=== PATIENT | female | born 1975 | race Caucasian/White ===

== ENCOUNTER 2023-11-26 07:49 | Outpatient (OUT) | payer OTHER, SELFPAY ==
[2023-11-26 08:15] LABS: Basophils Absolute Auto 0.1 10^3/uL (0.0-0.1); Basophils Percent Auto 0.7 % (0.2-2.0); Eosinophils Absolute Auto 0.3 10^3/uL (0.0-0.7); Eosinophils Percent Auto 4.9 % (0.9-7.0); Hemoglobin 13.2 g/dL (12.0-16.0); Immature Granulocytes Abs Auto 0.02 10^3/uL (0.00-0.03); Immature Granulocytes Pct Auto 0.3 % (0.0-0.5); Lymphocytes Absolute Auto 1.9 10^3/uL (1.2-3.8); Lymphocytes Percent Auto 28.1 % (20.5-60.0); Mean Corpuscular Hemoglobin 28.8 pg (26.7-34.0); Mean Corpuscular Volume 87.3 fL (81.0-99.0); Mean Platelet Volume 10.5 fL (9.5-13.5); Monocytes Absolute Auto 0.5 10^3/uL (0.3-0.8); Monocytes Percent Auto 6.6 % (1.7-12.0); Neutrophils Percent Auto 59.4 % (43.0-75.0); Platelet Count 248 10^3/uL (150-450); Red Blood Count 4.58 10^6/uL (4.20-5.40); Red Cell Distribution Width 13.3 % (11.0-15.0); White Blood Count 6.8 10^3/uL (4.0-11.0)
[2023-11-26 08:29] LABS: Erythrocyte Sedimentation Rate 28 mm/hr (<=20)
[2023-11-26 11:24] LABS: Alanine Aminotransferase 29 U/L (14-59); Albumin Globulin Ratio 1.1; Albumin Level 3.8 g/dL (3.4-5.0); Alkaline Phosphatase 76 U/L (46-116); Anion Gap 10.6; Aspartate Amino Transferase 19 U/L (15-37); BUN Creatinine Ratio 22.5; Bilirubin Total 0.5 mg/dL (0.2-1.0); C Reactive Protein 1.44 mg/dL (<=0.50); Calcium 9.2 mg/dL (8.5-10.1); Carbon Dioxide 31.5 mmol/L (21.0-32.0); Chloride 102 mmol/L (98-107); Estimated GFR (African America >60 (>=60); Estimated GFR (Non-African Ame >60 (>=60); Globulin 3.4 g/dL; Glucose 72 mg/dL (74-106); Potassium 4.1 mmol/L (3.5-5.1); Sodium 140 mmol/L (136-145); TSH W/ REFLEX FT4 2.785 uIU/mL (0.358-3.740); Total Protein 7.2 g/dL (6.4-8.2); Uric Acid 6.2 mg/dL (2.6-6.0)
[2023-11-27 06:09] LABS: Antistreptolysin O Ab 131.3 IU/mL (0.0-200.0); Rheumatoid Factor (RF) 10.4 IU/mL (<14.0)
[2023-11-27 13:11] LABS: Anti-CCP Ab, IgG/IgA 7 units (0-19)
[2023-11-29 15:09] LABS: Antinuclear Antibodies, IFA Negative (.)
== END 2023-11-26 07:50 | disposition home or self-care (01) ==
LOC: LAB 07:53
PROVIDERS: PCP Nurse Practitioner Family; Visit Provider Nurse Practitioner Family
DX: M25.50 Pain in unspecified joint (principal); R68.89 Other general symptoms and signs; I10 Essential (primary) hypertension; F41.9 Anxiety disorder, unspecified
CPT/HCPCS: 36415; 80053; 82306; 82607; 84443; 84550; 85025; 85652; 86038; 86060; 86140; 86200; 86431

== ENCOUNTER 2024-01-12 21:41 | Outpatient (REF) | payer OTHER, SELFPAY ==
--- OUTSIDE RECORDS SUMMARY | 2024-01-12 21:49 | XMS_ITS | CCD ---
Author Organization [facility] Care Team Providers Care Business Banking Manager Name Role Phone iDonisio Grimaldo Primary Care Physician BARBARA DANIELS Attending Unavailable BARBARA DANIELS Attending Unavailable DANIELLEMarisela Referring Unavailable DANIELLE ., DR ANTONIO Admitting Unavailable DANIELLE ., DR ANTONIO Attending Unavailable HOUSE, DR CHOPRA Primary Care Unavailable [place], DR KARLEE Neville Consulting Unavailable DANIELLE ., DR ANTONIO Consulting Unavailable YUKI, ANIYAH Admitting Unavailable YUKI, ANIYAH Attending Unavailable HOUSE, DR CHOPRA Primary Care Unavailable ZIEBER, DR CORNELIO Baez Consulting Unavailable YUKI, ANIYAH Consulting Unavailable HOUSE, DR CHOPRA Admitting Unavailable HOUSE, DR CHOPRA Attending Unavailable HOUSE, DR CHOPRA Primary Care Unavailable HOUSE, DR CHOPRA Consulting Unavailable ZIEBER, DR CORNELIO Baez Consulting Unavailable HOUSE, DR CHOPRA Admitting Unavailable HOUSE, DR CHOPRA Attending Unavailable HOUSE, DR CHOPRA Primary Care Unavailable HOUSE, DR CHOPRA Consulting Unavailable DANIELLE ., DR ANTONIO Admitting Unavailable DANIELLE ., DR ANTONIO Attending Unavailable HOUSE, DR CHOPRA Primary Care Unavailable DANIELLE ., DR ANTONIO Consulting Unavailable GLADIS, THOM Admitting Unavailable GLADIS, THOM Attending Unavailable HOUSE, DR CHOPRA Primary Care Unavailable MISC, DR MIGUEL Consulting Unavailable GLADIS, THOM Admitting Unavailable GLADIS, THOM Attending Unavailable HOUSE, DR CHOPRA Primary Care Unavailable MISC, DR MIGUEL Consulting Unavailable MISC, DR MIGUEL Admitting Unavailable MISC, DR MIGUEL Attending Unavailable HOUSE, DR CHOPRA Primary Care Unavailable SILVINO Bernal Primary Care Provider SILVINO Bernal Attending Provider MD Zeenat Graves Referring Provider [phone] YAHAIRA JONES Attending Unavailable HOUSE, DIONISIO P Referring Unavailable HOUSE, DIONISIO P Primary Care Unavailable HOUSE, DIONISIO P Primary Care Unavailable PHELPS, ZEENAT W Attending Unavailable PHELPS, ZEENAT W Attending Unavailable PHELPS, ZEENAT W Referring Unavailable HOUSE, DIONISIO P Primary Care Unavailable HOUSE, DIONISIO P Primary Care Unavailable PARK, JASON A Attending Unavailable PARK, JASON A Attending Unavailable PARK, JASON A Referring Unavailable HOUSE, DIONISIO P Primary Care Unavailable Ely, Zeenat Referring Unavailable MelviacherBarbara Admitting Unavailable Rohrbacher, Barbara Primary Care Unavailable Rohrbacher, Barbara Attending Unavailable BLACKSTONRENAN Attending Unavailable GUDZ, BRIE Referring Unavailable KELBLEY, BOUCHRA Attending Unavailable GUDZ, BRIE Referring Unavailable KELBLEY, BOUCHRA Attending Unavailable GUDZ, BRIE Referring Unavailable TATTERSBRITANY DEVI Attending Unavailable GUDZ, BRIE Referring Unavailable KELBLEY, BOUCHRA Attending Unavailable GUDZ, BRIE Referring Unavailable KELBLEY, BOUCHRA Attending Unavailable GUDZ, BRIE Referring Unavailable Allergies Allergy Classification Reported Allergen(s) Allergy Type Date of Onset Reaction(s) Facility (1 source) No Known Medication Allergies; Translations: [No Known Medication Allergies] Propensity to adverse reactions (disorder) [facility] Repository (1 source) amLODIPine; Translations: [AMLODIPINE] Drug Allergy 3 [facility] Repository (2 sources) Lisinopril; Translations: [LISINOPRIL] Drug Allergy 3 [facility] Medications Current Medications Medication Drug Class(es) Dates Sig (Normalized) Sig (Original) atorvastatin 20 mg oral tablet (2 sources) HMG-CoA Reductase Inhibitor Start: 11-24-2023 take 20 mg by mouth once daily Atorvastatin Active 20 MG PO Daily November 24, 2023 1:00am Start: 04-02-2022 take 1 mg by mouth once daily Lipitor 20 mg Tab mg tab(s), Oral, Daily, Refills(s) 0 Start Date: 04/02/22 Status: Ordered busPIRone hydrochloride 5 mg oral tablet (1 source) Start: 11-24-2023 take 5 mg by mouth twice daily Buspirone Active 5 MG PO Twice daily November 24, 2023 1:00am carvedilol 12.5 mg oral tablet (2 sources) alpha-Adrenergi c Kris, beta-Adrenergic Kris Start: 11-25-2023 take 12.5 mg by mouth twice daily at mealtime Carvedilol Active 12.5 MG PO Twice daily November 25, 2023 1:00am must administer with a meal/food Start: 04-02-2022 take 1 mg by mouth twice daily carvedilol 12.5 mg Tab mg tab(s), Oral, BID, Refills(s) 0 Start Date: 04/02/22 Status: Ordered clonazePAM 1 mg oral tablet (2 sources) Benzodiazepine Start: 11-24-2023 take 1 mg by mouth twice daily Clonazepam Active 1 MG PO Twice daily November 24, 2023 1:00am Start: 04-02-2022 take 1 tablet by timbo th three times daily Klonopin 1 mg Tab mg tab(s), Oral, TID, Refills(s) 0 Start Date: 04/02/22 Status: Ordered lisinopril 5 mg oral tablet (1 source) Angiotensin Converting Enzyme Inhibitor Start: 04-02-2022 take 1 mg by mouth once daily lisinopril 5 mg Tab mg tab(s), Oral, Daily, Refills(s) 0 Start Date: 04/02/22 Status: Ordered pregabalin 100 mg oral capsule (1 source) Start: 04-02-2022 take 1 mg by mouth twice daily Lyrica 100 mg Cap mg cap(s), Oral, BID, Refills(s) 0 Start Date: 04/02/22 Status: Ordered sertraline 50 mg oral tablet (3 sources) Serotonin Reuptake Inhibitor Start: 11-24-2023 take 100 mg by mouth once daily Sertraline Active 100 MG PO Daily November 24, 2023 1:00am Start: 11-24-2023 take 50 mg by mouth once daily Sertraline Active 50 MG PO Daily November 24, 2023 1:00am Start: 04-02-2022 take 1 mg by mouth once daily Zoloft 100 mg Tab mg tab(s), Oral, Daily, Refills(s) 0 Start Date: 04/02/22 Status: Ordered topiramate 50 mg oral tablet (1 source) Start: 04-02-2022 take 1 mg by mouth twice daily Topamax 50 mg Tab mg tab(s), Oral, BID, Refills(s) 0 Start Date: 04/02/22 Status: Ordered valsartan 80 mg oral tablet (1 source) Angiotensin 2 Receptor Kris Start: 11-24-2023 take 80 mg by mouth once daily Valsartan Active 80 MG PO Daily November 24, 2023 1:00am Problems Active Problems Problem Classification Problem Date Documented Date Episodic/Chronic Anxiety disorders (4 sources) Anxiety; Translations: [Anxiety disorder, unspecified] Onset: 7 04-02-2022 Chronic Coma; stupor; and brain damage (2 sources) Daytime somnolence; Translations: [Somnolence] 11-27-2023 Episodic Conditions associated with dizziness or vertigo (2 sources) Dizziness and giddiness; Translations: [Dizziness] Onset: 4 Episodic Disorders of lipid metabolism (1 source) Hypercholesterolemia 04-02-2022 Chronic Essential hypertension (4 sources) Hypertensive disorder; Translations: [Essential (primary) hypertension] Onset: 4 04-02-2022 Chronic Genitourinary symptoms and ill-defined conditions (4 sources) Urge incontinence; Translations: [Stress incontinence (female) (male)] Onset: 2 Chronic Genitourinary symptoms and ill-defined conditions (1 source) Increased frequency of urination 04-02-2022 Episodic Headache; including migraine (2 sources) Headache Onset: 4 04-02-2022 Episodic Mood disorders (4 sources) Depressive disorder; Translations: [Depression] Onset: 7 04-02-2022 Chronic Nonspecific chest pain (1 source) Chest pain, unspecified; Translations: [Chest pain, unspecified] Onset: 4 Episodic Osteoarthritis (2 sources) Arthritis; Translations: [Unspecified osteoarthritis, unspecified site] 11-25-2023 Chronic Other connective tissue disease (1 source) Other muscle spasm; Translations: [Other muscle spasm] Onset: 4 Episodic Other connective tissue disease (1 source) Pain in left foot; Translations: [Pain in left foot] Onset: 4 Episodic Other connective tissue disease (1 source) Pain in lower limb Onset: 4 Episodic Other ear and sense organ disorders (1 source) Hearing loss 04-02-2022 Chronic Other hematologic conditions (1 source) ESR raised; Translations: [Elevated erythrocyte sedimentation rate] 11-30-2023 Episodic Other hereditary and degenerative nervous system conditions (4 sources) Mild cognitive impairment, so stated; Translations: [MILD COGNTV IMPAIRMNT UNCRTN/UNKNWN] Onset: 3 Chronic Other lower respiratory disease (1 source) Shortness of breath; Translations: [SHORTNESS OF BREATH] Onset: 3 Episodic Other lower respiratory disease (1 source) Snoring; Translations: [Snoring] 11-27-2023 Episodic Other lower respiratory disease (1 source) Apnea; Translations: [Apnea, not elsewhere classified] 11-27-2023 Episodic Other lower respiratory disease (1 source) Apnea, not elsewhere classified; Translations: [Apnea] 11-25-2023 Episodic Other lower respiratory disease (1 source) Snoring; Translations: [Other respiratory abnormalities] 11-25-2023 Episodic Other non-traumatic joint disorders (1 source) Multiple joint pain; Translations: [Pain in unspecified joint] 11-25-2023 Episodic Other non-traumatic joint disorders (1 source) Pain in unspecified joint; Translations: [Pain in joint, multiple sites] 11-25-2023 Episodic Other screening for suspected conditions (not mental disorders or infectious disease) (11 sources) Encounter for screening mammogram for malignant neoplasm of breast; Translations: [Encounter for screening for malignant neoplasm of cervix] Onset: 2 Episodic Residual codes; unclassified (4 sources) Obstructive sleep apnea (adult) (pediatric); Translations: [OBSTRUCTIVE SLEEP APNEA] Onset: 2 Chronic Residual codes; unclassified (1 source) Sleep apnea; Translations: [Sleep apnea, unspecified] 11-27-2023 Chronic Residual codes; unclassified (1 source) Sleep apnea, unspecified; Translations: [Unspecified sleep apnea] 11-25-2023 Chronic Residual codes; unclassified (1 source) Forgetful; Translations: [Other general symptoms and signs] 11-25-2023 Episodic Residual codes; unclassified (2 sources) Other general symptoms and signs; Translations: [Other general symptoms] Onset: 4 11-25-2023 Episodic Spondylosis; intervertebral disc disorders; other back problems (1 source) Radiculopathy, lumbosacral region; Translations: [RADICULOPATHY LUMBOSACRAL REGION] Onset: 3 Episodic Unclassified (3 sources) COUGH, UNSPECIFIED; Translations: [COUGH, UNSPECIFIED] Onset: 3 Unclassified (3 sources) CONTACT W/AND (SUSP) EXPOS COVID-19; Translations: [CONTACT W/AND (SUSP) EXPOS COVID-19] Onset: 2 Unclassified (1 source) Leg Pain, Swelling, Redness Onset: 4 Past or Other Problems Problem Classification Problem Date Documented Date Episodic/Chronic Immunizations and screening for infectious disease (1 source) Encounter for screening for human papillomavirus (HPV); Translations: [ENC SCREENING HUMAN PAPILLOMAVIRUS] Onset: 05-22-2022 Episodic Unclassified (1 source) COUGH, UNSPECIFIED; Translations: [COUGH, UNSPECIFIED] Onset: 12-10-2022 Unclassified (1 source) CONTACT W/AND (SUSP) EXPOS COVID-19; Translations: [CONTACT W/AND (SUSP) EXPOS COVID-19] Onset: 02-20-2022 Results Test Name Value Interpretation Reference Range Facility Alanine aminotransferase [En zymatic activity/volume] in Serum or PlasmaOrdered By: Barbara Bernal on 12-23-2023 ALT [Catalytic activity/Vol] 15 U/L 7-[address] [facility] Albumin [Mass/volume] in Ser um or Plasma by Bromocresol green (BCG) dye binding methoOrdered By: Barbara Bernal on 12-23-2023 Albumin BCG dye [Mass/Vol] 4.3 g/dL 3.5-5.[address] [facility] Alkaline phosphatase [Enzyma tic activity/volume] in Serum or PlasmaOrdered By: Barbara Bernal on 12-23-2023 ALP [Catalytic activity/Vol] 66 U/L 34-[address] [facility] Anti-Streptolysin O Antibody on 12-23-2023 Anti-Streptolysin O Antibody 118.0 Normal 0.0-200.0 [facility] Comment on above: Result Comment: Perf ormed at: - [facility] [address] [id number] Business Analyst Manager: Winston Simon PhD, Phone: [phone] PERFORMED BY: [place] [address] PATHOLOGIST KEYPUNCH OPERATOR LAKHWINDER ALY M.D. Performed By: #### U LACHELLE, CRP, CMP, B12 #### [address] #### ASO #### [facility] , Aspartate aminotransferase [ Enzymatic activity/volume] in Serum or PlasmaOrdered By: Barbara Bernal on 12-23-2023 AST [Catalytic activity/Vol] 13 U/L 13-[address] [facility] Bilirubin.total [Mass/volume ] in Serum or PlasmaOrdered By: Barbara Bernal on 12-23-2023 Bilirubin [Mass/Vol] 0.5 mg/dL 0.3-1.0 [facility] C reactive protein [Mass/vol ume] in Serum or PlasmaOrdered By: Barbara Bernal on 12-23-2023 CRP [Mass/Vol] 1.1 mg/dL 0.0-0.[address] [facility] C-Reactive Proteinon 024 C-Reactive Protein 1.1 mg/dL High 0.0-0.5 [facility] Comment on above: Performed By: #### U LACHELLE, CRP, CMP, B12 #### [address] #### ASO #### [facility] , Calcium [Mass/volume] in Ser um or PlasmaOrdered By: Barbara Bernal on 12-23-2023 Calcium [Mass/Vol] 9.7 mg/dL 8.6-10.3 [facility] Carbon dioxide, total [Moles /volume] in Serum or PlasmaOrdered By: Barbara Bernal on 12-23-2023 CO2 [Moles/Vol] 29.9 mmol/L 21.0-31.0 [facility] Chloride [Moles/volume] in S lloyd or PlasmaOrdered By: Barbara Bernal on 12-23-2023 Chloride [Moles/Vol] 104 mmol/L 98-107 [facility] Comprehensive Metabolic Pane shiva 12-23-2023 Albumin [Mass/Vol] 4.3 g/dL Normal 3.5-5.7 [facility] Comment on above: Performed By: #### U LACHELLE, CRP, CMP, B12 #### [facility] [address] [place] [address] [place] #### ASO #### [facility] , Albumin/Globulin [Mass ratio] 2.0 {ratio} Normal [facility] Comment on above: Performed By: #### U LACHELLE, CRP, CMP, B12 #### [facility] [address] [place] [address] [place] #### ASO #### [facility] , ALP [Catalytic activity/Vol] 66 U/L Normal 34-104 [facility] Comment on above: Performed By: #### U LACHELLE, CRP, CMP, B12 #### [facility] [address] [place] [address] [place] #### ASO #### [facility] , ALT [Catalytic activity/Vol] 15 U/L Normal 7-52 [facility] Comment on above: Performed By: #### U LACHELLE, CRP, CMP, B12 #### [place] [address] [place] #### ASO #### [facility] , Anion gap [Moles/Vol] 8.4 mmol/L Normal 6.0-15.0 [facility] Comment on above: Performed By: #### U LACHELLE, CRP, CMP, B12 #### [facility] [address] [place] [address] [place] #### ASO #### [facility] , AST [Catalytic activity/Vol] 13 U/L Normal 13-39 [facility] Comment on above: Performed By: #### U LACHELLE, CRP, CMP, B12 #### [facility] [address] [place] [address] [place] #### ASO #### [facility] , Bilirubin [Mass/Vol] 0.5 mg/dL Normal 0.3-1.0 [facility] Comment on above: Performed By: #### U LACHELLE, CRP, CMP, B12 #### [place] [address] [place] #### ASO #### [facility] , Calcium [Mass/Vol] 9.7 mg/dL Normal 8.6-10.3 [facility] Comment on above: Performed By: #### U LACHELLE, CRP, CMP, B12 #### [facility] [address] [place] [address] #### ASO #### [facility] , Chloride [Moles/Vol] 104 mmol/L Normal 98-107 [facility] Comment on above: Performed By: #### U LACHELLE, CRP, CMP, B12 #### [address] #### ASO #### [facility] , CO2 [Moles/Vol] 29.9 mmol/L Normal 21.0-31.0 [facility] Comment on above: Performed By: #### U LACHELLE, CRP, CMP, B12 #### [address] #### ASO #### [facility] , Creatinine [Mass/Vol] 0.52 mg/dL Low 0.60-1.20 [facility] Comment on above: Performed By: #### U LACHELLE, CRP, CMP, B12 #### [facility] [address] [place] [address] [place] #### ASO #### [facility] , GFR/1.73 sq M.predicted MDRD (S/P/Bld) [Vol rate/Area] mL/min/{1.73_m2} Normal [facility] Comment on above: Performed By: #### U LACHELLE, CRP, CMP, B12 #### [place] [address] [place] #### ASO #### [facility] , Globulin (S) [Mass/Vol] 2.2 g/dL Normal [facility] Comment on above: Performed By: #### U LACHELLE, CRP, CMP, B12 #### [place] [address] [place] #### ASO #### [facility] , Glucose [Mass/Vol] 78 mg/dL Normal 70-100 [facility] Comment on above: Result Comment: [facility] Glucose Reference Range is dependent on time and content of last meal. Glucose of more than 200 mg/dL in a nonstressed, ambulatory subject supports the diagnosis of Diabetes Mellitus. ADA recommended reference range Performed By: #### U LACHELLE, CRP, CMP, B12 #### [place] [address] [place] #### ASO #### [facility] , Potassium [Moles/Vol] 4.3 mmol/L Normal 3.5-5.1 [facility] Comment on above: Performed By: #### U LACHELLE, CRP, CMP, B12 #### [place] [address] [place] #### ASO #### [facility] , Protein [Mass/Vol] 6.5 g/dL Normal 6.4-8.9 [facility] Comment on above: Performed By: #### U LACHELLE, CRP, CMP, B12 #### [place] [address] [place] #### ASO #### [facility] , Sodium [Moles/Vol] 138 mmol/L Normal 136-145 [facility] Comment on above: Performed By: #### U LACHELLE, CRP, CMP, B12 #### [place] [address] [place] #### ASO #### [facility] , Urea nitrogen [Mass/Vol] 19 mg/dL Normal 7-25 [facility] Comment on above: Performed By: #### U LACHELLE, CRP, CMP, B12 #### [facility] [address] [place] [address] #### ASO #### [facility] , Creatinine [Mass/volume] in Serum or PlasmaOrdered By: Barbara Bernal on 12-23-2023 Creatinine [Mass/Vol] 0.52 mg/dL 0.60-1.20 [facility] Globulin Calc (S) [Mass/Vol] Ordered By: Barbara Bernal on 12-23-2023 Globulin (S) [Mass/Vol] 2.2 g/dL [facility] Glucose [Mass/volume] in Ser um or PlasmaOrdered By: Barbara Bernal on 12-23-2023 Glucose [Mass/Vol] 78 mg/dL 70-100 [facility] Comment on above: ADA recommended refe rence rangeRandom Glucose Reference Range is dependent on time and content of last meal. Glucose of more than 200 mg/dL in a nonstressed, ambulatory subject supports the diagnosis of Diabetes Mellitus. No Panel InformationOrdered By: Barbara Bernal on 12-23-2023 Estimated GFR (CKD-EPI) > 60.0 mL/Min [facility] Creatinine Clearance (Chem N/A [facility] Potassium [Moles/volume] in Serum or PlasmaOrdered By: Barbara Bernal on 12-23-2023 Potassium [Moles/Vol] 4.3 mmol/L 3.5-5.1 [facility] Protein [Mass/volume] in Ser um or PlasmaOrdered By: Barbara Bernal on 12-23-2023 Protein [Mass/Vol] 6.5 g/dL 6.4-8.9 [facility] Serum or plasma albumin/glob ulin mass ratioOrdered By: Barbara Bernal on 12-23-2023 Albumin/Globulin [Mass ratio] 2.0 {ratio} [facility] Serum or plasma anion gap de terminationOrdered By: Barbara Bernal on 12-23-2023 Anion gap [Moles/Vol] 8.4 mmol/L 6.0-15.0 [facility] Sodium [Moles/volume] in Ser um or PlasmaOrdered By: Barbara Bernal on 12-23-2023 Sodium [Moles/Vol] 138 mmol/L 136-145 [facility] Urate [Mass/volume] in Serum or PlasmaOrdered By: Barbara Bernal on 12-23-2023 Urate [Mass/Vol] 5.6 mg/dL 2.3-6.6 [facility] Urea nitrogen [Mass/volume] in Serum or PlasmaOrdered By: Barbara Bernal on 12-23-2023 Urea nitrogen [Mass/Vol] 19 mg/dL 7-[address] [facility] Uric Acidon 12-23-2023 Urate [Mass/Vol] 5.6 mg/dL Normal 2.3-6.6 [facility] Comment on above: Performed By: #### U LACHELLE, CRP, CMP, B12 #### [address] #### ASO #### [facility] , Vitamin B12on 12-23-2023 Cobalamin (Vitamin B12) [Mass/Vol] 402 pg/mL Normal 180-914 [facility] Comment on above: Result Comment: PERF ORMED BY: [place] [address] PATHOLOGIST KEYPUNCH OPERATOR LAKHWINDER ALY M.D. Performed By: #### U LACHELLE, CRP, CMP, B12 #### [place] [address] [place] #### ASO #### [facility] , Vitamin B12 ser/plasOrdered By: Barbara Bernal on 12-23-2023 Cobalamin (Vitamin B12) [Mass/Vol] 402 pg/mL 180-[address] [facility] XR hand BI 2Von 12-23-2023 XR hand BI 2V [facility] [place] [address] [place] [address] XRay Report Signed Patient: Jeannine Feliciano MR#: [id number] : 1975 Acct:[id number] Age/Sex: 48 / F ADM Date: 12/23/23 Loc: [facility] Room: Type: [facility] Attending Dr: SANTOSH Haro APRN Copies to: Barbara Bernal APRN, CNP Ordering Provider: Barbara Bernal APRN, CNP Date of Service: 12/23/23 XR/XR hand BI 2V: HAND PAIN XR hand BI 2V 12/23/2023 3:05 PM SIGNS AND SYMPTOMS: Pain in bilateral hands PROTOCOL: Frontal and lateral radiographs of the bilateral hands COMPARISON: None FINDINGS: There are a few periarticular cystic changes or erosions in the interphalangeal joints, most notably in the fifth digit on the right. There is mild diffuse soft tissue swelling. There is no fracture or dislocation. There is mild narrowing of the distal interphalangeal joints. There is narrowing of the radiocarpal joint spaces. There is a steep radial inclination measuring 31 degrees on the right and 39 degrees on the left. There is accompanying positive ulnar variance, right greater than left. XR/XR hand BI 2V IMPRESSION: There is a steep radial inclination measuring 31 degrees on the right and 39 degrees on the left. There is accompanying positive ulnar variance, right greater than left. Mild degenerative changes in the radiocarpal joint spaces. Additional degenerative changes are noted as above. Impression dictated by: Eduardo Ponce M.D.12/23/2023 4:17 PM Dictation Location: [place] [address] Transcribed By: [facility] 12/23/23 161 Dictated By: Eduardo Ponce II, MD 12/23/23 1611 Signed By: 12/23/23 161 Normal [facility] Basophils Auto (Bld) [#/Vol] on 11-26-2023 Basophils (Bld) [#/Vol] 0.1 10 3/uL 0.0-0.[address] [facility] Basophils/100 WBC Auto (Bld) on 11-26-2023 Basophils/100 WBC (Bld) 0.7 % 0.2-2.0 F [facility] Eosinophils/100 WBC Auto (Bl d)on 11-26-2023 Eosinophils/100 WBC (Bld) 4.9 % 0.9-7.[address] [facility] Erythrocyte distribution wid th Auto (RBC) [Ratio]on 11-26-2023 Erythrocyte distribution width (RBC) [Ratio] 13.3 % 11.0-15.[address] [facility] Estimated glomerular filtrat ion rate (GFR) non- Americanon 11-26-2023 GFR/1.73 sq M.predicted among non-blacks MDRD (S/P/Bld) [Vol rate/Area] mL/min/{1.73_m2} >=[address] [facility] Globulin Calc (S) [Mass/Vol] on 11-26-2023 Globulin (S) [Mass/Vol] 3.4 g/dL F [facility] Hematocrit Auto (Bld) [Volum e fraction]on 11-26-2023 Hematocrit (Bld) [Volume fraction] 40.0 % 36.0-48.[address] [facility] Hemoglobin [Mass/volume] in Bloodon 11-26-2023 Hemoglobin (Bld) [Mass/Vol] 13.2 g/dL 12.0-16.[address] [facility] Laboratory - Chemistry and C hemistry - challengeon 11-26-2023 Albumin [Mass/Vol] 3.8 g/dL 3.4-5.0 [facility] ALP [Catalytic activity/Vol] 76 U/L 46-[address] [facility] ALT [Catalytic activity/Vol] 29 U/L 14-[address] [facility] AST [Catalytic activity/Vol] 19 U/L 15-[address] [facility] Bilirubin [Mass/Vol] 0.5 mg/dL 0.2-1.0 [facility] Calcium [Mass/Vol] 9.2 mg/dL 8.5-10.1 [facility] Chloride [Moles/Vol] 102 mmol/L 98-107 [facility] CO2 [Moles/Vol] 31.5 mmol/L 21.0-32.0 [facility] Cobalamin (Vitamin B12) [Mass/Vol] 706.0 pg/mL 193.0-986.[address] [facility] Creatinine [Mass/Vol] 0.71 mg/dL 0.55-1.02 [facility] GFR/1.73 sq M.predicted MDRD (S/P/Bld) [Vol rate/Area] mL/min/{1.73_m2} >=[address] [facility] Glucose [Mass/Vol] 72 mg/dL 74-106 [facility] System Potassium [Moles/Vol] 4.1 mmol/L 3.5-5.1 [facility] Protein [Mass/Vol] 7.2 g/dL 6.4-8.2 [facility] Sodium [Moles/Vol] 140 mmol/L 136-145 [facility] TSH Qn 2.785 m[IU]/L 0.358-3.[address] [facility] Urate [Mass/Vol] 6.2 mg/dL 2.6-6.0 [facility] Urea nitrogen [Mass/Vol] 16.0 mg/dL 7.0-18.[address] [facility] Urea nitrogen/Creatinine [Mass ratio] 22.5 mg/mg [facility] Laboratory - Hematology and Cell countson 11-26-2023 ESR (Bld) [Velocity] 28 mm/h <=20 [facility] Immature granulocytes/100 WBC (Bld) 0.3 % 0.0-0.[address] [facility] Leukocytes [#/volume] correc frances for nucleated erythrocytes in Blood by Automated counon 11-26-2023 WBC corrected for nucl RBC Auto (Bld) [#/Vol] 6.8 10 3/uL 4.0-11.[address] [facility] Lymphocytes Auto (Bld) [#/Vo l]on 11-26-2023 Lymphocytes (Bld) [#/Vol] 1.9 10 3/uL 1.2-3.[address] [facility] Lymphocytes/100 WBC Auto (Bl d)on 11-26-2023 Lymphocytes/100 WBC (Bld) 28.1 % 20.5-60.[address] [facility] MCH Auto (RBC) [Entitic mass ]on 11-26-2023 MCH (RBC) [Entitic mass] 28.8 pg 26.7-34.[address] [facility] MCHC Auto (RBC) [Mass/Vol]on 11-26-2023 MCHC (RBC) [Mass/Vol] 33.0 g/dL 29.9-35.2 [facility] MCV Auto (RBC) [Entitic vol] on 11-26-2023 MCV (RBC) [Entitic vol] 87.3 fL 81.0-99.0 F [facility] Monocytes Auto (Bld) [#/Vol] on 11-26-2023 Monocytes (Bld) [#/Vol] 0.5 10 3/uL 0.3-0.[address] [facility] Monocytes/100 WBC Auto (Bld) on 11-26-2023 Monocytes/100 WBC (Bld) 6.6 % 1.7-12.0 F [facility] Neutrophils Auto (Bld) [#/Vo l]on 11-26-2023 Neutrophils (Bld) [#/Vol] 4.0 10 3/uL 1.4-6.[address] [facility] Neutrophils/100 WBC Auto (Bl d)on 11-26-2023 Neutrophils/100 WBC (Bld) 59.4 % 43.0-75.[address] [facility] No Panel Informationon 11-25 25-Hydroxy Vitamin D Total 40.8 ng/mL [facility] Comment on above: <20 ng/mL Vit D defi cient20-<30 ng/mL Vit D dclqdhicvlzc42-340 ng/mL Vit D sufficient>100 ng/mL Potential Toxicity Anti-Streptolysin O Antibody 131.3 [IU]/mL 0.0-200.[address] [facility] Comment on above: Performed at: - [address] [id number] Director: Winston Simon PhD, Phone: [phone] C-Reactive Protein, Quantitative 1.44 mg/dL <=0.[address] [facility] Eosinophils # (Auto) 0.3 10 3/uL 0.0-0.7 [facility] Immature Granulocyte # (Auto) 0.02 10 3/uL 0.00-0.[address] [facility] Platelet mean volume Auto (B ld) [Entitic vol]on 11-26-2023 Platelet mean volume (Bld) [Entitic vol] 10.5 fL 9.5-13.[address] [facility] Platelets Auto (Bld) [#/Vol] on 11-26-2023 Platelets (Bld) [#/Vol] 248 10 3/uL 150-[address] [facility] RBC Auto (Bld) [#/Vol]on RBC (Bld) [#/Vol] 4.58 10 6/uL 4.20-5.40 [facility] Serum nuclear antibody titer on 11-26-2023 Nuclear Ab (S) [Titer] Negative . [facility] Comment on above: Negative <1:80 Borde rline 1:80 Positive >1:80ICAP nomenclature: AC-0For more information about Hep-2 cell patterns useANApatterns.org, the official website for theInternational Consensus on Antinuclear Antibody (RISA)Patterns (ICAP).Performed at: [facility] [employer] [place], [place] [id number] Director: Winston Simon PhD, Phone: [phone] Serum or plasma albumin/glob ulin mass ratioon 11-26-2023 Albumin/Globulin [Mass ratio] 1.1 {ratio} [facility] Serum or plasma anion gap de terminationon 11-26-2023 Anion gap [Moles/Vol] 10.6 mmol/L [facility] Serum or plasma cyclic adeno sine monophosphate measurement (moles/volume)on 11-26-2023 Adenosine monophosphate.cyclic [Moles/Vol] 7 units 0-[address] [facility] Comment on above: Negative <20 Weak po sitive 20 - 39 Moderate positive 40 - 59 Strong positive >59Performed at: [employer] [place], [place] [id number] Director: Winston Simon PhD, Phone: [phone] Serum or plasma rheumatoid f actor measurement (units/volume)on 11-26-2023 Rheumatoid factor Qn 10.4 [IU]/mL <14.0 [facility] CBC AND AUTO DIFFon 02-09-20 24 ABSOLUTE BASOPHIL 0.1 X10E9/L Normal 0.0-0.2 [facility] Comment on above: Performed By: #### 1 0839-9, 29604-4, CBCA, CMP, 91213-4 #### [facility] ([id number]) [address] [place] [address] 76524 ABSOLUTE NEUTROPHIL 5.5 X10E9/L Normal 1.5-6.6 [facility] Comment on above: Performed By: #### 1 0839-9, 17494-4, CBCA, CMP, 08540-8 #### [facility] ([id number]) [address] [place] [address] 09783 Basophils/100 WBC (Bld) 1.0 % Normal [facility] Comment on above: Performed By: #### 1 0839-9, 80158-9, CBCA, CMP, 97894-2 #### [facility] ([id number]) [address] [place] [address] 63686 Eosinophils (Bld) [#/Vol] 0.4 10*3/uL Normal 0.0-0.4 [facility] Comment on above: Performed By: #### 1 0839-9, 87189-0, CBCA, CMP, 53003-1 #### [facility] ([id number]) [address] [place] [address] 38152 Eosinophils/100 WBC (Bld) 4.9 % Normal [facility] Comment on above: Performed By: #### 1 0839-9, 00343-4, CBCA, CMP, 23363-9 #### [facility] ([id number]) [address] [place] [address] 38733 Erythrocyte distribution width (RBC) [Ratio] 13.8 % Normal 11.5-15.0 [facility] Comment on above: Performed By: #### 1 0839-9, 26511-4, CBCA, CMP, 71857-7 #### [facility] ([id number]) [address] [place] [address] 59714 Hematocrit (Bld) [Volume fraction] 40.2 % Normal 35-47 [facility] Comment on above: Performed By: #### 1 0839-9, 70966-5, CBCA, CMP, 37907-6 #### [facility] ([id number]) [address] [place] [address] 85998 Hemoglobin (Bld) [Mass/Vol] 13.6 g/dL Normal 11.7-15.5 [facility] Comment on above: Performed By: #### 1 0839-9, 33879-9, CBCA, CMP, 17710-9 #### [facility] ([id number]) [address] [place] [address] 78545 Lymphocytes (Bld) [#/Vol] 1.9 10*3/uL Normal 1.0-3.5 [facility] Comment on above: Performed By: #### 1 0839-9, 63061-9, CBCA, CMP, 40540-5 #### [facility] ([id number]) [address] [place] [address] 71511 Lymphocytes/100 WBC (Bld) 22.7 % Normal [facility] Comment on above: Performed By: #### 1 0839-9, 17935-5, CBCA, CMP, 17937-0 #### [facility] ([id number]) [address] [place] [address] 09655 MCH (RBC) [Entitic mass] 29.4 pg Normal 27-34 [facility] Comment on above: Performed By: #### 1 0839-9, 75706-5, CBCA, CMP, 63044-2 #### [facility] ([id number]) [address] [place] [address] 26325 MCHC (RBC) [Mass/Vol] 33.9 g/dL Normal 32-36 [facility] Comment on above: Performed By: #### 1 0839-9, 07807-5, CBCA, CMP, 78678-1 #### [facility] ([id number]) [address] [place] [address] 55446 MCV (RBC) [Entitic vol] 87 fL Normal 80-100 [facility] Comment on above: Performed By: #### 1 0839-9, 12115-1, CBCA, CMP, 31999-1 #### [facility] ([id number]) [address] [place] [address] 28591 Monocytes (Bld) [#/Vol] 0.6 10*3/uL Normal 0-0.9 [facility] Comment on above: Performed By: #### 1 0839-9, 84002-6, CBCA, CMP, 34540-3 #### [facility] ([id number]) [address] [place] [address] 91447 Monocytes/100 WBC (Bld) 6.9 % Normal [facility] Comment on above: Performed By: #### 1 0839-9, 44772-2, CBCA, CMP, 16512-4 #### [facility] ([id number]) [address] [place] [address] 13215 Neutrophils/100 WBC (Bld) 64.5 % Normal [facility] Comment on above: Performed By: #### 1 0839-9, 52864-4, CBCA, CMP, 59822-5 #### [facility] ([id number]) [address] [place] [address] 14356 Platelet mean volume (Bld) [Entitic vol] 9.1 fL Normal 7-12 [facility] Comment on above: Performed By: #### 1 0839-9, 18434-9, CBCA, CMP, 39785-5 #### [facility] ([id number]) [address] [place] [address] 56567 Platelets (Bld) [#/Vol] 278 10*3/uL Normal 150-450 [facility] Comment on above: Performed By: #### 1 0839-9, 83626-0, CBCA, CMP, 98115-8 #### [facility] ([id number]) [address] [place] [address] 82395 RBC COUNT 4.64 X10E12/L Normal 3.80-5.20 [facility] Comment on above: Performed By: #### 1 0839-9, 40655-5, CBCA, CMP, 73336-0 #### [facility] ([id number]) [address] [place] [address] 31321 WBC (Bld) [#/Vol] 8.5 10*3/uL Normal 4.0-11.0 [facility] Comment on above: Performed By: #### 1 0839-9, 02129-8, CBCA, CMP, 36660-8 #### [facility] ([id number]) [address] [place] [address] 96876 COMPREHENSIVE METABOLIC PANE Shiva 10-30-2023 Albumin [Mass/Vol] 4.1 g/dL Normal 3.2-5.3 [facility] Comment on above: Performed By: #### 1 0839-9, 87319-9, CBCA, CMP, 01087-2 #### [facility] ([id number]) [address] [place] [address] 87566 ALP [Catalytic activity/Vol] 77 U/L Normal 39-130 [facility] Comment on above: Performed By: #### 1 0839-9, 33936-7, CBCA, CMP, 67347-0 #### [facility] ([id number]) [address] [place] [address] 29614 ALT [Catalytic activity/Vol] 18 U/L Normal 0-31 [facility] Comment on above: Performed By: #### 1 0839-9, 05938-2, CBCA, CMP, 60019-5 #### [facility] ([id number]) [address] [place] [address] 42070 Anion gap [Moles/Vol] 12 mmol/L Normal 5-15 [facility] Comment on above: Performed By: #### 1 0839-9, 28937-5, CBCA, CMP, 09611-7 #### [facility] ([id number]) [address] [place] [address] 93308 AST [Catalytic activity/Vol] 19 U/L Normal 0-41 [facility] Comment on above: Performed By: #### 1 0839-9, 85372-9, CBCA, CMP, 40431-3 #### [facility] ([id number]) [address] [place] [address] 80875 Bilirubin [Mass/Vol] 0.5 mg/dL Normal 0.3-1.2 [facility] Comment on above: Performed By: #### 1 0839-9, 96153-5, CBCA, CMP, 40567-9 #### [facility] ([id number]) [address] [place] [address] 69528 Calcium [Mass/Vol] 9.1 mg/dL Normal 8.5-10.5 [facility] Comment on above: Performed By: #### 1 0839-9, 50593-4, CBCA, CMP, 70488-3 #### [facility] ([id number]) [address] [place] [address] 05992 Chloride [Moles/Vol] 101 mmol/L Normal 98-109 [facility] Comment on above: Performed By: #### 1 0839-9, 73314-1, CBCA, CMP, 32491-3 #### [facility] ([id number]) [address] [place] [address] 94442 CO2 [Moles/Vol] 25 mmol/L Normal 22-32 [facility] Comment on above: Performed By: #### 1 0839-9, 65237-1, CBCA, CMP, 87012-8 #### [facility] ([id number]) [address] [place] [address] 59985 Creatinine [Mass/Vol] 1.16 mg/dL High 0.40-1.00 [facility] Comment on above: Result Comment: METH OD TRACEABLE TO IDMS STANDARD Performed By: #### 1 0839-9, 97282-1, CBCA, CMP, 28808-2 #### [facility] ([id number]) [address] [place] [address] 25197 GFR/1.73 sq M.predicted among non-blacks MDRD (S/P/Bld) [Vol rate/Area] 58 mL/min/{1.73_m2} Low >59 [facility] Comment on above: Result Comment: Reported eGFR is based on the CKD-EPI 2020 equation that does not use a race coefficient. Performed By: #### 1 0839-9, 50030-7, CBCA, CMP, 91263-6 #### [facility] ([id number]) [address] [place] [address] 35435 Glucose [Mass/Vol] 109 mg/dL High 65-99 [facility] Comment on above: Performed By: #### 1 0839-9, 56420-6, CBCA, CMP, 75167-7 #### [facility] ([id number]) [address] [place] [address] 05774 Potassium [Moles/Vol] 4.3 mmol/L Normal 3.5-5.0 [facility] Comment on above: Performed By: #### 1 0839-9, 19102-5, CBCA, CMP, 58993-6 #### [facility] ([id number]) [address] [place] [address] 86016 Protein [Mass/Vol] 6.5 g/dL Normal 6.0-8.0 [facility] Comment on above: Performed By: #### 1 0839-9, 39558-3, CBCA, CMP, 51193-7 #### [facility] ([id number]) [address] [place] [address] 60730 Sodium [Moles/Vol] 138 mmol/L Normal 134-146 [facility] Comment on above: Performed By: #### 1 0839-9, 44161-1, CBCA, CMP, 61338-4 #### [facility] ([id number]) [address] [place] [address] 11228 Urea nitrogen [Mass/Vol] 44 mg/dL High 5-23 [facility] Comment on above: Performed By: #### 1 0839-9, 21465-8, CBCA, CMP, 10192-0 #### [facility] ([id number]) [address] [place] [address] 53305 Fibrin D-dimer DDU (PPP) [Ma ss/Vol]on 10-30-2023 D DIMER <150 Normal <255 [facility] Comment on above: Result Comment: Results <255 ng/mL DDU: The presence of a VTE can safely be excluded with a negative D-Dimer result and Wells score. A negative result doesn't exclude the possibility of DIC. The test be repeated along with other diagnostic tests if the patient's symptoms persist or worsen. [email or web address] Performed By: #### 1 0839-9, 64618-0, CBCA, CMP, 55251-2 #### [facility] ([id number]) [address] [place] [address] 32668 Natriuretic peptide B [Mass/ Vol]on 10-30-2023 BRN NATRIURETIC PEP <5 Normal <100.0 [facility] Comment on above: Performed By: #### C MP, CBCA, 96544-3 #### [facility] ([id number]) [address] [place] [address] 66507 TROPONIN Ion 10-30-2023 Troponin I.cardiac [Mass/Vol] 0.04 ng/mL Normal 0.00-0.04 [facility] Comment on above: Performed By: #### 1 0839-9, 51819-3, CBCA, CMP, 67602-4 #### [facility] ([id number]) [address] [place] [address] 90888 XR CHEST 1 VWon 10-30-2023 XR CHEST 1 VW XR CHEST 1 VW History: lightheadedness Exam/Technique: Single AP view of the chest was obtained Comparison: Chest x-ray 08/09/2021 Findings: Cardiomediastinal silhouette is within normal range. Lungs are clear. There is no focal areas of airspace disease, pleural effusion or pneumothorax. IMPRESSION: Unremarkable chest x-ray Finalized by Lacey Ruiz MD on 10/30/2023 1:[address] [facility] CBC AND AUTO DIFFon 10-15-19 24 ABSOLUTE BASOPHIL 0.1 X10E9/L Normal 0.0-0.2 [facility] Comment on above: Performed By: #### C MP, CBCA, 15995-3 #### [facility] ([id number]) [address] [place] [address] 09747 ABSOLUTE NEUTROPHIL 4.5 X10E9/L Normal 1.5-6.6 [facility] Comment on above: Performed By: #### C MP, CBCA, 98556-2 #### [facility] ([id number]) [address] [place] [address] 12202 Basophils/100 WBC (Bld) 0.9 % Normal [facility] Comment on above: Performed By: #### C MP, CBCA, 21940-8 #### [facility] ([id number]) [address] [place] [address] 93650 Eosinophils (Bld) [#/Vol] 0.3 10*3/uL Normal 0.0-0.4 [facility] Comment on above: Performed By: #### C JESSE, CBCA, 54390-7 #### [facility] ([id number]) [address] [place] [address] 81753 Eosinophils/100 WBC (Bld) 4.0 % Normal [facility] Comment on above: Performed By: #### C JESSE, CBCA, 57824-4 #### [facility] ([id number]) [address] [place] [address] 77722 Erythrocyte distribution width (RBC) [Ratio] 13.6 % Normal 11.5-15.0 [facility] Comment on above: Performed By: #### C JESSE, CBCA, 02007-7 #### [facility] ([id number]) [address] [place] [address] 75434 Hematocrit (Bld) [Volume fraction] 38.8 % Normal 35-47 [facility] Comment on above: Performed By: #### C JESSE, CBCA, 98295-2 #### [facility] ([id number]) [address] [place] [address] 63218 Hemoglobin (Bld) [Mass/Vol] 13.0 g/dL Normal 11.7-15.5 [facility] Comment on above: Performed By: #### C JESSE, CBCA, 95846-8 #### [facility] ([id number]) [address] [place] [address] 59410 Lymphocytes (Bld) [#/Vol] 3.0 10*3/uL Normal 1.0-3.5 [facility] Comment on above: Performed By: #### C MP, CBCA, 18904-3 #### [facility] ([id number]) [address] [place] [address] 72572 Lymphocytes/100 WBC (Bld) 34.8 % Normal [facility] Comment on above: Performed By: #### C JESSE, CBCA, 89126-5 #### [facility] ([id number]) [address] [place] [address] 39385 MCH (RBC) [Entitic mass] 28.8 pg Normal 27-34 [facility] Comment on above: Performed By: #### C JESSE, CBCA, 51439-5 #### [facility] ([id number]) [address] [place] [address] 46612 MCHC (RBC) [Mass/Vol] 33.4 g/dL Normal 32-36 [facility] Comment on above: Performed By: #### C JESSE, CBCA, 01650-8 #### [facility] ([id number]) [address] [place] [address] 07444 MCV (RBC) [Entitic vol] 86 fL Normal 80-100 [facility] Comment on above: Performed By: #### C JESSE, CBCA, 08502-6 #### [facility] ([id number]) [address] [place] [address] 16938 Monocytes (Bld) [#/Vol] 0.6 10*3/uL Normal 0-0.9 [facility] Comment on above: Performed By: #### C JESSE, CBCA, 86175-5 #### [facility] ([id number]) [address] [place] [address] 39157 Monocytes/100 WBC (Bld) 6.8 % Normal [facility] Comment on above: Performed By: #### C JESSE, CBCA, 70143-2 #### [facility] ([id number]) [address] [place] [address] 16974 Neutrophils/100 WBC (Bld) 53.5 % Normal [facility] Comment on above: Performed By: #### C JESSE, CBCA, 88450-5 #### [facility] ([id number]) [address] [place] [address] 63627 Platelet mean volume (Bld) [Entitic vol] 9.0 fL Normal 7-12 [facility] Comment on above: Performed By: #### C JESSE, CBCA, 02433-6 #### [facility] ([id number]) [address] [place] [address] 12770 Platelets (Bld) [#/Vol] 291 10*3/uL Normal 150-450 [facility] Comment on above: Performed By: #### C JESSE, CBCA, 31443-8 #### [facility] ([id number]) [address] [place] [address] 07919 RBC COUNT 4.49 X10E12/L Normal 3.80-5.20 [facility] Comment on above: Performed By: #### C JESSE, CBCA, 68915-6 #### [facility] ([id number]) [address] [place] [address] 59629 WBC (Bld) [#/Vol] 8.5 10*3/uL Normal 4.0-11.0 [facility] Comment on above: Performed By: #### C JESSE, CBCA, 82534-6 #### [facility] ([id number]) [address] [place] [address] 94286 COMPREHENSIVE METABOLIC PANE Shiva 10-15-2023 Albumin [Mass/Vol] 4.1 g/dL Normal 3.2-5.3 [facility] Comment on above: Performed By: #### C JESSE, CBCA, 45421-2 #### [facility] ([id number]) [address] [place] [address] 74145 ALP [Catalytic activity/Vol] 70 U/L Normal 39-130 [facility] Comment on above: Performed By: #### C NATHALIE MOLINA, 62979-6 #### [facility] ([id number]) [address] [place] [address] 89224 ALT [Catalytic activity/Vol] 19 U/L Normal 0-31 [facility] Comment on above: Performed By: #### C NATHALIE MOLINA, 22046-7 #### [facility] ([id number]) [address] [place] [address] 48286 Anion gap [Moles/Vol] 7 mmol/L Normal 5-15 [facility] Comment on above: Performed By: #### C NATHALIE MOLINA, 33453-8 #### [facility] ([id number]) [address] [place] [address] 77394 AST [Catalytic activity/Vol] 14 U/L Normal 0-41 [facility] Comment on above: Performed By: #### C NATHALIE MOLINA, 35706-5 #### [facility] ([id number]) [address] [place] [address] 57982 Bilirubin [Mass/Vol] 0.8 mg/dL Normal 0.3-1.2 [facility] Comment on above: Performed By: #### C NATHALIE MOLINA, 57642-7 #### [facility] ([id number]) [address] [place] [address] 16253 Calcium [Mass/Vol] 9.2 mg/dL Normal 8.5-10.5 [facility] Comment on above: Performed By: #### C NATHALIE MOLINA, 96480-0 #### [facility] ([id number]) [address] [place] [address] 25038 Chloride [Moles/Vol] 105 mmol/L Normal 98-109 [facility] Comment on above: Performed By: #### C NATHALIE MOLINA, 39628-9 #### [facility] ([id number]) [address] [place] [address] 12726 CO2 [Moles/Vol] 25 mmol/L Normal 22-32 [facility] Comment on above: Performed By: #### C NATHALIE MOLINA, 54421-8 #### [facility] ([id number]) [address] [place] [address] 66410 Creatinine [Mass/Vol] 0.67 mg/dL Normal 0.40-1.00 [facility] Comment on above: Result Comment: METH OD TRACEABLE TO IDMS STANDARD Performed By: #### C NATHALIE MOLINA, 75261-2 #### [facility] ([id number]) [address] [place] [address] 84615 eGFR (CKD-EPI) NON-RACE DEPENDENT >90 Normal >59 [facility] Comment on above: Result Comment: Reported eGFR is based on the CKD-EPI 2021 equation that does not use a race coefficient. Performed By: #### C NATHALIE MOLINA, 88220-7 #### [facility] ([id number]) [address] [place] [address] 42038 Glucose [Mass/Vol] 96 mg/dL Normal 65-99 [facility] Comment on above: Performed By: #### C NATHALIE MOLINA, 73276-4 #### [facility] ([id number]) [address] [place] [address] 21136 Potassium [Moles/Vol] 4.1 mmol/L Normal 3.5-5.0 [facility] Comment on above: Performed By: #### C NATHALIE MOLINA, 23575-3 #### [facility] ([id number]) [address] [place] [address] 26267 Protein [Mass/Vol] 6.8 g/dL Normal 6.0-8.0 [facility] Comment on above: Performed By: #### C JESSE CBCA, 14402-0 #### [facility] ([id number]) [address] [place] [address] 69140 Sodium [Moles/Vol] 137 mmol/L Normal 134-146 [facility] Comment on above: Performed By: #### C JESSE CBCA, 50920-8 #### [facility] ([id number]) [address] [place] [address] 80922 Urea nitrogen [Mass/Vol] 26 mg/dL High 5-23 [facility] Comment on above: Performed By: #### C JESSE CBCA, 15066-2 #### [facility] ([id number]) [address] [place] [address] 95405 Fibrin D-dimer DDU (PPP) [Ma ss/Vol]on 10-15-2023 D DIMER 179 ng/mL DDU Normal <255 [facility] Comment on above: Result Comment: Results <255 ng/mL DDU: The presence of a VTE can safely be excluded with a negative D-Dimer result and Wells score. A negative result doesn't exclude the possibility of DIC. The test be repeated along with other diagnostic tests if the patient's symptoms persist or worsen. [email or web address] Performed By: #### C JESSE CBCA, 63216-6 #### [facility] ([id number]) [address] [place] [address] 39476 SARS/FLU A+B/RSV by NAAT/Mol ecularon 10-15-2023 SARS/FLU A+B/RSV by NAAT/Molecular FLU A PCR Negative (qualifier value) FLU B PCR Negative (qualifier value) RSV by PCR Negative (qualifier value) SARS CoV 2 Not detected (qualifier value) NOTE The Xpert Xpress SARS-CoV-2/Flu/RSV Plus test is a rapid, multiplexed real-time RT-PCR test intended for the simultaneous qualitative detection and differentiation of SARS-CoV-2, influenza A, influenza B and respiratory syncytial virus (RSV) viral RNA from individuals suspected of respiratory viral infection consistent with COVID-19 by their healthcare provider. This test has not been validated in asymptomatic patients. The Xpert Xpress SARS-CoV-2 test is intended for use by qualified and trained operators who are performing tests using either [employer] or [facility] systems and is limited to laboratories that meet the CLIA requirements to perform high and moderate complexity tests. The Xpert Xpress SARS-CoV-2/Flu/RSV Plus is only for use under the Food and Drug Administration's Emergency Use Authorization. Results are for the simultaneous detection and differentiation of SARS-CoV-2, influenza A, influenza B and RSV nucleic acids in clinical specimens. SARS-CoV-2, influenza A, influenza B and RSV RNA identified by this test are generally detectable in upper respiratory samples during the acute phase of infection. Positive results are indicative of the presence of the identified virus, but do not rule out bacterial infection or co-infection with other pathogens not detected by this test. Clinical correlation with patient history and other diagnostic information is necessary to determine patient infection status. The agent detected may not be the definite cause of disease. Negative results do not preclude SARS-CoV-2, influenza A, influenza B and RSV infection and should not be used as the sole basis for treatment or other patient management decisions. Negative results must be combined with clinical observations, patient history and epidemiological information. An Invalid result may occur with specimen-associated inhibition unable to be resolved with specimen repeat. Fact Sheet for Healthcare Providers: https://www.fda.gov/m edia/184436/download Fact Sheet for Patients: https://www.fda.gov/m edia/152647/download Normal [facility] Comment on above: Performed By: #### C OVFLR #### [facility] ([id number]) [address] [place] [id number] XR FOOT LT MIN 3 VWSon 10-15 XR FOOT LT MIN 3 VWS XR FOOT LT MIN 3 VW S CLINICAL INFORMATION: Tenderness of the sole of the left foot, evaluate for bony pathology TECHNIQUE/PROCEDURE: 3 views of the left foot COMPARISON: No relevant prior studies available. FINDINGS: Normal alignment. No fracture or periosteal reaction. No osseous erosions. Degenerative changes including calcaneal spurring. IMPRESSION: No acute osseous abnormality. Calcaneal spurring. Finalized by Santino Godoy MD on 10/15/2023 1:[address] [facility] XR CHEST 2 Von 12-10-2022 XR CHEST 2 V EXAMINATION: XR CHES T 2 V HISTORY: Cough COMPARISON: XR chest 05/05/2021 FINDINGS: LUNGS: No significant pulmonary parenchymal abnormalities. VASCULATURE: No increased pulmonary vasculature. PLEURA: No pneumothorax, effusion, or pleural thickening. CARDIAC: No cardiomegaly or cardiac silhouette abnormality. MEDIASTINUM: No visible mass or adenopathy. BONES: No fracture or visible bone lesion. OTHER: Negative. IMPRESSION: 1. No acute cardiopulmonary process. Electronically authenticated by: CORNELIO MANCINI Date: 2022-12-10 08:09 Normal [facility] MRI [facility] WO CONon 11-05-19 23 MRI [facility] WO CON EXAMINATION: MRI LSPINE WO CON HISTORY: Lumbosacral radiculopathy ; chronic lumbar pain, chronic left leg pain and weakness COMPARISON: MRI L-spine 04/19/2020 TECHNIQUE: A variety of imaging planes and parameters were utilized for visualization of suspected pathology. FINDINGS: For the purposes of numbering, sagittal T2 image # 11 extends from the T11 vertebral body superiorly to the S4 level inferiorly. PARASPINAL AREA: Normal with no visible mass. BONES: CORD/CAUDA EQUINA: Normal caliber, contour, and signal intensity. DISC LEVELS: 12-L1: Moderate-marked central canal narrowing without significant foramen narrowing. Moderate diffuse disc bulging without disc height reduction. Mild degenerative facet arthropathy and ligamentum flavum thickening bilaterally. L1-L2: No significant disc/facet abnormality, spinal stenosis, or foraminal stenosis. L2-L3: Moderate central canal and bilateral foramen narrowing. Mild diffuse disc bulging without disc height reduction. Moderate degenerative facet hypertrophy and ligamentum flavum thickening. L3-L4: Moderate marked central canal and moderate bilateral foramen narrowing. Mild diffuse disc bulging without disc height reduction. Moderate degenerative facet arthropathy bilaterally. L4-L5: Mild-moderate central canal and moderate bilateral foramen narrowing. Mild diffuse disc bulging and mild degenerative facet arthropathy bilaterally. No significant disc height reduction. L5-S1: Mild central canal and moderate foramen narrowing bilaterally. Moderate diffuse disc bulging and mild disc height reduction. Mild degenerative facet arthropathy. IMPRESSION: 1. Multilevel central canal and foramen narrowing secondary to degenerative disc disease and degenerative facet arthropathy. Electronically authenticated by: CORNELIO MANCINI Date: 2022-11-05 10:21 Normal [facility] TSHon 11-05-2022 TSH 1.783 uIU/mL Normal 0.358-3.740 [facility] Comment on above: Performed By: #### T SH #### [facility] [address] [place] [address] Dr. Anuel Doran VIT B12 AND FOLATEon 023 Cobalamin (Vitamin B12) [Mass/Vol] 618.0 pg/mL Normal 193.0-986.0 [facility] Comment on above: Performed By: #### B 12FOL #### [facility] [address] [place] [address] Dr. Anuel Doran FOLATE 23.40 ng/mL Normal 8.60-58.90 [facility] Comment on above: Performed By: #### B 12FOL #### [facility] [address] [place] [address] Dr. Anuel Doran MG MAMM SCREEN 3D BIANCA CADon 06-06-2022 MG MAMM SCREEN 3D BIANCA CAD Patient: JEANNINE FELICIANO Exam Date: 06/06/2022 : 1975 Gender:F Ordering : DR MARISELA SANTOS . Admission #: [id number] Family : Order #: [id number] CLICK HERE TO VIEW EXAM RADIOLOGY REPORT PROCEDURE: MAMMOGRAM SCREENING 3D BILATERAL CAD COMPARISON: MG MAMM SCREEN BIANCA W CAD, 09/23/2019. INDICATIONS: Screening mammography Calculator Name NCI Breast Cancer Risk Assessment Tool 5 Year Breast Cancer Risk 0.90% Lifetime Breast Cancer Risk 9.20% Personal Breast Cancer No Personal Ovarian Cancer No Treatments None Family Cancers None LOCATION: [facility] BREAST COMPOSITION: Scattered areas fibroglandular density. FINDINGS: DIAGNOSTIC CATEGORY 1--NEGATIVE. NO CHANGE FROM COMPARISON ASSESSMENT. RIGHT BREAST: No significant suspicious finding. LEFT BREAST: No significant suspicious finding. RECOMMENDATIONS: ROUTINE MAMMOGRAM AND CLINICAL EVALUATION IN 12 MONTHS. PLEASE NOTE: A NORMAL MAMMOGRAM DOES NOT EXCLUDE THE POSSIBILITY OF BREAST CANCER. A CLINICALLY SUSPICIOUS PALPABLE LUMP SHOULD BE BIOPSIED. Dictated by: Karlee Soliz MD on 06/06/2022 at 13:37 Approved by: Karlee Soliz MD on 06/06/2022 at 13:45 Normal [facility] PAP ACOG PANEL 2: 30 to 65on 05-29-2022 . . Normal [facility] Comment on above: Result Comment: Perf ormed at: WB Performed By: #### [id number] #### [facility] [address] [place] [address] Dr. Anuel Doran Age Gdln ACOG Testing 30-65 Normal [facility] Comment on above: Performed By: #### [id number] #### [facility] [address] [place] [address] Dr. Anuel Doran DIAGNOSIS: Comment Normal [facility] Comment on above: Result Comment: NEGA TIVE FOR INTRAEPITHELIAL LESION OR MALIGNANCY. Performed at: WB Performed By: #### [id number] #### [facility] [address] [place] [address] Dr. Anuel Doran HPV Aptima Negative Normal Negative [facility] Comment on above: Result Comment: This nucleic acid amplification test detects fourteen high-risk HPV types (16,18,31,33,35,39,45,51,52,56,58,59,66,68) without differentiation. Performed at: =G Performed By: #### [id number] #### [facility] [address] [address] [address] Anuel Doran Methodology: Comment Normal [facility] Comment on above: Result Comment: This liquid based ThinPrep(R) pap test was screened with the use of an image guided system. Performed at: WB Performed By: #### 4 [id number] #### [facility] [address] [place] [address] Dr. Anuel Doran Note: Comment Normal [facility] Comment on above: Result Comment: The Pap smear is a screening test designed to aid in the detection of premalignant and malignant conditions of the uterine cervix. It is not a diagnostic procedure and should not be used as the sole means of detecting cervical cancer. Both false-positive and false-negative reports do occur. . Performed at: WB Performed By: #### [id number] #### [facility] [address] [place] [address] Dr. Anuel Doran Performed by: Comment Normal [facility] Comment on above: Result Comment: Jocelyne Baltazar, Firer Kiln (ASCP) Performed at: WB Performed By: #### [id number] #### [facility] [address] [address] [address] Anuel Doran Specimen adequacy: Comment Normal [facility] Comment on above: Result Comment: Sati sfactory for evaluation. Endocervical and/or squamous metaplastic cells (endocervical component) are present. Performed at: WB Performed By: #### [id number] #### [facility] [address] [place] [address] Dr. Anuel Doran Formson 04-04-2022 Forms [id number] .[id number]:127 Normal [facility] Physician Referralon 022 Physician Referral [id number] 1.00CD:127 Normal [facility] Ambulatory Visit Summaryon 0 04-02-2022 Ambulatory Visit Summary DEION FELICIANOJEFF Baez :1975 Visit Date:04/02/2022 Ambulatory Visit Instructions Your Diagnosis Stress incontinence Tests Performed Urnls Dip Stick Auto w/o Microscopy POC 88215 Your Care Team Attending Physician - BARBARA DANIELS PA-C Primary Care Physician - Dionisio Grimaldo DO Referring Physician - Marisela SANTOS DO This Is Your Medications List atorvastatin (Lipitor 20 mg Tab) carvedilol (carvedilol 12.5 mg Tab) clonazepam (Klonopin 1 mg Tab) lisinopril (lisinopril 5 mg Tab) pregabalin (Lyrica 100 mg Cap) sertraline (Zoloft 100 mg Tab) topiramate (Topamax 50 mg Tab) Procedures Performed Cholecystectomy. Discharge Vitals Heart Rate (Peripheral) 84 Respiratory Rate 16 Blood Pressure 139/70 Height 154 cm Height 154.0 cm Weight 113 kg Weight 113.0 kg BMI 47.65 What to do next Scheduled Follow-Up Appointments Thursday 9:00 AM EDT With: BARBARA DANIELS PA-C Where: [facility] Ambulatory Visit Summary JEANNINE FELICIANO :1975 Visit Date:04/02/2022 Ambulatory Visit Instructions Your Diagnosis Stress incontinence Tests Performed Urnls Dip Stick Auto w/o Microscopy POC 43747 Your Care Team Attending Physician - BARBARA DANIELS PA-C Primary Care Physician - Dionisio Grimaldo DO Referring Physician - Marisela SANTOS DO This Is Your Medications List atorvastatin (Lipitor 20 mg Tab) carvedilol (carvedilol 12.5 mg Tab) clonazepam (Klonopin 1 mg Tab) lisinopril (lisinopril 5 mg Tab) pregabalin (Lyrica 100 mg Cap) sertraline (Zoloft 100 mg Tab) topiramate (Topamax 50 mg Tab) Procedures Performed Cholecystectomy. Discharge Vitals Heart Rate (Peripheral) 84 Respiratory Rate 16 Blood Pressure 139/70 Height 154 cm Height 154.0 cm Weight 113 kg Weight 113.0 kg BMI 47.65 What to do next Scheduled Follow-Up Appointments Thursday 9:00 AM EDT With: BARBARA DANIELS PA-C Where: [facility] Patient Educationon 04-02-20 Patient Education Obstetrics and Gynecology Kegel Exercises Kegel exercises can help strengthen your pelvic floor muscles. The pelvic floor is a group of muscles that support your rectum, small intestine, and bladder. In females, pelvic floor muscles also help support the womb (uterus). These muscles help you control the flow of urine and stool. Kegel exercises are painless and simple, and they do not require any equipment. Your provider may suggest Kegel exercises to: ? Improve bladder and bowel control. ? Improve sexual response. ? Improve weak pelvic floor muscles after surgery to remove the uterus (hysterectomy) or (females). ? Improve weak pelvic floor muscles after prostate gland removal or surgery (males). Kegel exercises involve squeezing your pelvic floor muscles, which are the same muscles you squeeze when you try to stop the flow of urine or keep from passing gas. The exercises can be done while sitting, standing, or lying down, but it is best to vary your position. Exercises How to do Kegel exercises: 1. Squeeze your pelvic floor muscles tight. You should feel a tight lift in your rectal area. If you are a female, you should also feel a tightness in your vaginal area. Keep your stomach, buttocks, and legs relaxed. 2. Hold the muscles tight for up to 10 seconds. 3. Breathe normally. 4. Relax your muscles. 5. Repeat as told by your health care provider. Repeat this exercise daily as told by your health care provider. Continue to do this exercise for at least 4?6 weeks, or for as long as told by your health care provider. You may be referred to a physical therapist who can help you learn more about how to do Kegel exercises. Depending on your condition, your health care provider may recommend: ? Varying how long you squeeze your muscles. ? Doing several sets of exercises every day. ? Doing exercises for several weeks. ? Making Kegel exercises a part of your regular exercise routine. This information is not intended to replace advice given to you by your health care provider. Make sure you discuss any questions you have with your health care provider. Document Released: 08/24/2013 Document Revised: 04/27/2019 Document Reviewed: 04/27/2019 [employer] Patient Education ? 2019 [employer]. Normal [facility] Patient Letter FTon 2021 Patient Letter [facility] April 02, 2022 SERAFIN JEANNINE R was evaluated at [facility] 04/02/2022 10:17:37 It is my medical opinion that Ms Feliciano drink plenty of fluids to remain properly hydrated while at work. It is equally important that she be allowed and encouraged to utilize the bathroom frequently throughout her work shift, even as often as every 2 hours or more if needed. Ms Feliciano should be allowed and encouraged to follow my medical advice. If you have any questions or concerns please reach out. Provider Signature: Barbara Daniels PA-C Physician Roll Cutting Operator [facility] [address] [place] [address] Normal [facility] Office/Clinic Noteon 04-02-2022 Urology Office/Clinic Note Chief Complaint referred for stress incontinence HPI Staff Jeannine is here today as a new patient referred for stress incontinence. Pt states she has woken up unaware that she has urinated in her sleep. 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 once she's home she goes every 30-90 mins while awake and then while sleeping it varies anywhere from 1-5x Urgency: _varies - severe sometimes at work Nocturia: _varies - see above Stream: _steady, no hesitancy, no straining Leaking: _Denies Post void dripping: _occasional Wearing pads/ Depends: _Denies Urge incontinence: _yes, rare Stress incontinence: _Yes sneeze and coughing Incontinence without Sensory Awareness: _ most of the time is aware when pt leaks Abdominal pain: _Denies Flank pain: _Denies Sexual complaints: _ History of Present Illness staff HPI reviewed and agree. Review of Systems no fever, chills, malaise, myalgia. no rash/lesions. no chest pain, palpitations, or SOB. no abdominal pain, nausea, vomiting. no unilateral calf swelling, redness, pain Physical Exam Vitals & Measurements HR: 84(Peripheral) RR: 16 BP: 139/70 HT: 154 cm HT: 154.0 cm WT: 113 kg WT: 113.0 kg BMI: 47.65 General: nontoxic, NAD Mouth: moist mucosa Lungs: normal respiratory effort Cardio: regular rate, good distal perfusion Abdomen: nondistended, no suprapubic distention or tenderness, no CVA tenderness Neurologic: Grossly normal Skin: No rashes or suspicious lesions Assessment/Plan 1. Urge incontinence (N39.41: Urge incontinence) had long discussion regarding overall bladder health. 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 Recommended increased hydration and timed voiding for bladder retraining. She will void q2hrs while awake. 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 she understands it will take a while to retrain. if sx persist despite consistent timed voiding then we will consider treatment vs urodynamics eval. Ordered: E&M of New Patient Moderate 45-59 Min 63931 2. Stress incontinence (N39.3: Stress incontinence (female) (male)) had extensive discussion regarding pelvic floor muscle rehab. pt provided written information to review at home and prefers to attempt self-guided exercises. if JOSE R persists we will consider formal PFPT at [facility] or [facility] vs Bulkamid vs sling placement. Ordered: E&M of New Patient Moderate 45-59 Min 28264 Urnls Dip Stick Auto w/o Microscopy POC 99721 f/u 3 mos. pt ok to cancel appt and f/u PRN if the above measures improve her sx sufficiently Total time spent reviewing previous notes/results/externa l documents, preparing the chart, conducting the encounter with the patient and family, ordering tests/medications, and documenting the encounter was 50 minutes. Follow-up With When Contact Information JEREMIAH ORSARIO, MARELY VÁZQUEZ Within [address] [place] [address] Additional Instructions: Patient Education Kegel Exercises Problem List/Past Medical History Ongoing Anxiety Deafness Depression Headache Hypercholesteremia Hypertension Stress incontinence Urge incontinence Urine frequency Historical No qualifying data Procedure/Surgical History Cholecystectomy. Medications carvedilol 12.5 mg Tab, Oral, BID Klonopin 1 mg Tab, Oral, TID Lipitor 20 mg Tab, Oral, Daily lisinopril 5 mg Tab, Oral, Daily Lyrica 100 mg Cap, Oral, BID Topamax 50 mg Tab, Oral, BID Zoloft 100 mg Tab, Oral, Daily Allergies No Known Medication Allergies Social History Tobacco - Denies Tobacco Use, 04/02/2022 Family History Alcoholism: Father. Heart disease: Mother. High blood pressure: Mother. High cholesterol: Mother. Lab Results Ambulatory Point of Care Results Bilirubin Urine Dipstick: 1+ Small (04/02/22 09:31:00) Blood Urine Dipstick: Negative (04/02/22 09:31:00) Glucose Urine Dipstick: Negative (04/02/22 09:31:00) Ketones Urine Dipstick: 1+ 15 mg/dl (04/02/22 09:31:00) Leukocytes Urine Dipstick: Negative (04/02/22 09:31:00) Nitrite Urine Dipstick: Negative (04/02/22 09:31:00) Protein Urine Dipstick: Trace (04/02/22 09:31:00) Specific [place] Urine Dipstick: >=1.030 (04/02/22 09:31:00) Urine Appearance Urine Dipstick: Clear (04/02/22 09:31:00) Urine Color Urine Dipstick: Yellow (04/02/22 09:31:00) Urobilinogen Urine Dipstick: Normal 0.2-1 EU/dl (04/02/22 09:31:00) pH Urine Dipstick: 6 (04/02/22 09:31:00) Normal [facility] Comment on above: Result Comment: Elec tronically Signed By: BARBRAA DANIELS PA-C\.br\Date and Time Signed: 04/02/22 11:56 EDT Covid-19 PCR (CVDTB)on SARS-CoV-2 (COVID-19) RNA ILSA+probe Ql (Unsp spec) Not detected Normal NOT DETECTED [facility] Comment on above: Result Comment: This test is not yet approved or cleared by the [place] FDA. When there are no FDA-approved or cleared tests available, and other criteria are met, FDA can make tests available under an emergency access mechanism called an Emergency Use Authorization (EUA). The EUA for this test is supported by the Director Of Sleep of Health and Human Service's (HHS's) declaration that circumstances exist to justify the emergency use of in vitro diagnostics for the detection and/or diagnosis of the virus that causes COVID-19. This EUA will remain in effect (meaning this test can be used) for the duration of the COVID-19 declaration justifying emergency of IVDs, unless it is terminated or revoked by FDA (after which the test may no longer be used). When diagnostic testing is negative, the possibility of a false negative should be considered in the context of a patient's recent exposures and the presence of clinical signs and symptoms consistent with SARS-CoV-2. Performed By: #### [facility] #### [facility] [address] [place] [address] Dr. Anuel Doran Vital Signs Date Time Vital Sign Value Performing Clinician Charly brunner 11-25-2023 08:22-0500 Body height 154.94 cm SECURITY PROJECT MANAGERElena Bernal Work Phone: [facility] 11-25-2023 08:22-0500 Body mass index (BMI) [Ratio] 46.6 kg/m2 SECURITY PROJECT MANAGERElena Bernal Work Phone: [facility] 11-25-2023 08:22-0500 Body weight 112.03 kg SECURITY PROJECT MANAGERElena Bernal Work Phone: [facility] 11-25-2023 08:22-0500 Diastolic blood pressure 80 mm[Hg] SECURITY PROJECT MANAGERElena Bernal Work Phone: [facility] 11-25-2023 08:22-0500 Heart rate 75 /min SECURITY PROJECT MANAGERElena Bernal Work Phone: [facility] 11-25-2023 08:22-0500 SaO2% (BldA) [Mass fraction] 98 % SECURITY PROJECT MANAGERElena Bernal Work Phone: [facility] 11-25-2023 08:22-0500 Systolic blood pressure 132 mm[Hg] SECURITY PROJECT MANAGERElena Bernal Work Phone: [facility] 04-02-2022 09:39-0400 Blood Pressure Location BARBARA DANIELS [facility] 04-02-2022 09:39-0400 Diastolic blood pressure 70 mm[Hg] BARBARA DANIELS [facility] 04-02-2022 09:39-0400 Heart rate 84 /min BARBARA DANIELS [facility] 04-02-2022 09:39-0400 Respiratory rate 16 /min BARBARA DANIELS [facility] 04-02-2022 09:39-0400 Systolic blood pressure 139 mm[Hg] BARBARA DANIELS [facility] Encounters Encounter Date Encounter Type Care Provider Facility Start: 01-08-2024 End: 01-08-2024 ambulatory BOUCHRA KELBLEY Not Available Start: 12-30-2023 End: 12-30-2023 ambulatory [facility] Start: 12-24-2023 End: 12-25-2023 ambulatory BOUCHRA KELBLEY Not Available Start: 12-23-2023 End: 12-23-2023 ambulatory Zeenat Graves Facility:[facility] Start: 12-23-2023 End: 12-23-2023 ambulatory SILVINO Bernal Work Phone: [facility] Work Phone: Start: 12-23-2023 End: 12-23-2023 Patient encounter procedure SILVINO Bernal Work Phone: [facility] Start: 12-22-2023 End: 12-23-2023 ambulatory BRITANY HAWKINS Not Available Start: 12-10-2023 End: 12-11-2023 ambulatory BOUCHRA KELBLEY Not Available Start: 12-07-2023 End: 12-08-2023 ambulatory BOUCHRA KELBLEY Not Available Start: 12-01-2023 End: 12-01-2023 ambulatory RENAN T BLACKSTON Not Available Start: 11-26-2023 Non-patient / Non-visit SECURITY PROJECT MANAGERElena Jimenez Dolores Work Phone: [facility] Work Phone: Start: 11-25-2023 End: 11-25-2023 Patient encounter procedure SECURITY PROJECT MANAGER Barbara Dolores Work Phone: [facility] Work Phone: Start: 10-30-2023 End: 10-31-2023 Emergency department patient visit JASON SALAS [facility] Start: 10-15-2023 End: 10-16-2023 Emergency department patient visit ZEENAT PHELPS [facility] Start: 12-10-2022 End: 12-11-[address] DIONISIO GRIMALDO Facility:[facility] Start: 11-05-2022 End: 11-06-2022 ambulatory ANIYAH MIRZA Facility:[facility] Start: 09-15-[address] DOCTOR COY Facility :[facility] Start: 09-02-2022 End: 09-03-2022 ambulatory THOM GLADIS Facility:[facility] Start: 08-05-2022 End: 08-06-2022 ambulatory THOM GLADIS Facility:[facility] Start: 07-02-2022 ambulatory BARBARA DANIELS Facili ty:[facility] Start: 06-06-2022 End: 06-07-[address] MARISELA SANTOS . Facility:[facility] Start: 05-21-2022 End: 05-21-[address] MARISELA SANTOS . Facility:[facility] Start: 04-02-2022 End: 04-03-2022 ambulatory BARBARA DANIELS Facility:[facility] Start: 04-02-2022 End: 04-02-2022 Patient encounter procedure BARBAAR DANIELS [facility] Start: 03-13-2022 ambulatory BARBARA DANIELS Facility :[facility] Start: 02-28-2022 ambulatory BARBARA DANIELS Facility :[facility] Start: 02-20-2022 End: 02-20-[address] DIONISIO GRIMALDO Facility:[facility] Procedures Date Procedure Procedure Detail Performing Clinician Start: 12-23-2023 Plain X-ray of bilat eral hands [employer]ITY PROJECT MANAGER Barbara Dolores Work Phone: Cholecystectomy BARBARAVAUGHN GANNON MORIS Plan of Treatment Date Care Activity Detail Author Start: 12-23-[address] [facility] Payers Date Payer Category Payer Self-pay [id number] 2023 Private Health Insurance [id number] 1974 Unknown [id number] 2.16.8 40.1.289493.3.579.2.727 1974 Unknown [id number] 2.16.8 40.1.952562.3.579.2.727 1974 Unknown [id number] 2.16.8 40.1.891615.3.579.2.727 1974 Unknown [id number] 2.16.8 40.1.782317.3.579.2.727 1974 Unknown [id number] 2.16.84 0.1.744855.3.579.2.593 1974 Unknown [id number] 2.16.84 0.1.421233.3.579.2.593 1974 Unknown [id number] 2.16.84 0.1.136034.3.579.2.593 1974 Unknown [id number] 2.16.84 0.1.227188.3.579.2.593 1974 Unknown [id number] 2.16.84 0.1.162257.3.579.2.593 1974 Unknown [id number] 2.16.84 0.1.056277.3.579.2.593 1974 Unknown [id number] 2.16.84 0.1.777097.3.579.2.593 1974 Unknown [id number] 2.16.84 0.1.095702.3.579.2.593 1974 Unknown [id number] 2.16.8 40.1.079427.3.579.2.1286 1974 Unknown [id number] 2.16.8 40.1.954248.3.579.2.1286 1974 Unknown [id number] 2.16.8 40.1.913774.3.579.2.1286 1974 Unknown [id number] 2.16.8 40.1.956973.3.579.2.1286 1974 Unknown [id number] 2.16.8 40.1.652273.3.579.2.1286 1974 Unknown [id number] 2.16.84 0.1.720120.3.579.2.1259 1974 Unknown [id number] 2.16.84 0.1.800717.3.579.2.1259 1974 Unknown [id number] 2.16.84 0.1.254958.3.579.2.1259 1974 Unknown [id number] 2.16.84 0.1.913517.3.579.2.1259 1974 Unknown [id number] 2.16.84 0.1.054575.3.579.2.1259 1974 Unknown [id number] 2.16.84 0.1.275556.3.579.2.1259 1959 Private Health Insurance [id number] 1960 Self-pay [id number] Unknown [id number] 2.16.8 40.1.171077.3.579.2.531 Social History Date Type Detail Facility Tobacco smoking status No Smokin g Status Entered [facility] Sex Assigned At Female [facility] Start: 11-25-2023 Tobacco smoking stat us NHIS Never smoked tobacco (finding) [facility] Start: 1975 Sex Assigned At Female F [facility] Functional Status Date Assessment Result Facility 04-02-2022 Functional Status N/A [facility] Discharge instructions 04-02-2022 Note Date & Type Note Facility 04-02-2022 Hospital Discharg e instructions Patient Education 04/02/2022 11:55:43 Kegel Exercises Kegel Exercises Kegel exercises can help strengthen your pelvic floor muscles. The pelvic floor is a group of muscles that support your rectum, small intestine, and bladder. In females, pelvic floor muscles also help support the womb (uterus). These muscles help you control the flow of urine and stool. Kegel exercises are painless and simple, and they do not require any equipment. Your provider may suggest Kegel exercises to: Improve bladder and bowel control. Improve sexual response. Improve weak pelvic floor muscles after surgery to remove the uterus (hysterectomy) or (females). Improve weak pelvic floor muscles after prostate gland removal or surgery (males). Kegel exercises involve squeezing your pelvic floor muscles, which are the same muscles you squeeze when you try to stop the flow of urine or keep from passing gas. The exercises can be done while sitting, standing, or lying down, but it is best to vary your position. Exercises How to do Kegel exercises: 1.Squeeze your pelvic floor muscles tight. You should feel a tight lift in your rectal area. If you are a female, you should also feel a tightness in your vaginal area. Keep your stomach, buttocks, and legs relaxed. 2.Hold the muscles tight for up to 10 seconds. 3.Breathe normally. 4.Relax your muscles. 5.Repeat as told by your health care provider. Repeat this exercise daily as told by your health care provider. Continue to do this exercise for at least 4 6 weeks, or for as long as told by your health care provider. You may be referred to a physical therapist who can help you learn more about how to do Kegel exercises. Depending on your condition, your health care provider may recommend: Varying how long you squeeze your muscles. Doing several sets of exercises every day. Doing exercises for several weeks. Making Kegel exercises a part of your regular exercise routine. This information is not intended to replace advice given to you by your health care provider. Make sure you discuss any questions you have with your health care provider. Document Released: 08/24/2013 Document Revised: 04/27/2019 Document Reviewed: 04/27/2019 [employer] Patient Education 2020 [employer]. Follow Up Care 03/13/2022 16:11:08 With:BARBARA DANIELS PA-C, URL Address: [address] [place] [address] When:[address] [facility] Evaluation + Plan note Note Date & Type Note Facility Evaluation + Plan note Future Appointments Appointment Date:07/02/2022 09:00:00 AM Scheduled Provider:BARBARA DANIELS PA-C Location:[facility] Appointment Type:URO Office Visit [facility] Evaluation note Note Date & Type Note Facility Evaluation note Diagnosis Onset Date Anxiety acute Arthritis acute Daytime somnolence acute Depression acute Episode of apnea acute Forgetfulness acute Hypertension acute Loud snoring acute Multiple joint pain acute Screening for colon cancer a cute Sleep apnea in adult acute [facility] Work Phone: Hospital course Narrative Note Date & Type Note Facility Hospital course Narrative No data available for this section [facility] Progress note Note Date & Type Note Facility Progress note No data available for this section [facility] Summary Purpose Family History No Family History Records Found Relationship Condition Age at Onset Recorded Date/T audrey father Heart disease Unknown History of stroke Unknown Unknown Not Specified Heart disease Unknown Fibromyalgia Unknown Advance Directives No Advanced Directives Records Found Advance Directive Response Recorded Date/ Time Advance Directives No November 23 10:06am Chief Complaint and Reason for Visit Chief Complaint Establish M25.50 R68.89 I10 hand pain Reason for Visit Anxiety Arthritis Daytime somnolence Depression Episode of apnea Forgetfulness Hypertension Loud snoring Multiple joint pain Screening for colon cancer Sleep apnea in adult Additional Source Comments Care Team (unrecognized sect ion and content) Team Status: Active Member Role Status Dates Barbara Bernal APRN PACKAGING ASSOCIATE-C Primary Care Provider Active Team Status: Inactive Member Role Status Dates Barbara Bernal APRN PACKAGING ASSOCIATE-C Primary Care Provider, Attending Provider Active Start: November 25, 2023 End: November 25, 2023 Team Status: Active Member Role Status Dates Barbara Bernal APRN PACKAGING ASSOCIATE-C Primary Care Provider, Attending Provider Active Start: November 26, 2023 Team Status: Inactive Member Role Status Dates Barbara Bernal APRN PACKAGING ASSOCIATE-C Primary Care Provider, Attending Provider Active Start: December 23, 2023 End: December 23, 2023 Zeenat Graves MD Referring Provider Active St art: December 23, 2023 End: December 23, 2023 INFORMATION SOURCE (unrecogn ized section and content) DATE CREATED AUTHOR 06/30/2022 [facility] DATE CREATED AUTHOR AUTHOR'S ORGANIZ ATION 12/14/2022 [facility] DATE CREATED AUTHOR AUTHOR'S ORGANIZ ATION 12/31/2023 [facility] DATE CREATED AUTHOR AUTHOR'S ORGANIZ ATION 01/03/2024 [facility] DATE CREATED AUTHOR AUTHOR'S ORGANIZ ATION 01/10/2024 [facility] EPIC Goals (unrecognized section and content) Goals may be documented in a n alternate section FOR RECORDS PERTAINING TO PATIENTS WHO ARE OR HAVE BEEN ENROLLED IN A CHEMICAL DEPENDENCY/SUBSTANCEABUSE PROGRAM, SOME INFORMATION MAY BE OMITTED. This clinical summary was aggregated from multiple sources. Caution should be exercised in using it in the provision of clinical care. This summary normalizes information from multiple sources, and as a consequence, information in this document may materially change the coding, format and clinical context of patient data. In addition, data may be omitted in some cases. CLINICAL DECISIONS SHOULD BE BASED ON THE PRIMARY CLINICAL RECORDS. [facility]. provides no warranty or guarantee of the accuracy or completeness of information in this document.
== END 2024-01-12 21:42 | disposition home or self-care (01) ==
LOC: LAB 21:41
PROVIDERS: PCP Nurse Practitioner Family; Visit Provider Physician Assistant
DX: Z01.419 Encounter for gynecological examination (general) (routine) without abnormal findings (principal)
CPT/HCPCS: 87624; G0145

== ENCOUNTER 2024-02-09 08:02 | Outpatient (OUT) | payer OTHER, SELFPAY ==
--- NOTE | 2024-02-09 08:05 | US_ITS ---
[address] [address] Patient Name: BLOSSOM BETANCOURT MRN: [id number] date: 1975 Sex: F Assigned Patient Location: [facility] Current Patient Location: [facility] Accession/Order Number: [id number] Exam Date: 02/09/2024 08:06 Report Date: 02/09/2024 09:15 At the request of: MARISELA SANTOS Procedure: US pelvis transvaginal EXAMINATION: US pelvis transvaginal HISTORY: IUD PLACEMENT , bleeding COMPARISON: No relevant comparison available. TECHNIQUE: Transabdominal and/or transvaginal sonographic examination was performed as indicated by examination type. FINDINGS: UTERUS: Normal size and appearance. Uterus size: 7.2 x 3.4 x 5.2 cm ENDOMETRIUM: IUD within endometrial cavity. Normal appearance of endometrium. Endometrial thickness: 6 mm RIGHT OVARY: Normal size and appearance. Duplex Doppler demonstrates normal waveform and flow; resistive index 0.6. Ovary size: 2.3 x 1.0 x 2.2 cm LEFT OVARY: Contains a 2.6 cm benign-appearing cyst. Duplex Doppler demonstrates normal waveform and flow; resistive index 0.6. Ovary size: 3.5 x 1.9 x 2.9 cm CUL-DE-SAC: Unremarkable. No significant free fluid. BLADDER: Unremarkable. OTHER: None. US/US pelvis transvaginal IMPRESSION: 1. IUD within endometrial cavity. No suspicious findings. Electronically authenticated by: CORNELIO MANCINI Date: 02/09/2024 09:15
--- OUTSIDE RECORDS SUMMARY | 2024-02-09 08:24 | XMS_ITS | CCD ---
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 Role Phone Dionisio Grimaldo Primary Care Physician [phone] BARBARA DANIELS Attending Unavailable BARBARA DANIELS Attending Unavailable DANIELLEMarisela Referring Unavailable DANIELLE ., DR ANTONIO Admitting Unavailable DANIELLE ., DR ANTONIO Attending Unavailable STARTEX, DR CHOPRA Primary Care Unavailable ARIVACA, DR KARLEE Neville Consulting Unavailable DANIELLE ., DR ANTONIO Consulting Unavailable YUKI, ANIYAH Admitting Unavailable YUKI, ANIYAH Attending Unavailable STARTEX, DR CHOPRA Primary Care Unavailable ZIEBER, DR CORNELIO Baez Consulting Unavailable YUKI, ANIYAH Consulting Unavailable HOUSE, DR CHOPRA Admitting Unavailable HOUSE, DR CHOPRA Attending Unavailable HOUSE, DR CHOPRA Primary Care Unavailable HOUSE, DR CHOPRA Consulting Unavailable ZIEBER, DR CORNELIO Baez Consulting Unavailable HOUSE, DR HCOPRA Admitting Unavailable HOUSE, DR CHOPRA Attending Unavailable [...] Primary Care Provider SILVINO Bernal Attending Provider [phone] MD Zeenat Graves Referring Provider YAHAIRA JONES Attending Unavailable HOUSE, DIONISIO P [...] Unavailable HOUSE, DIONISIO P Primary Care Unavailable Zeenat Graves Referring Unavailable Rohrbacher, Barbara Admitting Unavailable Rohrbacher, Barbara Primary Care Unavailable Rohrbacher, Barbara Attending Unavailable BLACKSTAMIKO, RENAN Borjas Attending Unavailable GUDZ, BRIE Referring Unavailable KELBLEY, BOUCHRA Attending Unavailable GUDZ, BRIE Referring Unavailable KELBLEY, BOUCHRA Attending Unavailable GUDZ, BRIE Referring Unavailable BRITANY HAWKINS Attending Unavailable GUDZ, BRIE Referring Unavailable KELBLEY, BOUCHRA Attending Unavailable GUDZ, BRIE Referring Unavailable KELBLEY, BOUCHRA Attending Unavailable GUDZ, BRIE Referring Unavailable APOLINAR MUNOZ Attending Unavailable DEJA, LUNA Attending Unavailable GUDZ, BRIE Referring Unavailable Allergies Allergy Classification Reported Allergen(s) Allergy Type Date of Onset Reaction(s) Facility (1 source) No Known Medication Allergies; Translations: [No Known Medication Allergies] Propensity to adverse reactions (disorder) [facility] Repository (1 source) amLODIPine; Translations: [AMLODIPINE] [...] 12-23-2023 ALT [Catalytic activity/Vol] 15 U/L 7-52 [facility] Albumin [Mass/volume] in Ser um or Plasma by Bromocresol green (BCG) dye binding methoOrdered By: Barbara Bernal on 12-23-2023 Albumin BCG dye [Mass/Vol] 4.3 g/dL 3.5-5.7 [facility] Alkaline phosphatase [Enzyma tic activity/volume] in Serum or PlasmaOrdered By: Barbara Bernal on 12-23-2023 ALP [Catalytic activity/Vol] 66 U/L 34-104 [facility] Anti-Streptolysin O Antibody on 12-23-2023 Anti-Streptolysin O Antibody 118.0 Normal 0.0-200.0 [facility] Comment on above: Result Comment: Perf ormed at: - [facility] [address] [id number] Dark Room Attendant: Winston Simon PhD, Phone: [phone] PERFORMED BY: [place] [address] PATHOLOGIST STUD SHEEP FARMER LAKHWINDER ALY M.D. Performed By: #### U LACHELLE, CRP, CMP, B12 #### [address] #### ASO #### [facility] , Aspartate aminotransferase [ Enzymatic activity/volume] in Serum or PlasmaOrdered By: Barbara eBrnal on 12-23-2023 AST [Catalytic activity/Vol] 13 U/L 13-39 [facility] Bilirubin.total [Mass/volume ] in Serum or PlasmaOrdered By: Barbara Bernal on 12-23-2023 Bilirubin [Mass/Vol] 0.5 mg/dL 0.3-1.0 [place] C reactive protein [Mass/vol ume] in Serum or PlasmaOrdered By: Barbara Bernal on 12-23-2023 CRP [Mass/Vol] 1.1 mg/dL 0.0-0.5 [facility] C-Reactive Proteinon 024 C-Reactive Protein 1.1 mg/dL High 0.0-0.5 [facility] Comment on above: Performed By: #### U LACHELLE, CRP, CMP, B12 #### [place] [address] [place] #### ASO #### [facility] , Calcium [Mass/volume] in Ser um or PlasmaOrdered By: Barbara Bernal on 12-23-2023 Calcium [Mass/Vol] 9.7 mg/dL 8.6-10.3 [facility] Carbon dioxide, total [Moles /volume] in Serum or PlasmaOrdered By: Barbara Bernal on 12-23-2023 CO2 [Moles/Vol] 29.9 mmol/L 21.0-31.0 [facility] Chloride [Moles/volume] in S lloyd or PlasmaOrdered By: Barbara Bernal on 12-23-2023 Chloride [Moles/Vol] 104 mmol/L 98-107 [place] [facility] Metabolic Pane shiva 12-23-2023 Albumin [Mass/Vol] 4.3 g/dL Normal 3.5-5.7 [facility] Comment on above: Performed By: #### U LACHELLE, CRP, CMP, B12 #### [facility] [address] [place] [address] [place] #### ASO #### [facility] , Albumin/Globulin [Mass ratio] 2.0 {ratio} Normal [facility] Comment on above: Performed By: #### U LACHELLE, CRP, CMP, B12 #### [address] #### ASO #### [facility] , ALP [Catalytic activity/Vol] 66 U/L Normal 34-104 [facility] Comment on above: Performed By: #### U LACHELLE, CRP, CMP, B12 #### [facility] [address] [place] [address] [place] #### ASO #### [facility] , ALT [Catalytic activity/Vol] 15 U/L Normal 7-52 [facility] Comment on above: Performed By: #### U LACHELLE, CRP, CMP, B12 #### [facility] [address] [place] [address] [place] #### ASO #### [facility] , Anion gap [Moles/Vol] 8.4 mmol/L Normal 6.0-15.0 [facility] Comment on above: Performed By: #### U LACHELLE, CRP, CMP, B12 #### [facility] [address] [place] [address] [place] #### ASO #### [facility] , AST [Catalytic activity/Vol] 13 U/L Normal 13-39 [facility] Comment on above: Performed By: #### U LACHELLE, CRP, CMP, B12 #### [place] [address] [place] #### ASO #### [facility] , Bilirubin [Mass/Vol] 0.5 mg/dL Normal 0.3-1.0 [facility] Comment on above: Performed By: #### U LACHELLE, CRP, CMP, B12 #### [place] [address] [place] #### ASO #### [facility] , Calcium [Mass/Vol] 9.7 mg/dL Normal 8.6-10.3 [facility] Comment on above: Performed By: #### U LACHELLE, CRP, CMP, B12 #### [place] [address] [place] #### ASO #### [facility] , Chloride [Moles/Vol] 104 mmol/L Normal 98-107 [facility] Comment on above: Performed By: #### U LACHELLE, CRP, CMP, B12 #### [place] [address] [place] #### ASO #### [facility] , CO2 [Moles/Vol] 29.9 mmol/L Normal 21.0-31.0 [facility] Comment on above: Performed By: #### U LACHELLE, CRP, CMP, B12 #### [place] [address] [place] #### ASO #### [facility] , Creatinine [Mass/Vol] 0.52 mg/dL Low 0.60-1.20 [facility] Comment on above: Performed By: #### U LACHELLE, CRP, CMP, B12 #### [place] [address] [place] #### ASO #### [facility] , GFR/1.73 sq M.predicted MDRD (S/P/Bld) [Vol rate/Area] mL/min/{1.73_m2} Normal [facility] Comment on above: Performed By: #### U LACHELLE, CRP, CMP, B12 #### [place] [address] [place] #### ASO #### [facility] , Globulin (S) [Mass/Vol] 2.2 g/dL Normal T [facility] Comment on above: Performed By: #### U LACHELLE, CRP, CMP, B12 #### [place] [address] [place] #### ASO #### [facility] , Glucose [Mass/Vol] 78 mg/dL Normal 70-100 [facility] Comment on above: Result Comment: [facility] Glucose Reference Range is dependent on time and content of last meal. Glucose of more than 200 mg/dL in a nonstressed, ambulatory subject supports the diagnosis of Diabetes Mellitus. ADA recommended reference range Performed By: #### U LACHELLE, CRP, CMP, B12 #### [place] [address] [place] #### ASO #### [facility] , Potassium [Moles/Vol] 4.3 mmol/L Normal 3.5-5.1 [facility] Comment on above: Performed By: #### U LACHELLE, CRP, CMP, B12 #### [place] [address] [place] #### ASO #### [facility] , Protein [Mass/Vol] 6.5 g/dL Normal 6.4-8.9 [facility] Comment on above: Performed By: #### U LACHELLE, CRP, CMP, B12 #### [place] [address] [place] #### ASO #### [facility] , Sodium [Moles/Vol] 138 mmol/L Normal 136-145 [facility] Comment on above: Performed By: #### U LACHELLE, CRP, CMP, B12 #### [place] [address] [place] #### ASO #### [facility] , Urea nitrogen [Mass/Vol] 19 mg/dL Normal 7-25 [facility] Comment on above: Performed By: #### U LACHELLE, CRP, CMP, B12 #### [facility] [address] #### ASO #### [facility] , Creatinine [Mass/volume] in Serum or PlasmaOrdered By: Barbara Bernal on 12-23-2023 Creatinine [Mass/Vol] 0.52 mg/dL 0.60-1.20 [facility] Globulin Calc (S) [Mass/Vol] Ordered By: Barbara Bernal on 12-23-2023 Globulin (S) [Mass/Vol] 2.2 g/dL [facility] Glucose [Mass/volume] in Ser um or PlasmaOrdered By: Barbara Bernal on 12-23-2023 Glucose [Mass/Vol] 78 mg/dL 70-100 [facility] Comment on above: ADA recommended refe rence rangeRandom Glucose Reference Range is dependent on time and content of last meal. Glucose of more than 200 mg/dL in a nonstressed, ambulatory subject supports the diagnosis of Diabetes Mellitus. No Panel InformationOrdered By: Barbara Bernal on 12-23-2023 Estimated GFR (CKD-EPI) > 60.0 mL/Min [facility] Creatinine Clearance (Chem N/A [facility] Potassium [Moles/volume] in Serum or PlasmaOrdered By: Barbara Bernal on 12-23-2023 Potassium [Moles/Vol] 4.3 mmol/L 3.5-5.1 [facility] Protein [Mass/volume] in Ser um or PlasmaOrdered By: Barbara Bernal on 12-23-2023 Protein [Mass/Vol] 6.5 g/dL 6.4-8.9 [facility] Serum or plasma albumin/glob ulin mass ratioOrdered By: Barbara Bernal on 12-23-2023 Albumin/Globulin [Mass ratio] 2.0 {ratio} [facility] Serum or plasma anion gap de terminationOrdered By: Barbara Bernal on 12-23-2023 Anion gap [Moles/Vol] 8.4 mmol/L 6.0-15.0 [facility] Sodium [Moles/volume] in Ser um or PlasmaOrdered By: Barbara Bernal on 12-23-2023 Sodium [Moles/Vol] 138 mmol/L 136-145 [facility] Urate [Mass/volume] in Serum or PlasmaOrdered By: Barbara Bernal on 12-23-2023 Urate [Mass/Vol] 5.6 mg/dL 2.3-6.6 [facility] Urea nitrogen [Mass/volume] in Serum or PlasmaOrdered By: Barbara Bernal on 12-23-2023 Urea nitrogen [Mass/Vol] 19 mg/dL 7-25 [facility] Uric Acidon 12-23-2023 Urate [Mass/Vol] 5.6 mg/dL Normal 2.3-6.6 [facility] Comment on above: Performed By: #### U LACHELLE, CRP, CMP, B12 #### [facility] [address] [place] [address] #### ASO #### [facility] , Vitamin B12on 12-23-2023 Cobalamin (Vitamin B12) [Mass/Vol] 402 pg/mL Normal 180-914 [facility] Comment on above: Result Comment: PERF ORMED BY: [place] [address] PATHOLOGIST STUD SHEEP FARMER LAKHWINDER ALY M.D. Performed By: #### U LACHELLE, CRP, CMP, B12 #### [facility] [address] [place] [address] [place] #### ASO #### [facility] , Vitamin B12 ser/plasOrdered By: Barbara Bernal on 12-23-2023 Cobalamin (Vitamin B12) [Mass/Vol] 402 pg/mL 180-914 [facility] XR hand BI 2Von 12-23-2023 XR hand BI 2V [facility] [place] [address] [place] [address] XRay Report Signed Patient: Jeannine Feliciano MR#: [id number] : 1975 Acct:[id number] Age/Sex: 48 / F ADM Date: 12/23/23 [facility]: [facility] Room: Type: [facility] Attending Dr: BASIA Haro APRNC Copies to: Barbara Bernal APRN, CNP Ordering [...] Eduardo Ponce M.D.12/23/2023 4:17 PM Dictation Location: [place] [address] Transcribed By: RAQUEL 12/23/23 1617 Dictated By: Eduardo Ponce II, MD 12/23/23 161 Signed By: 12/23/23 161 Normal [facility] Basophils Auto (Bld) [#/Vol] on 11-26-2023 Basophils (Bld) [#/Vol] 0.1 10 3/uL 0.0-0.1 [facility] Basophils/100 WBC Auto (Bld) on 11-26-2023 Basophils/100 WBC (Bld) 0.7 % 0.2-2.0 [facility] Eosinophils/100 WBC Auto (Bl d)on 11-26-2023 Eosinophils/100 WBC (Bld) 4.9 % 0.9-7.0 [facility] Erythrocyte distribution wid th Auto (RBC) [Ratio]on 11-26-2023 Erythrocyte distribution width (RBC) [Ratio] 13.3 % 11.0-15.0 [facility] Estimated glomerular filtrat ion rate (GFR) non- Americanon 11-26-2023 GFR/1.73 sq M.predicted among non-blacks MDRD (S/P/Bld) [Vol rate/Area] mL/min/{1.73_m2} >=60 [facility] Globulin Calc (S) [Mass/Vol] on 11-26-2023 Globulin (S) [Mass/Vol] 3.4 g/dL [facility] Hematocrit Auto (Bld) [Volum e fraction]on 11-26-2023 Hematocrit (Bld) [Volume fraction] 40.0 % 36.0-48.0 [facility] Hemoglobin [Mass/volume] in Bloodon 11-26-2023 Hemoglobin (Bld) [Mass/Vol] 13.2 g/dL 12.0-16.0 [facility] - Chemistry and C hemistry - challengeon 11-26-2023 Albumin [Mass/Vol] 3.8 g/dL 3.4-5.0 [facility] ALP [Catalytic activity/Vol] 76 U/L 46-116 [facility] ALT [Catalytic activity/Vol] 29 U/L 14-59 [facility] AST [Catalytic activity/Vol] 19 U/L 15-37 [facility] Bilirubin [Mass/Vol] 0.5 mg/dL 0.2-1.0 [place] Calcium [Mass/Vol] 9.2 mg/dL 8.5-10.1 [facility] Chloride [Moles/Vol] 102 mmol/L 98-107 [place] CO2 [Moles/Vol] 31.5 mmol/L 21.0-32.0 [facility] Cobalamin (Vitamin B12) [Mass/Vol] 706.0 pg/mL 193.0-986.0 [facility] Creatinine [Mass/Vol] 0.71 mg/dL 0.55-1.02 [facility] GFR/1.73 sq M.predicted MDRD (S/P/Bld) [Vol rate/Area] mL/min/{1.73_m2} >=60 [facility] Glucose [Mass/Vol] 72 mg/dL 74-106 [facility] Potassium [Moles/Vol] 4.1 mmol/L 3.5-5.1 [facility] Protein [Mass/Vol] 7.2 g/dL 6.4-8.2 [facility] Sodium [Moles/Vol] 140 mmol/L 136-145 [facility] TSH Qn 2.785 m[IU]/L 0.358-3.740 [facility] Urate [Mass/Vol] 6.2 mg/dL 2.6-6.0 [facility] Urea nitrogen [Mass/Vol] 16.0 mg/dL 7.0-18.0 [facility] Urea nitrogen/Creatinine [Mass ratio] 22.5 mg/mg [facility] - Hematology and Cell countson 11-26-2023 ESR (Bld) [Velocity] 28 mm/h <=20 [place] Immature granulocytes/100 WBC (Bld) 0.3 % 0.0-0.5 [facility] Leukocytes [#/volume] correc frances for nucleated erythrocytes in Blood by Automated counon 11-26-2023 WBC corrected for nucl RBC Auto (Bld) [#/Vol] 6.8 10 3/uL 4.0-11.0 [facility] Lymphocytes Auto (Bld) [#/Vo l]on 11-26-2023 Lymphocytes (Bld) [#/Vol] 1.9 10 3/uL 1.2-3.8 [facility] Lymphocytes/100 WBC Auto (Bl d)on 11-26-2023 Lymphocytes/100 WBC (Bld) 28.1 % 20.5-60.0 [facility] MCH Auto (RBC) [Entitic mass ]on 11-26-2023 MCH (RBC) [Entitic mass] 28.8 pg 26.7-34.0 [facility] MCHC Auto (RBC) [Mass/Vol]on 11-26-2023 MCHC (RBC) [Mass/Vol] 33.0 g/dL 29.9-35.2 [facility] MCV Auto (RBC) [Entitic vol] on 11-26-2023 MCV (RBC) [Entitic vol] 87.3 fL 81.0-99.0 [facility] Monocytes Auto (Bld) [#/Vol] on 11-26-2023 Monocytes (Bld) [#/Vol] 0.5 10 3/uL 0.3-0.8 [facility] Monocytes/100 WBC Auto (Bld) on 11-26-2023 Monocytes/100 WBC (Bld) 6.6 % 1.7-12.0 [facility] Neutrophils Auto (Bld) [#/Vo l]on 11-26-2023 Neutrophils (Bld) [#/Vol] 4.0 10 3/uL 1.4-6.5 [facility] Neutrophils/100 WBC Auto (Bl d)on 11-26-2023 Neutrophils/100 WBC (Bld) 59.4 % 43.0-75.0 [facility] No Panel Informationon 11-25 25-Hydroxy Vitamin D Total 40.8 ng/mL [facility] Comment on above: <20 ng/mL Vit D defi cient20-<30 ng/mL Vit D [id number] ng/mL Vit D sufficient>100 ng/mL Potential Toxicity Anti-Streptolysin O Antibody 131.3 [IU]/mL 0.0-200.0 [facility] Comment on above: Performed at: [address] [id number] Director: Winston Simon PhD, Phone: [phone] C-Reactive Protein, Quantitative 1.44 mg/dL <=0.50 [facility] Eosinophils # (Auto) 0.3 10 3/uL 0.0-0.7 [facility] Immature Granulocyte # (Auto) 0.02 10 3/uL 0.00-0.03 [facility] Platelet mean volume Auto (B ld) [Entitic vol]on 11-26-2023 Platelet mean volume (Bld) [Entitic vol] 10.5 fL 9.5-13.5 [facility] Platelets Auto (Bld) [#/Vol] on 11-26-2023 Platelets (Bld) [#/Vol] 248 10 3/uL 150-450 [facility] RBC Auto (Bld) [#/Vol]on RBC (Bld) [#/Vol] 4.58 10 6/uL 4.20-5.40 [facility] Serum nuclear antibody titer on 11-26-2023 Nuclear Ab (S) [Titer] Negative . [facility] Comment on above: Negative <1:80 Borde rline 1:80 Positive >1:80ICAP nomenclature: AC-0For more information about Hep-2 cell patterns useANApatterns.org, the official website for theInternational Consensus on Antinuclear Antibody (RISA)Patterns (ICAP).Performed at: [employer] [place], [place] [id number] Director: Winston Simon PhD, Phone: [phone] Serum or plasma albumin/glob ulin mass ratioon 11-26-2023 Albumin/Globulin [Mass ratio] 1.1 {ratio} [facility] Serum or plasma anion gap de terminationon 11-26-2023 Anion gap [Moles/Vol] 10.6 mmol/L [facility] Serum or plasma cyclic adeno sine monophosphate measurement (moles/volume)on 11-26-2023 Adenosine monophosphate.cyclic [Moles/Vol] 7 units 0-19 [facility] Comment on above: Negative <20 Weak po sitive 20 - 39 Moderate positive 40 - 59 Strong positive >59Performed at: [employer] [place], [place] [id number] Director: Winston Simon PhD, Phone: [phone] Serum or plasma rheumatoid f actor measurement (units/volume)on 11-26-2023 Rheumatoid factor Qn 10.4 [IU]/mL <14.0 [facility] CBC AND AUTO DIFFon 10-30-19 24 ABSOLUTE BASOPHIL 0.1 X10E9/L Normal 0.0-0.2 [facility] Comment on above: Performed By: #### 1 0839-9, 58074-6, CBCA, CMP, 97060-2 #### [facility] ([id number]) [address] [place] [address] ABSOLUTE NEUTROPHIL 5.5 X10E9/L Normal 1.5-6.6 [facility] Comment on above: Performed By: #### 1 0839-9, 64048-5, CBCA, CMP, 20993-1 #### [facility] ([id number]) [address] [place] [address] Basophils/100 WBC (Bld) 1.0 % Normal [facility] Comment on above: Performed By: #### 1 0839-9, 11959-8, CBCA, CMP, 05194-2 #### [facility] ([id number]) [address] [place] [address]62 Eosinophils (Bld) [#/Vol] 0.4 10*3/uL Normal 0.0-0.4 [facility] Comment on above: Performed By: #### 1 0839-9, 45304-0, CBCA, CMP, 76480-6 #### [facility] ([id number]) [address] [place] [address]3798 Eosinophils/100 WBC (Bld) 4.9 % Normal [facility] Comment on above: Performed By: #### 1 0839-9, 18400-7, CBCA, CMP, 12471-1 #### [facility] ([id number]) [address] [place] [address]67 Erythrocyte distribution width (RBC) [Ratio] 13.8 % Normal 11.5-15.0 [facility] Comment on above: Performed By: #### 1 0839-9, 13917-1, CBCA, CMP, 35126-8 #### [facility] ([id number]) [address] [place] [address]44 Hematocrit (Bld) [Volume fraction] 40.2 % Normal 35-47 [facility] Comment on above: Performed By: #### 1 0839-9, 05082-8, CBCA, CMP, 35924-6 #### [facility] ([id number]) [address] [place] [address]43 Hemoglobin (Bld) [Mass/Vol] 13.6 g/dL Normal 11.7-15.5 [facility] Comment on above: Performed By: #### 1 0839-9, 24486-7, CBCA, CMP, 09914-8 #### [facility] ([id number]) [address] [place] [address]30 Lymphocytes (Bld) [#/Vol] 1.9 10*3/uL Normal 1.0-3.5 [facility] Comment on above: Performed By: #### 1 0839-9, 67213-3, CBCA, CMP, 31364-5 #### [facility] ([id number]) [address] [place] [address] 48910 Lymphocytes/100 WBC (Bld) 22.7 % Normal [facility] Comment on above: Performed By: #### 1 0839-9, 34551-8, CBCA, CMP, 36258-7 #### [facility] ([id number]) [address] [place] [address] 56234 MCH (RBC) [Entitic mass] 29.4 pg Normal 27-34 [facility] Comment on above: Performed By: #### 1 0839-9, 58227-1, CBCA, CMP, 94145-8 #### [facility] ([id number]) [address] [place] [address] 81093 MCHC (RBC) [Mass/Vol] 33.9 g/dL Normal 32-36 [facility] Comment on above: Performed By: #### 1 0839-9, 73258-7, CBCA, CMP, 20921-6 #### [facility] ([id number]) [address] [place] [address] 78568 MCV (RBC) [Entitic vol] 87 fL Normal 80-100 [facility] Comment on above: Performed By: #### 1 0839-9, 52930-6, CBCA, CMP, 27825-0 #### [facility] ([id number]) [address] [place] [address] 08870 Monocytes (Bld) [#/Vol] 0.6 10*3/uL Normal 0-0.9 [facility] Comment on above: Performed By: #### 1 0839-9, 02085-6, CBCA, CMP, 71706-6 #### [facility] ([id number]) [address] [place] [address] 98937 Monocytes/100 WBC (Bld) 6.9 % Normal [facility] Comment on above: Performed By: #### 1 0839-9, 34788-1, CBCA, CMP, 04715-2 #### [facility] ([id number]) [address] [place] [address] 37143 Neutrophils/100 WBC (Bld) 64.5 % Normal [facility] Comment on above: Performed By: #### 1 0839-9, 30735-8, CBCA, CMP, 07277-1 #### [facility] ([id number]) [address] [place] [address] 45233 Platelet mean volume (Bld) [Entitic vol] 9.1 fL Normal 7-12 [facility] Comment on above: Performed By: #### 1 0839-9, 66275-1, CBCA, CMP, 08745-9 #### [facility] ([id number]) [address] [place] [address] 77737 Platelets (Bld) [#/Vol] 278 10*3/uL Normal 150-450 [facility] Comment on above: Performed By: #### 1 0839-9, 84113-9, CBCA, CMP, 25492-0 #### [facility] ([id number]) [address] [place] [address] 32271 RBC COUNT 4.64 X10E12/L Normal 3.80-5.20 [facility] Comment on above: Performed By: #### 1 0839-9, 03457-0, CBCA, CMP, 72767-8 #### [facility] ([id number]) [address] [place] [address] 07840 WBC (Bld) [#/Vol] 8.5 10*3/uL Normal 4.0-11.0 [facility] Comment on above: Performed By: #### 1 0839-9, 44876-7, CBCA, CMP, 67126-5 #### [facility] ([id number]) [address] [place] [address] 12605 COMPREHENSIVE METABOLIC PANE Shiva 10-30-2023 Albumin [Mass/Vol] 4.1 g/dL Normal 3.2-5.3 [facility] Comment on above: Performed By: #### 1 0839-9, 77697-4, CBCA, CMP, 16055-1 #### [facility] ([id number]) [address] [place] [address] 54599 ALP [Catalytic activity/Vol] 77 U/L Normal 39-130 [facility] Comment on above: Performed By: #### 1 0839-9, 27806-1, CBCA, CMP, 50678-1 #### [facility] ([id number]) [address] [place] [address] 71386 ALT [Catalytic activity/Vol] 18 U/L Normal 0-31 [facility] Comment on above: Performed By: #### 1 0839-9, 89106-5, CBCA, CMP, 48230-4 #### [facility] ([id number]) [address] [place] [address] 73414 Anion gap [Moles/Vol] 12 mmol/L Normal 5-15 [facility] Comment on above: Performed By: #### 1 0839-9, 45195-9, CBCA, CMP, 77362-1 #### [facility] ([id number]) [address] [place] [address] 18108 AST [Catalytic activity/Vol] 19 U/L Normal 0-41 [facility] Comment on above: Performed By: #### 1 0839-9, 69634-2, CBCA, CMP, 80066-5 #### [facility] ([id number]) [address] [place] [address] 47278 Bilirubin [Mass/Vol] 0.5 mg/dL Normal 0.3-1.2 [facility] Comment on above: Performed By: #### 1 0839-9, 01754-8, CBCA, CMP, 93822-4 #### [facility] ([id number]) [address] [place] [address] 68643 Calcium [Mass/Vol] 9.1 mg/dL Normal 8.5-10.5 [facility] Comment on above: Performed By: #### 1 0839-9, 39830-1, CBCA, CMP, 68482-6 #### [facility] ([id number]) [address] [place] [address] 75946 Chloride [Moles/Vol] 101 mmol/L Normal 98-109 [facility] Comment on above: Performed By: #### 1 0839-9, 36867-5, CBCA, CMP, 99086-4 #### [facility] ([id number]) [address] [place] [address] 63067 CO2 [Moles/Vol] 25 mmol/L Normal 22-32 [facility] Comment on above: Performed By: #### 1 0839-9, 99477-9, CBCA, CMP, 47179-5 #### [facility] ([id number]) [address] [place] [address] 24970 Creatinine [Mass/Vol] 1.16 mg/dL High 0.40-1.00 [facility] Comment on above: Result Comment: METH OD TRACEABLE TO IDMS STANDARD Performed By: #### 1 0839-9, 32177-0, CBCA, CMP, 18487-6 #### [facility] ([id number]) [address] [place] [address] 37156 GFR/1.73 sq M.predicted among non-blacks MDRD (S/P/Bld) [Vol rate/Area] 58 mL/min/{1.73_m2} Low >59 [facility] Comment on above: Result Comment: Reported eGFR is based on the CKD-EPI 2020 equation that does not use a race coefficient. Performed By: #### 1 0839-9, 50510-2, CBCA, CMP, 64153-4 #### [facility] ([id number]) [address] [place] [address] 09144 Glucose [Mass/Vol] 109 mg/dL High 65-99 [facility] Comment on above: Performed By: #### 1 0839-9, 62049-6, CBCA, CMP, 97509-8 #### [facility] ([id number]) [address] [place] [address] 37425 Potassium [Moles/Vol] 4.3 mmol/L Normal 3.5-5.0 [facility] Comment on above: Performed By: #### 1 0839-9, 91603-8, CBCA, CMP, 68801-8 #### [facility] ([id number]) [address] [place] [address] 21655 Protein [Mass/Vol] 6.5 g/dL Normal 6.0-8.0 [facility] Comment on above: Performed By: #### 1 0839-9, 80412-0, CBCA, CMP, 39994-0 #### [facility] ([id number]) [address] [place] [address] 23145 Sodium [Moles/Vol] 138 mmol/L Normal 134-146 [facility] Comment on above: Performed By: #### 1 0839-9, 00480-6, CBCA, CMP, 70295-5 #### [facility] ([id number]) [address] [place] [address] 95797 Urea nitrogen [Mass/Vol] 44 mg/dL High 5-23 [facility] Comment on above: Performed By: #### 1 0839-9, 01273-1, CBCA, CMP, 00543-9 #### [facility] ([id number]) [address] [place] [address] 68986 Fibrin D-dimer DDU (PPP) [Ma ss/Vol]on 10-30-2023 D DIMER <150 Normal <255 [facility] Comment on above: Result Comment: Results <255 ng/mL DDU: The presence of a VTE can safely be excluded with a negative D-Dimer result and Wells score. A negative result doesn't exclude the possibility of DIC. The test be repeated along with other diagnostic tests if the patient's symptoms persist or worsen. [email or web address] Performed By: #### 1 0839-9, 52858-5, CBCA, CMP, 06875-3 #### [facility] ([id number]) [address] [place] [address] Natriuretic peptide B [Mass/ Vol]on 10-30-2023 BRN NATRIURETIC PEP <5 Normal <100.0 [facility] Comment on above: Performed By: #### C JESSE, CBCA, 80817-0 #### [facility] ([id number]) [address] [place] [address] 10251 TROPONIN Ion 10-30-2023 Troponin I.cardiac [Mass/Vol] 0.04 ng/mL Normal 0.00-0.04 [facility] Comment on above: Performed By: #### 1 0839-9, 63022-2, CBCA, [facility], 80334-0 #### [facility] ([id number]) [address] [place] [address] 73555 XR CHEST 1 VWon 10-30-2023 XR CHEST [...] Ruiz MD on 10/30/2023 1:01 AM Normal [facility] CBC AND AUTO DIFFon 10-15-19 24 ABSOLUTE BASOPHIL 0.1 X10E9/L Normal 0.0-0.2 [facility] Comment on above: Performed By: #### C MP, CBCA, 98708-2 #### [facility] ([id number]) [address] [place] [address] 99969 ABSOLUTE NEUTROPHIL 4.5 X10E9/L Normal 1.5-6.6 [facility] Comment on above: Performed By: #### C MP, CBCA, 37394-9 #### [facility] ([id number]) [address] [place] [address] 47367 Basophils/100 WBC (Bld) 0.9 % Normal [facility] Comment on above: Performed By: #### C JESSE, CBCA, 74358-2 #### [facility] ([id number]) [address] [place] [address] 52758 Eosinophils (Bld) [#/Vol] 0.3 10*3/uL Normal 0.0-0.4 [facility] Comment on above: Performed By: #### C JESSE, CBCA, 87711-3 #### [facility] ([id number]) [address] [place] [address] 11933 Eosinophils/100 WBC (Bld) 4.0 % Normal [facility] Comment on above: Performed By: #### C JESSE, CBCA, 77325-3 #### [facility] ([id number]) [address] [place] [address] 98695 Erythrocyte distribution width (RBC) [Ratio] 13.6 % Normal 11.5-15.0 [facility] Comment on above: Performed By: #### C JESSE, CBCA, 27890-5 #### [facility] ([id number]) [address] [place] [address] 87464 Hematocrit (Bld) [Volume fraction] 38.8 % Normal 35-47 [facility] Comment on above: Performed By: #### C JESSE, CBCA, 77544-1 #### [facility] ([id number]) [address] [place] [address] 13417 Hemoglobin (Bld) [Mass/Vol] 13.0 g/dL Normal 11.7-15.5 [facility] Comment on above: Performed By: #### C JESSE, CBCA, 98947-2 #### [facility] ([id number]) [address] [place] [address] 37445 Lymphocytes (Bld) [#/Vol] 3.0 10*3/uL Normal 1.0-3.5 [facility] Comment on above: Performed By: #### C JESSE, CBCA, 67751-1 #### [facility] ([id number]) [address] [place] [address] 37356 Lymphocytes/100 WBC (Bld) 34.8 % Normal [facility] Comment on above: Performed By: #### C JESSE, CBCA, 24597-2 #### [facility] ([id number]) [address] [place] [address] 17841 MCH (RBC) [Entitic mass] 28.8 pg Normal 27-34 [facility] Comment on above: Performed By: #### C JESSE, CBCA, 22197-3 #### [facility] ([id number]) [address] [place] [address] 57497 MCHC (RBC) [Mass/Vol] 33.4 g/dL Normal 32-36 [facility] Comment on above: Performed By: #### C JESSE, CBCA, 05700-4 #### [facility] ([id number]) [address] [place] [address] 83507 MCV (RBC) [Entitic vol] 86 fL Normal 80-100 [facility] Comment on above: Performed By: #### C JESSE, CBCA, 36588-0 #### [facility] ([id number]) [address] [place] [address] 80882 Monocytes (Bld) [#/Vol] 0.6 10*3/uL Normal 0-0.9 [facility] Comment on above: Performed By: #### C JESSE, CBCA, 34714-7 #### [facility] ([id number]) [address] [place] [address] 63194 Monocytes/100 WBC (Bld) 6.8 % Normal [facility] Comment on above: Performed By: #### C JESSE, CBCA, 98047-3 #### [facility] ([id number]) [address] [place] [address] 17519 Neutrophils/100 WBC (Bld) 53.5 % Normal [facility] Comment on above: Performed By: #### C JESSE, CBCA, 03946-1 #### [facility] ([id number]) [address] [place] [address] 28222 Platelet mean volume (Bld) [Entitic vol] 9.0 fL Normal 7-12 [facility] Comment on above: Performed By: #### C JESSE, CBCA, 44414-9 #### [facility] ([id number]) [address] [place] [address] 42484 Platelets (Bld) [#/Vol] 291 10*3/uL Normal 150-450 [facility] Comment on above: Performed By: #### C JESSE, CBCA, 75860-2 #### [facility] ([id number]) [address] [place] [address] 98305 RBC COUNT 4.49 X10E12/L Normal 3.80-5.20 [facility] Comment on above: Performed By: #### C JESSE, CBCA, 20257-6 #### [facility] ([id number]) [address] [place] [address] 18126 WBC (Bld) [#/Vol] 8.5 10*3/uL Normal 4.0-11.0 [facility] Comment on above: Performed By: #### C MP, CBCA, 44749-8 #### [facility] ([id number]) [address] [place] [address] 39373 COMPREHENSIVE METABOLIC PANE Shiva 10-15-2023 Albumin [Mass/Vol] 4.1 g/dL Normal 3.2-5.3 [facility] Comment on above: Performed By: #### C JESSE, CBCA, 29845-4 #### [facility] ([id number]) [address] [place] [address] 56158 ALP [Catalytic activity/Vol] 70 U/L Normal 39-130 [facility] Comment on above: Performed By: #### C JESSE CBCA, 46609-4 #### [facility] ([id number]) [address] [place] [address] 91941 ALT [Catalytic activity/Vol] 19 U/L Normal 0-31 [facility] Comment on above: Performed By: #### C JESSE CBCA, 01623-5 #### [facility] ([id number]) [address] [place] [address] 91336 Anion gap [Moles/Vol] 7 mmol/L Normal 5-15 [facility] Comment on above: Performed By: #### C JESSE CBCA, 17120-7 #### [facility] ([id number]) [address] [place] [address] 20339 AST [Catalytic activity/Vol] 14 U/L Normal 0-41 [facility] Comment on above: Performed By: #### C JESSE CBCA, 82344-1 #### [facility] ([id number]) [address] [place] [address] 89696 Bilirubin [Mass/Vol] 0.8 mg/dL Normal 0.3-1.2 [facility] Comment on above: Performed By: #### C JESSE CBCA, 85234-5 #### [facility] ([id number]) [address] [place] [address] 78193 Calcium [Mass/Vol] 9.2 mg/dL Normal 8.5-10.5 [facility] Comment on above: Performed By: #### C JESSE CBCA, 44894-5 #### [facility] ([id number]) [address] [place] [address] 63255 Chloride [Moles/Vol] 105 mmol/L Normal 98-109 [facility] Comment on above: Performed By: #### C NATHALIE MOLINA, 14835-4 #### [facility] ([id number]) [address] [place] [address] 34619 CO2 [Moles/Vol] 25 mmol/L Normal 22-32 [facility] Comment on above: Performed By: #### C NATHALIE MOLINA, 59467-8 #### [facility] ([id number]) [address] [place] [address] 89175 Creatinine [Mass/Vol] 0.67 mg/dL Normal 0.40-1.00 [facility] Comment on above: Result Comment: METH OD TRACEABLE TO IDMS STANDARD Performed By: #### C NATHALIE MOLINA, 75101-3 #### [facility] ([id number]) [address] [place] [address] 79810 eGFR (CKD-EPI) NON-RACE DEPENDENT >90 Normal >59 [facility] Comment on above: Result Comment: Reported eGFR is based on the CKD-EPI 2020 equation that does not use a race coefficient. Performed By: #### C NATHALIE MOLINA, 13735-3 #### [facility] ([id number]) [address] [place] [address] 13806 Glucose [Mass/Vol] 96 mg/dL Normal 65-99 [facility] Comment on above: Performed By: #### C NATHALIE MOLINA, 16229-4 #### [facility] ([id number]) [address] [place] [address] 89157 Potassium [Moles/Vol] 4.1 mmol/L Normal 3.5-5.0 [facility] Comment on above: Performed By: #### C NATHALIE MOLINA, 73194-0 #### [facility] ([id number]) [address] [place] [address] 06931 Protein [Mass/Vol] 6.8 g/dL Normal 6.0-8.0 [facility] Comment on above: Performed By: #### C JESSE CBCA, 79893-8 #### [facility] ([id number]) [address] [place] [address] 78726 Sodium [Moles/Vol] 137 mmol/L Normal 134-146 [facility] Comment on above: Performed By: #### C JESSE CBCA, 00729-2 #### [facility] ([id number]) [address] [place] [address] 67026 Urea nitrogen [Mass/Vol] 26 mg/dL High 5-23 [facility] Comment on above: Performed By: #### C JESSE CBCA, 83046-1 #### [facility] ([id number]) [address] [place] [address] 95450 Fibrin D-dimer DDU (PPP) [Ma ss/Vol]on 10-15-2023 D DIMER 179 ng/mL DDU Normal <255 [facility] Comment on above: Result Comment: Results <255 ng/mL DDU: The presence of a VTE can safely be excluded with a negative D-Dimer result and Wells score. A negative result doesn't exclude the possibility of DIC. The test be repeated along with other diagnostic tests if the patient's symptoms persist or worsen. [email or web address] Performed By: #### C JESSE, CBCA, 90086-3 #### [facility] ([id number]) [address] [place] [address] 41048 SARS/FLU A+B/RSV by NAAT/Mol ecularon 10-15-2023 SARS/FLU [...] operators who are performing tests using either Mirror[employer] or [employer]romed[employer] systems and is limited to laboratories that [...] repeat. Fact Sheet for Healthcare Providers: https://www.fda.gov/m edia/676421/download Fact Sheet for Patients: https://www.fda.gov/m edia/182045/download Normal [facility] Comment on above: Performed By: #### C OVFLR #### [facility] ([id number]) [address] [place] [address], [place] [address] XR FOOT LT MIN 3 VWSon 10-15 [...] Godoy MD on 10/15/2023 1:24 PM Normal [facility] XR CHEST 2 Von 12-10-2022 XR [...] by: CORNELIO MANCINI Date: 2022-12-10 08:09 Normal [facility] MRI [facility] WO CONon 11-05-19 23 MRI [facility] WO CON EXAMINATION: MRI LSSITKA WO CON HISTORY: Lumbosacral radiculopathy ; chronic [...] by: CORNELIO MANCINI Date: 2022-11-05 10:21 Normal [facility] TSHon 11-05-2022 TSH 1.783 uIU/mL Normal 0.358-3.740 [facility] Comment on above: Performed By: #### T SH #### [facility] [address] [address] [address] Anuel Doran VIT B12 AND FOLATEon 023 Cobalamin (Vitamin B12) [Mass/Vol] 618.0 pg/mL Normal 193.0-986.0 [facility] Comment on above: Performed By: #### B 12FOL #### [facility] [address] [address] [address] Anuel Doran FOLATE 23.40 ng/mL Normal 8.60-58.90 [facility] Comment on above: Performed By: #### B 12FOL #### [facility] [address] [place] [address] Dr. Anuel Doran MG MAMM SCREEN 3D BIANCA CADon 06-06-2022 MG MAMM SCREEN 3D BIANCA CAD Patient: JEANNINE FELICIANO Exam Date: 06/06/2022 : 1975 Gender:F Ordering : DR MARISELA SANTOS . Admission #: [id number] Family : Order #: [id number] CLICK HERE TO VIEW EXAM RADIOLOGY REPORT PROCEDURE: MAMMOGRAM SCREENING 3D BILATERAL CAD COMPARISON: MG MAMM SCREEN BIANCA W CAD, 09/23/2019. INDICATIONS: Screening mammography Calculator Name NCI Breast Cancer Risk Assessment Tool 5 Year Breast Cancer Risk 0.90% Lifetime Breast Cancer Risk 9.20% Personal Breast Cancer No Personal Ovarian Cancer No Treatments None Family Cancers None LOCATION: [facility] BREAST COMPOSITION: Scattered areas fibroglandular density. FINDINGS: [...] Soliz MD on 06/06/2022 at 13:45 Normal [facility] PAP ACOG PANEL 2: 30 to 65on 05-29-2022 . . Normal [facility] Comment on above: Result Comment: Perf ormed at: WB Performed By: #### 4 [id number] #### [facility] [address] [place] [address] Dr. Anuel Doran Age Gdln ACOG Testing 30-65 [facility] Comment on above: Performed By: #### 4 606190 #### [facility] [address] [place] [address] Dr. Anuel Doran DIAGNOSIS: Comment Normal [facility] Comment on above: Result Comment: NEGA TIVE FOR INTRAEPITHELIAL LESION OR MALIGNANCY. Performed at: WB Performed By: #### 4 836218 #### [facility] [address] [address] [address] Anuel Doran HPV Aptima Negative Normal [facility] Comment on above: Result Comment: This nucleic acid amplification test detects fourteen high-risk HPV types (16,18,31,33,35,39,45,51,52,56,58,59,66,68) without differentiation. Performed at: =G Performed By: #### 4 037847 #### [facility] [address] [place] [address] Dr. Anuel Doran Methodology: Comment Normal [facility] Comment on above: Result Comment: This liquid based ThinPrep(R) pap test was screened with the use of an image guided system. Performed at: WB Performed By: #### 4 857889 #### [facility] [address] [place] [address] Dr. Anuel Doran Note: Comment Normal [facility] Comment on above: Result Comment: The Pap smear is a screening test designed to aid in the detection of premalignant and malignant conditions of the uterine cervix. It is not a diagnostic procedure and should not be used as the sole means of detecting cervical cancer. Both false-positive and false-negative reports do occur. . Performed at: WB Performed By: #### 4 [id number] #### [facility] [address] [place] [address] Dr. Anuel Doran Performed by: Comment [facility] Comment on above: Result Comment: Jocelyne Baltazar, Personnel Technician (ASCP) Performed at: WB Performed By: #### 4 [id number] #### [facility] [address] [place] [address] Dr. Anuel Doran Specimen adequacy: Comment [facility] Comment on above: Result Comment: Sati sfactory for evaluation. Endocervical and/or squamous metaplastic cells (endocervical component) are present. Performed at: WB Performed By: #### 4 679859 #### [facility] [address] [place] [address] Dr. Anuel Doran Formson 04-04-2022 Forms [id number] .00CD:[address] [facility] Physician Referralon 022 Physician Referral [id number] 1.00CD:[address] [facility] Ambulatory Visit Summaryon 0 04-02-2022 Ambulatory Visit Summary JEANNINE FELICIANO :1975 Visit Date:04/02/2022 Ambulatory Visit Instructions Your Diagnosis Stress incontinence Tests Performed Urnls Dip Stick Auto w/o Microscopy POC 22479 Your Care Team Attending Physician - BARBARA [...] With: BARBARA DANIELS PA-C Where: [facility] Ambulatory Visit Summary JEANNINE FELICIANO :1975 Visit Date:04/02/2022 Ambulatory Visit Instructions Your Diagnosis Stress incontinence Tests Performed Urnls Dip Stick Auto w/o Microscopy POC 13434 Your Care Team Attending Physician - BARBARA [...] With: BARBARA DANIELS PA-C Where: [facility] Patient Educationon 04-02-20 Patient Education [...] 08/24/2013 Document Revised: 04/27/2019 Document Reviewed: 04/27/2019 [employer] Patient Education ? [address] [employer] [facility] Patient Letter FTon 2021 Patient Letter [facility] April 02, 2022 JEANNINE FELICIANO was evaluated at [facility] 04/02/2022 10:17:37 It is my [...] out. Provider Signature: Barbara Daniels PA-C Physician Steam Engineer [facility] [address] [place] [address] 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 she understands it will take a while to retrain. if sx persist despite consistent timed voiding then we will consider treatment vs urodynamics eval. Ordered: E&M of New Patient Moderate 45-59 Min 05294 2. Stress incontinence (N39.3: Stress incontinence (female) (male)) had extensive discussion regarding pelvic floor muscle rehab. pt provided written information to review at home and prefers to attempt self-guided exercises. if JOSE R persists we will consider formal PFPT at [facility] or [facility] vs [facility]kamid vs sling placement. Ordered: E&M of New Patient Moderate 45-59 Min 39607 Urnls Dip Stick Auto w/o Microscopy POC 65782 f/u 3 mos. pt ok to cancel appt and f/u PRN if the above measures improve her sx sufficiently Total time spent reviewing previous notes/results/externa l documents, preparing the chart, conducting the encounter with the patient and family, ordering tests/medications, and documenting the encounter was 50 minutes. Follow-up With When Contact Information JEREMIAH ROSARIO, MARELY VÁZQUEZ Within 3 months [address] [place] [address] Additional Instructions: Patient Education Kegel Exercises Problem [...] Protein Urine Dipstick: Trace (04/02/22 09:31:00) Specific [place] Urine Dipstick: >=1.030 (04/02/22 09:31:00) Urine Appearance Urine Dipstick: Clear (04/02/22 09:31:00) Urine Color Urine Dipstick: Yellow (04/02/22 09:31:00) Urobilinogen Urine Dipstick: Normal 0.2-1 EU/dl (04/02/22 09:31:00) pH Urine Dipstick: 6 (04/02/22 09:31:00) Normal [facility] Comment on above: Result Comment: Elec tronically Signed By: BARBARA DANIELS PA-C\.br\Date and Time Signed: 04/02/22 11:56 EDT Covid-19 PCR (CVDTB)on SARS-CoV-2 (COVID-19) RNA ILSA+probe Ql (Unsp spec) Not detected Normal NOT DETECTED [facility] Comment on above: Result Comment: This test is not yet approved or cleared by the [place] FDA. When there are no FDA-approved or cleared tests available, and other criteria are met, FDA can make tests available under an emergency access mechanism called an Emergency Use Authorization (EUA). The EUA for this test is supported by the [place] of Health and Human Service's (HHS's) declaration [...] consistent with SARS-CoV-2. Performed By: #### C VDTB #### [facility] [facility] [address] [address] [address] Anuel Doran Vital Signs Date Time Vital Sign Value Performing Clinician Charly litrashaun 11-25-2023 08:22-0500 Body height 154.94 cm ASSEMBLING FABRICATORElena Bernal Work Phone: [facility] 11-25-2023 08:22-0500 Body mass index (BMI) [Ratio] 46.6 kg/m2 ASSEMBLING FABRICATORElena Bernal Work Phone: [facility] 11-25-2023 08:22-0500 Body weight 112.03 kg ASSEMBLING FABRICATORElena Bernal Work Phone: [facility] 11-25-2023 08:22-0500 Diastolic blood pressure 80 mm[Hg] ASSEMBLING FABRICATORElena Bernal Work Phone: [facility] 11-25-2023 08:22-0500 Heart rate 75 /min ASSEMBLING FABRICATORElena Bernal Work Phone: [facility] 11-25-2023 08:22-0500 SaO2% (BldA) [Mass fraction] 98 % ASSEMBLING FABRICATORElena Bernal Work Phone: [facility] 11-25-2023 08:22-0500 Systolic blood pressure 132 mm[Hg] ASSEMBLING FABRICATORElena Bernal Work Phone: [facility] 04-02-2022 09:39-0400 Blood Pressure Location BARBARA DANIELS [facility] 04-02-2022 09:39-0400 Diastolic blood pressure 70 mm[Hg] BARBARA DANIELS [facility] 04-02-2022 09:39-0400 Heart rate 84 /min BARBARA DANIELS [facility] 04-02-2022 09:39-0400 Respiratory rate 16 /min BARBARA DANIELS [facility] 04-02-2022 09:39-0400 Systolic blood pressure 139 mm[Hg] BARBARA DANIELS [facility] Encounters Encounter Date Encounter Type Care Provider Facility Start: 01-12-2024 End: 01-12-2024 ambulatory LUNA DEJA Not Available Start: 01-08-2024 End: 01-08-2024 ambulatory BOUCHRA KELBLEY Not Available Start: 12-30-2023 End: 12-30-2023 ambulatory YAHAIRA Bueno [facility] Start: 12-24-2023 End: 12-25-2023 ambulatory BOUCHRA KELBLEY Not Available Start: 12-23-2023 End: 12-23-2023 ambulatory Zeenat Graves Facility:[facility] Start: 12-23-2023 End: 12-23-2023 ambulatory SILVINO Bernal Work Phone: [facility] Work Phone: Start: 12-23-2023 End: 12-23-2023 Patient encounter procedure SILVINO Bernal Work Phone: [facility] Start: 12-22-2023 End: 12-23-2023 ambulatory BRITANY HAWKINS Not Available Start: 12-10-2023 End: 12-11-2023 ambulatory BOUCHRA KELBLEY Not Available Start: 12-07-2023 End: 12-08-2023 ambulatory BOUCHRA VASQUEZ Not Available Start: 12-01-2023 End: 12-01-2023 ambulatory RENAN PALOMO Not Available Start: 11-26-2023 Non-patient / Non-visit ASSEMBLING FABRICATORElena Bernal Work Phone: [facility] Work Phone: Start: 11-25-2023 End: 11-25-2023 Patient encounter procedure ASSEMBLING FABRICATORElena Bernal Work Phone: [facility] Work Phone: Start: 10-30-2023 End: 10-31-2023 Emergency department patient visit JASONIndigo SALAS [facility] Start: 10-15-2023 End: 10-16-2023 Emergency department patient visit ZEENAT PHELPS [facility] Start: 12-10-2022 End: 12-11-[address] [...] Start: 04-02-2022 End: 04-02-2022 Patient encounter procedure BARBARA DANIELS [facility] Start: 03-13-2022 ambulatory BARBARA DANIELS Facility :[facility] Start: 02-28-2022 ambulatory BARBARA DANIELS Facility :[facility] Start: 02-20-2022 End: 02-20-[address] DIONISIO GRIMALDO Facility:[facility] Procedures Date Procedure Procedure Detail Performing Clinician Start: 12-23-2023 Plain X-ray of bilat eral hands ASSEMBLING FABRICATOR Barbara Dolores Work Phone: Cholecystectomy BARBARA SUBRAMANIAN Plan of Treatment Date Care Activity Detail Author Start: 12-23-2023 [facility] Payers Date Payer Category Payer Self-pay [id number] 2023 Private Health Insurance [id number] 1974 Unknown [id number] 2.16.8 40.1.416006.3.579.2.727 1974 Unknown [id number] 2.16.8 40.1.866019.3.579.2.727 1974 Unknown [id number] 2.16.8 40.1.757905.3.579.2.727 1974 Unknown [id number] 2.16.8 40.1.482466.3.579.2.727 1974 Unknown [id number] 2.16.84 0.1.024313.3.579.2.593 1974 Unknown [id number] 2.16.84 0.1.167394.3.579.2.593 1974 Unknown [id number] 2.16.84 0.1.412761.3.579.2.593 1974 Unknown [id number] 2.16.84 0.1.995960.3.579.2.593 1974 Unknown [id number] 2.16.84 0.1.576656.3.579.2.593 1974 Unknown [id number] 2.16.84 0.1.760658.3.579.2.593 1974 Unknown [id number] 2.16.84 0.1.742926.3.579.2.593 1974 Unknown [id number] 2.16.84 0.1.862270.3.579.2.593 1974 Unknown [id number] 2.16.8 40.1.618602.3.579.2.1286 1974 Unknown [id number] 2.16.8 40.1.635212.3.579.2.1286 1974 Unknown [id number] 2.16.8 40.1.443650.3.579.2.1286 1974 Unknown [id number] 2.16.8 40.1.416408.3.579.2.1286 1974 Unknown [id number] 2.16.8 40.1.504733.3.579.2.1286 1974 Unknown [id number] 2.16.84 0.1.255335.3.579.2.1259 1974 Unknown [id number] 2.16.84 0.1.967859.3.579.2.1259 1974 Unknown [id number] 2.16.84 0.1.623864.3.579.2.1259 1974 Unknown [id number] 2.16.84 0.1.763266.3.579.2.1259 1974 Unknown [id number] 2.16.84 0.1.350525.3.579.2.1259 1974 Unknown [id number] 2.16.84 0.1.611492.3.579.2.1259 1974 Unknown [id number] 2.16.84 0.1.981068.3.579.2.1259 1974 Unknown [id number] 2.16.84 0.1.839767.3.579.2.1259 1959 Private Health Insurance [id number] 1959 Self-pay [id number] Unknown [id number] 2.16.8 40.1.799896.3.579.2.531 Social History Date Type Detail Facility Tobacco smoking status No Smokin g Status Entered [facility] Sex Assigned At Female [facility] Start: 11-25-2023 Tobacco smoking stat [facility] Never smoked tobacco (finding) [facility] Start: 1975 Sex Assigned At Female F [facility] Functional Status Date Assessment Result Facility 04-02-2022 Functional Status N/A [facility] Discharge instructions 04-02-2022 Note Date & [...] 08/24/2013 Document Revised: 04/27/2019 Document Reviewed: 04/27/2019 [employer] Follow Up Care 03/13/2022 16:11:08 With:BARBARA DANIELS PA-C, URL Address: [address] [place] [address] When:3 months [facility] Evaluation + Plan note Note Date & Type Note Facility Evaluation + Plan note Future Appointments Appointment Date:07/02/2022 09:00:00 AM Scheduled Provider:BARBARA DANIELS PA-C Location:[facility] Appointment Type:URO Office Visit [facility] Evaluation note Note Date & Type Note Facility Evaluation note Diagnosis Onset Date Anxiety acute Arthritis acute Daytime somnolence acute Depression acute Episode of apnea acute Forgetfulness acute Hypertension acute Loud snoring acute Multiple joint pain acute Screening for colon cancer a cute Sleep apnea in adult acute [facility] Work Phone: Hospital course Narrative Note Date & Type Note Facility Hospital course Narrative No data available for this section [facility] Progress note Note Date & Type Note Facility Progress note No data available for this section [facility] Summary Purpose Family History No Family [...] Member Role Status Dates Barbara Bernal APRN TOOL PLANER SET UP OPERATOR-C Primary Care Provider Active Team Status: Inactive Member Role Status Dates Barbara Bernal APRN TOOL PLANER SET UP OPERATOR-C Primary Care Provider, Attending Provider Active Start: November 25, 2023 End: November 25, 2023 Team Status: Active Member Role Status Dates Barbara Bernal APRN TOOL PLANER SET UP OPERATOR-C Primary Care Provider, Attending Provider Active Start: November 26, 2023 Team Status: Inactive Member Role Status Dates Barbara Bernal APRN TOOL PLANER SET UP OPERATOR-C Primary Care Provider, Attending Provider Active Start: December 23, 2023 End: December 23, 2023 Zeenat Graves MD Referring Provider Active St art: December 23, 2023 End: December 23, 2023 INFORMATION SOURCE (unrecogn ized section and content) DATE CREATED AUTHOR 06/30/2022 [facility] DATE CREATED AUTHOR AUTHOR'S ORGANIZ ATION 12/14/2022 [facility] DATE CREATED AUTHOR AUTHOR'S ORGANIZ ATION 12/31/[address] [facility] DATE CREATED AUTHOR AUTHOR'S ORGANIZ ATION 01/03/2024 [facility] DATE CREATED AUTHOR AUTHOR'S ORGANIZ ATION 01/13/2024 [facility] EPIC Goals (unrecognized section [...] BE BASED ON THE PRIMARY CLINICAL RECORDS. [employer] [facility]. provides no warranty or guarantee of the accuracy or completeness of information in this document.
== END 2024-02-09 08:03 | disposition home or self-care (01) ==
LOC: NOMS 08:03
PROVIDERS: PCP Nurse Practitioner Family; Visit Provider Obstetrics & Gynecology
DX: Z30.431 Encounter for routine checking of intrauterine contraceptive device (principal)
CPT/HCPCS: 76830

== ENCOUNTER 2024-03-14 07:30 | Outpatient (OUT) | payer OTHER, SELFPAY ==
--- OUTSIDE RECORDS SUMMARY | 2024-03-15 15:21 | XMS_ITS ---
Patient Summarization (C-CDA 2.1 CCD) Created on: March 15, 2024 JEANNINE FELICIANO : 1975 Sex: Female Author Organization Sample organization Care Team Providers Care Camper Assembler Name Role Phone Dionisio Grimaldo Primary Care Physician [phone] BARBARA DANIELS Attending Unavailable BARBARA DANIELS Attending Unavailable DANIELLEMarisela HOLLIS Referring Unavailable DANIELLE ., DR ANTONIO Admitting Unavailable DANIELLE ., DR ANTONIO Attending Unavailable HOUSE, DR CHOPRA Primary Care Unavailable TIDEWATER, DR KARLEE Neville Consulting Unavailable DANIELLE ., [...] Care Provider SILVINO Bernal Attending Provider [phone] MD Zeenat Graves Referring Provider YAHAIRA JONES [...] Unavailable HOUSE, DIONISIO P Primary Care Unavailable Halsixto, Zeenat Referring Unavailable MelviacheBarbara baez Admitting Unavailable Rohrbacher, Barbara Primary Care Unavailable Rohrbacher, Barbara Attending Unavailable BLACKSTAMIKO, RENAN Borjas Attending Unavailable GUDZ, BRIE Referring Unavailable KELBLEY, BOUCHRA Attending Unavailable GUDZ, BRIE Referring Unavailable KELBLEY, BOUCHRA Attending Unavailable GUDZ, BRIE Referring Unavailable TATBRITANY SHIRLEY Attending Unavailable GUDZ, BRIE Referring Unavailable KELBLEY, BOUCHRA Attending Unavailable GUDZ, BRIE Referring Unavailable KELBLEY, BOUCHRA Attending Unavailable GUDZ, BRIE Referring Unavailable APOLINAR MUNOZ Attending Unavailable DEJA, LUNA Attending Unavailable GUDZ, BRIE Referring Unavailable Allergies Allergy Classification Reported Allergen(s) Allergy Type Date of Onset Reaction(s) Facility (1 source) No Known Medication Allergies; Translations: [No Known Medication Allergies] Propensity to adverse reactions (disorder) [facility] Repository (1 source) amLODIPine; Translations: [AMLODIPINE] Drug Allergy 3 [facility] Repository (2 sources) Lisinopril; Translations: [LISINOPRIL] Drug Allergy 3 [facility] Repository Encounters Encounter Date Encounter Type Care Provider Facility Start: 01-12-2024 End: 01-12-2024 ambulatory LUNA DEJA Not Available Start: 01-08-2024 End: 01-08-2024 ambulatory BOUCHRA XIEBLEY Not Available Start: 12-30-2023 End: 12-30-2023 ambulatory YAHAIRA JONES [facility] Start: 12-24-2023 End: 12-25-2023 ambulatory BOUCHRA XIEBLEY Not Available Start: 12-23-2023 End: 12-23-2023 ambulatory Zeenat Graves Facility:[facility] Start: 12-23-2023 End: 12-23-2023 ambulatory LINER WORKERElena Bernal Work Phone: [facility] Work Phone: Start: 12-23-2023 End: 12-23-2023 Patient encounter procedure LINER WORKER Barbara Dolores Work Phone: [facility] Start: 12-22-2023 End: 12-23-2023 ambulatory BRITANY HAWKINS Not Available Start: 12-10-2023 End: 12-11-2023 ambulatory BOUCHRA VASQUEZ Not Available Start: 12-07-2023 End: 12-08-2023 ambulatory BOUCHRA VASQUEZ Not Available Start: 12-01-2023 End: 12-01-2023 ambulatory RENAN PALOMO Not Available Start: 11-26-2023 Non-patient / Non-visit LINER WORKERElena Bernal Work Phone: [facility] Physician [facility] Work Phone: Start: 11-25-2023 End: 11-25-2023 Patient encounter procedure LINER WORKER Barbaracinthya Bernal Work Phone: [facility] Physician [facility] Work Phone: Start: 10-30-2023 End: 10-31-2023 Emergency department patient visit JASON Dick JOSUE [facility] Start: 10-15-2023 End: 10-16-2023 Emergency department patient visit ZEENAT PHELPS [facility] Start: 12-10-2022 End: 12-11-[address] DIONISIO GRIMALDO Facility:[facility] Start: 11-05-2022 End: 11-06-2022 ambulatory ANIYAH MIRZA Facility:[facility] Start: 09-15-[address] DOCTOR COY Facility :[facility] Start: 09-02-2022 End: 09-03-2022 ambulatory THOM GLADIS Facility:[facility] Start: 08-05-2022 End: 08-06-2022 ambulatory THOM GLADIS Facility:[facility] Start: 07-02-2022 ambulatory BARBARA Dueñas ty:OBINNA Fleming Start: 06-06-2022 End: 06-07-[address] MARISELA SANTOS . Facility:[facility] Start: 05-21-2022 End: 05-21-[address] MARISELA SANTOS . Facility: Start: 04-02-2022 End: 04-03-2022 ambulatory BARBARA DANIELS Facility:[facility] Start: 04-02-2022 End: 04-02-2022 Patient encounter procedure BARBARA DANIELS [facility] Start: 03-13-2022 ambulatory BARBARA DANIELS Facility [facility] Start: 02-28-2022 ambulatory BARBARA DANIELS Facility :[facility] Start: 02-20-2022 End: 02-20-[address] DIONISIO GRIMALDO Facility: Medications Current Medications Medication Drug Class(es) Dates [...] Start: 04-02-2022 take 1 tablet by timbo three times daily Klonopin 1 mg Tab [...] MG PO Daily November 24, 2023 1:00am Payers Date Payer Category Payer Self-pay [id number] 2023 Private Health Insurance [id number] 1975 Unknown [id number] 2.16.8 40.1.338341.3.579.2.727 1975 Unknown [id number] 2.16.8 40.1.254171.3.579.2.727 1975 Unknown [id number] 2.16.8 40.1.889436.3.579.2.727 1975 Unknown [id number] 2.16.8 40.1.275183.3.579.2.727 1975 Unknown [id number] 2.16.84 0.1.334013.3.579.2.593 1975 Unknown [id number] 2.16.84 0.1.421512.3.579.2.593 1975 Unknown [id number] 2.16.84 0.1.914589.3.579.2.593 1975 Unknown [id number] 2.16.84 0.1.785694.3.579.2.593 1974 Unknown [id number] 2.16.84 0.1.423348.3.579.2.593 1975 Unknown [id number] 2.16.84 0.1.311991.3.579.2.593 1974 Unknown [id number] 2.16.84 0.1.546621.3.579.2.593 1974 Unknown [id number] 2.16.84 0.1.177280.3.579.2.593 1975 Unknown [id number] 2.16.8 40.1.212174.3.579.2.1286 1974 Unknown [id number] 2.16.8 40.1.434630.3.579.2.1286 1974 Unknown [id number] 2.16.8 40.1.508465.3.579.2.1286 1974 Unknown [id number] 2.16.8 40.1.998576.3.579.2.1286 1974 Unknown [id number] 2.16.8 40.1.351876.3.579.2.1286 1974 Unknown [id number] 2.16.84 0.1.313963.3.579.2.1259 1974 Unknown [id number] 2.16.84 0.1.149397.3.579.2.1259 1974 Unknown [id number] 2.16.84 0.1.692057.3.579.2.1259 1974 Unknown [id number] 2.16.84 0.1.916649.3.579.2.1259 1974 Unknown [id number] 2.16.84 0.1.083623.3.579.2.1259 1974 Unknown [id number] 2.16.84 0.1.341465.3.579.2.9 1974 Unknown [id number] 2.16.84 0.1.730957.3.579.2.1259 1974 Unknown [id number] 2.16.84 0.1.979581.3.579.2.1259 1960 Private Health Insurance [id number] Self-pay [id number] Unknown [id number] 2.16.8 40.1.778661.3.579.2.531 Plan of Treatment Date Care Activity Detail Author Start: 12-23-2023 [facility] Problems Active Problems Problem Classification Problem Date Documented Date Episodic/Chronic Anxiety disorders (4 sources) Anxiety; Translations: [Anxiety disorder, unspecified] Onset: 7 04-02-2022 Chronic Coma; stupor; and brain damage (2 sources) Daytime somnolence; Translations: [Somnolence] 11-27-2023 Episodic Conditions associated with dizziness or vertigo (2 sources) Dizziness and giddiness; Translations: [Dizziness] Onset: Episodic Disorders of lipid metabolism (1 source) [...] [CONTACT W/AND (SUSP) EXPOS COVID-19] Onset: 02-20-2022 Procedures Date Procedure Procedure Detail Performing Clinician Start: 12-23-2023 Plain X-ray of bilat eral hands LINER WORKER Barbara Bernal Work Phone: Cholecystectomy BARBARA SUBRAMANIAN Results Test Name Value Interpretation Reference Range Facility Alanine aminotransferase [En zymatic activity/volume] in Serum or PlasmaOrdered By: Barbara Bernal on 12-23-2023 ALT [Catalytic activity/Vol] 15 U/L 7-52 [facility] Albumin [Mass/volume] in Ser um or Plasma by Bromocresol green (BCG) dye binding methoOrdered By: Barbara Bernal on 12-23-2023 Albumin BCG dye [Mass/Vol] 4.3 g/dL 3.5-5.7 [facility] Alkaline phosphatase [Enzyma tic activity/volume] in Serum or PlasmaOrdered By: Barbara Bernal on 12-23-2023 ALP [Catalytic activity/Vol] 66 U/L 34-104 [facility] Anti-Streptolysin O Antibody on 12-23-2023 Anti-Streptolysin O Antibody 118.0 Normal 0.0-200.0 [facility] Comment on above: Result Comment: Perf ormed at: - [facility] [place] [id number] Reporter: Winston Simon PhD, Phone: [phone] PERFORMED BY: [place] [address] PATHOLOGIST [employer] SALES MANAGER LAKHWINDER ALY M.D. Performed By: #### U LACHELLE, CRP, CMP, B12 #### [address] #### ASO #### [facility] , Aspartate aminotransferase [ Enzymatic activity/volume] in Serum or PlasmaOrdered By: Barbara Bernal on 12-23-2023 AST [Catalytic activity/Vol] 13 U/L 13-39 [facility] Bilirubin.total [Mass/volume ] in Serum or PlasmaOrdered By: Barbara Bernal on 12-23-2023 Bilirubin [Mass/Vol] 0.5 mg/dL 0.3-1.[address] [facility] C reactive protein [Mass/vol ume] in Serum or PlasmaOrdered By: Barbara Bernal on 12-23-2023 CRP [Mass/Vol] 1.1 mg/dL 0.0-0.5 [facility] C-Reactive Proteinon 024 C-Reactive Protein 1.1 mg/dL High 0.0-0.5 [facility] Comment on above: Performed By: #### U LACHELLE, CRP, CMP, B12 #### [facility] [address] [place] [address] [place] #### ASO #### [facility] , Calcium [Mass/volume] in Ser um or PlasmaOrdered By: Barbara Bernal on 12-23-2023 Calcium [Mass/Vol] 9.7 mg/dL 8.6-10.3 [facility] Carbon dioxide, total [Moles /volume] in Serum or PlasmaOrdered By: Barbara Bernal on 12-23-2023 CO2 [Moles/Vol] 29.9 mmol/L 21.0-31.0 [facility] Chloride [Moles/volume] in S lloyd or PlasmaOrdered By: Barbara Bernal on 12-23-2023 Chloride [Moles/Vol] 104 mmol/L 98-[address] [facility] Comprehensive Metabolic Pane shiva 12-23-2023 Albumin [Mass/Vol] 4.3 g/dL Normal 3.5-5.7 [facility] Comment on above: Performed By: #### U LACHELLE, CRP, CMP, B12 #### [facility] [address] [place] [address] [place] #### ASO #### [facility] , Albumin/Globulin [Mass ratio] 2.0 {ratio} Normal [facility] Comment on above: Performed By: #### U LACHELLE, CRP, CMP, B12 #### [facility] [address] [place] [address] [place] #### ASO #### [facility] , ALP [Catalytic activity/Vol] 66 U/L Normal 34-104 [facility] Comment on above: Performed By: #### U LACHELLE, CRP, CMP, B12 #### [place] [address] [place] #### ASO #### [facility] , ALT [Catalytic activity/Vol] 15 U/L Normal 7-52 [facility] Comment on above: Performed By: #### U LACHELLE, CRP, CMP, B12 #### [address] #### ASO #### [facility] , Anion gap [Moles/Vol] 8.4 mmol/L Normal 6.0-15.0 The [facility] Comment on above: Performed By: #### U LACHELLE, CRP, CMP, B12 #### [place] [address] [place] #### ASO #### [facility] , AST [Catalytic activity/Vol] 13 U/L Normal 13-39 The [facility] Comment on above: Performed By: #### U LACHELLE, CRP, CMP, B12 #### [facility] [address] [place] [address] [place] #### ASO #### [facility] , Bilirubin [Mass/Vol] 0.5 mg/dL Normal 0.3-1.0 The [facility] Comment on above: Performed By: #### U LACHELLE, CRP, CMP, B12 #### [facility] [address] [place] [address] #### ASO #### [facility] , Calcium [Mass/Vol] 9.7 mg/dL Normal 8.6-10.3 The [facility] Comment on above: Performed By: #### U LACHELLE, CRP, CMP, B12 #### [facility] [address] [place] [address] [place] #### ASO #### [facility] , Chloride [Moles/Vol] 104 mmol/L Normal 98-107 The [facility] Comment on above: Performed By: #### U LACHELLE, CRP, CMP, B12 #### [facility] [address] [place] [address] [place] #### ASO #### [facility] , CO2 [Moles/Vol] 29.9 mmol/L Normal 21.0-31.0 The [facility] Comment on above: Performed By: #### U LACHELLE, CRP, CMP, B12 #### [place] [address] [place] #### ASO #### [facility] , Creatinine [Mass/Vol] 0.52 mg/dL Low 0.60-1.20 The [facility] Comment on above: Performed By: #### U LACHELLE, CRP, CMP, B12 #### [place] [address] [place] #### ASO #### [facility] , GFR/1.73 sq M.predicted MDRD (S/P/Bld) [Vol rate/Area] mL/min/{1.73_m2} Normal The [facility] Comment on above: Performed By: #### U LACHELLE, CRP, CMP, B12 #### [facility] [address] [place] [address] [place] #### ASO #### [facility] , Globulin (S) [Mass/Vol] 2.2 g/dL Normal T [facility] Comment on above: Performed By: #### U LACHELLE, CRP, CMP, B12 #### [facility] [address] [place] [address] [place] #### ASO #### [facility] , Glucose [Mass/Vol] 78 mg/dL Normal 70-100 The [facility] Comment on above: Result Comment: [place] Glucose Reference Range is dependent on time and content of last meal. Glucose of more than 200 mg/dL in a nonstressed, ambulatory subject supports the diagnosis of Diabetes Mellitus. ADA recommended reference range Performed By: #### U LACHELLE, CRP, CMP, B12 #### [place] [address] [place] #### ASO #### [facility] , Potassium [Moles/Vol] 4.3 mmol/L Normal 3.5-5.1 The [facility] Comment on above: Performed By: #### U LACHELLE, CRP, CMP, B12 #### [place] [address] [place] #### ASO #### [facility] , Protein [Mass/Vol] 6.5 g/dL Normal 6.4-8.9 The [facility] Comment on above: Performed By: #### U LACHELLE, CRP, CMP, B12 #### [place] [address] [place] #### ASO #### [facility] , Sodium [Moles/Vol] 138 mmol/L Normal 136-145 The [facility] Comment on above: Performed By: #### U LACHELLE, CRP, CMP, B12 #### [place] [address] [place] #### ASO #### [facility] , Urea nitrogen [Mass/Vol] 19 mg/dL Normal 7-25 The [facility] Comment on above: Performed By: #### U LACHELLE, CRP, CMP, B12 #### [place] [address] [place] #### ASO #### [facility] , Creatinine [Mass/volume] in Serum or PlasmaOrdered By: Barbara Bernal on 12-23-2023 Creatinine [Mass/Vol] 0.52 mg/dL 0.60-1.20 [facility] Globulin Calc (S) [Mass/Vol] Ordered By: Barbara Bernal on 12-23-2023 Globulin (S) [Mass/Vol] 2.2 g/dL [facility] Glucose [Mass/volume] in Ser um or PlasmaOrdered By: Barbara Bernal on 12-23-2023 Glucose [Mass/Vol] 78 mg/dL 70-100 [facility] Comment on above: ADA recommended refe rence rangeRandom Glucose Reference Range is dependent on time and content of last meal. Glucose of more than 200 mg/dL in a nonstressed, ambulatory subject supports the diagnosis of Diabetes Mellitus. No Panel InformationOrdered By: Barbara Bernal on 12-23-2023 Estimated GFR (CKD-EPI) > 60.0 mL/Min [facility] Creatinine Clearance (Chem N/A [facility] Potassium [Moles/volume] in Serum or PlasmaOrdered By: Barbara Bernal on 12-23-2023 Potassium [Moles/Vol] 4.3 mmol/L 3.5-5.1 [facility] Protein [Mass/volume] in Ser um or PlasmaOrdered By: Barbara Bernal on 12-23-2023 Protein [Mass/Vol] 6.5 g/dL 6.4-8.9 [facility] Serum or plasma albumin/glob ulin mass ratioOrdered By: Barbara Bernal on 12-23-2023 Albumin/Globulin [Mass ratio] 2.0 {ratio} [facility] Serum or plasma anion gap de terminationOrdered By: Barbara Bernal on 12-23-2023 Anion gap [Moles/Vol] 8.4 mmol/L 6.0-15.0 [facility] Sodium [Moles/volume] in Ser um or PlasmaOrdered By: Barbara Bernal on 12-23-2023 Sodium [Moles/Vol] 138 mmol/L 136-145 [facility] Urate [Mass/volume] in Serum or PlasmaOrdered By: Barbara Bernal on 12-23-2023 Urate [Mass/Vol] 5.6 mg/dL 2.3-6.6 [facility] Urea nitrogen [Mass/volume] in Serum or PlasmaOrdered By: Barbara Bernal on 12-23-2023 Urea nitrogen [Mass/Vol] 19 mg/dL 7-25 [facility] Uric Acidon 12-23-2023 Urate [Mass/Vol] 5.6 mg/dL Normal 2.3-6.6 [facility] Comment on above: Performed By: #### U LACHELLE, CRP, CMP, B12 #### [facility] [address] [place] [address] #### ASO #### [facility] , Vitamin B12on 12-23-2023 Cobalamin (Vitamin B12) [Mass/Vol] 402 pg/mL Normal 180-914 [facility] Comment on above: Result Comment: PERF ORMED BY: [place] [address] PATHOLOGIST [employer] SALES MANAGER LAKHWINDER ALY M.D. Performed By: #### U LACHELLE, CRP, CMP, B12 #### [address] #### ASO #### [facility] , Vitamin B12 ser/plasOrdered By: Barbara Bernal on 12-23-2023 Cobalamin (Vitamin B12) [Mass/Vol] 402 pg/mL 180-914 [facility] XR hand BI 2Von 12-23-2023 XR hand BI 2V [facility] [place] [address] XRay Report Signed Patient: Jeannine Feliciano MR#: [id number] 559 : 1975 Acct:[id number] Age/Sex: 48 / F ADM Date: 12/23/23 [facility]: Type: [facility] Attending Dr: Barbara Bernal APRN, LEADERSHIP DEVELOPMENT MANAGER-C Copies to: Barbara Bernal APRN, CNP Ordering [...] Eduardo Ponce M.D.12/23/2023 4:17 PM Dictation Location: [place] [address] Transcribed By: [facility] 12/23/23 1617 Dictated By: Eduardo Ponce II, MD 12/23/23 1611 Signed By: 12/23/23 1617 Normal [facility] Basophils Auto (Bld) [#/Vol] on 11-26-2023 Basophils (Bld) [#/Vol] 0.1 10 3/uL 0.0-0.1 [facility] Basophils/100 WBC Auto (Bld) on 11-26-2023 Basophils/100 WBC (Bld) 0.7 % 0.2-2.[address] [facility] Eosinophils/100 WBC Auto (Bl d)on 11-26-2023 Eosinophils/100 WBC (Bld) 4.9 % 0.9-7.0 [facility] Erythrocyte distribution wid th Auto (RBC) [Ratio]on 11-26-2023 Erythrocyte distribution width (RBC) [Ratio] 13.3 % 11.0-15.0 [facility] Estimated glomerular filtrat ion rate (GFR) non- Americanon 11-26-2023 GFR/1.73 sq M.predicted among non-blacks MDRD (S/P/Bld) [Vol rate/Area] mL/min/{1.73_m2} >=60 [facility] Globulin Calc (S) [Mass/Vol] on 11-26-2023 Globulin (S) [Mass/Vol] 3.4 g/dL [facility] Hematocrit Auto (Bld) [Volum e fraction]on 11-26-2023 Hematocrit (Bld) [Volume fraction] 40.0 % 36.0-48.0 [facility] Hemoglobin [Mass/volume] in Bloodon 11-26-2023 Hemoglobin (Bld) [Mass/Vol] 13.2 g/dL 12.0-16.0 [facility] Laboratory - Chemistry and C hemistry - challengeon 11-26-2023 Albumin [Mass/Vol] 3.8 g/dL 3.4-5.0 [facility] ALP [Catalytic activity/Vol] 76 U/L 46-116 [facility] ALT [Catalytic activity/Vol] 29 U/L 14-59 [facility] AST [Catalytic activity/Vol] 19 U/L 15-37 [facility] Bilirubin [Mass/Vol] 0.5 mg/dL 0.2-1.[address] [facility] Calcium [Mass/Vol] 9.2 mg/dL 8.5-10.1 [facility] Chloride [Moles/Vol] 102 mmol/L 98-[address] [facility] CO2 [Moles/Vol] 31.5 mmol/L 21.0-32.0 [facility] Cobalamin (Vitamin B12) [Mass/Vol] 706.0 pg/mL 193.0-986.0 [facility] Creatinine [Mass/Vol] 0.71 mg/dL 0.55-1.02 [facility] GFR/1.73 sq M.predicted MDRD (S/P/Bld) [Vol rate/Area] mL/min/{1.73_m2} >=60 [facility] Glucose [Mass/Vol] 72 mg/dL 74-106 [facility] Potassium [Moles/Vol] 4.1 mmol/L 3.5-5.1 [facility] Protein [Mass/Vol] 7.2 g/dL 6.4-8.2 [facility] Sodium [Moles/Vol] 140 mmol/L 136-145 [facility] TSH Qn 2.785 m[IU]/L 0.358-3.740 [facility] Urate [Mass/Vol] 6.2 mg/dL 2.6-6.0 [facility] Urea nitrogen [Mass/Vol] 16.0 mg/dL 7.0-18.0 [facility] Urea nitrogen/Creatinine [Mass ratio] 22.5 mg/mg [facility] Laboratory - Hematology and Cell countson 11-26-2023 ESR (Bld) [Velocity] 28 mm/h <=[address] [facility] Immature granulocytes/100 WBC (Bld) 0.3 % 0.0-0.5 [facility] Leukocytes [#/volume] correc frances for nucleated erythrocytes in Blood by Automated counon 11-26-2023 WBC corrected for nucl RBC Auto (Bld) [#/Vol] 6.8 10 3/uL 4.0-11.0 [facility] Lymphocytes Auto (Bld) [#/Vo l]on 11-26-2023 Lymphocytes (Bld) [#/Vol] 1.9 10 3/uL 1.2-3.8 [facility] Lymphocytes/100 WBC Auto (Bl d)on 11-26-2023 Lymphocytes/100 WBC (Bld) 28.1 % 20.5-60.0 [facility] MCH Auto (RBC) [Entitic mass ]on 11-26-2023 MCH (RBC) [Entitic mass] 28.8 pg 26.7-34.0 [facility] MCHC Auto (RBC) [Mass/Vol]on 11-26-2023 MCHC (RBC) [Mass/Vol] 33.0 g/dL 29.9-35.2 [facility] MCV Auto (RBC) [Entitic vol] on 11-26-2023 MCV (RBC) [Entitic vol] 87.3 fL 81.0-99.0 [facility] Monocytes Auto (Bld) [#/Vol] on 11-26-2023 Monocytes (Bld) [#/Vol] 0.5 10 3/uL 0.3-0.8 [facility] Monocytes/100 WBC Auto (Bld) on 11-26-2023 Monocytes/100 WBC (Bld) 6.6 % 1.7-12.0 [facility] Neutrophils Auto (Bld) [#/Vo l]on 11-26-2023 Neutrophils (Bld) [#/Vol] 4.0 10 3/uL 1.4-6.5 [facility] Neutrophils/100 WBC Auto (Bl d)on 11-26-2023 Neutrophils/100 WBC (Bld) 59.4 % 43.0-75.0 [facility] No Panel Informationon 11-25 25-Hydroxy Vitamin D Total 40.8 ng/mL [facility] Comment on above: <20 ng/mL Vit D defi cient20-<30 ng/mL Vit D [id number] ng/mL Vit D sufficient>100 ng/mL Potential Toxicity Anti-Streptolysin O Antibody 131.3 [IU]/mL 0.0-200.0 [facility] Comment on above: Performed at: - [employer] [place] [id number] Director: Winston Simon PhD, Phone: [phone] C-Reactive Protein, Quantitative 1.44 mg/dL <=0.50 [facility] Eosinophils # (Auto) 0.3 10 3/uL 0.0-0.7 [facility] Immature Granulocyte # (Auto) 0.02 10 3/uL 0.00-0.03 [facility] Platelet mean volume Auto (B ld) [Entitic vol]on 11-26-2023 Platelet mean volume (Bld) [Entitic vol] 10.5 fL 9.5-13.5 [facility] Platelets Auto (Bld) [#/Vol] on 11-26-2023 Platelets (Bld) [#/Vol] 248 10 3/uL 150-450 [facility] RBC Auto (Bld) [#/Vol]on RBC (Bld) [#/Vol] 4.58 10 6/uL 4.20-5.40 [facility] Serum nuclear antibody titer on 11-26-2023 Nuclear Ab (S) [Titer] Negative . [facility] Comment on above: Negative <1:80 Borde rline 1:80 Positive >1:80ICAP nomenclature: AC-0For more information about Hep-2 cell patterns useBAN[facility] RE[facility] [email or web address].org, the official website for theInternational Consensus on Antinuclear Antibody (RISA)Patterns (ICAP).Performed at: [employer] [id number] [place], [place] [id number] Director: Winston Simon PhD, Phone: [phone] Serum or plasma albumin/glob ulin mass ratioon 11-26-2023 Albumin/Globulin [Mass ratio] 1.1 {ratio} [facility] Serum or plasma anion gap de terminationon 11-26-2023 Anion gap [Moles/Vol] 10.6 mmol/L [facility] Serum or plasma cyclic adeno sine monophosphate measurement (moles/volume)on 11-26-2023 Adenosine monophosphate.cyclic [Moles/Vol] 7 units 0-19 [facility] Comment on above: Negative <20 Weak po sitive 20 - 39 Moderate positive 40 - 59 Strong positive >59Performed at: [employer] [id number] [place], [place] [id number] Director: Winston Simon PhD, Phone: [phone] Serum or plasma rheumatoid f actor measurement (units/volume)on 11-26-2023 Rheumatoid factor Qn 10.4 [IU]/mL <14.0 [facility] CBC AND AUTO DIFFon 10-30-19 24 ABSOLUTE BASOPHIL 0.1 X10E9/L Normal 0.0-0.2 [facility] Comment on above: Performed By: #### 1 0839-9, 60879-2, CBCA, CMP, 39567-7 #### [facility] ([id number]) [address] [place] [address], [place] [address] ABSOLUTE NEUTROPHIL 5.5 X10E9/L Normal 1.5-6.6 [facility] Comment on above: Performed By: #### 1 0839-9, 64157-6, CBCA, CMP, 85247-2 #### [facility] ([id number]) [address] [place] [address] 35551 Basophils/100 WBC (Bld) 1.0 % Normal [facility] Comment on above: Performed By: #### 1 0839-9, 44037-4, CBCA, CMP, 74303-6 #### [facility] ([id number]) [address] [place] [address] 12730 Eosinophils (Bld) [#/Vol] 0.4 10*3/uL Normal 0.0-0.4 [facility] Comment on above: Performed By: #### 1 0839-9, 16503-6, CBCA, CMP, 82765-8 #### [facility] ([id number]) [address] [place] [address] 61402 Eosinophils/100 WBC (Bld) 4.9 % Normal [facility] Comment on above: Performed By: #### 1 0839-9, 16951-8, CBCA, CMP, 03540-3 #### [facility] ([id number]) [address] [place] [address] 87206 Erythrocyte distribution width (RBC) [Ratio] 13.8 % Normal 11.5-15.0 [facility] Comment on above: Performed By: #### 1 0839-9, 14706-2, CBCA, CMP, 19161-9 #### [facility] ([id number]) [address] [place] [address] 48556 Hematocrit (Bld) [Volume fraction] 40.2 % Normal 35-47 [facility] Comment on above: Performed By: #### 1 0839-9, 99728-0, CBCA, CMP, 97790-2 #### [facility] ([id number]) [address] [place] [address] 22203 Hemoglobin (Bld) [Mass/Vol] 13.6 g/dL Normal 11.7-15.5 [facility] Comment on above: Performed By: #### 1 0839-9, 95373-8, CBCA, CMP, 92097-3 #### [facility] ([id number]) [address] [place] [address] 26892 Lymphocytes (Bld) [#/Vol] 1.9 10*3/uL Normal 1.0-3.5 [facility] Comment on above: Performed By: #### 1 0839-9, 96344-2, CBCA, CMP, 04970-9 #### [facility] ([id number]) [address] [place] [address] 94120 Lymphocytes/100 WBC (Bld) 22.7 % Normal [facility] Comment on above: Performed By: #### 1 0839-9, 12108-7, CBCA, CMP, 20476-8 #### [facility] ([id number]) [address] [place] [address] 84272 MCH (RBC) [Entitic mass] 29.4 pg Normal 27-34 [facility] Comment on above: Performed By: #### 1 0839-9, 48965-9, CBCA, CMP, 08586-5 #### [facility] ([id number]) [address] [place] [address] 60581 MCHC (RBC) [Mass/Vol] 33.9 g/dL Normal 32-36 [facility] Comment on above: Performed By: #### 1 0839-9, 19799-5, CBCA, CMP, 97455-5 #### [facility] ([id number]) [address] [place] [address] 58924 MCV (RBC) [Entitic vol] 87 fL Normal 80-100 [facility] Comment on above: Performed By: #### 1 0839-9, 55444-2, CBCA, CMP, 25359-7 #### [facility] ([id number]) [address] [place] [address] 12108 Monocytes (Bld) [#/Vol] 0.6 10*3/uL Normal 0-0.9 [facility] Comment on above: Performed By: #### 1 0839-9, 64317-7, CBCA, CMP, 70287-8 #### [facility] ([id number]) [address] [place] [address] 60956 Monocytes/100 WBC (Bld) 6.9 % Normal [facility] Comment on above: Performed By: #### 1 0839-9, 32130-7, CBCA, CMP, 97647-8 #### [facility] ([id number]) [address] [place] [address] 37988 Neutrophils/100 WBC (Bld) 64.5 % Normal [facility] Comment on above: Performed By: #### 1 0839-9, 90603-4, CBCA, CMP, 49057-4 #### [facility] ([id number]) [address] [place] [address] 72812 Platelet mean volume (Bld) [Entitic vol] 9.1 fL Normal 7-12 [facility] Comment on above: Performed By: #### 1 0839-9, 72322-7, CBCA, CMP, 75027-8 #### [facility] ([id number]) [address] [place] [address] 59508 Platelets (Bld) [#/Vol] 278 10*3/uL Normal 150-450 [facility] Comment on above: Performed By: #### 1 0839-9, 06496-0, CBCA, CMP, 57766-0 #### [facility] ([id number]) [address] [place] [address] 14789 RBC COUNT 4.64 X10E12/L Normal 3.80-5.20 [facility] Comment on above: Performed By: #### 1 0839-9, 92134-7, CBCA, CMP, 28989-3 #### [facility] ([id number]) [address] [place] [address] 17208 WBC (Bld) [#/Vol] 8.5 10*3/uL Normal 4.0-11.0 [facility] Comment on above: Performed By: #### 1 0839-9, 13073-7, CBCA, CMP, 64619-8 #### [facility] ([id number]) [address] [place] [address] 64773 COMPREHENSIVE METABOLIC PANE Shiva 10-30-2023 Albumin [Mass/Vol] 4.1 g/dL Normal 3.2-5.3 [facility] Comment on above: Performed By: #### 1 0839-9, 31768-1, CBCA, CMP, 79240-0 #### [facility] ([id number]) [address] [place] [address] 79680 ALP [Catalytic activity/Vol] 77 U/L Normal 39-130 [facility] Comment on above: Performed By: #### 1 0839-9, 86832-3, CBCA, CMP, 41423-2 #### [facility] ([id number]) [address] [place] [address] 79359 ALT [Catalytic activity/Vol] 18 U/L Normal 0-31 [facility] Comment on above: Performed By: #### 1 0839-9, 20160-0, CBCA, CMP, 59304-0 #### [facility] ([id number]) [address] [place] [address] 66830 Anion gap [Moles/Vol] 12 mmol/L Normal 5-15 [facility] Comment on above: Performed By: #### 1 0839-9, 45224-9, CBCA, CMP, 63541-8 #### [facility] ([id number]) [address] [place] [address] 88848 AST [Catalytic activity/Vol] 19 U/L Normal 0-41 [facility] Comment on above: Performed By: #### 1 0839-9, 63836-2, CBCA, CMP, 54908-4 #### [facility] ([id number]) [address] [place] [address] 78538 Bilirubin [Mass/Vol] 0.5 mg/dL Normal 0.3-1.2 [facility] Comment on above: Performed By: #### 1 0839-9, 50753-6, CBCA, CMP, 28589-7 #### [facility] ([id number]) [address] [place] [address] 29048 Calcium [Mass/Vol] 9.1 mg/dL Normal 8.5-10.5 [facility] Comment on above: Performed By: #### 1 0839-9, 12298-3, CBCA, CMP, 15494-5 #### [facility] ([id number]) [address] [place] [address] 19413 Chloride [Moles/Vol] 101 mmol/L Normal 98-109 [facility] Comment on above: Performed By: #### 1 0839-9, 65060-1, CBCA, CMP, 77757-8 #### [facility] ([id number]) [address] [place] [address] 40507 CO2 [Moles/Vol] 25 mmol/L Normal 22-32 [facility] Comment on above: Performed By: #### 1 0839-9, 44611-8, CBCA, CMP, 06268-7 #### [facility] ([id number]) [address] [place] [address] 65117 Creatinine [Mass/Vol] 1.16 mg/dL High 0.40-1.00 [facility] Comment on above: Result Comment: METH OD TRACEABLE TO IDMS STANDARD Performed By: #### 1 0839-9, 63197-9, CBCA, CMP, 88546-6 #### [facility] ([id number]) [address] [place] [address] 69798 GFR/1.73 sq M.predicted among non-blacks MDRD (S/P/Bld) [Vol rate/Area] 58 mL/min/{1.73_m2} Low >59 [facility] Comment on above: Result Comment: Reported eGFR is based on the CKD-EPI 2020 equation that does not use a race coefficient. Performed By: #### 1 0839-9, 96374-7, CBCA, CMP, 72124-1 #### [facility] ([id number]) [address] [place] [address] 79931 Glucose [Mass/Vol] 109 mg/dL High 65-99 [facility] Comment on above: Performed By: #### 1 0839-9, 13712-3, CBCA, CMP, 77385-7 #### [facility] ([id number]) [address] [place] [address] 77540 Potassium [Moles/Vol] 4.3 mmol/L Normal 3.5-5.0 [facility] Comment on above: Performed By: #### 1 0839-9, 53752-0, CBCA, CMP, 51856-1 #### [facility] ([id number]) [address] [place] [address] 55683 Protein [Mass/Vol] 6.5 g/dL Normal 6.0-8.0 [facility] Comment on above: Performed By: #### 1 0839-9, 07938-1, CBCA, CMP, 43248-6 #### [facility] ([id number]) [address] [place] [address] 31281 Sodium [Moles/Vol] 138 mmol/L Normal 134-146 [facility] Comment on above: Performed By: #### 1 0839-9, 87398-3, CBCA, CMP, 65960-7 #### [facility] ([id number]) [address] [place] [address] 39047 Urea nitrogen [Mass/Vol] 44 mg/dL High 5-23 [facility] Comment on above: Performed By: #### 1 0839-9, 31322-2, CBCA, CMP, 11789-2 #### [facility] ([id number]) [address] [place] [address] 96545 Fibrin D-dimer DDU (PPP) [Ma ss/Vol]on 10-30-2023 D DIMER <150 Normal <255 [facility] Comment on above: Result Comment: Results <255 ng/mL DDU: The presence of a VTE can safely be excluded with a negative D-Dimer result and Wells score. A negative result doesn't exclude the possibility of DIC. The test be repeated along with other diagnostic tests if the patient's symptoms persist or worsen. [email or web address] Performed By: #### 1 0839-9, 93953-9, CBCA, CMP, 33408-0 #### [facility] ([id number]) [address] [place] [address] 67459 Natriuretic peptide B [Mass/ Vol]on 10-30-2023 BRN NATRIURETIC PEP <5 Normal <100.0 [facility] Comment on above: Performed By: #### C MP, CBCA, 03674-8 #### [facility] ([id number]) [address] [place] [address] 52272 TROPONIN Ion 10-30-2023 Troponin I.cardiac [Mass/Vol] 0.04 ng/mL Normal 0.00-0.04 [facility] Comment on above: Performed By: #### 1 0839-9, 83372-1, CBCA, CMP, 09520-1 #### [facility] ([id number]) [address] [place] [address] 84071 XR CHEST 1 VWon 10-30-2023 XR CHEST [...] Ruiz MD on 10/30/2023 1:01 AM Normal [facility] CBC AND AUTO DIFFon 10-15-19 ABSOLUTE BASOPHIL 0.1 X10E9/L Normal 0.0-0.2 [facility] Comment on above: Performed By: #### C MP, CBCA, 28727-9 #### [facility] ([id number]) [address] [place] [address] 80008 ABSOLUTE NEUTROPHIL 4.5 X10E9/L Normal 1.5-6.6 [facility] Comment on above: Performed By: #### C MP, CBCA, 33075-1 #### [facility] ([id number]) [address] [place] [address] 30834 Basophils/100 WBC (Bld) 0.9 % Normal [facility] Comment on above: Performed By: #### C MP, CBCA, 08639-2 #### [facility] ([id number]) [address] [place] [address] 85713 Eosinophils (Bld) [#/Vol] 0.3 10*3/uL Normal 0.0-0.4 [facility] Comment on above: Performed By: #### C MP, CBCA, 50193-4 #### [facility] ([id number]) [address] [place] [address] 35936 Eosinophils/100 WBC (Bld) 4.0 % Normal [facility] Comment on above: Performed By: #### C JESSE, CBCA, 85970-3 #### [facility] ([id number]) [address] [place] [address] 50334 Erythrocyte distribution width (RBC) [Ratio] 13.6 % Normal 11.5-15.0 [facility] Comment on above: Performed By: #### C JESSE, CBCA, 64820-8 #### [facility] ([id number]) [address] [place] [address] 08980 Hematocrit (Bld) [Volume fraction] 38.8 % Normal 35-47 [facility] Comment on above: Performed By: #### C JESSE, CBCA, 57794-0 #### [facility] ([id number]) [address] [place] [address] 88316 Hemoglobin (Bld) [Mass/Vol] 13.0 g/dL Normal 11.7-15.5 [facility] Comment on above: Performed By: #### C JESSE, CBCA, 15884-1 #### [facility] ([id number]) [address] [place] [address] 73950 Lymphocytes (Bld) [#/Vol] 3.0 10*3/uL Normal 1.0-3.5 [facility] Comment on above: Performed By: #### C JESSE, CBCA, 44145-6 #### [facility] ([id number]) [address] [place] [address] 40328 Lymphocytes/100 WBC (Bld) 34.8 % Normal [facility] Comment on above: Performed By: #### C JESSE, CBCA, 63679-9 #### [facility] ([id number]) [address] [place] [address] 52245 MCH (RBC) [Entitic mass] 28.8 pg Normal 27-34 [facility] Comment on above: Performed By: #### C JESSE, CBCA, 45199-5 #### [facility] ([id number]) [address] [place] [address] 02828 MCHC (RBC) [Mass/Vol] 33.4 g/dL Normal 32-36 [facility] Comment on above: Performed By: #### C JESSE, CBCA, 94378-8 #### [facility] ([id number]) [address] [place] [address] 10673 MCV (RBC) [Entitic vol] 86 fL Normal 80-100 [facility] Comment on above: Performed By: #### C JESSE, CBCA, 66090-7 #### [facility] ([id number]) [address] [place] [address] 08422 Monocytes (Bld) [#/Vol] 0.6 10*3/uL Normal 0-0.9 [facility] Comment on above: Performed By: #### C JESSE, CBCA, 74874-6 #### [facility] ([id number]) [address] [place] [address] 27640 Monocytes/100 WBC (Bld) 6.8 % Normal [facility] Comment on above: Performed By: #### C JESSE, CBCA, 08364-4 #### [facility] ([id number]) [address] [place] [address] 05254 Neutrophils/100 WBC (Bld) 53.5 % Normal [facility] Comment on above: Performed By: #### C JESSE, CBCA, 83606-3 #### [facility] ([id number]) [address] [place] [address] 20875 Platelet mean volume (Bld) [Entitic vol] 9.0 fL Normal 7-12 [facility] Comment on above: Performed By: #### C JESSE, CBCA, 27687-2 #### [facility] ([id number]) [address] [place] [address] 92575 Platelets (Bld) [#/Vol] 291 10*3/uL Normal 150-450 [facility] Comment on above: Performed By: #### C JESSE, CBCA, 74249-0 #### [facility] ([id number]) [address] [place] [address] 10564 RBC COUNT 4.49 X10E12/L Normal 3.80-5.20 [facility] Comment on above: Performed By: #### C JESSE, CBCA, 92267-4 #### [facility] ([id number]) [address] [place] [address] 57897 WBC (Bld) [#/Vol] 8.5 10*3/uL Normal 4.0-11.0 [facility] Comment on above: Performed By: #### C JESSE, CBCA, 68230-3 #### [facility] ([id number]) [address] [place] [address] 78846 COMPREHENSIVE METABOLIC PANE Shiva 10-15-2023 Albumin [Mass/Vol] 4.1 g/dL Normal 3.2-5.3 [facility] Comment on above: Performed By: #### C JESSE, CBCA, 68895-9 #### [facility] ([id number]) [address] [place] [address] 63656 ALP [Catalytic activity/Vol] 70 U/L Normal 39-130 [facility] Comment on above: Performed By: #### C JESSE, CBCA, 08655-3 #### [facility] ([id number]) [address] [place] [address] 57657 ALT [Catalytic activity/Vol] 19 U/L Normal 0-31 [facility] Comment on above: Performed By: #### C JESSE, CBCA, 50548-0 #### [facility] ([id number]) [address] [place] [address] 20646 Anion gap [Moles/Vol] 7 mmol/L Normal 5-15 [facility] Comment on above: Performed By: #### C JESSE, CBCA, 04538-0 #### [facility] ([id number]) [address] [place] [address] 54848 AST [Catalytic activity/Vol] 14 U/L Normal 0-41 [facility] Comment on above: Performed By: #### C JESSE, CBCA, 11888-2 #### [facility] ([id number]) [address] [place] [address] 43152 Bilirubin [Mass/Vol] 0.8 mg/dL Normal 0.3-1.2 [facility] Comment on above: Performed By: #### C JESSE, CBCA, 66937-1 #### [facility] ([id number]) [address] [place] [address] 56212 Calcium [Mass/Vol] 9.2 mg/dL Normal 8.5-10.5 [facility] Comment on above: Performed By: #### C JESSE, CBCA, 53414-6 #### [facility] ([id number]) [address] [place] [address] 91148 Chloride [Moles/Vol] 105 mmol/L Normal 98-109 [facility] Comment on above: Performed By: #### C JESSE, CBCA, 73896-3 #### [facility] ([id number]) [address] [place] [address] 18510 CO2 [Moles/Vol] 25 mmol/L Normal 22-32 [facility] Comment on above: Performed By: #### C JESSE, CBCA, 89083-1 #### [facility] ([id number]) [address] [place] [address] 15965 Creatinine [Mass/Vol] 0.67 mg/dL Normal 0.40-1.00 [facility] Comment on above: Result Comment: METH OD TRACEABLE TO IDMS STANDARD Performed By: #### C NATHALIE MOLINA, 94692-4 #### [facility] ([id number]) [address] [place] [address] 25229 eGFR (CKD-EPI) NON-RACE DEPENDENT >90 Normal >59 [facility] Comment on above: Result Comment: Reported eGFR is based on the CKD-EPI 2020 equation that does not use a race coefficient. Performed By: #### C NATHALIE MOLINA, 93636-9 #### [facility] ([id number]) [address] [place] [address] 04541 Glucose [Mass/Vol] 96 mg/dL Normal 65-99 [facility] Comment on above: Performed By: #### C NATHALIE MOLINA, 32852-0 #### [facility] ([id number]) [address] [place] [address] 48006 Potassium [Moles/Vol] 4.1 mmol/L Normal 3.5-5.0 [facility] Comment on above: Performed By: #### C NATHALIE MOLINA, 87978-8 #### [facility] ([id number]) [address] [place] [address] 98814 Protein [Mass/Vol] 6.8 g/dL Normal 6.0-8.0 [facility] Comment on above: Performed By: #### C NATHALIE MOLINA, 22295-2 #### [facility] ([id number]) [address] [place] [address] 84607 Sodium [Moles/Vol] 137 mmol/L Normal 134-146 [facility] Comment on above: Performed By: #### C NATHALIE MOLINA, 82677-3 #### [facility] ([id number]) [address] [place] [address] 97587 Urea nitrogen [Mass/Vol] 26 mg/dL High 5-23 [facility] Comment on above: Performed By: #### C JESSE CBCA, 42914-9 #### [facility] ([id number]) [address] [place] [address] 34858 Fibrin D-dimer DDU (PPP) [Ma ss/Vol]on 10-15-2023 D DIMER 179 ng/mL DDU Normal <255 [facility] Comment on above: Result Comment: Results <255 ng/mL DDU: The presence of a VTE can safely be excluded with a negative D-Dimer result and Wells score. A negative result doesn't exclude the possibility of DIC. The test be repeated along with other diagnostic tests if the patient's symptoms persist or worsen. [email or web address] Performed By: #### C JESSE CBCA, 33161-5 #### [facility] ([id number]) [address] [place] [address] 81749 SARS/FLU A+B/RSV by NAAT/Mol ecularon 10-15-2023 SARS/FLU [...] operators who are performing tests using either [employer] or [employer] systems and is limited to laboratories that [...] repeat. Fact Sheet for Healthcare Providers: https://www.fda.gov/m edia/571225/download Fact Sheet for Patients: https://www.fda.gov/m edia/755447/download Normal [facility] Comment on above: Performed By: #### C OVFLR #### [facility] ([id number]) [address] [place] [address] 62344 XR FOOT LT MIN 3 VWSon 10-15 [...] Godoy MD on 10/15/2023 1:24 PM Normal [facility] XR CHEST 2 Von 12-10-2022 XR [...] by: CORNELIO MANCINI Date: 2022-12-10 08:09 Normal [facility] MRI [place] WO CONon 11-05-19 23 MRI [facility] CON EXAMINATION: MRI [facility] CON HISTORY: Lumbosacral radiculopathy ; chronic lumbar [...] by: CORNELIO MANCINI Date: 2022-11-05 10:21 Normal [facility] TSHon 11-05-2022 TSH 1.783 uIU/mL Normal 0.358-3.740 [facility] Comment on above: Performed By: #### T #### [facility] [address] [place], [place] [address] Dr. Anuel Doran VIT B12 AND FOLATEon 023 Cobalamin (Vitamin B12) [Mass/Vol] 618.0 pg/mL Normal 193.0-986.0 [facility] Comment on above: Performed By: #### B 12FOL #### [facility] [address] [place] [address] [address] Anuel Doran FOLATE 23.40 ng/mL Normal 8.60-58.90 [facility] Comment on above: Performed By: #### B [id number] #### [facility] [address] [address] [address] Anuel Doran MG MAMM SCREEN 3D BIANCA CADon 06-06-2022 MG MAMM SCREEN 3D BIANCA CAD Patient: JEANNINE FELICIANO Exam Date: 06/06/2022 : 1975 Gender:F Ordering : DR MARISELA SANTOS . Admission #: [id number] Family : Order #: [id number] CLICK HERE TO VIEW EXAM RADIOLOGY REPORT PROCEDURE: MAMMOGRAM SCREENING 3D BILATERAL CAD COMPARISON: MG MAMM SCREEN BIANCA W CAD, 09/23/2019. INDICATIONS: Screening mammography Calculator Name NCI Breast Cancer Risk Assessment Tool 5 Year Breast Cancer Risk 0.90% Lifetime Breast Cancer Risk 9.20% Personal Breast Cancer No Personal Ovarian Cancer No Treatments None Family Cancers None LOCATION: [facility] BREAST COMPOSITION: Scattered areas fibroglandular [...] Soliz MD on 06/06/2022 at 13:45 Normal [facility] PAP ACOG PANEL 2: 30 to 65on 05-29-2022 . . Normal [facility] Comment on above: Result Comment: Perf ormed at: WB Performed By: #### [id number] #### [facility] [address] [address] [address] Anuel Doran Age Gdln ACOG Testing 30-65 [facility] Comment on above: Performed By: #### [id number] #### [facility] [address] [place] [address] Dr. Anuel Doran DIAGNOSIS: Comment [facility] Comment on above: Result Comment: NEGA TIVE FOR INTRAEPITHELIAL LESION OR MALIGNANCY. Performed at: WB Performed By: #### [id number] #### [facility] [address] [place] [address] Dr. Anuel Doran HPV Aptima Negative Normal Negative [facility] Comment on above: Result Comment: This nucleic acid amplification test detects fourteen high-risk HPV types (16,18,31,33,35,39,45,51,52,56,58,59,66,68) without differentiation. Performed at: =G Performed By: #### [id number] #### [facility] [address] [place] [address] Dr. Anuel Doran Methodology: Comment [facility] Comment on above: Result Comment: This liquid based ThinPrep(R) pap test was screened with the use of an image guided system. Performed at: WB Performed By: #### [id number] #### [facility] [address] [place] [address] Dr. Anuel Doran Note: Comment [facility] Comment on above: Result Comment: The Pap smear is a screening test designed to aid in the detection of premalignant and malignant conditions of the uterine cervix. It is not a diagnostic procedure and should not be used as the sole means of detecting cervical cancer. Both false-positive and false-negative reports do occur. . Performed at: WB Performed By: #### [id number] #### [facility] [address] [place] [address] Dr. Anuel Doran Performed by: Comment Normal [facility] Comment on above: Result Comment: Jocelyne Baltazar, Communications Specialist (ASCP) Performed at: [facility] Performed By: #### [id number] #### [facility] [address] [address] [address] Anuel Doran Specimen adequacy: Comment Normal [facility] Comment on above: Result Comment: Sati sfactory for evaluation. Endocervical and/or squamous metaplastic cells (endocervical component) are present. Performed at: [facility] Performed By: #### [id number] #### [facility] [address] [address] [address] Anuel Doran Formson 04-04-2022 Forms [id number] .[id number]:127 Normal [facility] Physician Referralon 022 Physician Referral [id number] 1.00CD:127 Normal [facility] Ambulatory Visit Summaryon 0 04-02-2022 Ambulatory Visit Summary JEANNINE FELICIANO :1975 Visit Date:04/02/2022 Ambulatory Visit Instructions Your Diagnosis Stress incontinence Tests Performed Urnls Dip Stick Auto w/o Microscopy POC 90401 Your Care Team Attending Physician - ABRBARA DANIELS PA-C Primary Care Physician - Dionisio [...] BARBARA DANIELS PA-C Where: [facility] Normal [facility] Patient Educationon 04-02-20 22 Patient Education Obstetrics and Gynecology Kegel Exercises [...] 08/24/2013 Document Revised: 04/27/2019 Document Reviewed: 04/27/2019 [employer] Patient Education ? 2019 [employer] Patient Letter FTon 2021 Patient Letter [facility] April 02, 2022 JEANNINE FELICIANO was evaluated at [facility] 04/02/2022 10:17:37 It is my [...] out. 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 she understands it will take a while to retrain. if sx persist despite consistent timed voiding then we will consider treatment vs urodynamics eval. Ordered: E&M of New Patient Moderate 45-59 Min 29101 2. Stress incontinence (N39.3: Stress incontinence (female) (male)) had extensive discussion regarding pelvic floor muscle rehab. pt provided written information to review at home and prefers to attempt self-guided exercises. if JOSE R persists we will consider formal PFPT at [facility] or [facility] vs Bulkamid vs sling placement. Ordered: E&M of New Patient Moderate 45-59 Min 16022 Urnls Dip Stick Auto w/o Microscopy POC 28546 f/u 3 mos. pt ok to cancel appt and f/u PRN if the above measures improve her sx sufficiently Total time spent reviewing previous notes/results/externa l documents, preparing the chart, conducting the encounter with the patient and family, ordering tests/medications, and documenting the encounter was 50 minutes. Follow-up With When Contact Information BARBARA DANIELS PA-C, URL Within 3 months [address] [place] [address] Additional Instructions: Patient Education Kegel Exercises Problem [...] Protein Urine Dipstick: Trace (04/02/22 09:31:00) Specific [place] Urine Dipstick: >=1.030 (04/02/22 09:31:00) Urine Appearance Urine Dipstick: Clear (04/02/22 09:31:00) Urine Color Urine Dipstick: Yellow (04/02/22 09:31:00) Urobilinogen Urine Dipstick: Normal 0.2-1 EU/dl (04/02/22 09:31:00) pH Urine Dipstick: 6 (04/02/22 09:31:00) Normal [facility] Comment on above: Result Comment: Elec tronically Signed By: BARBARA DANIELS PA-C\.harrison\Date and Time Signed: 04/02/22 11:56 EDT Covid-19 PCR (CVDTBH)on SARS-CoV-2 (COVID-19) RNA ILSA+probe Ql (Unsp spec) Not detected Normal NOT DETECTED [facility] Comment on above: Result Comment: This test is not yet approved or cleared by the [place] FDA. When there are no FDA-approved or cleared tests available, and other criteria are met, FDA can make tests available under an emergency access mechanism called an Emergency Use Authorization (EUA). The EUA for this test is supported by the [employer] of Health and Human Service's (HHS's) declaration [...] consistent with SARS-CoV-2. Performed By: #### [facility] #### [facility] [address] [place] [address] Dr. Anuel Doran Social History Date Type Detail Facility Start: 11-25-2023 Tobacco smoking stat us NYIS Never smoked tobacco (finding) [facility] Start: 1975 Sex Assigned At Female [facility] Tobacco smoking status No Smokin g Status Entered [facility] Sex Assigned At Female [facility] Vital Signs Date Time Vital Sign Value Performing Clinician Charly brunner 11-25-2023 08:22-0500 Body height 154.94 cm SILVINO Bernal Work Phone: [facility] 11-25-2023 08:22-0500 Body mass index (BMI) [Ratio] 46.6 kg/m2 LINER WORKERElena Bernal Work Phone: [facility] 11-25-2023 08:22-0500 Body weight 112.03 kg SILVINO Beranl Work Phone: [facility] 11-25-2023 08:22-0500 Diastolic blood pressure 80 mm[Hg] SILVINO Bernal Work Phone: [facility] 11-25-2023 08:22-0500 Heart rate 75 /min SILVINO Bernal Work Phone: [facility] 11-25-2023 08:22-0500 SaO2% (BldA) [Mass fraction] 98 % [employer] WORK[employer]lena Bernal Work Phone: [facility] 11-25-2023 08:22-0500 Systolic blood pressure 132 mm[Hg] SILVINO Bernal Work Phone: [facility] 04-02-2022 09:39-0400 Blood Pressure Location BARBARA DANIELS [facility] [place] 04-02-2022 09:39-0400 Diastolic blood pressure 70 mm[Hg] BARBARA DANIELS [facility] [place] 04-02-2022 09:39-0400 Heart rate 84 /min BARBARA DANIELS [facility] My 1% 04-02-2022 09:39-0400 Respiratory rate 16 /min BARBARA DANIELS [facility] My 1% 04-02-2022 09:39-0400 Systolic blood pressure 139 mm[Hg] BARBARA DANIELS [facility] [place] Functional Status Date Assessment Result Facility 04-02-2022 Functional Status N/A [facility] Discharge instructions 04-02-2022 Note Date & [...] 08/24/2013 Document Revised: 04/27/2019 Document Reviewed: 04/27/2019 [employer] Patient Education 2020 [employer] Follow Up Care 03/13/2022 16:11:08 With:BARBARA DANIELS PA-C, URL Address: [address] [place] [address] When:3 months [facility] Evaluation + Plan note Note Date & Type Note Facility Evaluation + Plan note Future Appointments Appointment Date:07/02/2022 09:00:00 AM Scheduled Provider:BARBARA DANIELS PA-C Location:[facility] Appointment Type:URO Office Visit [facility] Evaluation note Note Date & Type Note Facility Evaluation note Diagnosis Onset Date Anxiety acute Arthritis acute Daytime somnolence acute Depression acute Episode of apnea acute Forgetfulness acute Hypertension acute Loud snoring acute Multiple joint pain acute Screening for colon cancer a cute Sleep apnea in adult acute [facility] Work Phone: Hospital course Narrative Note Date & Type Note Facility Hospital course Narrative No data available for this section [facility] Progress note Note Date & Type Note Facility Progress note No data available for this section [facility] Summary Purpose Family History No Family [...] Member Role Status Dates Barbara Bernal 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 Primary Care Provider Active Team Status: Inactive Member Role Status Dates SILVINO Haro Primary Care Provider, Attending Provider Active Start: November 25, 2023 End: November 25, 2023 Team Status: Active Member Role Status Dates SILVINO Haro Primary Care Provider, Attending Provider Active Start: November 26, 2023 Team Status: Inactive Member Role Status Dates SILVINO Haro Primary Care Provider, Attending Provider Active Start: December 23, 2023 End: December 23, 2023 Zeenat Graves MD Referring Provider Active St art: December 23, 2023 End: December 23, 2023 INFORMATION SOURCE (unrecogn ized section and content) DATE CREATED AUTHOR 06/30/2022 Hernan Garsia [facility] DATE CREATED AUTHOR AUTHOR'S ORGANIZ ATION 12/14/2022 [facility] DATE CREATED AUTHOR AUTHOR'S ORGANIZ ATION 12/31/2023 [facility] DATE CREATED AUTHOR AUTHOR'S ORGANIZ ATION 01/03/2024 [facility] DATE CREATED AUTHOR AUTHOR'S ORGANIZ ATION 01/13/2024 [facility] EPIC Goals (unrecognized section [...] BE BASED ON THE PRIMARY CLINICAL RECORDS. [employer] provides no warranty or guarantee of the accuracy or completeness of information in this document.
== END 2024-03-14 07:31 | disposition home or self-care (01) ==
LOC: SLEEP 03-15 14:59
PROVIDERS: PCP Nurse Practitioner Family; Visit Provider Nurse Practitioner Family
DX: G47.33 Obstructive sleep apnea (adult) (pediatric) (principal)
CPT/HCPCS: 95806

== ENCOUNTER 2024-04-12 08:29 | Outpatient (OUT) | payer OTHER, SELFPAY ==
--- OUTSIDE RECORDS SUMMARY | 2024-04-12 08:36 | XMS_ITS | CCD ---
Author Organization [facility] Care Team Providers Care Furnace Brazer Name Role Phone Dionisio Grimaldo Primary Care Physician BARBARA DANIELS Attending Unavailable BARBARA DANIELS Attending Unavailable DANIELLEMarisela Referring Unavailable DANIELLE ., DR ANTONIO Admitting Unavailable DANIELLE ., DR ANTONIO Attending Unavailable WAINWRIGHT, DR CHOPRA Primary Care Unavailable ESTANCIA, DR KARLEE Neville Consulting Unavailable DANIELLE ., DR ANTONIO Consulting Unavailable YUKI, ANIYAH Admitting Unavailable YUKI, ANIYAH Attending Unavailable WAINWRIGHT, DR CHOPRA Primary Care Unavailable ZIEBER, DR [...] Attending Provider MD Zeenat Graves Referring Provider YAHAIRA JONES Attending Unavailable HOUSE, DIONISIO P Referring Unavailable HOUSE, DIONISIO P Primary Care Unavailable HOUSE, DIONISIO P Primary Care Unavailable PHELPS, ZEENAT Todd Attending Unavailable PHELPS, ZEENAT W Attending Unavailable PHELPS, EZENAT W Referring Unavailable HOUSE, DIONISIO P Primary Care Unavailable HOUSE, DIONISIO P Primary Care Unavailable PARK, JASON A Attending Unavailable PARK, JASON A Attending Unavailable PARK, JASON A Referring Unavailable HOUSE, DIONISIO P Primary Care Unavailable Zeenat Graves Referring Unavailable JimrbacherBarbara Admitting Unavailable Rohrbacher, Barbara Primary Care Unavailable Rohrbacher, Barabra Attending Unavailable BLACKSTON, RENAN Borjas Attending Unavailable GUDZ, BRIE Referring Unavailable KELBLERain, BOUCHRA Attending Unavailable GUDZ, BRIE Referring Unavailable KELBLEY, BOUCHRA Attending Unavailable GUDZ, BRIE Referring Unavailable TATBRITANY SHIRLEY Attending Unavailable GUDZ, BRIE Referring Unavailable KELBLEY, BOUCHRA Attending Unavailable GUDZ, BRIE Referring Unavailable KELBLERain, OBUCHRA Attending Unavailable GUDZ, BRIE Referring Unavailable APOLINAR MUNOZ Attending Unavailable LUNA SHORT Attending Unavailable GUDZ, BRIE Referring Unavailable STACIA, RENAN Borjas Attending Unavailable LAEZEKIEL OLMEDO Referring Unavailable STACIA, RENAN Borjas Attending Unavailable LAEZEKIEL OLMEDO W Referring Unavailable JOHN ORDOÑEZ Attending Unavailable EZEKIEL ZULUAGA W Referring Unavailable Allergies Allergy Classification Reported Allergen(s) Allergy Type Date of Onset Reaction(s) Facility (1 source) No Known Medication Allergies; Translations: [No Known Medication Allergies] Propensity to adverse reactions (disorder) [facility] Repository (1 source) amLODIPine; Translations: [AMLODIPINE] [...] 12-23-2023 ALT [Catalytic activity/Vol] 15 U/L 7-52 [facility] Albumin [Mass/volume] in Ser um or Plasma by Bromocresol green (BCG) dye binding methoOrdered By: Barbara Bernal on 12-23-2023 Albumin BCG dye [Mass/Vol] 4.3 g/dL 3.5-5.7 [facility] Alkaline phosphatase [Enzyma tic activity/volume] in Serum or PlasmaOrdered By: Barbara Bernal on 12-23-2023 ALP [Catalytic activity/Vol] 66 U/L 34-104 [facility] Anti-Streptolysin O Antibody on 12-23-2023 Anti-Streptolysin O Antibody 118.0 Normal 0.0-200.0 [facility] Comment on above: Result Comment: Perf ormed at: CB - [facility] [id number] [place], [place] [id number] Coal Pulverizing Operator: Winston Simon PhD, Phone: [phone] PERFORMED BY: [place] [address] PATHOLOGIST PHYSICIAN UNDERWRITER LAKHWINDER ALY M.D. Performed By: #### U LACHELLE, CRP, CMP, B12 #### [facility] [address] [place] [address] #### ASO #### [facility] , Aspartate aminotransferase [ Enzymatic activity/volume] in Serum or PlasmaOrdered By: Barbara Bernal on 12-23-2023 AST [Catalytic activity/Vol] 13 U/L 13-39 [facility] Bilirubin.total [Mass/volume ] in Serum or PlasmaOrdered By: Barbara Bernal on 12-23-2023 Bilirubin [Mass/Vol] 0.5 mg/dL 0.3-1.0 [facility] C reactive protein [Mass/vol ume] in Serum or PlasmaOrdered By: Barbara Bernal on 12-23-2023 CRP [Mass/Vol] 1.1 mg/dL 0.0-0.5 [facility] C-Reactive Proteinon 024 C-Reactive Protein 1.1 mg/dL High 0.0-0.5 [facility] Comment on above: Performed By: #### U LACHELLE, CRP, CMP, B12 #### [facility] [address] [place] [address] [place] #### ASO #### [facility] , Calcium [Mass/volume] in Ser um or PlasmaOrdered By: Barbara Bernal on 12-23-2023 Calcium [Mass/Vol] 9.7 mg/dL 8.6-10.3 [facility] Carbon dioxide, total [Moles /volume] in Serum or PlasmaOrdered By: Barbara Bernal on 12-23-2023 CO2 [Moles/Vol] 29.9 mmol/L 21.0-31.0 [facility] Chloride [Moles/volume] in S lloyd or PlasmaOrdered By: Barbara Bernal on 12-23-2023 Chloride [Moles/Vol] 104 mmol/L 98-107 [facility] Comprehensive Metabolic Pane shiva 12-23-2023 Albumin [Mass/Vol] 4.3 g/dL Normal 3.5-5.7 [facility] Comment on above: Performed By: #### U LACHELLE, CRP, CMP, B12 #### [place] [address] [place] #### ASO #### [facility] , Albumin/Globulin [Mass ratio] 2.0 {ratio} Normal [facility] Comment on above: Performed By: #### U LACHELLE, CRP, CMP, B12 #### [place] [address] [place] #### ASO #### [facility] , ALP [Catalytic activity/Vol] 66 U/L Normal 34-104 [facility] Comment on above: Performed By: #### U LACHELLE, CRP, CMP, B12 #### [place] [address] [place] #### ASO #### [facility] , ALT [Catalytic activity/Vol] 15 U/L Normal 7-52 [facility] Comment on above: Performed By: #### U LACHELLE, CRP, CMP, B12 #### [facility] [address] [place] [address] [place] #### ASO #### [facility] , Anion gap [Moles/Vol] 8.4 mmol/L Normal 6.0-15.0 [facility] Comment on above: Performed By: #### U LACHELLE, CRP, CMP, B12 #### [place] [address] [place] #### ASO #### [facility] , AST [Catalytic activity/Vol] 13 U/L Normal 13-39 [facility] Comment on above: Performed By: #### U LACHELLE, CRP, CMP, B12 #### [address] #### ASO #### [facility] , Bilirubin [Mass/Vol] 0.5 mg/dL Normal 0.3-1.0 [facility] Comment on above: Performed By: #### U LACHELLE, CRP, CMP, B12 #### [facility] [address] [place] [address] #### ASO #### [facility] , Calcium [Mass/Vol] 9.7 mg/dL Normal 8.6-10.3 [facility] Comment on above: Performed By: #### U LACHELLE, CRP, CMP, B12 #### [address] #### ASO #### [facility] , Chloride [Moles/Vol] 104 mmol/L Normal 98-107 [facility] Comment on above: Performed By: #### U LACHELLE, CRP, CMP, B12 #### [address] #### ASO #### [facility] , CO2 [Moles/Vol] 29.9 mmol/L Normal 21.0-31.0 [facility] Comment on above: Performed By: #### U LACHELLE, CRP, CMP, B12 #### [facility] [address] [place] [address] [place] #### ASO #### [facility] , Creatinine [Mass/Vol] 0.52 mg/dL Low 0.60-1.20 [facility] Comment on above: Performed By: #### U LACHELLE, CRP, CMP, B12 #### [facility] [address] [place] [address] [place] #### ASO #### [facility] , GFR/1.73 sq M.predicted MDRD (S/P/Bld) [Vol rate/Area] mL/min/{1.73_m2} Normal [facility] Comment on above: Performed By: #### U LACHELLE, CRP, CMP, B12 #### [place] [address] [place] #### ASO #### [facility] , Globulin (S) [Mass/Vol] 2.2 g/dL Normal [facility] Comment on above: Performed By: #### U LACHELLE, CRP, CMP, B12 #### [place] [address] [place] #### ASO #### [facility] , Glucose [Mass/Vol] 78 mg/dL Normal 70-100 [facility] Comment on above: Result Comment: Blanch Glucose Reference Range is dependent on time and content of last meal. Glucose of more than 200 mg/dL in a nonstressed, ambulatory subject supports the diagnosis of Diabetes Mellitus. ADA recommended reference range Performed By: #### U LACHELLE, CRP, CMP, B12 #### [place] [address] [place] #### ASO #### [facility] , Potassium [Moles/Vol] 4.3 mmol/L Normal 3.5-5.1 [facility] Comment on above: Performed By: #### U LACHELLE, CRP, CMP, B12 #### [place] [address] [place] #### ASO #### [facility] , Protein [Mass/Vol] 6.5 g/dL Normal 6.4-8.9 [facility] Comment on above: Performed By: #### U LACHELLE, CRP, CMP, B12 #### [place] [address] [place] #### ASO #### [facility] , Sodium [Moles/Vol] 138 mmol/L Normal 136-145 [facility] Comment on above: Performed By: #### U LACHELLE, CRP, CMP, B12 #### [facility] [address] [place] [address] [place] #### ASO #### [facility] , Urea nitrogen [Mass/Vol] 19 mg/dL Normal 7-25 [facility] Comment on above: Performed By: #### U LACHELLE, CRP, CMP, B12 #### [facility] [address] [place] [address] [place] #### ASO #### [facility] , Creatinine [Mass/volume] in Serum or PlasmaOrdered By: Barbara Bernal on 12-23-2023 Creatinine [Mass/Vol] 0.52 mg/dL 0.60-1.20 [facility] Globulin Calc (S) [Mass/Vol] Ordered By: Barbara Bernal on 12-23-2023 Globulin (S) [Mass/Vol] 2.2 g/dL [facility] Glucose [Mass/volume] in Ser um or PlasmaOrdered By: Barbara Bernal on 12-23-2023 Glucose [Mass/Vol] 78 mg/dL 70-100 [facility] Comment on above: ADA recommended refe rence rangeRandom Glucose Reference Range is dependent on time and content of last meal. Glucose of more than 200 mg/dL in a nonstressed, ambulatory subject supports the diagnosis of Diabetes Mellitus. No Panel InformationOrdered By: Barbara Bernal on 12-23-2023 Estimated GFR (CKD-EPI) > 60.0 mL/Min [facility] Creatinine Clearance (Chem N/A [facility] Potassium [Moles/volume] in Serum or PlasmaOrdered By: Barbara Bernal on 12-23-2023 Potassium [Moles/Vol] 4.3 mmol/L 3.5-5.1 [facility] Protein [Mass/volume] in Ser um or PlasmaOrdered By: Barbara Bernal on 12-23-2023 Protein [Mass/Vol] 6.5 g/dL 6.4-8.9 [facility] Serum or plasma albumin/glob ulin mass ratioOrdered By: Barbara Bernal on 12-23-2023 Albumin/Globulin [Mass ratio] 2.0 {ratio} [facility] Serum or plasma anion gap de terminationOrdered By: Barbara Bernal on 12-23-2023 Anion gap [Moles/Vol] 8.4 mmol/L 6.0-15.0 [facility] Sodium [Moles/volume] in Ser um or PlasmaOrdered By: Barbara Bernal on 12-23-2023 Sodium [Moles/Vol] 138 mmol/L 136-145 [facility] Urate [Mass/volume] in Serum or PlasmaOrdered By: Barbara Bernal on 12-23-2023 Urate [Mass/Vol] 5.6 mg/dL 2.3-6.6 [facility] Urea nitrogen [Mass/volume] in Serum or PlasmaOrdered By: Barbara Bernal on 12-23-2023 Urea nitrogen [Mass/Vol] 19 mg/dL 7-25 [facility] Uric Acidon 12-23-2023 Urate [Mass/Vol] 5.6 mg/dL Normal 2.3-6.6 [facility] Comment on above: Performed By: #### U LACHELLE, CRP, CMP, B12 #### [facility] [address] [place] [address] #### ASO #### [facility] , Vitamin B12on 12-23-2023 Cobalamin (Vitamin B12) [Mass/Vol] 402 pg/mL Normal 180-914 [facility] Comment on above: Result Comment: PERF ORMED BY: [place] [address] PATHOLOGIST PHYSICIAN UNDERWRITER LAKHWINDER ALY M.D. Performed By: #### U LACHELLE, CRP, CMP, B12 #### [facility] [address] [place] [address] #### ASO #### [facility] , Vitamin B12 ser/plasOrdered By: Barbara Bernal on 12-23-2023 Cobalamin (Vitamin B12) [Mass/Vol] 402 pg/mL 180-914 [facility] XR hand BI 2Von 12-23-2023 XR hand BI 2V [facility] [place] [address] [place] [id number] XRay Report Signed Patient: Jeannine Feliciano MR#: [id number] : 1975 Acct:[id number] Age/Sex: 48 / F ADM Date: 12/23/23 Loc: XDS Room: Type: [facility] Attending Dr: Barbara Bernal APRN DRAWING BOX TENDER-C Copies to: Barbara Bernal APRN, CNP Ordering [...] Eduardo Ponce M.D.12/23/2023 4:17 PM Dictation Location: [place] [address] Transcribed By: [facility] 12/23/23 1617 Dictated By: Eduardo Ponce II, MD 12/23/23 161 Signed By: 12/23/23 161 Normal [facility] Basophils Auto (Bld) [#/Vol] on 11-26-2023 Basophils (Bld) [#/Vol] 0.1 10 3/uL 0.0-0.1 [facility] Basophils/100 WBC Auto (Bld) on 11-26-2023 Basophils/100 WBC (Bld) 0.7 % 0.2-2.0 F [facility] Eosinophils/100 WBC Auto (Bl d)on 11-26-2023 Eosinophils/100 WBC (Bld) 4.9 % 0.9-7.0 [facility] Erythrocyte distribution wid th Auto (RBC) [Ratio]on 11-26-2023 Erythrocyte distribution width (RBC) [Ratio] 13.3 % 11.0-15.0 [facility] Estimated glomerular filtrat ion rate (GFR) non- Americanon 11-26-2023 GFR/1.73 sq M.predicted among non-blacks MDRD (S/P/Bld) [Vol rate/Area] mL/min/{1.73_m2} >=60 [facility] Globulin Calc (S) [Mass/Vol] on 11-26-2023 Globulin (S) [Mass/Vol] 3.4 g/dL F [facility] Hematocrit Auto (Bld) [Volum e fraction]on 11-26-2023 Hematocrit (Bld) [Volume fraction] 40.0 % 36.0-48.0 [facility] Hemoglobin [Mass/volume] in Bloodon 11-26-2023 Hemoglobin (Bld) [Mass/Vol] 13.2 g/dL 12.0-16.0 [facility] Laboratory - Chemistry and C hemistry - challengeon 11-26-2023 Albumin [Mass/Vol] 3.8 g/dL 3.4-5.0 [facility] ALP [Catalytic activity/Vol] 76 U/L 46-116 [facility] ALT [Catalytic activity/Vol] 29 U/L 14-59 [facility] AST [Catalytic activity/Vol] 19 U/L 15-37 [facility] Bilirubin [Mass/Vol] 0.5 mg/dL 0.2-1.0 [facility] Calcium [Mass/Vol] 9.2 mg/dL 8.5-10.1 [facility] Chloride [Moles/Vol] 102 mmol/L 98-107 [facility] CO2 [Moles/Vol] 31.5 mmol/L 21.0-32.0 [facility] Cobalamin (Vitamin B12) [Mass/Vol] 706.0 pg/mL 193.0-986.0 [facility] Creatinine [Mass/Vol] 0.71 mg/dL 0.55-1.02 [facility] GFR/1.73 sq M.predicted MDRD (S/P/Bld) [Vol rate/Area] mL/min/{1.73_m2} >=60 [facility] Glucose [Mass/Vol] 72 mg/dL 74-106 [facility] Potassium [Moles/Vol] 4.1 mmol/L 3.5-5.1 [facility] Protein [Mass/Vol] 7.2 g/dL 6.4-8.2 [facility] Sodium [Moles/Vol] 140 mmol/L 136-145 [facility] TSH Qn 2.785 m[IU]/L 0.358-3.740 [facility] Urate [Mass/Vol] 6.2 mg/dL 2.6-6.0 [facility] Urea nitrogen [Mass/Vol] 16.0 mg/dL 7.0-18.0 [facility] Urea nitrogen/Creatinine [Mass ratio] 22.5 mg/mg [facility] - Hematology and Cell countson 11-26-2023 ESR (Bld) [Velocity] 28 mm/h <=20 [facility] Immature granulocytes/100 WBC (Bld) 0.3 % 0.0-0.5 [facility] Leukocytes [#/volume] correc frances for nucleated erythrocytes in Blood by Automated counon 11-26-2023 WBC corrected for nucl RBC Auto (Bld) [#/Vol] 6.8 10 3/uL 4.0-11.0 [facility] Lymphocytes Auto (Bld) [#/Vo l]on 11-26-2023 Lymphocytes (Bld) [#/Vol] 1.9 10 3/uL 1.2-3.8 [facility] Lymphocytes/100 WBC Auto (Bl d)on 11-26-2023 Lymphocytes/100 WBC (Bld) 28.1 % 20.5-60.0 [facility] MCH Auto (RBC) [Entitic mass ]on 11-26-2023 MCH (RBC) [Entitic mass] 28.8 pg 26.7-34.0 [facility] MCHC Auto (RBC) [Mass/Vol]on 11-26-2023 MCHC (RBC) [Mass/Vol] 33.0 g/dL 29.9-35.2 [facility] MCV Auto (RBC) [Entitic vol] on 11-26-2023 MCV (RBC) [Entitic vol] 87.3 fL 81.0-99.0 [facility] Monocytes Auto (Bld) [#/Vol] on 11-26-2023 Monocytes (Bld) [#/Vol] 0.5 10 3/uL 0.3-0.8 [facility] Monocytes/100 WBC Auto (Bld) on 11-26-2023 Monocytes/100 WBC (Bld) 6.6 % 1.7-12.0 [facility] Neutrophils Auto (Bld) [#/Vo l]on 11-26-2023 Neutrophils (Bld) [#/Vol] 4.0 10 3/uL 1.4-6.5 [facility] Neutrophils/100 WBC Auto (Bl d)on 11-26-2023 Neutrophils/100 WBC (Bld) 59.4 % 43.0-75.0 [facility] No Panel Informationon 11-25 25-Hydroxy Vitamin D Total 40.8 ng/mL [facility] Comment on above: <20 ng/mL Vit D defi cient20-<30 ng/mL Vit D [id number] ng/mL Vit D sufficient>100 ng/mL Potential Toxicity Anti-Streptolysin O Antibody 131.3 [IU]/mL 0.0-200.0 [facility] Comment on above: Performed at: [address] [id number] Director: Winston Simon PhD, Phone: [phone] C-Reactive Protein, Quantitative 1.44 mg/dL <=0.50 [facility] Eosinophils # (Auto) 0.3 10 3/uL 0.0-0.7 [facility] Immature Granulocyte # (Auto) 0.02 10 3/uL 0.00-0.03 [facility] Platelet mean volume Auto (B ld) [Entitic vol]on 11-26-2023 Platelet mean volume (Bld) [Entitic vol] 10.5 fL 9.5-13.5 [facility] Platelets Auto (Bld) [#/Vol] on 11-26-2023 Platelets (Bld) [#/Vol] 248 10 3/uL 150-450 [facility] RBC Auto (Bld) [#/Vol]on RBC (Bld) [#/Vol] 4.58 10 6/uL 4.20-5.40 [facility] Serum nuclear antibody titer on 11-26-2023 Nuclear Ab (S) [Titer] Negative . [facility] Comment on above: Negative <1:80 Borde rline 1:80 Positive >1:80ICAP nomenclature: AC-0For more information about Hep-2 cell patterns useANApatterns.org, the official website for theInternational Consensus on Antinuclear Antibody (RISA)Patterns (ICAP).Performed at: [facility] [place] [id number] Director: Winston Simon PhD, Phone: [phone] Serum or plasma albumin/glob ulin mass ratioon 11-26-2023 Albumin/Globulin [Mass ratio] 1.1 {ratio} [facility] Serum or plasma anion gap de terminationon 11-26-2023 Anion gap [Moles/Vol] 10.6 mmol/L [facility] Serum or plasma cyclic adeno sine monophosphate measurement (moles/volume)on 11-26-2023 Adenosine monophosphate.cyclic [Moles/Vol] 7 units 0-19 [facility] Comment on above: Negative <20 Weak po sitive 20 - 39 Moderate positive 40 - 59 Strong positive >59Performed at: [facility] [place] [id number] Director: Winston Simon PhD, Phone: [phone] Serum or plasma rheumatoid f actor measurement (units/volume)on 11-26-2023 Rheumatoid factor Qn 10.4 [IU]/mL <14.0 [facility] CBC AND AUTO DIFFon 10-30-19 24 ABSOLUTE BASOPHIL 0.1 X10E9/L Normal 0.0-0.2 [facility] Comment on above: Performed By: #### 1 0839-9, 59579-0, CBCA, CMP, 61274-7 #### [facility] ([id number]) [address] [place] [address] ABSOLUTE NEUTROPHIL 5.5 X10E9/L Normal 1.5-6.6 [facility] Comment on above: Performed By: #### 1 0839-9, 15314-5, CBCA, CMP, 30824-3 #### [facility] ([id number]) [address] [place] [address] Basophils/100 WBC (Bld) 1.0 % Normal [facility] Comment on above: Performed By: #### 1 0839-9, 78603-4, CBCA, CMP, 53648-8 #### [facility] ([id number]) [address] [place] [address]58 Eosinophils (Bld) [#/Vol] 0.4 10*3/uL Normal 0.0-0.4 [facility] Comment on above: Performed By: #### 1 0839-9, 92184-4, CBCA, CMP, 80589-6 #### [facility] ([id number]) [address] [place] [address] 12895 Eosinophils/100 WBC (Bld) 4.9 % Normal [facility] Comment on above: Performed By: #### 1 0839-9, 45585-0, CBCA, CMP, 69773-6 #### [facility] ([id number]) [address] [place] [address] Erythrocyte distribution width (RBC) [Ratio] 13.8 % Normal 11.5-15.0 [facility] Comment on above: Performed By: #### 1 0839-9, 53722-1, CBCA, CMP, 97897-2 #### [facility] ([id number]) [address] [place] [address]99 Hematocrit (Bld) [Volume fraction] 40.2 % Normal 35-47 [facility] Comment on above: Performed By: #### 1 0839-9, 63985-5, CBCA, CMP, 22357-4 #### [facility] ([id number]) [address] [place] [address]9699 Hemoglobin (Bld) [Mass/Vol] 13.6 g/dL Normal 11.7-15.5 [facility] Comment on above: Performed By: #### 1 0839-9, 72520-5, CBCA, CMP, 24269-3 #### [facility] ([id number]) [address] [place] [address]89 Lymphocytes (Bld) [#/Vol] 1.9 10*3/uL Normal 1.0-3.5 [facility] Comment on above: Performed By: #### 1 0839-9, 61714-3, CBCA, CMP, 67055-5 #### [facility] ([id number]) [address] [place] [address] 74139 Lymphocytes/100 WBC (Bld) 22.7 % Normal [facility] Comment on above: Performed By: #### 1 0839-9, 69808-7, CBCA, CMP, 23287-8 #### [facility] ([id number]) [address] [place] [address]306 MCH (RBC) [Entitic mass] 29.4 pg Normal 27-34 [facility] Comment on above: Performed By: #### 1 0839-9, 23102-0, CBCA, CMP, 27271-3 #### [facility] ([id number]) [address] [place] [address] 45687 MCHC (RBC) [Mass/Vol] 33.9 g/dL Normal 32-36 [facility] Comment on above: Performed By: #### 1 0839-9, 40937-8, CBCA, CMP, 17831-2 #### [facility] ([id number]) [address] [place] [address]3216 MCV (RBC) [Entitic vol] 87 fL Normal 80-100 [facility] Comment on above: Performed By: #### 1 0839-9, 87913-8, CBCA, CMP, 26514-1 #### [facility] ([id number]) [address] [place] [address]909 Monocytes (Bld) [#/Vol] 0.6 10*3/uL Normal 0-0.9 [facility] Comment on above: Performed By: #### 1 0839-9, 72706-9, CBCA, CMP, 09625-9 #### [facility] ([id number]) [address] [place] [address] 22509 Monocytes/100 WBC (Bld) 6.9 % Normal [facility] Comment on above: Performed By: #### 1 0839-9, 54734-0, CBCA, CMP, 51116-7 #### [facility] ([id number]) [address] [place] [address] 11882 Neutrophils/100 WBC (Bld) 64.5 % Normal [facility] Comment on above: Performed By: #### 1 0839-9, 19179-9, CBCA, CMP, 14620-2 #### [facility] ([id number]) [address] [place] [address], [place] [address] Platelet mean volume (Bld) [Entitic vol] 9.1 fL Normal 7-12 [facility] Comment on above: Performed By: #### 1 0839-9, 34242-7, CBCA, CMP, 54042-9 #### [facility] ([id number]) [address] [place] [address] 55860 Platelets (Bld) [#/Vol] 278 10*3/uL Normal 150-450 [facility] Comment on above: Performed By: #### 1 0839-9, 79405-7, CBCA, CMP, 88487-9 #### [facility] ([id number]) [address] [place] [address] 56555 RBC COUNT 4.64 X10E12/L Normal 3.80-5.20 [facility] Comment on above: Performed By: #### 1 0839-9, 99115-1, CBCA, CMP, 56660-8 #### [facility] ([id number]) [address] [place] [address] 36769 WBC (Bld) [#/Vol] 8.5 10*3/uL Normal 4.0-11.0 [facility] Comment on above: Performed By: #### 1 0839-9, 81138-4, CBCA, CMP, 92313-8 #### [facility] ([id number]) [address] [place] [address] 37540 COMPREHENSIVE METABOLIC PANE Shiva 10-30-2023 Albumin [Mass/Vol] 4.1 g/dL Normal 3.2-5.3 [facility] Comment on above: Performed By: #### 1 0839-9, 22635-7, CBCA, CMP, 00780-0 #### [facility] ([id number]) [address] [place] [address] 68425 ALP [Catalytic activity/Vol] 77 U/L Normal 39-130 [facility] Comment on above: Performed By: #### 1 0839-9, 02539-9, CBCA, CMP, 13391-5 #### [facility] ([id number]) [address] [place] [address] 19880 ALT [Catalytic activity/Vol] 18 U/L Normal 0-31 [facility] Comment on above: Performed By: #### 1 0839-9, 54499-3, CBCA, CMP, 10038-2 #### [facility] ([id number]) [address] [place] [address] 67795 Anion gap [Moles/Vol] 12 mmol/L Normal 5-15 [facility] Comment on above: Performed By: #### 1 0839-9, 57678-6, CBCA, CMP, 47067-4 #### [facility] ([id number]) [address] [place] [address] 01828 AST [Catalytic activity/Vol] 19 U/L Normal 0-41 [facility] Comment on above: Performed By: #### 1 0839-9, 46623-8, CBCA, CMP, 58774-1 #### [facility] ([id number]) [address] [place] [address] 51657 Bilirubin [Mass/Vol] 0.5 mg/dL Normal 0.3-1.2 [facility] Comment on above: Performed By: #### 1 0839-9, 07251-5, CBCA, CMP, 18174-7 #### [facility] ([id number]) [address] [place] [address] 57505 Calcium [Mass/Vol] 9.1 mg/dL Normal 8.5-10.5 [facility] Comment on above: Performed By: #### 1 0839-9, 33959-4, CBCA, CMP, 44346-1 #### [facility] ([id number]) [address] [place] [address] 95132 Chloride [Moles/Vol] 101 mmol/L Normal 98-109 [facility] Comment on above: Performed By: #### 1 0839-9, 73686-9, CBCA, CMP, 88251-4 #### [facility] ([id number]) [address] [place] [address] 00375 CO2 [Moles/Vol] 25 mmol/L Normal 22-32 [facility] Comment on above: Performed By: #### 1 0839-9, 88544-7, CBCA, CMP, 29503-1 #### [facility] ([id number]) [address] [place] [address] 40826 Creatinine [Mass/Vol] 1.16 mg/dL High 0.40-1.00 [facility] Comment on above: Result Comment: METH OD TRACEABLE TO IDMS STANDARD Performed By: #### 1 0839-9, 11489-9, CBCA, CMP, 62721-5 #### [facility] ([id number]) [address] [place] [address] 84449 GFR/1.73 sq M.predicted among non-blacks MDRD (S/P/Bld) [Vol rate/Area] 58 mL/min/{1.73_m2} Low >59 [facility] Comment on above: Result Comment: Reported eGFR is based on the CKD-EPI 2020 equation that does not use a race coefficient. Performed By: #### 1 0839-9, 73081-7, CBCA, CMP, 43162-6 #### [facility] ([id number]) [address] [place] [address] 97485 Glucose [Mass/Vol] 109 mg/dL High 65-99 [facility] Comment on above: Performed By: #### 1 0839-9, 79750-1, CBCA, CMP, 84108-3 #### [facility] ([id number]) [address] [place] [address] 68771 Potassium [Moles/Vol] 4.3 mmol/L Normal 3.5-5.0 [facility] Comment on above: Performed By: #### 1 0839-9, 91014-6, CBCA, CMP, 24894-5 #### [facility] ([id number]) [address] [place] [address] 19243 Protein [Mass/Vol] 6.5 g/dL Normal 6.0-8.0 [facility] Comment on above: Performed By: #### 1 0839-9, 59472-9, CBCA, CMP, 71691-2 #### [facility] ([id number]) [address] [place] [address] 48705 Sodium [Moles/Vol] 138 mmol/L Normal 134-146 [facility] Comment on above: Performed By: #### 1 0839-9, 95478-2, CBCA, CMP, 59099-8 #### [facility] ([id number]) [address] [place] [address] 71357 Urea nitrogen [Mass/Vol] 44 mg/dL High 5-23 [facility] Comment on above: Performed By: #### 1 0839-9, 67573-4, CBCA, CMP, 10439-8 #### [facility] ([id number]) [address] [place] [address] 96976 Fibrin D-dimer DDU (PPP) [Ma ss/Vol]on 10-30-2023 D DIMER <150 Normal <255 [facility] Comment on above: Result Comment: Results <255 ng/mL DDU: The presence of a VTE can safely be excluded with a negative D-Dimer result and Wells score. A negative result doesn't exclude the possibility of DIC. The test be repeated along with other diagnostic tests if the patient's symptoms persist or worsen. [email or web address] Performed By: #### 1 0839-9, 67651-2, CBCA, CMP, 56945-3 #### [facility] ([id number]) [address] [place] [address] 96919 Natriuretic peptide B [Mass/ Vol]on 10-30-2023 BRN NATRIURETIC PEP <5 Normal <100.0 [facility] Comment on above: Performed By: #### C JESSE, CBCA, 06551-5 #### [facility] ([id number]) [address] [place] [address] 92573 TROPONIN Ion 10-30-2023 Troponin I.cardiac [Mass/Vol] 0.04 ng/mL Normal 0.00-0.04 [facility] Comment on above: Performed By: #### 1 0839-9, 76333-6, CBCA, CMP, 54741-4 #### [facility] ([id number]) [address] [place] [address] 44559 XR CHEST 1 VWon 10-30-2023 XR CHEST [...] Ruiz MD on 10/30/2023 1:01 AM Normal [facility] CBC AND AUTO DIFFon 10-15-19 ABSOLUTE BASOPHIL 0.1 X10E9/L Normal 0.0-0.2 [facility] Comment on above: Performed By: #### C JESSE, CBCA, 63067-6 #### [facility] ([id number]) [address] [place] [address] 61673 ABSOLUTE NEUTROPHIL 4.5 X10E9/L Normal 1.5-6.6 [facility] Comment on above: Performed By: #### C MP, CBCA, 80112-1 #### [facility] ([id number]) [address] [place] [address] 20037 Basophils/100 WBC (Bld) 0.9 % Normal [facility] Comment on above: Performed By: #### C MP, CBCA, 33511-6 #### [facility] ([id number]) [address] [place] [address] 69988 Eosinophils (Bld) [#/Vol] 0.3 10*3/uL Normal 0.0-0.4 [facility] Comment on above: Performed By: #### C MP, CBCA, 53926-8 #### [facility] ([id number]) [address] [place] [address] 80096 Eosinophils/100 WBC (Bld) 4.0 % Normal [facility] Comment on above: Performed By: #### C MP, CBCA, 12391-2 #### [facility] ([id number]) [address] [place] [address] 43226 Erythrocyte distribution width (RBC) [Ratio] 13.6 % Normal 11.5-15.0 [facility] Comment on above: Performed By: #### C JESSE, CBCA, 31813-3 #### [facility] ([id number]) [address] [place] [address] 64220 Hematocrit (Bld) [Volume fraction] 38.8 % Normal 35-47 [facility] Comment on above: Performed By: #### C MP, CBCA, 40779-4 #### [facility] ([id number]) [address] [place] [address] 38892 Hemoglobin (Bld) [Mass/Vol] 13.0 g/dL Normal 11.7-15.5 [facility] Comment on above: Performed By: #### C MP, CBCA, 85313-0 #### [facility] ([id number]) [address] [place] [address] 23390 Lymphocytes (Bld) [#/Vol] 3.0 10*3/uL Normal 1.0-3.5 [facility] Comment on above: Performed By: #### C JESSE, CBCA, 06312-6 #### [facility] ([id number]) [address] [place] [address] 03950 Lymphocytes/100 WBC (Bld) 34.8 % Normal [facility] Comment on above: Performed By: #### C JESSE, CBCA, 96841-0 #### [facility] ([id number]) [address] [place] [address] 95250 MCH (RBC) [Entitic mass] 28.8 pg Normal 27-34 [facility] Comment on above: Performed By: #### C JESSE, CBCA, 52060-1 #### [facility] ([id number]) [address] [place] [address] 73015 MCHC (RBC) [Mass/Vol] 33.4 g/dL Normal 32-36 [facility] Comment on above: Performed By: #### C JESSE, CBCA, 97415-9 #### [facility] ([id number]) [address] [place] [address] 13082 MCV (RBC) [Entitic vol] 86 fL Normal 80-100 [facility] Comment on above: Performed By: #### C JESSE, CBCA, 70068-4 #### [facility] ([id number]) [address] [place] [address] 03734 Monocytes (Bld) [#/Vol] 0.6 10*3/uL Normal 0-0.9 [facility] Comment on above: Performed By: #### C JESSE, CBCA, 57269-7 #### [facility] ([id number]) [address] [place] [address] 83120 Monocytes/100 WBC (Bld) 6.8 % Normal [facility] Comment on above: Performed By: #### C JESSE, CBCA, 72873-2 #### [facility] ([id number]) [address] [place] [address] 62966 Neutrophils/100 WBC (Bld) 53.5 % Normal [facility] Comment on above: Performed By: #### C MP, CBCA, 11666-3 #### [facility] ([id number]) [address] [place] [address] 61595 Platelet mean volume (Bld) [Entitic vol] 9.0 fL Normal 7-12 [facility] Comment on above: Performed By: #### C JESSE, CBCA, 62378-9 #### [facility] ([id number]) [address] [place] [address] 38351 Platelets (Bld) [#/Vol] 291 10*3/uL Normal 150-450 [facility] Comment on above: Performed By: #### C JESSE, CBCA, 53841-1 #### [facility] ([id number]) [address] [place] [address] 96612 RBC COUNT 4.49 X10E12/L Normal 3.80-5.20 [facility] Comment on above: Performed By: #### C JESSE, CBCA, 85476-8 #### [facility] ([id number]) [address] [place] [address] 98866 WBC (Bld) [#/Vol] 8.5 10*3/uL Normal 4.0-11.0 [facility] Comment on above: Performed By: #### C JESSE, CBCA, 71487-9 #### [facility] ([id number]) [address] [place] [address] 10470 COMPREHENSIVE METABOLIC PANE Shiva 10-15-2023 Albumin [Mass/Vol] 4.1 g/dL Normal 3.2-5.3 [facility] Comment on above: Performed By: #### C NATHALIE MOLINA, 50204-2 #### [facility] ([id number]) [address] [place] [address] 60142 ALP [Catalytic activity/Vol] 70 U/L Normal 39-130 [facility] Comment on above: Performed By: #### C NATHALIE MOLINA, 55252-1 #### [facility] ([id number]) [address] [place] [address] 29133 ALT [Catalytic activity/Vol] 19 U/L Normal 0-31 [facility] Comment on above: Performed By: #### C NATHALIE MOLINA, 05479-2 #### [facility] ([id number]) [address] [place] [address] 33710 Anion gap [Moles/Vol] 7 mmol/L Normal 5-15 [facility] Comment on above: Performed By: #### C NATHALIE MOLINA, 63973-1 #### [facility] ([id number]) [address] [place] [address] 51745 AST [Catalytic activity/Vol] 14 U/L Normal 0-41 [facility] Comment on above: Performed By: #### C NATHALIE MOLINA, 95983-7 #### [facility] ([id number]) [address] [place] [address] 78835 Bilirubin [Mass/Vol] 0.8 mg/dL Normal 0.3-1.2 [facility] Comment on above: Performed By: #### C NATHALIE MOLINA, 22304-4 #### [facility] ([id number]) [address] [place] [address] 73246 Calcium [Mass/Vol] 9.2 mg/dL Normal 8.5-10.5 [facility] Comment on above: Performed By: #### C NATHALIE MOLINA, 08931-9 #### [facility] ([id number]) [address] [place] [address] 64028 Chloride [Moles/Vol] 105 mmol/L Normal 98-109 [facility] Comment on above: Performed By: #### C NATHALIE MOLINA, 11938-4 #### [facility] ([id number]) [address] [place] [address] 17908 CO2 [Moles/Vol] 25 mmol/L Normal 22-32 [facility] Comment on above: Performed By: #### C NATHALIE MOLINA, 66502-8 #### [facility] ([id number]) [address] [place] [address] 80738 Creatinine [Mass/Vol] 0.67 mg/dL Normal 0.40-1.00 [facility] Comment on above: Result Comment: METH OD TRACEABLE TO IDMS STANDARD Performed By: #### C NATHALIE MOLINA, 14292-0 #### [facility] ([id number]) [address] [place] [address] 55507 eGFR (CKD-EPI) NON-RACE DEPENDENT >90 Normal >59 [facility] Comment on above: Result Comment: Reported eGFR is based on the CKD-EPI 2020 equation that does not use a race coefficient. Performed By: #### C NATHALIE MOLINA, 04633-7 #### [facility] ([id number]) [address] [place] [address] 25234 Glucose [Mass/Vol] 96 mg/dL Normal 65-99 [facility] Comment on above: Performed By: #### C NATHALIE MOLINA, 04210-9 #### [facility] ([id number]) [address] [place] [address] 74761 Potassium [Moles/Vol] 4.1 mmol/L Normal 3.5-5.0 [facility] Comment on above: Performed By: #### C JESSE, CBCA, 65300-1 #### [facility] ([id number]) [address] [place] [address] 19535 Protein [Mass/Vol] 6.8 g/dL Normal 6.0-8.0 [facility] Comment on above: Performed By: #### C JESSE, CBCA, 61268-0 #### [facility] ([id number]) [address] [place] [address] 79470 Sodium [Moles/Vol] 137 mmol/L Normal 134-146 [facility] Comment on above: Performed By: #### C JESSE, CBCA, 49289-1 #### [facility] ([id number]) [address] [place] [address] 61731 Urea nitrogen [Mass/Vol] 26 mg/dL High 5-23 [facility] Comment on above: Performed By: #### C JESSE, CBCA, 50462-7 #### [facility] ([id number]) [address] [place] [address] 51826 Fibrin D-dimer DDU (PPP) [Ma ss/Vol]on 10-15-2023 D DIMER 179 ng/mL DDU Normal <255 [facility] Comment on above: Result Comment: Results <255 ng/mL DDU: The presence of a VTE can safely be excluded with a negative D-Dimer result and Wells score. A negative result doesn't exclude the possibility of DIC. The test be repeated along with other diagnostic tests if the patient's symptoms persist or worsen. [email or web address] Performed By: #### C JESSE, CBCA, 59864-7 #### [facility] ([id number]) [address] [place] [address] 07179 SARS/FLU A+B/RSV by NAAT/Mol ecularon 10-15-2023 SARS/FLU [...] operators who are performing tests using either [employer] or [employer] systems and is limited to laboratories that [...] repeat. Fact Sheet for Healthcare Providers: https://www.fda.gov/m edia/660091/download Fact Sheet for Patients: https://www.fda.gov/m edia/129579/download Normal [facility] Comment on above: Performed By: #### C OVFLR #### [facility] ([id number]) [address] [facility] [place] [address] XR FOOT LT MIN 3 VWSon 10-15 [...] Godoy MD on 10/15/2023 1:24 PM Normal [facility] XR CHEST 2 Von 12-10-2022 XR CHEST [...] by: CORNELIO MANCINI Date: 2022-12-10 08:09 Normal [place] [facility] WO CONon 11-05-[address] [facility] CON EXAMINATION: MRI [facility] WO CON HISTORY: Lumbosacral radiculopathy ; chronic [...] by: CORNELIO MANCINI Date: 2022-11-05 10:21 Normal [place] TSHon 11-05-2022 TSH 1.783 uIU/mL Normal 0.358-3.740 [facility] Comment on above: Performed By: #### T SH #### [facility] [address] [address] [address] Anuel Doran VIT B12 AND FOLATEon 023 Cobalamin (Vitamin B12) [Mass/Vol] 618.0 pg/mL Normal 193.0-986.0 [place] Comment on above: Performed By: #### B 12FOL #### [facility] [address] [address] [address] Anuel Doran FOLATE 23.40 ng/mL Normal 8.60-58.90 [place] Comment on above: Performed By: #### B 12FOL #### [facility] [address] [address] [address] Anuel Doran MG MAMM SCREEN 3D BIANCA CADon 06-06-2022 MG MAMM SCREEN 3D BIANCA CAD Patient: JEANNINE FELICIANO Exam Date: 06/06/2022 : 1975 Gender:F Ordering : DR MARISELA SANTOS . Admission #: [id number] Family : Order #: [id number] CLICK HERE TO VIEW EXAM RADIOLOGY REPORT PROCEDURE: MAMMOGRAM SCREENING 3D BILATERAL CAD COMPARISON: MG MAMM SCREEN BIANCA W CAD, 09/23/2019. INDICATIONS: Screening mammography Calculator Name NCI Breast Cancer Risk Assessment Tool 5 Year Breast Cancer Risk 0.90% Lifetime Breast Cancer Risk 9.20% Personal Breast Cancer No Personal Ovarian Cancer No Treatments None Family Cancers None LOCATION: [facility] BREAST COMPOSITION: Scattered areas fibroglandular [...] Soliz MD on 06/06/2022 at 13:45 Normal [place] PAP ACOG PANEL 2: 30 to 65on 05-29-2022 . . Normal [place] Comment on above: Result Comment: Perf ormed at: WB Performed By: #### 4 654642 #### [facility] [address] [place] [address] Dr. Anuel Doran Age Gdln ACOG Testing 30-65 Normal [place] Comment on above: Performed By: #### 4 055011 #### [facility] [address] [place] [address] Dr. Anuel Doran DIAGNOSIS: Comment Normal [place] Comment on above: Result Comment: NEGA TIVE FOR INTRAEPITHELIAL LESION OR MALIGNANCY. Performed at: [facility] Performed By: #### 4 640225 #### [facility] [address] [place] [address] Dr. Anuel Doran HPV Aptima Negative Normal Negative [place] Comment on above: Result Comment: This nucleic acid amplification test detects fourteen high-risk HPV types (16,18,31,33,35,39,45,51,52,56,58,59,66,68) without differentiation. Performed at: =G Performed By: #### 4 [id number] #### [facility] [address] [place] [address] Dr. Anuel Doran Methodology: Comment Normal [place] Comment on above: Result Comment: This liquid based ThinPrep(R) pap test was screened with the use of an image guided system. Performed at: WB Performed By: #### 4 [id number] #### [facility] [address] [place] [address] Dr. Anuel Doran Note: Comment [facility] Comment on above: Result Comment: The Pap smear is a screening test designed to aid in the detection of premalignant and malignant conditions of the uterine cervix. It is not a diagnostic procedure and should not be used as the sole means of detecting cervical cancer. Both false-positive and false-negative reports do occur. . Performed at: WB Performed By: #### 4 013084 #### [facility] [address] [place] [address] Dr. Anuel Doran Performed by: Comment Normal [facility] Comment on above: Result Comment: Jocelyne Baltazar, Sales Development Manager (ASCP) Performed at: WB Performed By: #### 4 259349 #### [facility] [address] [place] [address] Dr. Anuel Doran Specimen adequacy: Comment Normal [facility] Comment on above: Result Comment: Sati sfactory for evaluation. Endocervical and/or squamous metaplastic cells (endocervical component) are present. Performed at: WB Performed By: #### 4 957684 #### [facility] [address] [place] [address] Dr. Anuel Doran Formson 04-04-2022 Forms [id number] .[id number]:127 Normal [facility] Physician Referralon 022 Physician Referral [id number] 1.00CD:127 Normal [facility] Ambulatory Visit Summaryon 0 04-02-2022 Ambulatory Visit Summary JEANNINE FELICIANO :1975 Visit Date:04/02/2022 Ambulatory Visit Instructions Your Diagnosis Stress incontinence Tests Performed Urnls Dip Stick Auto w/o Microscopy POC 48953 Your Care Team Attending Physician - BARBARA [...] With: BARBARA DANIELS PA-C Where: [facility] Ambulatory Visit Summary JEANNINE FELICIANO Nestor :1975 Visit Date:04/02/2022 Ambulatory Visit Instructions Your Diagnosis Stress incontinence Tests Performed Urnls Dip Stick Auto w/o Microscopy POC 99465 Your Care Team Attending Physician - BARBARA [...] With: BARBARA DANIELS PA-C Where: [facility] Patient Educationon 04-02-20 22 Patient Education [...] 08/24/2013 Document Revised: 04/27/2019 Document Reviewed: 04/27/2019 Elsevier Patient Education ? 2019 [employer]. Normal [facility] Patient Letter FTon 2021 Patient Letter [facility] April 02, 2022 JEANNINE FELICIANO was evaluated at [facility] 04/02/2022 10:17:37 It is my medical opinion [...] out. 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 she understands it will take a while to retrain. if sx persist despite consistent timed voiding then we will consider treatment vs urodynamics eval. Ordered: E&M of New Patient Moderate 45-59 Min 31077 2. Stress incontinence (N39.3: Stress incontinence (female) (male)) had extensive discussion regarding pelvic floor muscle rehab. pt provided written information to review at home and prefers to attempt self-guided exercises. if JOSE R persists we will consider formal PFPT at [facility] or [facility] vs Bulkamid vs sling placement. Ordered: E&M of New Patient Moderate 45-59 Min 26055 Urnls Dip Stick Auto w/o Microscopy POC 77599 f/u 3 mos. pt ok to cancel appt and f/u PRN if the above measures improve her sx sufficiently Total time spent reviewing previous notes/results/externa l documents, preparing the chart, conducting the encounter with the patient and family, ordering tests/medications, and documenting the encounter was 50 minutes. Follow-up With When Contact Information BARBARA DANIELS PA-C, URL Within 3 months [address] [place] [address] Additional Instructions: Patient Education Kegel Exercises Problem [...] Protein Urine Dipstick: Trace (04/02/22 09:31:00) Specific [place] Urine Dipstick: >=1.030 (04/02/22 09:31:00) Urine Appearance Urine Dipstick: Clear (04/02/22 09:31:00) Urine Color Urine Dipstick: Yellow (04/02/22 09:31:00) Urobilinogen Urine Dipstick: Normal 0.2-1 EU/dl (04/02/22 09:31:00) pH Urine Dipstick: 6 (04/02/22 09:31:00) Normal [facility] Comment on above: Result Comment: Elec tronically Signed By: BARBARA DANIELS PA-C\.br\Date and Time Signed: 04/02/22 11:56 EDT Covid-19 PCR (CVDTBH)on SARS-CoV-2 (COVID-19) RNA ILSA+probe Ql (Unsp spec) Not detected Normal NOT DETECTED [facility] Comment on above: Result Comment: This test is not yet approved or cleared by the [place] FDA. When there are no FDA-approved or cleared tests available, and other criteria are met, FDA can make tests available under an emergency access mechanism called an Emergency Use Authorization (EUA). The EUA for this test is supported by the [place] of Health and Human Service's (HHS's) declaration [...] consistent with SARS-CoV-2. Performed By: #### C [facility] #### [facility] [address] [place] [address] Dr. Anuel Doran Vital Signs Date Time Vital Sign Value Performing Clinician Charly brunner 11-25-2023 08:22-0500 Body height 154.94 cm SITE TECHNICIANElena Bernal Work Phone: [facility] 11-25-2023 08:22-0500 Body mass index (BMI) [Ratio] 46.6 kg/m2 SITE TECHNICIANElena Bernal Work Phone: [facility] 11-25-2023 08:22-0500 Body weight 112.03 kg SITE TECHNICIANElena Bernal Work Phone: [facility] 11-25-2023 08:22-0500 Diastolic blood pressure 80 mm[Hg] SILVINO Bernal Work Phone: [facility] 11-25-2023 08:22-0500 Heart rate 75 /min SILVINO Bernal Work Phone: [facility] 11-25-2023 08:22-0500 SaO2% (BldA) [Mass fraction] 98 % SITE TECHNICIANElena Bernal Work Phone: [facility] 11-25-2023 08:22-0500 Systolic blood pressure 132 mm[Hg] SILVINO Bernal Work Phone: [facility] 04-02-2022 09:39-0400 Blood Pressure Flaco DANIELS [facility] 04-02-2022 09:39-0400 Diastolic blood pressure 70 mm[Hg] BAR[facility]A DANIELS [facility] 04-02-2022 09:39-0400 Heart rate 84 /min BARBARA DANIELS [facility] 04-02-2022 09:39-0400 Respiratory rate 16 /min BARBARA DANIELS [facility] 04-02-2022 09:39-0400 Systolic blood pressure 139 mm[Hg] BARBARA DANIELS [facility] Encounters Encounter Date Encounter Type Care Provider Facility Start: 03-28-2024 End: 03-29-2024 ambulatory JOHN ORDOÑEZ Not Available Start: 03-23-2024 End: 03-23-2024 ambulatory RENAN PALOMO Not Available Start: 03-22-2024 End: 03-23-2024 ambulatory RENAN PALOMO Not Available Start: 01-12-2024 End: 01-12-2024 ambulatory LUNA SHORT Not Available Start: 01-08-2024 End: 01-08-2024 ambulatory BOUCHRA WILSONY Not Available Start: 12-30-2023 End: 12-30-2023 ambulatory YAHAIRA Bueno [facility] Start: 12-24-2023 End: 12-24-2023 ambulatory BOUCHRA WILSONY Not Available Start: 12-23-2023 End: 12-23-2023 ambulatory Zeenat Graves Facility:[facility] Start: 12-23-2023 End: 12-23-2023 ambulatory SILVINO Bernal Work Phone: [facility] Work Phone: Start: 12-23-2023 End: 12-23-2023 Patient encounter procedure SITE TECHNICIANElena Bernal Work Phone: [facility] Start: 12-22-2023 End: 12-22-2023 ambulatory BRITANY HAWKINS Not Available Start: 12-10-2023 End: 12-10-2023 ambulatory BOUCHRA VASQUEZ Not Available Start: 12-07-2023 End: 12-08-2023 ambulatory BOUCHRA VASQUEZ Not Available Start: 12-01-2023 End: 12-01-2023 ambulatory RENAN PALOMO Not Available Start: 11-26-2023 Non-patient / Non-visit SITE TECHNICIANElena Bernal Work Phone: [facility] Work Phone: Start: 11-25-2023 End: 11-25-2023 Patient encounter procedure SILVINO Bernal Work Phone: [facility] Physician [facility] Work Phone: Start: 10-30-2023 End: 10-31-2023 Emergency department patient visit JASON Dick JOSUE [facility] Start: 10-15-2023 End: 10-16-2023 Emergency department patient visit ZEENAT PHELPS [facility] Start: 12-10-2022 End: 12-11-[address] DIONISIO [...] Start: 04-02-2022 End: 04-03-2022 ambulatory BARBARA DANIELS Facility: [facility] Start: 04-02-2022 End: 04-02-2022 Patient encounter procedure BARBARA DANIELS [facility] Start: 03-13-2022 ambulatory BARBARA DANIELS Facility :[facility] Start: 02-28-2022 ambulatory BARBARA DANIELS Facility :[facility] Start: 02-20-2022 End: 02-20-[address] DIONISIO GRIMALDO Facility: Procedures Date Procedure Procedure Detail Performing Clinician Start: 12-23-2023 Plain X-ray of bilat eral hands SITE TECHNICIAN Barbara Bernal Work Phone: Cholecystectomy BARBARA SUBRAMANIAN Plan of Treatment Date Care Activity Detail Author Start: 12-23-2023 [facility] Payers Date Payer Category Payer Self-pay [id number] 2023 Private Health Insurance [id number] 1974 Unknown [id number] 2.16.8 40.1.069185.3.579.2.727 1974 Unknown [id number] 2.16.8 40.1.423020.3.579.2.727 1974 Unknown [id number] 2.16.8 40.1.270108.3.579.2.727 1974 Unknown [id number] 2.16.8 40.1.865088.3.579.2.727 1974 Unknown [id number] 2.16.84 0.1.246158.3.579.2.593 1974 Unknown [id number] 2.16.84 0.1.424143.3.579.2.593 1974 Unknown [id number] 2.16.84 0.1.012523.3.579.2.593 1974 Unknown [id number] 2.16.84 0.1.174952.3.579.2.593 1974 Unknown [id number] 2.16.84 0.1.227215.3.579.2.593 1974 Unknown [id number] 2.16.84 0.1.094885.3.579.2.593 1974 Unknown [id number] 2.16.84 0.1.052569.3.579.2.593 1974 Unknown [id number] 2.16.84 0.1.364230.3.579.2.593 1974 Unknown [id number] 2.16.8 40.1.284608.3.579.2.1286 1974 Unknown [id number] 2.16.8 40.1.370976.3.579.2.1286 1974 Unknown [id number] 2.16.8 40.1.112121.3.579.2.1286 1974 Unknown [id number] 2.16.8 40.1.788683.3.579.2.1286 1974 Unknown [id number] 2.16.8 40.1.429191.3.579.2.1286 1974 Unknown [id number] 2.16.84 0.1.840834.3.579.2.1259 1974 Unknown [id number] 2.16.84 0.1.934543.3.579.2.1259 1974 Unknown [id number] 2.16.84 0.1.006317.3.579.2.1259 1974 Unknown [id number] 2.16.84 0.1.935049.3.579.2.1259 1974 Unknown [id number] 2.16.84 0.1.846830.3.579.2.9 1974 Unknown [id number] 2.16.84 0.1.987758.3.579.2.9 1974 Unknown [id number] 2.16.84 0.1.297676.3.579.2.9 1974 Unknown [id number] 2.16.84 0.1.604371.3.579.2.9 1974 Unknown [id number] 2.16.84 0.1.287672.3.579.2.9 1974 Unknown [id number] 2.16.84 0.1.444180.3.579.2.9 1974 Unknown [id number] 2.16.84 0.1.797355.3.579.2.1259 1959 Private Health Insurance [id number] 1959 Self-pay [id number] Unknown [id number] 2.16.8 40.1.478457.3.579.2.531 Social History Date Type Detail Facility Tobacco smoking status No Smokin g Status Entered [facility] Sex Assigned At Female [facility] Start: 11-25-2023 Tobacco smoking stat [facility] Never smoked tobacco (finding) [facility] Start: 1975 Sex Assigned At Female F [facility] Functional Status Date Assessment Result Facility 04-02-2022 Functional Status N/A [facility] Hospital Discharge instructions 04-02-2022 Note Date & [...] 08/24/2013 Document Revised: 04/27/2019 Document Reviewed: 04/27/2019 [employer] Patient Education 2020 [employer] Follow Up Care 03/13/2022 16:11:08 With:BARBARA DANIELS PA-C, URL Address: [address] [place] [address] When:3 months [facility] Evaluation + Plan note Note Date & Type Note Facility Evaluation + Plan note Future Appointments Appointment Date:07/02/2022 09:00:00 AM Scheduled Provider:BARBARA DANIELS PA-C Location:[facility] Appointment Type:URO Office Visit [facility] Evaluation note Note Date & Type Note Facility Evaluation note Diagnosis Onset Date Anxiety acute Arthritis acute Daytime somnolence acute Depression acute Episode of apnea acute Forgetfulness acute Hypertension acute Loud snoring acute Multiple joint pain acute Screening for colon cancer a cute Sleep apnea in adult acute [facility] Work Phone: Hospital course Narrative Note Date & Type Note Facility Hospital course Narrative No data available for this section [facility] Progress note Note Date & Type Note Facility Progress note No data available for this section [facility] Summary Purpose Family History No Family History Records Found Relationship Condition Age at Onset Recorded Date/T audrey father Heart disease Unknown History of stroke Unknown Unknown Not Specified Heart disease Unknown Fibromyalgia Unknown Advance Directives No Advanced Directives Records Found Advance Directive Response Recorded Date/ Time Advance Directives No November 23 24 10:06am Chief Complaint and Reason for Visit Chief Complaint Establish M25.50 R68.89 I10 hand pain Reason for Visit Anxiety Arthritis Daytime somnolence Depression Episode of apnea Forgetfulness Hypertension Loud snoring Multiple joint pain Screening for colon cancer Sleep apnea in adult Additional Source Comments Care Team (unrecognized sect ion and content) Team Status: Active Member Role Status Dates Barbara Bernal APRN DRAWING BOX TENDER-C Primary Care Provider Active Team Status: Inactive Member Role Status Dates Barbara Bernal APRN NP-Jerome Primary Care Provider, Attending Provider Active Start: November 25, 2023 End: November 25, 2023 Team Status: Active Member Role Status Dates Barbara Bernal APRN NP-Jerome Primary Care Provider, Attending Provider Active Start: November 26, 2023 Team Status: Inactive Member Role Status Dates Barbara Rohrbacher , SITE TECHNICIAN DRAWING BOX TENDER-C Primary Care Provider, Attending Provider Active Start: December 23, 2023 End: December 23, 2023 Zeenat Graves MD Referring Provider Active St art: December 23, 2023 End: December 23, 2023 INFORMATION SOURCE (unrecogn ized section and content) DATE CREATED AUTHOR 06/30/2022 Hernan Garsia [facility] DATE CREATED AUTHOR AUTHOR'S ORGANIZ ATION 12/14/2022 [facility] DATE CREATED AUTHOR AUTHOR'S ORGANIZ ATION 12/31/2023 [facility] DATE CREATED AUTHOR AUTHOR'S ORGANIZ ATION 01/03/2024 [facility] DATE CREATED AUTHOR AUTHOR'S ORGANIZ ATION 04/05/2024 [facility] EPIC Goals (unrecognized section and [...] BE BASED ON THE PRIMARY CLINICAL RECORDS. [email or web address] provides no warranty or guarantee of the accuracy or completeness of information in this document.
[2024-04-12 09:13] LABS: Chol HDL Ratio 4.2; Cholesterol 181 mg/dL (<=200); HDL Cholesterol 43 mg/dL (40-60); LDL Cholesterol Calculated 112.4 mg/dL; Triglycerides 128 mg/dL (<=150); VLDL CHOLESTEROL 25.6 mg/dL
== END 2024-04-12 08:30 | disposition home or self-care (01) ==
LOC: LAB 08:30
PROVIDERS: PCP Nurse Practitioner Family; Visit Provider Nurse Practitioner Family
DX: E78.5 Hyperlipidemia, unspecified (principal); I10 Essential (primary) hypertension
CPT/HCPCS: 36415; 80061

== ENCOUNTER 2024-04-25 10:38 | Outpatient (OUT) | payer OTHER, SELFPAY ==
[2024-04-25 11:03] LABS: Basophils Absolute Auto 0.1 10^3/uL (0.0-0.1); Basophils Percent Auto 0.7 % (0.2-2.0); Eosinophils Absolute Auto 0.3 10^3/uL (0.0-0.7); Eosinophils Percent Auto 4.5 % (0.9-7.0); Hematocrit 37.9 % (36.0-48.0); Hemoglobin 12.7 g/dL (12.0-16.0); Immature Granulocytes Abs Auto 0.02 10^3/uL (0.00-0.03); Immature Granulocytes Pct Auto 0.3 % (0.0-0.5); Lymphocytes Absolute Auto 2.3 10^3/uL (1.2-3.8); Lymphocytes Percent Auto 30.5 % (20.5-60.0); Mean Corpuscular HGB Conc 33.5 g/dL (29.9-35.2); Mean Corpuscular Hemoglobin 29.3 pg (26.7-34.0); Mean Corpuscular Volume 87.3 fL (81.0-99.0); Mean Platelet Volume 10.7 fL (9.5-13.5); Monocytes Absolute Auto 0.4 10^3/uL (0.3-0.8); Monocytes Percent Auto 5.7 % (1.7-12.0); Neutrophils Absolute Auto 4.4 10^3/uL (1.4-6.5); Neutrophils Percent Auto 58.3 % (43.0-75.0); Platelet Count 247 10^3/uL (150-450); Red Blood Count 4.34 10^6/uL (4.20-5.40); Red Cell Distribution Width 12.8 % (11.0-15.0); White Blood Count 7.5 10^3/uL (4.0-11.0)
[2024-04-25 11:27] LABS: Estimated Average Glucose 94 mg/dL; Glycohemoglobin A1C 4.9 % (4.5-6.2)
[2024-04-25 11:55] LABS: Free T4 0.75 ng/dL (0.76-1.46)
[2024-04-25 12:04] LABS: Thyroid Stimulating Hormone 2.607 uIU/mL (0.358-3.740)
[2024-04-25 12:15] LABS: HCG Quantitative <1 mIU/mL
[2024-04-26 04:10] LABS: DHEA-Sulfate 37.4 ug/dL (41.2-243.7); FSH 7.7 mIU/mL (.); Luteinizing Hormone(LH) 4.3 mIU/mL (.)
[2024-04-27 16:10] LABS: DHEA, Serum 36 ng/dL (31-701)
== END 2024-04-25 10:39 | disposition home or self-care (01) ==
LOC: LAB 10:39
PROVIDERS: PCP Nurse Practitioner Family; Visit Provider Obstetrics & Gynecology
DX: E34.9 Endocrine disorder, unspecified (principal); E28.2 Polycystic ovarian syndrome
CPT/HCPCS: 36415; 82626; 82627; 83001; 83002; 83036; 84439; 84443; 84702; 85025

== ENCOUNTER 2025-04-03 10:29 | Outpatient (OUT) | payer OTHER, SELFPAY | END 2025-04-03 10:30 | disposition home or self-care (01) | LOC: RAD 10:31 | PROVIDERS: PCP Nurse Practitioner Family | DX: R22.41 Localized swelling, mass and lump, right lower limb (principal) | CPT/HCPCS: 93971 ==

== ENCOUNTER 2025-04-10 12:13 | Emergency (ER) | payer OTHER, SELFPAY ==
[2025-04-10] VITALS (20 sets, daily range): BP systolic 121–155; BP diastolic 76–88; PULSE 81–86; TEMP 36.8; O2SAT 91–99; BMI 46.9
--- NOTE | 2025-04-10 12:39 | XR_ITS ---
The [address] [address] Patient Name: BLOSSOM BETANCOURT MRN: [id number] date: 1975 Sex: F Assigned Patient Location: ER Current Patient Location: ER Accession/Order Number: [id number] Exam Date: 04/10/2025 13:51 Report Date: 04/10/2025 13:51 At the request of: OTILIO ADAMS MD Procedure: XR chest 1V Single view chest: CLINICAL HISTORY: chest pain COMPARISON: Chest 12/10/2022 FINDINGS: The heart is normal in size. The lungs are clear. The pulmonary vasculature is normal. Mediastinum and hilar regions are unremarkable. No pleural effusions are seen. Visualized bones are intact. XR/XR chest 1V IMPRESSION: NEGATIVE CHEST. Impression dictated by: Gil Moreno Jr., D.O. 04/10/2025 1:51 PM Dictation Location: [place] [address] Electronically authenticated by: [id number] Y Date: 04/10/2025 13:51
--- NOTE | 2025-04-10 12:39 | ECG_ITS ---
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 Measurements Intervals [place] Rate: 80 P: 43 MS: 152 QRS: 49 QRSD: 82 T: 12 QT: 370 QTc: 406 Interpretive Statements 1100 Sinus rhythm 4068 Nonspecific Twave abnormality 9130 borderline ECG Compared to ECG 05/06/2021 00:08:11 No significant changes Electronically Signed On 04-10-2025 18:31:54 EDT by CHRISTIE ROCHA M.D.
[2025-04-10 12:49] LABS: Hematocrit 46.2 % (36.0-48.0); Hemoglobin 15.7 g/dL (12.0-16.0); Mean Corpuscular HGB Conc 34.0 g/dL (29.9-35.2); Mean Corpuscular Hemoglobin 30.1 pg (26.7-34.0); Mean Corpuscular Volume 88.5 fL (81.0-99.0); Platelet Count 248 10^3/uL (150-450); Red Blood Count 5.22 10^6/uL (4.20-5.40); White Blood Count 9.4 10^3/uL (4.0-11.0)
[2025-04-10 13:05] LABS: Anion Gap 13.0
[2025-04-10 13:07] LABS: Alanine Aminotransferase 22 U/L (14-59); Albumin Globulin Ratio 1.0; Albumin Level 3.4 g/dL (3.4-5.0); Alkaline Phosphatase 94 U/L (46-116); Aspartate Amino Transferase 20 U/L (15-37); Blood Urea Nitrogen 23.0 mg/dL (7.0-18.0); Calcium 8.8 mg/dL (8.5-10.1); Carbon Dioxide 27.9 mmol/L (21.0-32.0); Chloride 104 mmol/L (98-107); Estimated GFR (African America >60 (>=60 mL/min/1.73m^2); Estimated GFR (Non-African Ame >60 (>=60 mL/min/1.73m^2); Globulin 3.3 g/dL; Glucose 105 mg/dL (74-106); Lipase 16.0 U/L (16.0-77.0); Potassium 3.9 mmol/L (3.5-5.1); Sodium 141 mmol/L (136-145); Total Protein 6.7 g/dL (6.4-8.2)
[2025-04-10 13:08] LABS: Basophils Abs Manual 0.09 10^3/uL (0.00-0.10); Basophils Percent Manual 1.0 % (0.2-2.0); Eosinophils Absolute Manual 0.00 10^3/uL (0.00-0.70); Eosinophils Percent Manual 0.0 % (0.9-7.0); Lymphocytes Absolute Manual 0.56 10^3/uL (1.20-3.80); Lymphocytes Percent Manual 6.0 % (20.5-60.0); Monocytes Absolute Manual 0.94 10^3/uL (0.30-0.80); Monocytes Percent Manual 10.0 % (1.7-12.0); Segmented Neut Absolute Manual 7.80 10^3/uL (1.4-6.5); Segmented Neutrophils % Manual 83.0 (43.0-75.0)
--- NOTE | 2025-04-10 14:30 | ED.CHESTPAI1 ---
HPI - Chest Pain General Chief Complaint: Chest Pain Stated Complaint: CHEST PAIN Time Seen by Provider: 04/10/25 12:38 Source: patient Mode of arrival: ambulance Limitations: no limitations History of Present Illness HPI narrative: 49-year-old female to the emergency department with chief complaint of chest pain. Patient reports she has been sick with nausea and vomiting for the last 2 to 3 days. She had some diarrhea as well. She went to urgent care to be seen for the nausea and vomiting developed some mild chest discomfort. It was similar to past episodes she has had with reflux. She is not currently on any medications for reflux. She was given Zofran and the symptoms resolved spontaneously. She presents for evaluation for chest pain. She reports the nausea vomiting is improved as well. Related Data Home Medications �Medication �Instructions �Recorded �Confirmed atorvastatin 20 mg tablet 20 mg PO DAILY 04/10/25 04/10/25 buspirone 10 mg tablet 10 mg PO BID 04/10/25 04/10/25 carvedilol 12.5 mg tablet 12.5 mg PO Q12H 04/10/25 04/10/25 citalopram 20 mg tablet 20 mg PO DAILY 04/10/25 04/10/25 clonazepam 1 mg tablet 1 mg PO Q12H 04/10/25 04/10/25 oxcarbazepine 300 mg tablet 300 mg PO BID 04/10/25 04/10/25 valsartan 80 mg tablet 80 mg PO DAILY 04/10/25 04/10/25 Previous Rx's �Medication �Instructions �Recorded famotidine 20 mg tablet (Pepcid) 20 mg PO BID 2 weeks #28 tabs 04/10/25 ondansetron 4 mg disintegrating 4 mg PO Q8H PRN nausea and 04/10/25 tablet vomiting 4 days #16 tabs Allergies Allergy/AdvReac Type Severity Reaction Status Date / Time lisinopril Allergy Mild Cough Verified 04/10/25 12:22 Review of Systems ROS Status of ROS 10 or more systems reviewed and unremarkable except as noted in history and below PFSH PFSH Social History Little interest or pleasure in doing things: not at all Feeling down, depressed, or hopeless: not at all Exam Narrative Exam Narrative: VITALS: I have reviewed the triage vital signs. GENERAL: Obese adult female in no distress NEURO: Alert and oriented. Moves all extremities. Face is symmetric and expressive. EYES: PERRL. No scleral icterus or conjunctival injection. No discharge. HENT: Normocephalic, atraumatic. Hearing is grossly intact. Nares grossly patent and without discharge. Mucous membranes moist. NECK: No JVD. Patient moves neck without restriction. CARDIO: Rhythm regular. Normal rate. No murmur, rub, or gallop. Pulses equal bilaterally in the upper and lower extremity. No lower extremity edema. PULM: Lungs clear to auscultation in all silva. No wheezes, rales, or rhonchi. No conversational dyspnea. No splinting, stridor, or accessory muscle use. GI/: Abdomen is soft and non-tender. Normoactive bowel sounds. EXTREMITIES: Symmetric muscle bulk. No joint swelling. No clubbing, cyanosis, or deformity. SKIN: Warm and dry. Normal turgor. No rash or lesions appreciated. PSYCH: Mood, affect, and interaction is appropriate to the setting. Constitutional Vital Signs, click to edit/add: Last Vital Signs Temp 98.2 F 04/10/25 12:24 Pulse 82 04/10/25 14:01 Resp 18 04/10/25 14:01 BP 155/79 H 04/10/25 14:01 Pulse Ox 93 L 04/10/25 14:01 O2 Del Method Room Air 04/10/25 12:31 Course Vital Signs Vital signs: Vital Signs Pulse Rate 85 04/10/25 12:15 Respiratory Rate 15 04/10/25 12:15 Pulse Oximetry 93 L 04/10/25 12:15 Temperature 98.2 F 04/10/25 12:24 Pulse Rate 82 04/10/25 14:01 Respiratory Rate 18 04/10/25 14:01 Blood Pressure 155/79 H 04/10/25 14:01 Pulse Oximetry 93 L 04/10/25 14:01 Oxygen Delivery Method Room Air 04/10/25 12:31 MDM - Chest Pain MDM Narrative Medical decision making narrative: 49-year-old female to the emergency department with a chief complaint of chest discomfort. Recent illness with nausea vomiting diarrhea. Vital stable, the patient is afebrile. Patient describes similar to past episodes of reflux. It does not sound cardiac in nature. Lab work viewed and noted. Troponin is low x 2. EKG without evidence of ischemia. Chest x-ray without acute findings. Patient had no recurrence of symptoms during her ED visit. She is low risk by heart score. I discussed with the patient. She feels comfortable the plan for discharge home. She is given cardiology with whom to follow-up for a baseline stress test given her presentation of chest pain. Will start her on Pepcid and Zofran for symptoms is likely GI etiology. Return precautions were discussed. All questions were answered. The patient was discharged home. Medical Records Data Attestation: I reviewed the patient's medical records. Lab Data Attestation: I reviewed the patient's lab results. Labs: Lab Results 04/10/25 04/10/25 Range/Units 12:29 14:02 WBC 9.4 (4.0-11.0) 10^3/uL RBC 5.22 (4.20-5.40) 10^6/uL Hgb 15.7 (12.0-16.0) g/dL Hct 46.2 (36.0-48.0) % MCV 88.5 (81.0-99.0) fL MCH 30.1 (26.7-34.0) pg MCHC 34.0 (29.9-35.2) g/dL RDW 13.1 (11.0-15.0) % Plt Count 248 (150-450) 10^3/uL MPV 10.3 (9.5-13.5) fL Seg Neuts % (Manual) 83.0 H (43.0-75.0) Lymphocytes % (Manual) 6.0 L (20.5-60.0) % Monocytes % (Manual) 10.0 (1.7-12.0) % Eosinophils % (Manual) 0.0 L (0.9-7.0) % Basophils % (Manual) 1.0 (0.2-2.0) % Neutrophils # (Manual) 7.80 H (1.4-6.5) 10^3/uL Lymphocytes # (Manual) 0.56 L (1.20-3.80) 10^3/uL Monocytes # (Manual) 0.94 H (0.30-0.80) 10^3/uL Eosinophils # (Manual) 0.00 (0.00-0.70) 10^3/uL Basophils # (Manual) 0.09 (0.00-0.10) 10^3/uL Sodium 141 (136-145) mmol/L Potassium 3.9 (3.5-5.1) mmol/L Chloride 104 (98-107) mmol/L Carbon Dioxide 27.9 (21.0-32.0) mmol/L Anion Gap 13.0 BUN 23.0 H (7.0-18.0) mg/dL Creatinine 0.52 L (0.55-1.02) mg/dL Est GFR ( Amer) >60 (>=60 mL/min/1.73m^2) Est GFR (Non-Af Amer) >60 (>=60 mL/min/1.73m^2) BUN/Creatinine Ratio 44.2 Glucose 105 (74-106) mg/dL Calcium 8.8 (8.5-10.1) mg/dL Total Bilirubin 0.8 (0.2-1.0) mg/dL AST 20 (15-37) U/L ALT 22 (14-59) U/L Alkaline Phosphatase 94 (46-116) U/L Troponin I High Sens <4.0 L <4.0 L (4.0-51.3) pg/mL Total Protein 6.7 (6.4-8.2) g/dL Albumin 3.4 (3.4-5.0) g/dL Globulin 3.3 g/dL Albumin/Globulin Ratio 1.0 Lipase 16.0 (16.0-77.0) U/L Serum HCG, Qual Negative (NEGATIVE) Imaging Data Chest x-ray: Attestation: I have reviewed the pertinent imaging results. Radiologist's impression: ITS Impressions Chest X-Ray 04/10/25 12:39 IMPRESSION: NEGATIVE CHEST. Impression dictated by: Gil Moreno Jr., D.O. 04/10/2025 1:51 PM Dictation Location: [place] [address] Electronically authenticated by: [id number] Y Date: 04/10/2025 13:51 ECG Data Attestation: I personally reviewed and interpreted this ECG as follows: (Normal sinus rhythm at a rate of 50. Normal QTc of 406. No STEMI.) Heart Score History: Slightly/Non-Suspicious ECG: Normal Age: >45-<65 years Risk Factors: >3 Risk Factors/ HX of CAD:2 Troponin: <Normal Limit Total Heart Score Recommendations & Risks:: 3 Discharge Plan Discharge Chief Complaint: Chest Pain Clinical Impression: Atypical chest pain Patient Disposition: Home, Self-Care Time of Disposition Decision: 14:33 Condition: Good Mode of Transportation: Private Vehicle Prescriptions / Home Meds: New famotidine [Pepcid] 20 mg tablet 20 mg PO BID 14 Days Qty: 28 0RF ondansetron 4 mg tablet,disintegrating 4 mg PO Q8H PRN (Reason: nausea and vomiting) 4 Days Qty: 16 0RF No Action atorvastatin 20 mg tablet 20 mg PO DAILY buspirone 10 mg tablet 10 mg PO BID carvedilol 12.5 mg tablet 12.5 mg PO Q12H citalopram 20 mg tablet 20 mg PO DAILY clonazepam 1 mg tablet 1 mg PO Q12H oxcarbazepine 300 mg tablet 300 mg PO BID valsartan 80 mg tablet 80 mg PO DAILY Print Language: Albanian Instructions: Chest Pain (ED) Additional Instructions: Call the office of your primary care doctor to arrange for follow-up within the above-stated timeframe. Your ED visit was focused on your acute issue and does not replace primary care. You should review your labs, imaging, and diagnoses from this ED visit with your primary care physician. There may be non-emergent/ incidental findings that need further evaluation. You should review your vital signs including blood pressure with your PCP. If you were prescribed medications you should discuss possible side-effects and drug interactions with your pharmacist. Call 911 or go to the nearest Emergency Department if you develop any new or worsening symptoms. Seek immediate medical attention if you develop: worsening chest pain, new chest pain, nausea, vomiting, weakness, numbness, tingling, excessive sweating, shortness of breath, difficulty breathing, loss of motion in your arms or legs, or any new or worsening symptoms. Referrals: NAZARIO CARLSON [Primary Care Provider, Unknown] - 1 week Nilson Humphrey MD [Physician, Cardiology] - 1 week
== END 2025-04-10 14:43 | disposition home or self-care (01) ==
PROVIDERS: Emergency Provider Student in an Organized Health Care Education/Training Program; PCP Nurse Practitioner Family
DX: R07.89 Other chest pain (principal)
CPT/HCPCS: 36415; 71045; 80053; 83690; 84484; 84703; 85007; 85027; 93005; 99285

== ENCOUNTER 2025-07-18 14:54 | Outpatient (REF) | payer OTHER, SELFPAY ==
--- OUTSIDE RECORDS SUMMARY | 2025-07-18 10:00 | XMS_ITS | Encounter Summary ---
Author Organization [facility] Address [address] [facility] [place] [address] Care Team Providers Care Abalone Fisherman Name Role Phone DoloresKorinBarbara Kapil HAND TRIMMER Primary Care Provider Reason for Visit * ReasonCommentsWell Women Visit Encounter Details DateTypeDepartmentCare Team (Latest Contact Info)Jebrgggyxzd76/28/2025 10:00 AM EDTProcedure Visit [facility]nie S[facility] [address] [place] [address] Melva Bright PA [address] [place], [facility]11 Well woman exam with routine gynecological exam; Breast cancer screening by mammogram; Postmenopausal state; Hormone disorder; PCOS (polycystic ovarian syndrome) Social History Tobacco UseTypesPacks/DayYears UsedDateSmoking Tobacco: NeverSmokeless Tobacco: NeverCommentsNoSex and Gender InformationValueDate RecordedSex Assigned at BirthNot on fileLegal GseUwplfp76/15/2023 7:20 PM EDTGender IdentityNot on fileSexual OrientationNot on filedocumented as of this encounter Last Filed Vital Signs Vital SignReadingTime TakenCommentsBlood Adwcokhg129/801 9:55 AM EDT Pulse--Temperature--Respiratory Rate--Oxygen Saturation--Inhaled Oxygen Concentration--Ypdhpf631 kg (261 lb 12.8 oz)07/18/2025 9:55 AM EDTHeight--Body Mass Index49.4704 11:27 AM EDTdocumented in this encounter Progress Notes * NEERU Del Angel - 07/18/2025 10:00 AM EDT Reason for Appointment: Patient ID: Jeannine Feliciano is a 49 y.o. female who presents for Well Women Visit Patient presents today for Annual Exam. MEDICATIONS Current Outpatient Medications Medication Instructions acetaminophen (TYLENOL 8 HOUR) 650 mg, Every 8 hours PRN atorvastatin (Lipitor) 20 MG tablet Daily busPIRone (BUSPAR) 10 mg, 2 times daily carvedilol (COREG) 12.5 mg, 2 times daily with meals citalopram (CELEXA) 20 mg, Oral, Daily clonazePAM (KLONOPIN) 1 mg, 2 times daily PRN fluocinonide (Lidex) 0.05 % ointment Apply to affected areas, up to twice a day when flared, do notuse one the face, groin, or underarms, 30 day supply Multiple Vitamin (multivitamin) tablet 1 tablet, Daily nystatin (Nyamyc) 665804 UNIT/GM powder APPLY TO THE AFFECTED AREA(S) TWICE DAILY OXcarbazepine (Trileptal) 150 MG tablet 2 times daily OXcarbazepine (TRILEPTAL) 150 mg, 2 times daily valsartan (DIOVAN) 80 mg, Daily ALLERGIES Allergies Allergen Reactions Amlodipine Swelling Lisinopril Other Reaction(s): Unknown Reaction cough PROBLEMS Active Ambulatory Problems Diagnosis Date Noted Other cervical disc degeneration, unspecified cervical region 07/17/2025 Impingement syndrome of right shoulder 07/17/2025 Other specified disorders of tendon, right elbow 07/17/2025 Primary osteoarthritis of right elbow 07/17/2025 Pain in right elbow 07/17/2025 Pain in right shoulder 07/17/2025 Resolved Ambulatory Problems Diagnosis Date Noted No Resolved Ambulatory Problems Past Medical History: Diagnosis Date Arthritis Fibromyalgia High blood pressure High cholesterol PCOS (polycystic ovarian syndrome) HISTORY PAST MEDICAL HISTORY SOCIAL HISTORY Past Medical History: Diagnosis Date Arthritis Fibromyalgia High blood pressure High cholesterol PCOS (polycystic ovarian syndrome) Social History Tobacco Use Smoking status: Never Smokeless tobacco: Never Substance Use Topics Alcohol use: Not on file Drug use: Not on file FAMILY HISTORY Family History Problem Relation Name Age of Onset Heart attack Mother Stroke Father Heart attack Father Depression Other Anxiety disorder Other SURGICAL HISTORY Past Surgical History: Procedure Laterality Date CARPAL TUNNEL RELEASE Right SECTION, LOW TRANSVERSE 1997 GALLBLADDER KNEE ARTHROPLASTY Right 2022 REVIEW OF SYSTEMS Review of Systems: Review of Systems All other systems reviewed and are negative. OBJECTIVE Objective: Physical Exam Constitutional: Appearance: Normal appearance. She is well-developed. Genitourinary: Vulva normal. Cardiovascular: Rate and Rhythm: Normal rate and regular rhythm. Pulmonary: Effort: Pulmonary effort is normal. Breath sounds: Normal breath sounds. Abdominal: General: Bowel sounds are normal. There is no distension. Palpations: Abdomen is soft. Tenderness: There is no abdominal tenderness. There is no guarding or rebound. Musculoskeletal: General: No swelling. Normal range of motion. Right lower leg: No edema. Left lower leg: No edema. Neurological: Mental Status: She is alert and oriented to person, place, and time. Skin: General: Skin is warm and dry. Psychiatric: Mood and Affect: Mood normal. Behavior: Behavior normal. Vitals and nursing note reviewed. Exam conducted with a it program auditor present. Vitals: Estimated body mass index is 49.47 kg/m?? as calculated from the following: Height as of 01/12/24: 5' 1 . Weight as of this encounter: 261 lb 12.8 oz. BP: 120/80 No LMP recorded. (Menstrual status: IUD). Assessment/Plan ICD-10-CM 1. Well woman exam with routine gynecological exam Z01.419 THIN PREP TIS PAP AND HR HPV DNA 2. Breast cancer screening by mammogram Z12.31 Bilateral screening mammogram Bilateral screening mammogram 3. Postmenopausal state Z78.0 DEXA bone density 4. Hormone disorder E34.9 Estradiol Estrone Cortisol, free DHEA-sulfate Sex hormone binding globulin Insulin, total Serotonin serum TSH T4, free T3, reverse Progesterone Vitamin D 1,25 dihydroxy Ferritin T3, free Thyroglobulin Thyroglobulin Antibody Thyroid peroxidase antibody T4 TESTOSTERONE, FREE Testosterone, free, total Hemoglobin A1c Glucose, random C-peptide Cortisol, free Insulin, total Serotonin serum Thyroglobulin Thyroglobulin Antibody T4 Glucose, random C-peptide Annual: Patient presents today for an annual exam. Patient states she is doing well Pap was obtained without difficulty and patient given mammogram order to have scheduled/obtained. Pt complains of hot flashes and very hormonal. Would like to have labs drawn and go through [facility] medication. [facility] pamphlet was given to patient to fill out and bring back along with gettinglabs drawn. PVU. Orders Placed This Encounter Procedures Bilateral screening mammogram DEXA bone density Estradiol Estrone Cortisol, free DHEA-sulfate Sex hormone binding globulin Insulin, total Serotonin serum TSH T4, free T3, reverse Progesterone Vitamin D 1,25 dihydroxy Ferritin T3, free Thyroglobulin Thyroglobulin Antibody Thyroid peroxidase antibody T4 TESTOSTERONE, FREE Testosterone, free, total Hemoglobin A1c Glucose, random C-peptide Follow Up: Patient is to return in one year for annual unless needed otherwise. Pt is to bring back the [facility] packet w/answered questions to our office and labs as soon as she can to begin the process for Hormonal therapy treatment. Documented by Lilli Blanco MA on behalf of: NEERU Del Angel documented in this encounter Plan of Treatment DateTypeDepartmentCare Team (Latest Contact Info)Ezbgmxxsjie22/05/2025 9:30 AM ESTOffice Visit [facility] [address] [place] [address] Elizabeth Franco, PUJA [address] [place] [phone] NameTypePriorityAssociated DiagnosesOrder ScheduleBilateral screening mammogram ImagingRoutine Breast cancer screening by mammogram Expected: 07/18/2025, Expires: 09/17/2026DEXA bone densityImagingRoutine Postmenopausal state Expected: 07/18/2025 (Approximate), Expires: 07/18/2026THIN PREP TIS PAP AND HR HPV DNAPathology and CytologyRoutine Well woman exam with routine gynecological exam Ordered: 07/18/2025EstradiolLabRoutine Hormone disorder Ordered: 07/18/2025EstroneLabRoutine Hormone disorder Ordered: 07/18/2025ortisol, freeLabRoutine Hormone disorder Expected: 07/18/2025 (Approximate), Expires: 07/18/2026DHEA-sulfateLabRoutine Hormone disorder Ordered: 07/18/2025Sex hormone binding globulinLabRoutine Hormone disorder Ordered: 07/18/2025Insulin, totalLabRoutine Hormone disorder Expected: 07/18/2025 (Approximate), Expires: 07/18/2026Serotonin serumLabRoutine Hormone disorder Expected: 07/18/2025 (Approximate), Expires: 07/18/2026TSHLabRoutine Hormone disorder Ordered: 07/18/2025T4, freeLabRoutine Hormone disorder Ordered: 07/18/2025T3, reverseLabRoutine Hormone disorder Ordered: 07/18/2025ProgesteroneLabRoutine Hormone disorder Ordered: 07/18/2025Vitamin D 1,25 dihydroxyLabRoutine Hormone disorder Ordered: 07/18/2025FerritinLabRoutine Hormone disorder Ordered: 07/18/2025T3, freeLabRoutine Hormone disorder Ordered: 07/18/2025ThyroglobulinLabRoutine Hormone disorder Expected: 07/18/2025 (Approximate), Expires: 07/18/2026Thyroglobulin AntibodyLab Routine Hormone disorder Expected: 07/18/2025 (Approximate), Expires: 07/18/2026Thyroid peroxidase antibodyLabRoutine Hormone disorder Ordered: 07/18/20251169Y3WxaRslzmxf Hormone disorder Expected: 07/18/2025 (Approximate), Expires: 07/18/2026TESTOSTERONE, FREELab Routine Hormone disorder Ordered: 07/18/2025Testosterone, free, totalLabRoutine Hormone disorder Ordered: 07/18/2025Hemoglobin Q5tSuyGcfzglc Hormone disorder Ordered: 07/18/2025Glucose, randomLabRoutine Hormone disorder Expected: 07/18/2025 (Approximate), Expires: 07/18/2026-peptideLabRoutine Hormone disorder Expected: 07/18/2025 (Approximate), Expires: 07/18/2026documented as of this encounter Visit Diagnoses Diagnosis Well woman exam with routine gynecological exam Routine gynecological examination Breast cancer screening by mammogram Postmenopausal state Asymptomatic postmenopausal status (age-related) (natural) Hormone disorder Unspecified endocrine disorder PCOS (polycystic ovarian syndrome) Polycystic ovaries documented in this encounter Care Teams Team MemberRelationshipSpecialtyStart DateEnd Date Barbara Bernal NP [address] [place] [id number] PCP - GeneralFamily Medicine01/12/24documented as of this encounter
--- OUTSIDE RECORDS SUMMARY | 2025-07-18 14:57 | XMS_ITS | Clinical Summary ---
Author Organization [facility] Address [address] [place] [address] Phone Care Team Providers Care Sea Shell Gatherer Name Role Phone Dionisio Morales DO Primary Care Provider [phone] Social History Tobacco UseTypesPacks/DayYears UsedDateSmoking Tobacco: Never Assessed CommentsUnknownSex and Gender InformationValueDate RecordedSex Assigned at Not on fileLegal DwzHujjcl45/27/2023 11:41 AM EDTGender IdentityNot on file Sexual OrientationNot on file Plan of Treatment Health MaintenanceDue DateLast DoneCommentsCT Jlxefdetblvp1974Colonoscopy 1974Colorectal Cancer Zxwvicwya1974FIT-DNA (Cologuard)1974FIT 1974HIV Xfkftnbvr1974Lipid Panel08/28/19745346Hekohajbpkgfs1974 Yearly Adult Ozlrhukf1974MMR Vaccines (1 of 1 - Standard series)1975 Hepatitis C Lrzjdoqiu52/08/1992Hepatitis B Vaccines (1 of 3 - 19+ 3-dose series) 1993Cervical Cancer Menaxwtdz74/08/1995HPV/Fjrhdc6608/28/1995Pap Smear 1995DTaP/Tdap/Td Vaccines (1 - Tdap)08/28/19967280Qvoakpkrm13/08/2014 Pneumococcal Vaccine (1 of 1 - PCV)2024Zoster Vaccines (1 of 2)2024 Influenza Vaccine (#1)5COVID-19 Vaccine (1 - season)2025 HIB VaccinesAged OutNo longer eligible based on patient's age to complete this topicHPV VaccinesAged OutNo longer eligible based on patient's age to complete this topicHepatitis A VaccinesAged OutNo longer eligible based on patient's age to complete this topicIPV VaccinesAged OutNo longer eligible based on patient's age to complete this topicMeningococcal VaccineAged OutNo longer eligible based on patient's age to complete this topicRotavirus VaccinesAged OutNo longer eligible based on patient's age to complete this topic Care Teams Team MemberRelationshipSpecialtyStart DateEnd Date Dionisio Morales DO [facility] - [facility]01/15/23
--- OUTSIDE RECORDS SUMMARY | 2025-07-18 14:57 | XMS_ITS | Clinical Summary ---
Author Organization [facility] Address [id number] [place] [address] Care Team Providers Care Pay Agent Name Role Phone Dionisio Morales DO Primary Care Provider [phone] Allergies Active AllergyReactionsCriticalityNoted ApqcRwfnhkehXjialqviofTukzxbtv69/11/2023 Xgrwlfzeml14/08/2023 cough Medications * This document contains information received from the source organization and may not represent a complete record from that organization. MedicationSigDispense QuantityRefillsLast FilledStart DateEnd DateStatus lansoprazole (PREVACID) 30 mg capsule Take 1 capsule (30 mg total) by mouth in the morning.Active carvediloL (COREG) 12.5 mg tablet Indications:Essential hypertensionTake 1 tablet (12.5 mg total) by mouth in the morning and 1 tablet (12.5 mg total) before bedtime. 180 tablet ctive atorvastatin (LIPITOR) 20 mg tablet Take 1 tablet (20 mg total) by mouth in the morning. 90 tablet 03/16/2023ctive cholecalciferol, vitamin D3, 5,000 units tablet Take 1 tablet (5,000 Units total) by mouth in the morning.Active valsartan (DIOVAN) 80 mg tablet Take 1 tablet (80 mg total) by mouth respiratory nightly.Active meloxicam (MOBIC) 7.5 mg tablet Daily04/12/2024ctive OXcarbazepine (TRILEPTAL) 300 mg tablet Take 1 tablet (300 mg total) by mouth in the morning and 1 tablet (300 mg total) before bedtime. 180 tablet 4Active clonazePAM (KlonoPIN) 1 mg tablet Indications:Generalized anxiety disorderTAKE 1 TABLET BY MOUTH TWICE DAILY NEEDED FOR ANXIETY 180 tablet 5Active busPIRone (BUSPAR) 10 mg tablet Indications:Generalized anxiety disorderTAKE 1 TABLET BY MOUTH IN THE MORNING AND AT BEDTIME 180 tablet 5Active citalopram (CeleXA) 20 mg tablet TAKE 1 TABLET BY MOUTH ONCE DAILY 90 tablet 5Active Active Problems ProblemNoted DateDiagnosed DateOSA (obstructive sleep apnea)12/05/2022 Fbeskmwkdwdu63/17/2023Essential dstkmfpyrngu15/04/2020Class 3 severe obesity due to excess calories without serious comorbidity in adult02/23/2020Excessive daytime jrfeszmpqn92/28/2018Bipolar II gjivbvbm51/18/2017Generalized anxiety xctlpeqe51/18/2017 Resolved Problems ProblemNoted DateDiagnosed DateResolved DateNSTEMI (non-ST elevated myocardial infarction) Immunizations No known immunizations Family History Medical HistoryRelationNameCommentsHeart diseaseFatherStrokeFatherHeart disease MotherRelationNameStatusCommentsFatherDeceasedMotherAlive Social History Tobacco UseTypesPacks/DayYears UsedDateSmoking Tobacco: NeverSmokeless Tobacco: Never Tobacco Cessation:Counseling Given: Not Answered Alcohol UseStandard Drinks/WeekCommentsYes0 (1 standard drink = 0.6 oz pure alcohol)social- very rareChildcareAnswerDate DatppurlOxqqokoayCyqnurp27/12/2019 EmploymentAnswerDate CoaadxwoFsabcxbgnrEwndhmn26/12/2019Hunger ScreeningAnswer Date RecordedWithin the past 12 months we worried whether our food would run out before we got money to buy more.Never True03/14/2025Within the past 12 months the food we bought just didn't last and we didn't have money to get more.Never True03/14/2025Purpose - LifeAnswerDate RecordedPurpose and direction in life Gzcwgez63/14/2021CommentsNoSex and Gender InformationValueDate Recorded Sex Assigned at BirthNot on fileLegal VnyDvoxub04/06/2015 11:24 AM EDTGender IdentityNot on fileSexual OrientationNot on file Last Filed Vital Signs Vital SignReadingTime TakenCommentsBlood Tzjklycm227/69003/14/2025 4:00 AM EDT Subbt498303/14/2025 4:00 AM AVUTchmnlvqukb04.4 ??C (97.5 ??F)03/14/2025 2:34 AM EDTRespiratory Zxoy324303/14/2025 4:00 AM EDTOxygen Xqairzfyjn29%03/14/2025 4:00 AM EDTInhaled Oxygen Concentration--Oiogfg940.4 kg (250 lb)03/14/2025 2:34 AM APUVgrgzt724.9 cm (5' 1 )03/14/2025 2:34 AM EDTBody Mass Index47.24003/14/2025 2:34 AM EDT Plan of Treatment Health MaintenanceDue DateLast DoneCommentsDepression Dblelmvdg25/08/1986Adult BMI Follow Up Plan1992DTaP,Tdap and Td Vaccines (1 - Tdap)1993Pap Smear1995Zoster (Shingles) Vaccine (1 of 2)2024Influenza Vaccine 05/22/2025dult BMI Tekigkqhn96/24/38150303/14/2025Tobacco Mxeassklv57/24/2026 03/14/2025 Medical Devices Not on file Insurance Care Teams Team MemberRelationshipSpecialtyStart DateEnd Dionisio Bhandari DO [facility] - [facility]10/15/23
--- OUTSIDE RECORDS SUMMARY | 2025-07-18 14:57 | XMS_ITS | Encounter Summary ---
Author Organization [facility] Address [address] [facility] [place] [address] Care Team Providers Care Handbag Framer Name Role Phone Barbara Bernal NP Primary Care Provider Encounter Details DateTypeDepartmentCare Team (Latest Contact Info)Yylbirrhjzn45/28/2025Bamboo flowsheet NOMIvana SIBLEY [address] [place] [address] [place] [address] Melva Bright PA [address] [place], [facility] Social History Tobacco UseTypesPacks/DayYears UsedDateSmoking Tobacco: NeverSmokeless Tobacco: NeverCommentsNoSex and Gender InformationValueDate RecordedSex Assigned at BirthNot on fileLegal KpoArriky27/15/2023 7:20 PM EDTGender IdentityNot on fileSexual OrientationNot on filedocumented as of this encounter Plan of Treatment DateTypeDepartmentCare Team (Latest Contact Info)Gypfrleemvc96/05/2025 9:30 AM ESTOffice Visit NOMIvana SIBLEY [address] [place] [address] Elizabeth Franco NP [address] [place] [address] documented as of this encounter Visit Diagnoses Not on filedocumented in this encounter Care Teams Team MemberRelationshipSpecialtyStart [place] [address] [place] [address] [place] [id number] PCP - GeneralFamily Medicine01/12/24documented as of this encounter
--- OUTSIDE RECORDS SUMMARY | 2025-07-18 14:58 | XMS_ITS | Encounter Summary ---
Author Organization [facility] Address [address] [facility] [place] [address] Care Team Providers Care Senior Embedded Software Engineer Name Role Phone JimBarbara gomez LATHER APPRENTICE Primary Care Provider Reason for Visit * ReasonOnset DateCommentsNCNS PT Eval1 Encounter Details DateTypeDepartmentCare Team (Latest Contact Info)Mclrbmkpjqq76/27/2025Telephone [facility] [address] [place] [address] Magda Chavarria, PT [address] [place] [address] [facility] PT Eval Social History Tobacco UseTypesPacks/DayYears UsedDateSmoking Tobacco: NeverSmokeless Tobacco: NeverCommentsNoSex and Gender InformationValueDate RecordedSex Assigned at BirthNot on fileLegal VlmGxsikk01/15/2023 7:20 PM EDTGender IdentityNot on fileSexual OrientationNot on filedocumented as of this encounter Miscellaneous Notes * Telephone Encounter - Karon Mcelroy - 07/17/2025 8:20 AM EDT Tried to contact due to NCNS for PT Eval; had to lm requesting call back zbigniew. documented in this encounter Plan of Treatment DateTypeDepartmentCare Team (Latest Contact Info)Dvhomckmcfv35/05/2025 9:30 AM ESTOffice Visit [facility] Yenifer SIBLEY [address] [place] [address] [place] [address] Elizabeth Franco, PUJA [address] [place] [address] [address] [place] [address] documented as of this encounter Visit Diagnoses Not on filedocumented in this encounter Care Teams Team MemberRelationshipSpecialtyStart DateEnd Date Barbara Bernal NP [address] [facility] [place] [address] PCP - GeneralFamily Medicine01/12/24documented as of this encounter
--- OUTSIDE RECORDS SUMMARY | 2025-07-18 14:58 | XMS_ITS | Continuity of Care Document ---
Author Name 2ND.[facility] Address [address] [facility] [facility] [place] [address] Organization Unknown Address [address] [facility] [place] [address] Medications No known medications Problems No known problems
--- OUTSIDE RECORDS SUMMARY | 2025-07-18 14:58 | XMS_ITS | Clinical Summary ---
Author Organization [facility] Healthcare Address [address] [facility] [place] [address] Care Team Providers Care Acquisition Specialist Name Role Phone Barbara Bernal NP Primary Care Provider Allergies Active AllergyReactionsCriticalityNoted DnmiRdogsmvyDgtbtgnllrAgibaaik07/11/2023 Kuridwsbfo16/08/2023 Other Reaction(s): Unknown Reaction cough Medications MedicationSigDispense QuantityRefillsLast FilledStart DateEnd DateStatus atorvastatin (Lipitor) 20 MG tablet Take by mouth Daily11/24/2023ctive busPIRone (Buspar) 10 MG tablet Take 10 mg by mouth in the morning and 10 mg in the evening.12/30/2023ctive carvedilol (Coreg) 12.5 MG tablet Take 12.5 mg by mouth in the morning and 12.5 mg in the evening. Take with meals.11/25/2023ctive clonazePAM (KlonoPIN) 1 MG tablet Take 1 mg by mouth 2 (two) times a day as needed for bdzeole4112/30/2023ctive valsartan (Diovan) 80 MG tablet Take 80 mg by mouth Daily11/24/2023ctive acetaminophen (Tylenol 8 Hour) 650 MG ER tablet Take 650 mg by mouth every 8 (eight) hours if needed for mild pain Do not crush, chew, or split.Active nystatin (Nyamyc) 957540 UNIT/GM powder Indications:Skin irritationAPPLY TO THE AFFECTED AREA(S) TWICE DAILY 45 g 04/04/2024ctive Additional Information Patient not taking.Reported on 07/18/2025 OXcarbazepine (Trileptal) 150 MG tablet Take 150 mg by mouth in the morning and 150 mg in the evening.04/19/2024ctive OXcarbazepine (Trileptal) 150 MG tablet Take by mouth 2 (two) times a dayActive Multiple Vitamin (multivitamin) tablet Take 1 tablet by mouth DailyActive fluocinonide (Lidex) 0.05 % ointment Indications:Rash and other nonspecific skin eruptionApply to affected areas, up to twice a day when flared, do not use one the face, groin, or underarms, 30 day supply 60 g ctive citalopram (CeleXA) 10 MG tablet Indications:IrritabilityTAKE 2 TABLETS BY MOUTH DAILY 60 tablet ctive metFORMIN XR (Glucophage-XR) 500 MG 24 hr tablet Indications:PCOS (polycystic ovarian syndrome)Take 1 tablet (500 mg) by mouth in the evening. Take with meals Do not crush, chew, or split. 180 tablet ctive Active Problems ProblemNoted DateDiagnosed DateOther cervical disc degeneration, unspecified cervical bvohpm3807/17/2025Impingement syndrome of right ltllwueg11/27/2025Other specified disorders of tendon, right elbow07/17/2025Primary osteoarthritis of right elbow07/17/2025Pain in right elbow07/17/2025Pain in right shoulder 07/17/2025 Encounters DateTypeDepartmentCare IrzkAunxavhpeun44/28/2025 10:00 AM EDTProcedure Visit [facility] [address] [place] [address] Melva Bright PA Well woman exam with routine gynecological exam; Breast cancer screening by mammogram; Postmenopausal state; Hormone disorder; PCOS (polycystic ovarian syndrome)07/18/2025amboo flowsheet [facility] [address] [place] [address] Melva Bright PA 07/17/2025Telephone [facility] [address] [facility] [address] [place] [phone] Magda Chavarria, PT NCNS PT Eval1Telephone [facility] [address] [facility] [address] [place] [phone] Nori Michael, PT Cx / RS PT Eval neededfrom Last 3 Months Family History Medical HistoryRelationNameCommentsHeart attackFatherStrokeFatherHeart attack MotherAnxiety disorderOtherDepressionOtherRelationNameStatusCommentsFatherMother Other Social History Tobacco UseTypesPacks/DayYears UsedDateSmoking Tobacco: NeverSmokeless Tobacco: Never Tobacco Cessation:Counseling Given: Not Answered CommentsNoSex and Gender InformationValueDate RecordedSex Assigned at BirthNot on fileLegal DkkJydjoc23/15/2023 7:20 PM EDTGender IdentityNot on file Sexual OrientationNot on file Last Filed Vital Signs Vital SignReadingTime TakenCommentsBlood Ysfvdfxc035/801 9:55 AM EDT Pulse--Temperature--Respiratory Rate--Oxygen Saturation--Inhaled Oxygen Concentration--Jwmthw544 kg (261 lb 12.8 oz)07/18/2025 9:55 AM ALNCuudbu772.9 cm (5' 1 )01/12/2024 11:27 AM EDTBody Mass Index49.47001/12/2024 11:27 AM EDT Plan of Treatment DateTypeDepartmentCare Team (Latest Contact Info)Dklbrslpzyv30/05/2025 9:30 AM ESTOffice Visit [facility] [address] [place] [address] Elizabeth Franco, PUJA [address] [place] [address] Insurance , [facility] [place] [address] Care Teams Team MemberRelationshipSpecialtyStart DateEnd Date Barbara Bernal NP [facility] [place] [address] PCP - GeneralFamily Medicine01/12/24
--- OUTSIDE RECORDS SUMMARY | 2025-07-18 14:58 | XMS_ITS | Encounter Summary ---
Author Organization [facility] Address [address] [facility] [place] [address] Care Team Providers Care Jogger Operator Name Role Phone MelviBarbara santamaria Kapil SLOTTER OPERATOR Primary Care Provider Reason for Visit * ReasonOnset DateCommentsCx / RS PT Eval xfwufi5407/03/2025 Encounter Details DateTypeDepartmentCare Team (Latest Contact Info)Emqpmjjixgv81/13/2025Telephone [facility] [address] [place] [address] Nori Michael, PT Cx / RS PT Eval needed Social History Tobacco UseTypesPacks/DayYears UsedDateSmoking Tobacco: NeverSmokeless Tobacco: NeverCommentsNoSex and Gender InformationValueDate RecordedSex Assigned at BirthNot on fileLegal SseVwiaii52/15/2023 7:20 PM EDTGender IdentityNot on fileSexual OrientationNot on filedocumented as of this encounter Miscellaneous Notes * Telephone Encounter - Karon Mcelroy - 07/03/2025 11:25 AM EDT She called noting she awoke this morning to a severe migraine and tried to see if it would get better; still severe. She requested to rs; got her in for PT Eval 07/11/25. documented in this encounter Plan of Treatment DateTypeDepartmentCare Team (Latest Contact Info)Sjnwfbjsoda41/05/2025 9:30 AM ESTOffice Visit [facility] [address] [place] [address] [place] [address] Elizabeth Franco, PUJA [address] [place] [address] [place] [address] documented as of this encounter Visit Diagnoses Not on filedocumented in this encounter Care Teams Team MemberRelationshipSpecialtyStart DateEnd Date Barbara Bernal NP [address] [facility] [place] [address] PCP - GeneralFamily Medicine01/12/24documented as of this encounter
--- OUTSIDE RECORDS SUMMARY | 2025-07-18 15:16 | XMS_ITS | CCD ---
Author Organization [facility] Care Team Providers Care Public Health Technician Name Role Phone Dionisio Morales Primary Care Physician BARBARA DANIELS Attending Unavailable BARBARA DANIELS Attending Unavailable Alan SANTOS Referring Unavailable DANIELLE ., DR ANTONIO Admitting Unavailable DANIELLE ., DR ANTONIO Attending Unavailable HOUSE, DR CHOPRA Primary Care Unavailable SULLIVAN, DR KARLEE Neville Consulting Unavailable DANIELLE ., DR ANTONIO Consulting Unavailable YUKI, ANIYAH Admitting Unavailable YUKI, ANIYAH Attending Unavailable HOUSE, DR CHOPRA Primary Care Unavailable ZIEBER, DR CORNELIO Baez Consulting Unavailable YUKI, ANIYAH Consulting Unavailable MUSCADINE, DR CHOPRA Admitting Unavailable HOUSE, DR CHOPRA [...] Care Provider SILVINO Bernal Attending Provider MD Curtis Graves Referring Provider [phone] Curtis Graves Referring Unavailable Barbara Bernal Admitting Unavailable RohrbacherBarbara Primary Care Unavailable Rohrbacher, Barbara Attending Unavailable Rohrbacher BRISKET PULLER, Barbara Dick Primary Care Provider RENAN PALOMO Attending Unavailable GUDZ, BRIE Referring Unavailable KELBLEY, KARI Attending Unavailable GUDZ, BRIE Referring Unavailable KELBLEY, KARI Attending Unavailable GUDZ, BRIE Referring Unavailable BRITANY HAWKINS Attending Unavailable GUDZ, BRIE Referring Unavailable KELBLEY, KARI Attending Unavailable GUDZ, BRIE Referring Unavailable KELBLEY, KARI Attending Unavailable GUDZ, BRIE Referring Unavailable MELVA MUNOZ Attending Unavailable LUNA SHORT Attending Unavailable GUDZ, BRIE Referring Unavailable BLACKSTON, RENAN Borjas Attending Unavailable LALONE, SCOUT W Referring Unavailable BLACKSTON, RENAN Borjas Attending Unavailable LALONE, SCOUT W Referring Unavailable BRJOHN QUIÑONES Attending Unavailable LALONE, SCOUT W Referring Unavailable ALAN SANTOS Attending Unavailable MICHAELNORI Attending Unavailable LALONE, SCOUT W Referring Unavailable MICHAEL, NORI Attending Unavailable LALONE, SCOUT W Referring Unavailable MICHAELNORI Attending Unavailable LALONE, SCOUT W Referring Unavailable BRJOHN QUIÑONES Attending Unavailable LALONE, SCOUT W Referring Unavailable GILMA FOFANA Attending Unavailable ROHRBACHER, BARBARA Dick Referring Unavailab YAHAIRA Soriano Attending Unavailable HOUSE, DIONISIO P Referring Unavailable HOUSE, DIONISIO P Primary Care Unavailable KARENYAHAIRA ZALDIVAR Attending Unavailable HOUSE, DIONISIO P Referring Unavailable HOUSE, DIONISIO P Primary Care Unavailable KARENYAHAIRA ZALDIVAR Attending Unavailable HOUSE, DIONISIO P Referring Unavailable HOUSE, DIONISIO P Primary Care Unavailable KARENYAHAIRA ZALDIVAR Attending Unavailable HOUSE, DIONISIO P Referring Unavailable HOUSE, DIONISIO P Primary Care Unavailable HOUSE, DIONISIO P Primary Care Unavailable DUKE GALLEGOS Attending Unavailable Barbara Bernal APRN Primary Care Provider Kat Cisneros APRN Attending Provider [phone] Shreie Snowden CMA Attending Provider Unavaila Barbara Umaña APRN Attending Provider Allergies Allergy ClassificationReported Allergen(s)Allergy TypeDate of OnsetReaction(s) Facility (1 source)No Known Medication Allergies; Translations: [No Known Medication Allergies]Propensity to adverse reactions (disorder)[facility] Repository (2 sources)Lisinopril; Translations: [LISINOPRIL]Drug Gyumzpf04-91-2531OxazokbsmMetrohealth [facility] Repository (15 sources)amLODIPine; Translations: [AMLODIPINE]Drug Vlqabvl82-84-2273Sihwuyxa [facility] Work Phone: (14 sources)LisinoprilAllergy to fgoyfonds21-82-0143[facility] Medications Current Medications MedicationDrug Class(es)DatesSig (Normalized)Sig (Original)8 hr acetaminophen 650 mg extended release oral tablet (14 sources)take 1 tablet by mouth every eight hours as needed for pain acetaminophen (Tylenol 8 Hour) 650 MG ER tablet Take 650 mg by mouth every 8 (eight) hours if needed for mild pain Do not crush, chew, or split. Active atorvastatin 20 mg oral tablet (20 sources)HMG-CoA Reductase InhibitorStart: 11-24-2023 End: 60-34-5218dxgmqeubhbfi (Lipitor) 20 MG tablet Take by mouth Daily 11/24/2023 ActiveStart: 25-40-0807flel 1 mg by mouth once dailyLipitor 20 mg Tab mg tab(s), Oral, Daily, Refills(s) 0 Start Date: 04/02/22 Status: Ordered busPIRone hydrochloride 5 mg oral tablet (19 sources)Start: 74-80-1256tcjo 2 tablets by mouth twice dailyBuspirone 5 mg tablet Active 10 MG PO Twice daily February 16, 2024 11:36am Complies with drug therapyStart: 53-59-9219pdkx 1 tablet by mouth in the morningbusPIRone (Buspar) 10 MG tablet Take 10 mg by mouth in the morning and 10 mg in the evening. 12/30/2023 ActiveStart: 11-24-2023 End: 88-27-6597vtgc 1 tablet by mouth twice dailyBuspirone 5 mg tablet Discontinued 5 MG PO Twice daily November 24, 2023 1:00am February 16, 2024 11:36am carvedilol 12.5 mg oral tablet (20 sources)alpha-Adrenergic Kris, beta-Adrenergic BlockerStart: 07-25-2024 take 1 tablet by mouth twice daily at mealtimeCarvedilol 12.5 mg tablet Active 0 .ROUTE .COMPLEX 180 July 25, 2024 9:04am TAKE 1 TABLET BY MOUTH TWICE DAILY MUST ADMINISTER WITH A MEAL/FOOD Complies with drug therapyStart: 11-25-2023 End: 99-33-1524eapz 1 tablet by mouth in the morningcarvedilol (Coreg) 12.5 MG tablet Take 12.5 mg by mouth in the morning and 12.5 mg in the evening. Take with meals. 11/25/2023 ActiveStart: 59-24-7212gqnh 1 mg by mouth twice daily carvedilol 12.5 mg Tab mg tab(s), Oral, BID, Refills(s) 0 Start Date: 04/02/22 Status: Orderedcelecoxib 200 mg oral capsule (1 source)Nonsteroidal Anti-inflammatory DrugStart: 29-72-6988jpsj 1 capsule by mouth once dailyCelecoxib (Celebrex) 200 mg capsule Active 200 MG PO Daily 90 90 April 18, 2025 12:00am Complies with drug therapyciprofloxacin 500 mg oral tablet (2 sources)Quinolone AntimicrobialStart: 07-14-2024 End: 83-14-6583pkrf 1 tablet by mouth in the morningciprofloxacin (Cipro) 500 MG tablet Indications: Urinary Tract Infection Take 1 tablet (500 mg) by mouth in the morning and 1 tablet (500 mg) before bedtime. Do all this for 7 days. 14 tablet 07/14/2024 07/21/2024 Activecitalopram 10 mg oral tablet (16 sources)Serotonin Reuptake InhibitorStart: 87-14-4287hbem 2 tablets by mouth once dailycitalopram (CeleXA) 10 MG tablet Indications: Irritability TAKE 2 TABLETS BY MOUTH DAILY 60 tablet 3 09/05/2024 ActiveclonazePAM 1 mg oral tablet (18 sources)BenzodiazepineStart: 63-63-1850qmvz 1 tablet by mouth twice daily as needed for anxietyclonazePAM (KlonoPIN) 1 MG tablet Take 1 mg by mouth 2 (two) times a day as needed for anxiety 12/30/2023 ActiveStart: 57-93-2783zgcn 1 tablet by mouth three times dailyKlonopin 1 mg Tab mg tab(s), Oral, TID, Refills(s) 0 Start Date: 04/02/22 Status: Orderedfamotidine 20 mg oral tablet (2 sources)Histamine-2 Receptor AntagonistStart: 04-18-2025 End: 24-14-8662bwcc 1 tablet by mouth twice dailyFamotidine 20 mg tablet Active 20 MG PO Twice daily 180 90 April 18, 2025 9:32am Complies with drug therapy fluocinonide 0.0005 mg/mg topical ointment (5 sources)CorticosteroidStart: 94-35-3677dnbvrzqmeuhf (Lidex) 0.05 % ointment Indications: Rash and other nonspecific skin eruption Apply toaffected areas, up to twice a day when flared, do not use one the face, groin, or underarms, 30 daysupply 60 g 3 09/01/2024 Activefluticasone propionate 0.05 mg/actuat metered dose nasal spray (2 sources)CorticosteroidStart: 22-12-3547cnua 1 spray(s) nasal route twice dailyFluticasone Propionate (Flonase Allergy Relief) 50 mcg/actuation spray,suspension Active 1 SPRAY INTRANASAL Twice daily September 26, 2024 1:00am administer into each nostril Complies with drug therapylisinopril 5 mg oral tablet (1 source)Angiotensin Converting Enzyme InhibitorStart: 66-39-2219viez 1 mg by mouth once dailylisinopril 5 mg Tab mg tab(s), Oral, Daily, Refills(s) 0 Start Date: 04/02/22 Status: Vvrvqhd38 hr metFORMIN hydrochloride 500 mg extended release oral tablet (1 source)BiguanideStart: 07-18-2025 End: 46-01-7072yjwo 1 tablet by mouth every twenty-four hours at mealtime metFORMIN XR (Glucophage-XR) 500 MG 24 hr tablet Indications: PCOS (polycystic ovarian syndrome) Take 1 tablet (500 mg) by mouth in the evening. Take with meals Do not crush, chew, or split. 180 tablet 07/18/2025 01/14/2026 Active Multiple Vitamin (multivitamin) tablet (14 sources)take 1 tablet by mouth once dailyMultiple Vitamin (multivitamin) tablet Take 1 tablet by mouth Daily Activenystatin 100 unt/mg topical powder (14 sources)Polyene AntifungalStart: 64-16-0327vloyyrkt (Nyamyc) 554091 UNIT/GM powder Indications: Skin irritation APPLY TO THE AFFECTED AREA(S) TWICE DAILY 45 g 04/04/2024 Activeondansetron 4 mg disintegrating oral tablet (2 sources)Serotonin-3 Receptor AntagonistStart: 77-10-5619robl 1 tablet by mouth every eight hours as needed for nausea and vomitingOndansetron 4 mg tablet,disintegrating Active 4 MG PO Every 8 hours as needed for nausea and vomiting 12 April 10, 2025 12:00am Complies with drug therapyOXcarbazepine 300 mg oral tablet (20 sources)Anti-epileptic AgentStart: 89-65-5272kwmi 1 tablet by mouth twice dailyOxcarbazepine (Trileptal) 300 mg tablet Active 300 MG PO Twice daily June 20, 2024 12:00am Complies with drug therapyStart: 36-44-5596csmr 1 tablet by mouth in the morningOXcarbazepine (Trileptal) 150 MG tablet Take 150 mg by mouth in the morning and 150 mg in the evening. 04/19/2024 Active pregabalin 100 mg oral capsule (1 source)Start: 85-33-7227gltr 1 mg by mouth twice dailyLyrica 100 mg Cap mg cap(s), Oral, BID, Refills(s) 0 Start Date: 04/02/22 Status: Orderedtopiramate 50 mg oral tablet (1 source)Start: 50-50-3356xntg 1 mg by mouth twice dailyTopamax 50 mg Tab mg tab(s), Oral, BID, Refills(s) 0 Start Date: 04/02/22 Status: Orderedtriamcinolone acetonide 1 mg/ml topical cream (4 sources)CorticosteroidStart: 06-20-2024 End: 32-04-7310Tiqckcwzimzhc Acetonide 0.1 % cream Active 1 APPLIC TOPICAL Twice daily 20 07July 25, 2024 9:02am Complies with drug therapyvalsartan 80 mg oral tablet (20 sources)Angiotensin 2 Receptor BlockerStart: 11-24-2023 End: 21-47-3481kirz 1 tablet by mouth once dailyvalsartan (Diovan) 80 MG tablet Take 80 mg by mouth Daily 11/24/2023 Active Completed/Discontinued Medications MedicationDrug Class(es)DatesSig (Normalized)Sig (Original)amoxicillin 875 mg / clavulanate 125 mg oral tablet (2 sources)Penicillin-class AntibacterialStart: 09-26-2024 End: 29-25-9329ctby 1 tablet by mouth twice dailyAmoxicillin-Pot Clavulanate 875-125 mg tablet Discontinued 1 TAB PO Twice daily 20 September 26, 2024 1:00am April 10, 2025 10:46amazithromycin 250 mg oral tablet (2 sources)Macrolide AntimicrobialStart: 02-16-2024 End: 53-06-7494Lpmwzmmqsbog 250 mg tablet Discontinued 250 MG PO daily 02 23February 16, 2024 12:00am February 25, 2024 8:04am Take 2 today and then 1 for the next 4 days.benzonatate 200 mg oral capsule (2 sources)Non-narcotic AntitussiveStart: 02-16-2024 End: 21-65-8460legp 1 capsule by mouth three times daily as needed for cough Benzonatate 200 mg capsule Discontinued 200 MG PO Three times daily as needed for cough 20 07February 16, 2024 12:00am September 26, 2024 9:36ammeloxicam 7.5 mg oral tablet (6 sources)Nonsteroidal Anti-inflammatory DrugStart: 04-12-2024 End: 88-22-0778zkge 1 tablet by mouth once daily as needed for arthritis Meloxicam 7.5 mg tablet Discontinued 7.5 MG PO Daily as needed for arthritis 90 September 12, 2024 9:11am April 10, 2025 10:51ammethylPREDNISolone 4 mg oral tablet (2 sources)CorticosteroidStart: 02-16-2024 End: 26-54-8267uhqy 1 tablet by mouth onceMethylprednisolone (Medrol (Yaron)) 4 mg tablets,dose pack Discontinued 0 PO per package directions 11 03February 16, 2024 12:00am February 25, 2024 8:03am PO PER PKG DIRsertraline 50 mg oral tablet (7 sources)Serotonin Reuptake InhibitorStart: 11-24-2023 End: 23-64-3513ldaq 1 tablet by mouth once dailySertraline 100 mg tablet Discontinued 100 MG PO Daily November 24, 2023 1:00am June 20, 2024 10:09am Start: 11-24-2023 End: 21-02-5286zdkg 1 tablet by mouth once dailySertraline 50 mg tablet Discontinued 50 MG PO Daily November 24, 2023 1:00am June 20, 2024 10:10am Start: 46-73-2989zlvb 1 mg by mouth once dailyZoloft 100 mg Tab mg tab(s), Oral, Daily, Refills(s) 0 Start Date: 04/02/22 Status: Ordered Problems Active Problems Problem ClassificationProblemDateDocumented DateEpisodic/ChronicAcute myocardial infarction (2 sources)Myocardial infarction; Translations: [Non-ST elevation (NSTEMI) myocardial infarction]07-35-9494StvnjcjDrvgpkoq reactions (2 sources)Inflammatory dermatosis; Translations: [Dermatitis, unspecified] 46-10-0333KrghxsclXzufmgp disorders (6 sources)Anxiety; Translations: [Anxiety disorder, unspecified]Onset: 214721-50-2671CkdlsliVomyzzv obstructive pulmonary disease and bronchiectasis (2 sources)Bronchitis; Translations: [Bronchitis, not specified as acute or chronic]65-52-9386HnpwcutbHjgq; stupor; and brain damage (4 sources)Daytime somnolence; Translations: [Somnolence]82-98-6320Igwdonpw Conditions associated with dizziness or vertigo (1 source)Dizziness and giddiness; Translations: [Dizziness and giddiness]Onset: 80-33-4849NmktmxeaGewedozvu of lipid metabolism (3 sources)Hypercholesterolemia; Translations: [Hyperlipidemia]71-09-3367Cgphyui Esophageal disorders (2 sources)Gastroesophageal reflux disease; Translations: [Gastro-esophageal reflux disease without esophagitis]47-61-6629ZgnqmdgWxgdeljgf hypertension (6 sources)Hypertensive disorder; Translations: [Essential (primary) hypertension]Onset: 674084-19-8229BaahlwwQvplgnxenvpkx symptoms and ill- defined conditions (4 sources)Urge incontinence; Translations: [Stress incontinence (female) (male)]Onset: 02-86-8083GuksyfmFkflnziunrebe symptoms and ill-defined conditions (1 source)Increased frequency of koursehtl77-57-7627AmgkrsiqNslroqsq; including migraine (1 source)Dwortxnz13-75-2732YozyowfwHxex disorders (6 sources)Depressive disorder; Translations: [Depression]Onset: 05-08-2017 48-55-6200HvfiswcZwgagc and vomiting (5 sources)Nausea; Translations: [Vomiting]Onset: 366541-26-1958Ritdztzp Noninfectious gastroenteritis (5 sources)Gastroenteritis; Translations: [Noninfective gastroenteritis and colitis, unspecified]80-13-6764YpxcxoyrCmnddlcncprdan (12 sources)Arthritis; Translations: [Unspecified osteoarthritis, unspecified site]Onset: 740364-67-5132IlwhtvvPkqni connective tissue disease (4 sources)Other symptoms and signs involving the musculoskeletal system; Translations: [Other musculoskeletalsymptoms referable to limbs]07-06-2024 EpisodicOther connective tissue disease (2 sources)Fibromyalgia; Translations: [Fibromyalgia]28-63-4610PuorhqdvGmthy connective tissue disease (2 sources)Pain in right foot; Translations: [Pain in right foot]02-25-2024 EpisodicOther connective tissue disease (2 sources)Impingement syndrome of right shoulder region; Translations: [Impingement syndrome of right shoulder]Onset: 456177-59-6935NxjkwvmaJavpx connective tissue disease (2 sources)Disorder of tendon; Translations: [Other specified disorders of tendon, right elbow]Onset: 038985-95-0517ScbnvvgaRrpyc ear and sense organ disorders (1 source)Hearing dgwa80-28-0406GmubkmiFtscm endocrine disorders (1 source)Polycystic ovary syndrome; Translations: [Polycystic ovarian syndrome] 27-61-0237MxhaxbkHovzc endocrine disorders (1 source)Disorder of endocrine system; Translations: [Endocrine disorder, unspecified]85-78-2304EpcynwxnZdqro hematologic conditions (3 sources)ESR raised; Translations: [Elevated erythrocyte sedimentation rate] 75-50-7497RsdnywanBewno hereditary and degenerative nervous system conditions (4 sources)Mild cognitive impairment, so stated; Translations: [MILD COGNTV IMPAIRMNT UNCRTN/UNKNWN]Onset: 10-46-1544RjqkhmzHqwkp lower respiratory disease (1 source)Shortness of breath; Translations: [SHORTNESS OF BREATH]Onset: 92-54-7500DpmlosbjUepmp lower respiratory disease (3 sources)Snoring; Translations: [Snoring]04-17-0179BbvluslyWwdsg lower respiratory disease (3 sources)Apnea; Translations: [Apnea, not elsewhere classified]11-27-2023 EpisodicOther lower respiratory disease (1 source)Apnea, not elsewhere classified; Translations: [Apnea]11-25-2023 EpisodicOther lower respiratory disease (1 source)Snoring; Translations: [Other respiratory abnormalities]11-25-2023 EpisodicOther lower respiratory disease (2 sources)Cough; Translations: [Cough]13-57-6122WlhrmxqyNiill non-traumatic joint disorders (3 sources)Multiple joint pain; Translations: [Pain in unspecified joint] 10-65-1707GnhryhjtTgxop non-traumatic joint disorders (1 source)Pain in unspecified joint; Translations: [Pain in joint, multiple sites]89-15-8626JtcqlddhDhqnr non-traumatic joint disorders (4 sources)Pain in right knee; Translations: [Pain in joint, lower leg] 78-63-3710SwfyprqiDfwjk non-traumatic joint disorders (2 sources)Pain in elbow; Translations: [Pain in right elbow]Onset: 07-17-2025 81-53-2989MwybxhppUxncj non-traumatic joint disorders (2 sources)Pain in right shoulder; Translations: [Pain in joint, shoulder region]Onset: 930531-28-0500UvwnfhugDznvt screening for suspected conditions (not mental disorders or infectious disease) (16 sources)Encounter for screening mammogram for malignant neoplasm of breast; Translations: [Encounter for screening for malignant neoplasm of cervix]Onset: 26-37-6534BrwoqocnUcbeo skin disorders (2 sources)Eruption; Translations: [Rash and other nonspecific skin eruption] 12-67-5188QldtnmdiHvtfv upper respiratory infections (2 sources)Maxillary sinusitis; Translations: [Chronic maxillary sinusitis] 51-40-3201DudfckgMmudqudb codes; unclassified (4 sources)Obstructive sleep apnea (adult) (pediatric); Translations: [OBSTRUCTIVE SLEEP APNEA]Onset: 95-58-2669XckcdahKildhvxd codes; unclassified (3 sources)Sleep apnea; Translations: [Sleep apnea, unspecified]11-27-2023 ChronicResidual codes; unclassified (1 source)Sleep apnea, unspecified; Translations: [Unspecified sleep apnea] 03-61-8089EeoesbvMogkshwd codes; unclassified (1 source)Other hypersomnia; Translations: [Other hypersomnia]Onset: 03-18-2018 ChronicResidual codes; unclassified (3 sources)Forgetful; Translations: [Other general symptoms and signs]11-25-2023 EpisodicResidual codes; unclassified (2 sources)Other general symptoms and signs; Translations: [Other general symptoms]Onset: 276538-62-4523CfwduzgyIehauepz codes; unclassified (1 source)Postmenopausal state; Translations: [Asymptomatic menopausal state] 95-69-0342QchqnniaDavluznhoqk; intervertebral disc disorders; other back problems (2 sources)Degeneration of cervical intervertebral disc; Translations: [Other cervical disc degeneration, unspecified cervical region]Onset: 07-17-2025 78-02-9461SeddyooWevpegghgxj; intervertebral disc disorders; other back problems (1 source)Radiculopathy, lumbosacral region; Translations: [RADICULOPATHY LUMBOSACRAL REGION]Onset: 67-49-7642JqblamnbRrshwznuxloi (3 sources)COUGH, UNSPECIFIED; Translations: [COUGH, UNSPECIFIED]Onset: 04-59-6922Yqnfwzcnhaou (3 sources)CONTACT W/AND (SUSP) EXPOS COVID-19; Translations: [CONTACT W/AND (SUSP) EXPOS COVID-19]Onset: 02-26-2022 Past or Other Problems Problem ClassificationProblemDateDocumented DateEpisodic/ChronicImmunizations and screening for infectious disease (1 source)Encounter for screening for human papillomavirus (HPV); Translations: [ENC SCREENING HUMAN PAPILLOMAVIRUS]Onset: 29-68-2892SkhifkdnLdjvdqlnfgwe (1 source)COUGH, UNSPECIFIED; Translations: [COUGH, UNSPECIFIED]Onset: 96-51-4311Ddrukxulhidh (1 source)CONTACT W/AND (SUSP) EXPOS COVID-19; Translations: [CONTACT W/AND (SUSP) EXPOS COVID-19]Onset: 02-20-2022 Results Test NameValueInterpretationReference RangeFacilityBasophils/100 WBC Manual cnt (Bld)Ordered By: Santy Snowden on 97-59-5556Lkiphcynm/100 WBC (Bld)1.0 %0.2-2.0 [facility] CenterEosinophils/100 WBC Manual cnt (Bld)Ordered By: Santy Snowden on 98-73-6111Behinceurgr/100 WBC (Bld)0.0 %Low0.9-7.0[facility] CenterErythrocyte distribution width Auto (RBC) [Ratio]Ordered By: Santy Snowden on 16-65-8724Rfsqlnbhong distribution width (RBC) [Ratio]13.1 % 11.0-15.0[facility] Medical CenterEstimated glomerular filtration rate (GFR) non- AmericanOrdered By: Santy Snowden on 73-48-3200GAT/1.73 sq M.predicted among non-blacks MDRD (S/P/Bld) [Vol rate/Area]mL/min/{1.73_m2}>=60 mL/min/1.73m 2FCincinnati VA Medical CenterGlobulin Calc (S) [Mass/Vol] Ordered By: Santy Snowden on 55-02-7035Wrbigjll (S) [Mass/Vol]3.3 g/dLMetrohealth Main Campus Medical CenterHematocrit Auto (Bld) [Volume fraction]Ordered By: Santy Snowden on 26-78-4326Zgygwrpnle (Bld) [Volume fraction]46.2 %36.0-48.0[facility] CenterHemoglobin [Mass/volume] in BloodOrdered By: Santy Snowden on 74-02-2151Qfevbevbad (Bld) [Mass/Vol]15.7 g/dL12.0-16.0[facility] CenterLaboratory - Chemistry and Chemistry - challengeOrdered By: Santy Snowden on 25-73-6328Jbihywl [Mass/Vol]3.4 g/dL3.4-5.0[facility] CenterALP [Catalytic activity/Vol]94 U/O50-507BgbpoxffmMetrohealth Main Campus Medical Center ALT [Catalytic activity/Vol]22 U/R02-05SvktshibdMetrohealth Main Campus Medical CenterAST [Catalytic activity/Vol]20 U/Y56-25UdahdjtxwMetrohealth Main Campus Medical CenterBilirubin [Mass/Vol]0.8 mg/dL0.2-1.0[facility] CenterCalcium [Mass/Vol]8.8 mg/dL8.5-10.1FCincinnati VA Medical CenterChloride [Moles/Vol]104 mmol/L 98-107[facility] CenterCO2 [Moles/Vol]27.9 mmol/L21.0-32.0 [facility] CenterCreatinine [Mass/Vol]0.52 mg/dLLow0.55-1.02 [facility] CenterGFR/1.73 sq M.predicted MDRD (S/P/Bld) [Vol rate/Area]mL/min/{1.73_m2}>=60 mL/min/1.73m 2FCincinnati VA Medical Center Glucose [Mass/Vol]105 mg/bN08-006OwxhwamsyMetrohealth Main Campus Medical CenterLipase [Catalytic activity/Vol]16.0 U/L16.0-77.0[facility] Potassium [Moles/Vol]3.9 mmol/L3.5-5.1FCincinnati VA Medical CenterProtein [Mass/Vol]6.7 g/dL6.4-8.2FSt. Mary's Medical Center, Ironton Campusodium [Moles/Vol]141 mmol/N526-258VhyaqqwivMetrohealth Main Campus Medical CenterUrea nitrogen [Mass/Vol]23.0 mg/dL High7.0-18.0[facility] CenterUrea nitrogen/Creatinine [Mass ratio]44.2 mg/mgMetrohealth Main Campus Medical CenterLaboratory - Hematology and Cell countsOrdered By: Santy Snowden on 97-10-6143Oizyujcgibi/100 WBC (Bld)6.0 % Low20.5-60.0[facility] CenterMonocytes/100 WBC (Bld)10.0 % 1.7-12.0[facility] CenterLeukocytes [#/volume] corrected for nucleated erythrocytes in Blood by Automated counOrdered By: Santy Snowden on 40-15-2727IXK corrected for nucl RBC Auto (Bld) [#/Vol]9.4 10 3/uL4.0-11.0 [facility] CampusH Auto (RBC) [Entitic mass]Ordered By: Santy Snowden on 23-71-1978HAL (RBC) [Entitic mass]30.1 pg26.7-34.0[facility] CenterMCHC Auto (RBC) [Mass/Vol]Ordered By: Santy Snowden on 04-10-2025 MCHC (RBC) [Mass/Vol]34.0 g/dL29.9-35.2FCincinnati VA Medical CenterMCV Auto (RBC) [Entitic vol]Ordered By: Santy Snowden on 58-02-1804AEB (RBC) [Entitic vol] 88.5 fL81.0-99.0[facility] CenterNo Panel InformationOrdered By: Santy Snowden on 88-65-1714Wzxmlxqx I High Sensitivity<4.0 pg/mLLow4.0-51.3 [facility] CenterComment on above:CUT-OFF POINTS HAVE BEEN ESTABLISHED BASED ON THE FOURTHUNIVERSAL DEFINITION OF MYOCARDIAL INFARCTION. THE UPPERREFERENCE LIMIT (URL) OF TROPONIN, DEFINED THE 99THPERCENTILE OF cTnI DISTRIBUTION IN A REFERENCE POPULATION,HAS BEEN CONFIRMED THE DECISION THRESHOLD FOR MIDIAGNOSIS.99TH PERCENTILE = 51.4 PG/MLNOTE: HIGH-SENSITIVITY TROPONIN ASSAY IS NOT INTENDED TO BEUSED IN ISOLATION BUT SHOULD BE INTERPRETED IN CONJUNCTIONWITH OTHER DIAGNOSTIC AND CLINICAL INFORMATION.Absolute Basophils (Manual)0.09 10 3/uL0.00-0.10[facility] CenterEosinophils # (Manual)0.00 10 3/uL0.00-0.70[facility] Medical CenterHuman Chorionic Gonadotropin, QualNegativeNEGATIVEMetrohealth Main Campus Medical CenterLymphocytes # (Manual)0.56 10 3/uLLow1.20-3.80[facility] Medical CenterMonocytes # (Manual)0.94 10 3/uLHigh0.30-0.80[facility] North Hospitalegmented Neutrophils # (Manual)7.80 10 3/uLHigh1.4-6.5FCincinnati VA Medical Center Platelet mean volume Auto (Bld) [Entitic vol]Ordered By: Santy Snowden on 56-04-9818Uwitcqwa mean volume (Bld) [Entitic vol]10.3 fL9.5-13.5FCincinnati VA Medical CenterPlatelets Auto (Bld) [#/Vol]Ordered By: Santy Snowden on 82-32-8726Bfkjakuup (Bld) [#/Vol]248 10 3/pE508-940ZvegtatbvMetrohealth Main Campus Medical CenterRBC Auto (Bld) [#/Vol]Ordered By: Santy Snowden on 38-52-3589VLB (Bld) [#/Vol]5.22 10 6/uL4.20-5.40Bethesda North Hospitalegmented neutrophils/100 WBC Manual cnt (Bld)Ordered By: Santy Snowden on 04-10-2025 Segmented neutrophils/100 WBC (Bld)83.0 %High43.0-75.0Bethesda North Hospitalerum or plasma albumin/globulin mass ratioOrdered By: Santy Snowden on 62-43-7491Trrdxix/Globulin [Mass ratio]1.0 {ratio}Bethesda North Hospitalerum or plasma anion gap determinationOrdered By: Santy Snowden on 25-77-0640Olyux gap [Moles/Vol]13.0 mmol/LFSouthwest General Health Center WITH AUTO DIFFERENTIALon 54-06-7226MRQAAIALC ABSOLUTE COUNT (10*3/UL) BY AUTOMATED COUNT0.1 10*3/uLNormal0.0-0.2ProMed[facility] Stanford University Medical CenterComment on above:Performed By: #### CBCA #### [facility]OSPITALKapil [facility] ([address] [place] [address] VIRBASOPHILS RELATIVE PERCENT BY AUTOMATED COUNT0.9 %Normal [facility] HospitalComment on above:Performed By: #### CBCA #### [facility]PITALKapil [facility] ([facility]) [address] [place] [address] VIRCELLAVISION DIFFERENTIAL TYPEAUTOMATED DIFFERENTIALNormal [facility] HospitalComment on above:Performed By: #### CBCA #### [facility]ITALA [facility] ([address] [place] [address] VIREosinophils (Bld) [#/Vol]0.3 10*3/uLNormal0.0-0.4[facility] HospitalComment on above:Performed By: #### CBCA #### [facility] ([address] [place] [address] VIREOSINOPHILS RELATIVE PERCENT BY AUTOMATED COUNT3.9 %Normal [facility] HospitalComment on above:Performed By: #### CBCA #### [facility] ([address] [place] [address] VIRErythrocyte distribution width (RBC) [Ratio]13.5 %Normal 11.5-15ProHeart Hospital Of AustinComment on above:Performed By: #### CBCA #### [address] [address] VIRHematocrit (Bld) [Volume fraction]40.0 %Jxvbmf76-53 [facility] HospitalComment on above:Performed By: #### CBCA #### [facility] ([address] [address] VIRHemoglobin (Bld) [Mass/Vol]13.8 g/xGTxgvez96.7-15.5 [facility] HospitalComment on above:Performed By: #### CBCA #### [facility] ([address] [place] [address] VIRLYMPHOCYTES ABSOLUTE COUNT (10*3/UL) BY AUTOMATED COUNT1.7 10*3/uLNormal1.0-3.5PAultman Alliance Community HospitalComment on above:Performed By: #### CBCA #### [address] [address] VIRLYMPHOCYTES RELATIVE PERCENT BY AUTOMATED COUNT25.6 %Normal [facility] HospitalComment on above:Performed By: #### CBCA #### [facility] ([address] [address] VIRH (RBC) [Entitic mass]30.4 tqSgeqew65-65AjbAecyebHeart Hospital Of AustinComment on above:Performed By: #### CBCA #### [facility] ([address] [place] [address] VIRMCHC (RBC) [Mass/Vol]34.6 g/jYDlxfky71-07LbbQkywqsHeart Hospital Of AustinComment on above:Performed By: #### CBCA #### [facility] ([address] [place] [address] VIRMCV (RBC) [Entitic vol]88 uIEijnxt26-228BnqCsgvky [facility] HospitalComment on above:Performed By: #### CBCA #### [facility] ([address] [place] [address] VIRMONOCYTES ABSOLUTE COUNT (10*3/UL) BY AUTOMATED COUNT0.4 10*3/uLNormal0.0-0.9ProHeart Hospital Of AustinComment on above:Performed By: #### CBCA #### [facility] ([address] [place] [address] VIRMONOCYTES RELATIVE PERCENT BY AUTOMATED COUNT5.5 %Normal [facility] HospitalComment on above:Performed By: #### CBCA #### [facility] ([address] [place] [address] VIRNEUTROPHILS ABSOLUTE COUNT BY AUTOMATED COUNT4.3 10*3/uL Normal1.5-6.6[facility] HospitalComment on above:Performed By: #### CBCA #### [facility] ([address] [place] [address] VIRNEUTROPHILS RELATIVE PERCENT BY AUTOMATED COUNT64.1 %Normal [facility] HospitalComment on above:Performed By: #### CBCA #### [facility] ([address] [place] [address] VIRPlatelet mean volume (Bld) [Entitic vol]8.9 fLNormal7-12 [facility] HospitalComment on above:Performed By: #### CBCA #### [facility] ([address] [place] [address] VIRPlatelets (Bld) [#/Vol]242 10*3/fBKwdcxf594-051NxpDgjnxd [facility] HospitalComment on above:Performed By: #### CBCA #### [facility] ([facility]) [address] [place], [place] [address] [place] [address] VIRRBC COUNT4.55 X10E12/LNormal3.8-5.2PAultman Alliance Community HospitalComment on above:Performed By: #### CBCA #### [facility] ([address] [place] [address] VIRWBC (Bld) [#/Vol]6.8 10*3/uLNormal4-11ProHeart Hospital Of AustinComment on above:Performed By: #### CBCA #### [facility] ([address] [place] [address] VIRCOMPREHENSIVE METABOLIC PANELon 55-44-9696Xzaqlfw [Mass/Vol]4.0 g/dLNormal3.2-5.3PAultman Alliance Community HospitalComment on above: Performed By: #### CMP #### [facility] ([address] [place] [address] VIRALP [Catalytic activity/Vol]75 U/BSxfoon26-557FzmDjwtfmHeart Hospital Of AustinComment on above:Performed By: #### CMP #### [facility] ([address] [place] [address] VIRALT [Catalytic activity/Vol]17 U/LNormal<=31PAultman Alliance Community HospitalComment on above:Performed By: #### CMP #### [facility] ([place] [address] [place] [place] [address] VIRAnion gap [Moles/Vol]7 mmol/LNormal5-15ProHeart Hospital Of AustinComment on above:Performed By: #### CMP #### [facility] ([address] [place] [address] VIRAST [Catalytic activity/Vol]15 U/LNormal<=41ProTrinity Health System HospitalComment on above:Performed By: #### CMP #### [facility] ([address] [place] [address] VIRBilirubin [Mass/Vol]0.6 mg/dLNormal0.3-1.2ProMedHemet Global Medical CenterComment on above:Performed By: #### CMP #### [facility] ([address] [place] [address] VIRCalcium [Mass/Vol]9.1 mg/dLNormal8.5-10.5ProMedHemet Global Medical CenterComment on above:Performed By: #### CMP #### [facility] ([address] [place] [address] VIRChloride [Moles/Vol]106 mmol/HCpierx98-847DuyZmaaddHeart Hospital Of AustinComment on above:Performed By: #### CMP #### [facility] ([address] [place] [place] [address] VIRCO2 [Moles/Vol]28 mmol/LZaykmk78-50JorIifmxfAultman Alliance Community HospitalComment on above:Performed By: #### CMP #### [facility] ([address] [place] [address] VIRCreatinine [Mass/Vol]0.55 mg/dLNormal0.40-1.00ProHeart Hospital Of AustinComment on above:Result Comment: METHOD TRACEABLE TO IDMS STANDARDPerformed By: #### CMP #### [facility] ([address] [place] [address] VIREGFR (CKD-EPI) NON-RACE DEPENDENT>^90Normal>=60ProHeart Hospital Of AustinComment on above:Result Comment: eGFR not reported due to non- numeric value for Creatinine. Reported eGFR is based on the CKD-EPI 2020 equation that does not use a race coefficient.Performed By: #### CMP #### [facility] ([address] [place] [address] VIRGlucose [Mass/Vol]97 mg/iYCpykcz38-39YloKodqajHeart Hospital Of AustinComment on above:Performed By: #### CMP #### [facility] ([address] [place] [address] VIRPotassium [Moles/Vol]4.3 mmol/LNormal3.5-5.0ProHeart Hospital Of AustinComment on above:Performed By: #### CMP #### [facility] ([address] [place] [address] VIRProtein [Mass/Vol]6.5 g/dLNormal6.0-8.0ProHeart Hospital Of AustinComment on above:Performed By: #### CMP #### [address] [place] [address] VIRSodium [Moles/Vol]141 mmol/GCxpqdj412-620BstEfphyy [facility] HospitalComment on above:Performed By: #### CMP #### [address] [place] [address] VIRUrea nitrogen [Mass/Vol]15 mg/dLNormal5-23ProHeart Hospital Of AustinComment on above:Performed By: #### CMP #### [facility] ([address] [place] [address] VIRMAGNESIUMon 59-16-5710Vzatdkmrl [Mass/Vol]1.9 mg/dLNormal 1.8-2.6ProHeart Hospital Of AustinComment on above:Performed By: #### MG #### [facility] ([address] [place] [address] VIRTROP I, HIGH SENSITIVITY 1 HOURon 16-40-2363QVPCYYUK I, HIGH SENSITIVITY<^2Normal<16ProHeart Hospital Of AustinComment on above:Performed By: #### TNIHS1 #### [facility] ([address] [place] [address] VIRTROPONIN I, HIGH SENSITIVITY 0 HOURon 06-44-3318ACGPBBNF I, HIGH SENSITIVITY<^2Normal<16ProHeart Hospital Of AustinComment on above: Performed By: #### TNIHS0 #### [address] [place] [address] VIRXR CHEST 1 VWon 09-61-8428MB CHEST 1 VWXR CHEST 1 VW History: cough Exam/Technique: Single AP view of the chest was obtained Comparison: 10/30/2023 Findings: Cardiomediastinal silhouette is within normal range. Lungs are clear. There is no focal areas of airspace disease, pleural effusion or pneumothorax. IMPRESSION: Unremarkable chest x-ray Finalized by Lacey Ruiz MD on 03/14/2025 2:55 AMNormalProHeart Hospital Of AustinAlanine aminotransferase [Enzymatic activity/volume] in Serum or Plasma Ordered By: Barbara Bernal on 81-95-3022WKI [Catalytic activity/Vol]15 U/L [address] [place], [place] [address]Albumin [Mass/volume] in Serum or Plasma by Bromocresol green (BCG) dye binding methoOrdered By: Barbara Bernal on 92-06-2456Bmznbhc BCG dye [Mass/Vol]4.3 g/dL3.5-5.7FCincinnati VA Medical CenterAlkaline phosphatase [Enzymatic activity/volume] in Serum or PlasmaOrdered By: Barbara Bernal on 90-66-6366YDB [Catalytic activity/Vol]66 U/L34-104 [facility] CenterAnti-Streptolysin O Antibodyon 62-46-4799Phxr- Streptolysin O Dunyglko683.5Uwaqno5.0-200.0The [facility] Physician GroupComment on above:Result Comment: Performed at: - [facility] [address] [id number] Group Work Program Director: Winston Simon PhD, Phone: [phone] PERFORMED BY: [place] [address] PATHOLOGIST WRAPPER LAYER LAKHWINDER ALY M.D.Performed By: #### URIC, CRP, CMP, B12 #### [address] #### ASO #### [facility] ,Aspartate aminotransferase [Enzymatic activity/volume] in Serum or Plasma Ordered By: Barbara Bernal on 24-55-3178EGA [Catalytic activity/Vol]13 U/L 13-39[facility] Medical CenterBilirubin.total [Mass/volume] in Serum or PlasmaOrdered By: Barbara Bernal on 91-81-8318Hgjrtfblg [Mass/Vol]0.5 mg/dL 0.3-1.0[facility] Medical CenterC reactive protein [Mass/volume] in Serum or PlasmaOrdered By: Barbara Bernal on 61-43-5506GGZ [Mass/Vol]1.1 mg/dL0.0-0.5FCincinnati VA Medical CenterC-Reactive Proteinon 12-03-4089A- Reactive Protein1.1 mg/dLHigh0.0-0.5The [facility] Physician GroupComment on above:Performed By: #### URIC, CRP, CMP, B12 #### [facility] [address] [place] [address] [place] #### ASO #### [facility] ,Calcium [Mass/volume] in Serum or PlasmaOrdered By: Barbara Bernal on 17-45-7354Cijebcs [Mass/Vol]9.7 mg/dL8.6-10.3FCincinnati VA Medical Center Carbon dioxide, total [Moles/volume] in Serum or PlasmaOrdered By: Barbara Bernal on 91-76-7632HN0 [Moles/Vol]29.9 mmol/L21.0-31.0[facility] Medical CenterChloride [Moles/volume] in Serum or PlasmaOrdered By: Barbara Bernal on 70-29-6436Auzxnwcr [Moles/Vol]104 mmol/F69-204VvlkclcqxMetrohealth Main Campus Medical CenterComprehensive Metabolic Panelon 51-76-5997Uzhwaor [Mass/Vol]4.3 g/dLNormal3.5-5.7The [facility] Physician GroupComment on above:Performed By: #### URIC, CRP, CMP, B12 #### [address] #### ASO #### [facility] ,Albumin/Globulin [Mass ratio]2.0 {ratio}NormalThe [facility] Comment on above:Performed By: #### URIC, CRP, CMP, B12 #### [facility] [address] [place] [address] [place] #### ASO #### [facility] ,ALP [Catalytic activity/Vol]66 U/JRliubr22-801Wuo [facility] Comment on above:Performed By: #### URIC, CRP, CMP, B12 #### [facility] [address] [place] [address] [place] #### ASO #### [facility] ,ALT [Catalytic activity/Vol]15 U/LNormal7-52The [facility] Comment on above:Performed By: #### URIC, CRP, CMP, B12 #### [facility] [address] [place] [address] [place] #### ASO #### [facility] ,Anion gap [Moles/Vol]8.4 mmol/LNormal6.0-15.0[facility] Comment on above:Performed By: #### URIC, CRP, CMP, B12 #### [address] #### ASO #### [facility] ,AST [Catalytic activity/Vol]13 U/HFcelux95-72Qlg [facility] Comment on above:Performed By: #### URIC, CRP, CMP, B12 #### [address] #### ASO #### [facility] ,Bilirubin [Mass/Vol]0.5 mg/dLNormal0.3-1.0The [facility] Physician GroupComment on above:Performed By: #### URIC, CRP, CMP, B12 #### [facility] [address] [place] [address] #### ASO #### [facility] ,Calcium [Mass/Vol]9.7 mg/dLNormal8.6-10.3The [facility] Physician GroupComment on above:Performed By: #### URIC, CRP, CMP, B12 #### [address] #### ASO #### [facility] ,Chloride [Moles/Vol]104 mmol/BAlgpxx90-493Hws [facility] Physician GroupComment on above:Performed By: #### URIC, CRP, CMP, B12 #### [address] #### ASO #### [facility] ,CO2 [Moles/Vol]29.9 mmol/TXkjkwl14.0-31.0The [facility] Physician GroupComment on above:Performed By: #### URIC, CRP, CMP, B12 #### [facility] [address] [place] [address] [place] #### ASO #### [facility] ,Creatinine [Mass/Vol]0.52 mg/dLLow0.60-1.20The [facility] Physician GroupComment on above:Performed By: #### URIC, CRP, CMP, B12 #### [place] [address] [place] #### ASO #### [facility] ,GFR/1.73 sq M.predicted MDRD (S/P/Bld) [Vol rate/Area]mL/min/{1.73_m2}NormalThe [facility] Physician GroupComment on above:Performed By: #### URIC, CRP, CMP, B12 #### [place] [address] [place] #### ASO #### [facility] ,Globulin (S) [Mass/Vol]2.2 g/dLNormalThe [facility] Physician GroupComment on above:Performed By: #### URIC, CRP, CMP, B12 #### [place] [address] [place] #### ASO #### [facility] ,Glucose [Mass/Vol]78 mg/pYMrxuyc34-260Xll [facility] Physician GroupComment on above:Result Comment: Random Glucose Reference Range is dependent on time and content of last meal. Glucose of more than 200 mg/dL in a nonstressed, ambulatory subject supports the diagnosis of Diabetes Mellitus. ADA recommended reference rangePerformed By: #### URIC, CRP, CMP, B12 #### [place] [address] [place] #### ASO #### [facility] ,Potassium [Moles/Vol]4.3 mmol/LNormal3.5-5.1The [facility] Comment on above:Performed By: #### URIC, CRP, CMP, B12 #### [place] [address] [place] #### ASO #### [facility] ,Protein [Mass/Vol]6.5 g/dLNormal6.4-8.9The [facility] Physician GroupComment on above:Performed By: #### URIC, CRP, CMP, B12 #### [place] [address] [place] #### ASO #### [facility] ,Sodium [Moles/Vol]138 mmol/TDhsdxn764-520Apw [facility] Physician GroupComment on above:Performed By: #### URIC, CRP, CMP, B12 #### [facility] [address] #### ASO #### [facility] ,Urea nitrogen [Mass/Vol]19 mg/dLNormal7-25The [facility] Physician GroupComment on above:Performed By: #### URIC, CRP, CMP, B12 #### [facility] [address] [place] [address] [place] #### ASO #### [facility] ,Creatinine [Mass/volume] in Serum or PlasmaOrdered By: Barbara Bernal on 46-47-4860Ocbixdorvo [Mass/Vol]0.52 mg/dL0.60-1.20[facility] Medical CenterGlobulin Calc (S) [Mass/Vol]Ordered By: Barbara Bernal on 12-23-2023 Globulin (S) [Mass/Vol]2.2 g/dLMetrohealth Main Campus Medical CenterGlucose [Mass/volume] in Serum or PlasmaOrdered By: Barbara Bernal on 12-23-2023 Glucose [Mass/Vol]78 mg/rK74-012NllolxjxcMetrohealth Main Campus Medical CenterComment on above:ADA recommended reference rangeRandom Glucose Reference Range is dependent on time and content of last meal. Glucose of more than 200 mg/dL in a nonstressed, ambulatory subject supports the diagnosisof Diabetes Mellitus.No Panel InformationOrdered By: Barbara Bernal on 05-74-8239Picmftyeu GFR (CKD-EPI)> 60.0 mL/MinMetrohealth Main Campus Medical CenterPharmacy Creatinine Clearance (ChemN/[facility], BeachwoodPotassium [Moles/volume] in Serum or PlasmaOrdered By: Barbara Bernal on 59-13-8305Utaqtylln [Moles/Vol]4.3 mmol/L3.5-5.1FCincinnati VA Medical CenterProtein [Mass/volume] in Serum or PlasmaOrdered By: Barbara Bernal on 12-23-2023 Protein [Mass/Vol]6.5 g/dL6.4-8.9Bet[facility] North Hospitalerum or plasma albumin/globulin mass ratioOrdered By: Barbara Bernal on 12-23-2023 Albumin/Globulin [Mass ratio]2.0 {ratio}[facility] North Hospitalerum or plasma anion gap determinationOrdered By: Barbara Bernal on 12-23-2023 Anion gap [Moles/Vol]8.4 mmol/L6.0-15.0[facility] North Hospitalodium [Moles/volume] in Serum or PlasmaOrdered By: Barbara Bernal on 12-23-2023 Sodium [Moles/Vol]138 mmol/O993-099IoxnasidoMetrohealth Main Campus Medical CenterUrate [Mass/volume] in Serum or PlasmaOrdered By: Barbara Bernal on 12-23-2023 Urate [Mass/Vol]5.6 mg/dL2.3-6.6FCincinnati VA Medical CenterUrea nitrogen [Mass/volume] in Serum or PlasmaOrdered By: Barbara Bernal on 12-23-2023 Urea nitrogen [Mass/Vol]19 mg/dL7-25[facility] Medical CenterUric Acidon 91-85-9384Xylja [Mass/Vol]5.6 mg/dLNormal2.3-6.6The [facility] Comment on above:Performed By: #### URIC, CRP, CMP, B12 #### [facility] [address] [place] [address] #### ASO #### [facility] ,Vitamin B12on 1974Evkiuocbc (Vitamin B12) [Mass/Vol]402 pg/mLNormal 180-914The [facility] Physician GroupComment on above:Result Comment: PERFORMED BY: [place] [address] PATHOLOGIST WRAPPER LAYER LAKHWINDER ALY M.D.Performed By: #### URIC, CRP, CMP, B12 #### [facility] [address] [place] [address] [place] #### ASO #### [facility] ,Vitamin B12 ser/plasOrdered By: Barbara Bernal on 05-12-3698Nvqcziyua (Vitamin B12) [Mass/Vol]402 pg/xO923-065JytsspfbuMetrohealth Main Campus Medical CenterXR hand BI 2Von 69-81-4469DI hand BI 2[facility] [place] [address] XRay Report Signed Patient: Blossom Feliciano MR#: [id number] : 1975 Acct:[id number] Age/Sex: 48 / F ADM Date: 12/23/23 Loc: XDS Room: Type: [facility] Attending Dr: Barbara Bernal APRN, NP-C Copies to: Barbara Bernal APRN, CNP Ordering [...] Eduardo Ponce M.D.12/23/2023 4:17 PM Dictation Location: [place] [address] Transcribed By: RAQUEL 12/23/23 1617 Dictated By: Eduardo Ponce II, MD 12/23/23 1611 Signed By: 12/23/23 1617NoNovant Health [facility] Physician GroupBasophils Auto (Bld) [#/Vol]on 23-42-4414Ovrwnkmlu (Bld) [#/Vol]0.1 10 3/uL0.0-0.1FCincinnati VA Medical CenterBasophils/100 WBC Auto (Bld)on 63-50-1027Odawmzbgc/100 WBC (Bld)0.7 % 0.2-2.0[facility] Medical CenterEosinophils/100 WBC Auto (Bld)on 96-51-2709Qxpxesijyhc/100 WBC (Bld)4.9 %0.9-7.0[facility] Erythrocyte distribution width Auto (RBC) [Ratio]on 14-71-0091Gjsjfqjqmbg distribution width (RBC) [Ratio]13.3 %11.0-15.0[facility] Estimated glomerular filtration rate (GFR) non- Americanon 11-26-2023 GFR/1.73 sq M.predicted among non-blacks MDRD (S/P/Bld) [Vol rate/Area] mL/min/{1.73_m2}>=60[facility] Medical CenterGlobulin Calc (S) [Mass/Vol]on 78-70-0751Ezjtgvkd (S) [Mass/Vol]3.4 g/dLMetrohealth Main Campus Medical CenterHematocrit Auto (Bld) [Volume fraction]on 36-58-5410Ujrjuxcpsr (Bld) [Volume fraction]40.0 %36.0-48.0[facility] Medical CenterHemoglobin [Mass/volume] in Bloodon 80-72-8427Byamptglqt (Bld) [Mass/Vol]13.2 g/dL12.0-16.0 [facility] CenterLaboratory - Chemistry and Chemistry - challengeon 88-49-5864Fahmmtw [Mass/Vol]3.8 g/dL3.4-5.0[facility] CenterALP [Catalytic activity/Vol]76 U/Y52-024BsjywrjuvMetrohealth Main Campus Medical CenterALT [Catalytic activity/Vol]29 U/A09-69TflkejepqMetrohealth Main Campus Medical Center AST [Catalytic activity/Vol]19 U/M41-61UsljlyuikMetrohealth Main Campus Medical Center Bilirubin [Mass/Vol]0.5 mg/dL0.2-1.0[facility] Medical CenterCalcium [Mass/Vol]9.2 mg/dL8.5-10.1FCincinnati VA Medical CenterChloride [Moles/Vol] 102 mmol/Z24-962JdmnexuwaMetrohealth Main Campus Medical CenterCO2 [Moles/Vol]31.5 mmol/L 21.0-32.0[facility] Medical CenterCobalamin (Vitamin B12) [Mass/Vol] 706.0 pg/mL193.0-986.0[facility] Medical CenterCreatinine [Mass/Vol]0.71 mg/dL0.55-1.02[facility] Medical CenterGFR/1.73 sq M.predicted MDRD (S/P/Bld) [Vol rate/Area]mL/min/{1.73_m2}>=60[facility] Glucose [Mass/Vol]72 mg/bY01-133ObrnotijkMetrohealth Main Campus Medical CenterPotassium [Moles/Vol]4.1 mmol/L3.5-5.1FCincinnati VA Medical CenterProtein [Mass/Vol] 7.2 g/dL6.4-8.2FSt. Mary's Medical Center, Ironton Campusodium [Moles/Vol]140 mmol/L 136-145[facility] Medical CenterTSH Qn2.785 m[IU]/L0.358-3.740[facility] Medical CenterUrate [Mass/Vol]6.2 mg/dL2.6-6.0[facility] Medical CenterUrea nitrogen [Mass/Vol]16.0 mg/dL7.0-18.0[facility] Medical CenterUrea nitrogen/Creatinine [Mass ratio]22.5 mg/mgMetrohealth Main Campus Medical CenterLaboratory - Hematology and Cell countson 25-87-8399MII (Bld) [Velocity]28 mm/h<=20[facility] Medical CenterImmature granulocytes/100 WBC (Bld)0.3 %0.0-0.5FCincinnati VA Medical CenterLeukocytes [#/volume] corrected for nucleated erythrocytes in Blood by Automated counon 95-68-7720QKZ corrected for nucl RBC Auto (Bld) [#/Vol]6.8 10 3/uL4.0-11.0[facility] Medical CenterLymphocytes Auto (Bld) [#/Vol]on 92-60-0551Dlvoqpohtah (Bld) [#/Vol]1.9 10 3/uL1.2-3.8[facility] Medical CenterLymphocytes/100 WBC Auto (Bld)on 96-58-0080Ogsqyaskfqb/100 WBC (Bld)28.1 %20.5-60.0[facility] Auto (RBC) [Entitic mass]on 45-15-8407KCH (RBC) [Entitic mass]28.8 pg26.7-34.0[facility] CampusHC Auto (RBC) [Mass/Vol]on 68-13-9552RQLY (RBC) [Mass/Vol]33.0 g/dL29.9-35.2FCincinnati [facility] Medical CenterMCV Auto (RBC) [Entitic vol]on 88-00-7049QMM (RBC) [Entitic vol] 87.3 fL81.0-99.0[facility] CenterMonocytes Auto (Bld) [#/Vol]on 90-09-8945Hultymhhk (Bld) [#/Vol]0.5 10 3/uL0.3-0.8[facility] CenterMonocytes/100 WBC Auto (Bld)on 28-89-9684Ojmoaxuxy/100 WBC (Bld)6.6 % 1.7-12.0[facility] CenterNeutrophils Auto (Bld) [#/Vol]on 77-58-2975Wqjbjhqejng (Bld) [#/Vol]4.0 10 3/uL1.4-6.5FCincinnati VA Medical CenterNeutrophils/100 WBC Auto (Bld)on 83-12-4150Kevchwqixpf/100 WBC (Bld)59.4 % 43.0-75.0[facility] CenterNo Panel Informationon 79-87-772276- Hydroxy Vitamin D Total40.8 ng/mLMetrohealth Main Campus Medical CenterComment on above:<20 ng/mL Vit D -<30 ng/mL Vit D qbgjbafivwja17-347 ng/mL Vit D sufficient>100 ng/mL Potential ToxicityAnti-Streptolysin O Henimrqr651.3 [IU]/mL0.0-200.0[facility] Medical CenterComment on above:Performed at: [address] [id number] Director: Winston Simon PhD, Phone: [phone]-Uuurvutp Protein, Quantitative1.44 mg/dL<=0.50 [facility] CenterEosinophils # (Auto)0.3 10 3/uL0.0-0.7FCincinnati VA Medical CenterImmature Granulocyte # (Auto)0.02 10 3/uL0.00-0.03 [facility] CenterPlatelet mean volume Auto (Bld) [Entitic vol]on 13-13-3070Rccekyfw mean volume (Bld) [Entitic vol]10.5 fL9.5-13.5FCincinnati VA Medical CenterPlatelets Auto (Bld) [#/Vol]on 39-80-3717Ckkgegkbj (Bld) [#/Vol]248 10 3/gK890-035PadhpfmzeMetrohealth Main Campus Medical CenterRBC Auto (Bld) [#/Vol] on 15-20-0473DED (Bld) [#/Vol]4.58 10 6/uL4.20-5.40[facility] North Hospitalerum nuclear antibody titeron 45-26-8061Hiavioo Ab (S) [Titer]Negative. [facility] CenterComment on above:Negative <1:80 Borderline 1:80 Positive >1:80ICAP nomenclature: AC-0For more information about Hep-2 cell patterns useANApatterns.org, the official website for theInternational Consensus on Antinuclear Antibody (RISA)Patterns (ICAP).Performed at: [id number] Director: Winston Simon PhD, Phone: [phone] or plasma albumin/globulin mass ratioon 11-26-2023 Albumin/Globulin [Mass ratio]1.1 {ratio}[facility] North Hospitalerum or plasma anion gap determinationon 37-95-7009Oboch gap [Moles/Vol]10.6 mmol/L [facility] Hospitalerum or plasma cyclic adenosine monophosphate measurement (moles/volume)on 14-29-7592Fzvagpkuo monophosphate.cyclic [Moles/Vol]7 units0-19[facility] Medical CenterComment on above:Negative <20 Weak positive 20 - 39 Moderate positive 40 - 59 Strong positive >59Performed at:[facility] [address]co[address] [id number] Director: Winston Simon PhD, Phone: [phone] or plasma rheumatoid factor measurement (units/volume)on 48-03-4621Kypnnrybex factor Qn10.4 [IU]/mL <14.0[facility] Medical CenterXR CHEST 2 Von 23-18-6410AU CHEST 2 V EXAMINATION: XR CHEST 2 V HISTORY: Cough COMPARISON: XR chest 05/05/2021 FINDINGS: LUNGS: No significant pulmonary parenchymal abnormalities. VASCULATURE: No increased pulmonary vasculature. PLEURA: No pneumothorax, effusion, or pleural thickening. CARDIAC: No cardiomegaly or cardiac silhouette abnormality. MEDIASTINUM: No visible mass or adenopathy. BONES: No fracture or visible bone lesion. OTHER: Negative. IMPRESSION: 1. No acute cardiopulmonary process. Electronically authenticated by: CORNELIO MANCINI Date: 2022-12-10 08:[address] [place] [address] WO CONon 43-32-3421AHE LSPINE WO CONEXAMINATION: [facility] CON HISTORY: Lumbosacral radiculopathy ; chronic lumbar [...] Electronically authenticated by: CORNELIO MANCINI Date: 2022-11-05 10:[address] [place] [address] 31-56-8772UJX6.783 uIU/mLNormal0.358-3.740The [facility] HospitalComment on above:Performed By: #### TSH #### [facility] [address] [place] [address] Dr. Anuel Encinas B12 AND FOLATEon 17-41-9877Wulzezvco (Vitamin B12) [Mass/Vol] 618.0 pg/aYXqxlgk595.0-986.0[facility] HospitalComment on above:Performed By: #### B12FOL #### [facility] [address] [place] [address] Dr. Anuel DoranFOLATE23.40 ng/mLNormal8.60-58.90The [facility] HospitalComment on above:Performed By: #### B12FOL #### [facility] [address] [place] [address] Dr. Anuel DoranMG MAMM SCREEN 3D BIANCA CADon 07-13-0741QW MAMM SCREEN 3D BIANCA CAD Patient: BLOSSOM FELICIANO Exam Date: 06/06/2022 : 1975 Gender:F Ordering : DR ALAN SANTOS . Admission #: [id number] Family : Order #: [id number] CLICK HERE TO VIEW EXAM RADIOLOGY REPORT PROCEDURE: MAMMOGRAM SCREENING 3D BILATERAL CAD COMPARISON: MG MAMM SCREEN BIANCA W CAD, 09/23/2019. INDICATIONS: Screening mammography Calculator Name NCI Breast Cancer Risk Assessment Tool 5 Year Breast Cancer Risk 0.90% Lifetime Breast Cancer Risk 9.20% Personal Breast Cancer No Personal Ovarian Cancer No Treatments None Family Cancers None LOCATION: [facility] BREAST COMPOSITION: Scattered areas fibroglandular density. [...] by: Karlee Soliz MD on 06/06/2022 at 13:45[facility] Samaritan HospitalOG PANEL 2: 30 to 65on 05-29-2022..NormalThe Green Cross HospitalComment on above:Result Comment: Performed at: WBPerformed By: #### [id number] #### [facility] [address] [place] [address] Dr. Anuel Kessler Gdln ACOG Bowyzjo46-83JjpwmfKvbLake County Memorial Hospital - WestComment on above:Performed By: #### [id number] #### [facility] [address] [place] [address] Dr. Anuel DoranDIAGNOSIS:CommentSelect Medical TriHealth Rehabilitation HospitalComascension providence ro[facility] on above: Result Comment: NEGATIVE FOR INTRAEPITHELIAL LESION OR MALIGNANCY. Performed at: WBPerformed By: #### [id number] #### [facility] [address] [place] [address] Dr. Anuel DoranHPKelin AptimaNegativeNormalNegativeWayne HospitalComment on above:Result Comment: This nucleic acid amplification test detects fourteen high-risk HPV types (16,18,31,33,35,39,45,51,52,56,58,59,66,68) without differentiation. Performed at: =GPerformed By: #### [id number] #### [facility] [address] [place] [address] Dr. Anuel DoranMethodology:CommentUniversity Hospitals Beachwood Medical Center on above: Result Comment: This liquid based ThinPrep(R) pap test was screened with the use of an image guided system. Performed at: WBPerformed By: #### [id number] #### [facility] [address] [place] [address] Dr. Anuel DoranNote:CommentUniversity Hospitals Beachwood Medical Center on above:Result Comment: The Pap smear is a screening test designed to aid in the detection of premalignant and malignant conditions of the uterine cervix. It is not a diagnostic procedure and should not be used as the sole means of detecting cervical cancer. Both false-positive and false-negative reports do occur. . Performed at: WBPerformed By: #### [id number] #### [facility] [address] [place] [address] Dr. Anuel DoranPerformed by:CommentUniversity Hospitals Beachwood Medical Center on above: Result Comment: Makenna Baltazar, Lamp Mechanic (ASCP) Performed at: WBPerformed By: #### [id number] #### [facility] [address] [place] [address] Dr. Anuel DoranSpecimen adequacy:CommentUniversity Hospitals Beachwood Medical Center on above:Result Comment: Satisfactory for evaluation. Endocervical and/or squamous metaplastic cells (endocervical component) are present. Performed at: WBPerformed By: #### [id number] #### [facility] [address] [place] [address] Dr. Anuel DoranFormfátima 06-36-4473Gagot [id number]#1.00CD:127[facility] DaytonPhysician Referralon 92-75-9603Cgjltgrpa Referral [id number]#1.00CD:127[facility] DaytonAmbulatory Visit Summaryon 85-38-9464Llfapjllrx Visit Summary BLOSSOM FELICIANO :1975 Visit Date:04/02/2022 Ambulatory Visit Instructions Your Diagnosis Stress incontinence Tests Performed Urnls Dip Stick Auto w/o Microscopy POC 41862 Your Care Team Attending Physician - BARBARA DANIELS PA-C Primary Care Physician - Dionisio Morales DO Referring Physician - Alan SANTOS DO This Is Your Medications List [...] BARBARA DANIELS PA-C [facility] Summary BLOSSOM FELICIANO :1975 Visit Date:04/02/2022 Ambulatory Visit Instructions Your Diagnosis Stress incontinence Tests Performed Urnls Dip Stick Auto w/o Microscopy POC 61383 Your Care Team Attending Physician - BARBARA DANIELS PA-C Primary Care Physician - Dionisio Morales DO Referring Physician - Alan SANTOS DO This Is Your Medications List [...] BARBARA DANIELS PA-C [facility] 36-82-1381Vtvtzly EducationObstetrics and Gynecology Kegel Exercises Kegel exercises can [...] muscles, which are the same muscles you squeezewhen you try to stop the flow of [...] 08/24/2013 Document Revised: 04/27/2019 Document Reviewed: 04/27/2019 [employer] Patient Education ? 2019 [employer].[facility] Patient Letter FTon 28-53-9672Fzglvxk Letter [facility] April 02, 2022 BLOSSOM FELICIANO was evaluated at [facility] 04/02/2022 10:17:37 It is my medical [...] out. Provider Signature: Barbara Daniels PA-C Physician Director Operating Room [facility] [address] [place] [address] NoMercy Health Perrysburg HospitalUrology Office/Clinic Note on 77-94-5232Igxhpyz Office/Clinic NoteChief Complaint referred for stress incontinence HPI Staff Blossom is here today as a new patient [...] will void q2hrs while awake. 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 she understands it will take a while to retrain. if sx persist despite consistent timed voiding then we will consider treatment vs urodynamics eval. Ordered: E&M of New Patient Moderate 45-59 Min 30190 2. Stress incontinence (N39.3: Stress incontinence (female) (male)) had extensive discussion regarding pelvic floor muscle rehab. pt provided written information to review at home and prefers to attempt self-guided exercises. if JOSE R persists we will consider formal PFPT at [facility] or [facility] vs Bulkamid vs sling placement. Ordered: E&M of New Patient Moderate 45-59 Min 30175 Urnls Dip Stick Auto w/o Microscopy POC 28375 f/u 3 mos. pt ok to cancel appt and f/u PRN if the above measures improve her sx sufficiently Total time spent reviewing previous notes/results/external documents, preparing the chart, conducting the encounter with the patient and family, ordering tests/medications, and documenting the encounter was 50 minutes. Follow-up With When Contact Information BARBARA DANIELS PA-C, URL Within 3 months [address] [place] [address] Additional Instructions: Patient Education Kegel Exercises Problem [...] Protein Urine Dipstick: Trace (04/02/22 09:31:00) Specific [place] Urine Dipstick: >=1.030 (04/02/22 09:31:00) Urine Appearance Urine Dipstick: Clear (04/02/22 09:31:00) Urine Color Urine Dipstick: Yellow (04/02/22 09:31:00) Urobilinogen Urine Dipstick: Normal 0.2-1 EU/dl (04/02/22 09:31:00) pH Urine Dipstick: 6 (04/02/22 09:31:00)[facility] DaytonComment on above:Result Comment: Electronically Signed By: BARBARA DANIELS PA-C\cleo\Date and Time Signed: 04/02/2211:56 EDTCovid-19 PCR (CVDTBH)on 02-20-2022 SARS-CoV-2 (COVID-19) RNA ILSA+probe Ql (Unsp spec)Not detectedNormalNOT DETECTED [facility] HospitalComment on above:Result Comment: This test is not yet approved or cleared by the [place] FDA. When there are no FDA-approved or cleared tests available, and other criteria are met, FDA can make tests available under an emergency access mechanism called an Emergency Use Authorization (EUA). The EUA for this test is supported by the Dice Table Person of Health and Human Service's (HHS's) declaration [...] of clinical signs and symptoms consistent with SARS-CoV-2.Performed By: #### CVDTBH #### [facility] [address] [place] [address] Dr. Anuel Doran Vital Signs Date TimeVital SignValuePerforming BxvgelgvrBtxbhhsb66-50-2354 09:55-0400Body mass index (BMI) [Ratio]49.47 kg/m2Melva SIDDIQI Work Phone: Bil[employer] TechnologiesHCA Midwest DivisionMrvbfnapoo83-05-2661 09:55-0400Body gyqwtx983.75 kgMelva SIDDIQI Work Phone: [facility] CenterUfwjzgcfdj26-58-0413 09:55-0400Diastolic blood pvfeleqs06 mm[Hg]Melva SIDDIQI Work Phone: [facility] CenterJhyqpaeoex87-95-2529 09:55-0400Systolic blood kmdhkgux261 mm[Hg]Melva SIDDIQI Work Phone: [facility] Medical CenterLanabaotab53-08-8204 09:03-0400Body pcyrbu980.94 cmBarbara Bernal APRN Work Phone: [facility]07-29-2025 09:03-0400 Body mass index (BMI) [Ratio]48.9 kg/d5BvgjdhvkBarbara Bernal APRN Work Phone: [facility]07-29-2025 09:03-0400 Body trlrhchcotx15.3 [degF]Barbara Dolores CASE FINISHING MACHINE ADJUSTER Work Phone: [phone] [place], [place] 7350507-29-2025 09:03-0400 Body efssyf332.48 kgBarbara Fernandezdinarosalio CASE FINISHING MACHINE ADJUSTER Work Phone: [phone] [place], [place] 7350507-29-2025 09:03-0400 Diastolic blood litftbhn61 mm[Hg]Barbara Dolores CASE FINISHING MACHINE ADJUSTER Work Phone: [phone] [place], [place] 7350507-29-2025 09:03-0400 Heart rate81 /minBarbara Dolores CASE FINISHING MACHINE ADJUSTER Work Phone: [phone] [place], [place] 7350507-29-2025 09:03-0400 SaO2% (BldA) [Mass fraction]98 %Barbara Dolores CASE FINISHING MACHINE ADJUSTER Work Phone: 1([phone] [place], [place] 7350507-29-2025 09:03-0400 Systolic blood ixwwwnbm410 mm[Hg]Barbara Dolores CASE FINISHING MACHINE ADJUSTER Work Phone: 1([phone] [place], [place] 7350507-21-2025 10:47-0400 Body .94 cmBarbara Fernandezpatricia CASE FINISHING MACHINE ADJUSTER Work Phone: [phone] [place], [place] 7350507-21-2025 10:47-0400 Body mass index (BMI) [Ratio]46.9 kg/v0Kfnlqjrk Dolores CASE FINISHING MACHINE ADJUSTER Work Phone: 1([phone] [place], [place] 7350507-21-2025 10:47-0400 Body pbpritinfrq43.2 [degF]Barbara Fernandezpatricia CASE FINISHING MACHINE ADJUSTER Work Phone: 1([phone] [place], [place] 7350507-21-2025 10:47-0400 Body hsoyav120.74 kgBarbara Fernandezdinacassshola CASE FINISHING MACHINE ADJUSTER Work Phone: 1([phone] [place], [place] 7350507-21-2025 10:47-0400 Diastolic blood izjxjssn88 mm[Hg]Barbara Dolores CASE FINISHING MACHINE ADJUSTER Work Phone: 1([phone] [place], [place] 7350507-21-2025 10:47-0400 Heart rate86 /minBarbara Rohrbacher CASE FINISHING MACHINE ADJUSTER Work Phone: [phone] [place], [place] 7350507-21-2025 10:47-0400 Respiratory rate16 /minYoungcliffordamy Rohrbacher CASE FINISHING MACHINE ADJUSTER Work Phone: [phone] [place], [place] 7350507-21-2025 10:47-0400 SaO2% (BldA) [Mass fraction]98 %Barbara Fernandezrbacher CASE FINISHING MACHINE ADJUSTER Work Phone: [phone] [place], [place] 7350507-21-2025 10:47-0400 Systolic blood hbszdilo636 mm[Hg]Barbara Fernandezrbacher CASE FINISHING MACHINE ADJUSTER Work Phone: 1([phone] [place], [place] 7350503-06-2024 08:22-0500 Body xtqebu379.94 cmAPRElena Fernandezrbacher Work Phone: 1([phone] [place], [place] 7350503-06-2024 08:22-0500 Body mass index (BMI) [Ratio]46.6 kg/m2APRElena Barbarakavitha Fernandezrbacher Work Phone: 1([phone] [place], [place] 7350503-06-2024 08:22-0500 Body .03 kgAPRElena Barbara Jimrbacher Work Phone: [phone] [place], [place] 7350503-06-2024 08:22-0500 Diastolic blood mm[Hg]CASE FINISHING MACHINE ADJUSTERElena Fernandezrbacher Work Phone: 1([phone] [place], [place] 7350503-06-2024 08:22-0500 Heart rate75 /minAPRElena Fernandezrbacher Work Phone: [phone] [place], [place] 7350503-06-2024 08:22-0500 SaO2% (BldA) [Mass fraction]98 %SILVINO Fernandezrbacher Work Phone: 1([phone] [place], [place] 7350503-06-2024 08:22-0500 Systolic blood umklgbke265 mm[Hg]CASE FINISHING MACHINE ADJUSTER Barbara Rohrbacher Work Phone: [facility]07-13-2022 09:39-0400 Blood Pressure LocationJENNIFER JEREMIAH [facility] 07-13-2022 09:39-0400Diastolic blood pbvluphe78 mm[Hg] BARBARA DANIELS [facility] 07-13-2022 09:39-0400Heart rate84 /minJENNIFER JEREMIAH [facility] 07-13-2022 09:39-0400Respiratory rate16 /minJENNIFER JEREMIAH [facility] 07-13-2022 09:39-0400Systolic blood gttyeroj724 mm[Hg] BARBARA DANIELS [facility] Encounters Encounter DateEncounter TypeCare ProviderFacilityStart: 07-18-2025 End: 05-89-7322Yolfwa flowsheetMelva SIDDIQI Work Phone: noMS Hernandezue OBGYNStart: 07-18-2025 End: 57-08-9262Ajbivm flowsheetMelva SIDDIQI Work Phone: noms Yenifer OBGYNStart: 07-18-2025 End: 21-13-1371Nrckolt encounter procedureMelva SIDDIQI Work Phone: [facility] Work Phone: Start: 07-18-2025 End: 11-99-6603Hzjjvnya preventive med est patient 40-64yrsAmy Deangelo SIDDIQI Work Phone: [phone] [place] OBGYNComment on above:Well woman exam with routine gynecological exam; Breast cancer screening by mammogram; Postmenopausal state; Hormone disorder; PCOS (polycystic ovarian syndrome)Start: 07-03-2025 End: 74-50-4030Lkydthryp encounterSammaviviana Michael PTNOMS Portillo Physical TherapyComment on above:Cx / RS PT Eval neededStart: 04-18-2025 End: 08-83-3241gejdwmuvrtFdlwsgboRizwana Bernal APRN Work Phone: [facility] Work Phone: Start: 04-18-2025 End: 83-80-2791Xexmqvs encounter procedureBarbara Bernal APRN OUTSIDE PLANT FIELD ENGINEER-[facility] Work Phone: Start: 99-30-3638Rfk-patient / Non-visitCatherine Sp [facility] Work Phone: Start: 04-10-2025 End: 16-81-1265ufudjhvsxiQjxjnrqoRizwana Bernal APRN Work Phone: [facility] Work Phone: Start: 04-10-2025 End: 85-26-9578Sgtboig encounter procedureKat Arce CASE FINISHING MACHINE ADJUSTER-[facility] Work Phone: Start: 03-14-2025 End: 79-23-8833Icvulpfvr department patient visitCHARLES P HOUSEProTrinity Health System HospitalStart: 12-13-2024 End: 12-78-7716fehpfhrozkECWS J TRAVISMount St. Mary Hospitaltart: 09-01-2024 End: 28-14-1566Cwczca outpatient new 45 minutesNatalie Kapil Fofana CASE FINISHING MACHINE ADJUSTER-OUTSIDE PLANT FIELD ENGINEER Work Phone: noms SWS DERMComment on above:Rash and other nonspecific skin eruptionStart: 09-01-2024 End: 70-17-5086vmpczusmkpJMAUNOE A FELTERNot AvailableStart: 09-01-2024 End: 48-35-5170Zzpgor flowsheetNatalie A Felter CASE FINISHING MACHINE ADJUSTER-OUTSIDE PLANT FIELD ENGINEER Work Phone: noms [facility] DERMStart: 09-01-2024 End: 32-09-1124Lgjgiw flowsheetNatalie A Felter CASE FINISHING MACHINE ADJUSTER-OUTSIDE PLANT FIELD ENGINEER Work Phone: noms [facility] DERMStart: 07-20-2024 End: 12-97-0810ntljlgahheNQUE J TRAVISProMedica Blanch HospitalStart: 07-15-2024 End: 70-59-6469Iepmkj flowsheetMarshall Brink PTANOMS CI PTStart: 07-15-2024 End: 10-61-1828Szujmx flowsheetMarshall Brink PTANOMS CI PTStart: 07-15-2024 End: 38-29-1429yskommbqzbAlqhdxyb Brink PTANOMS CI PTComment on above:Unilateral primary osteoarthritis, right knee (Primary Dx); Chronic pain of right knee; Right leg weaknessStart: 07-13-2024 End: 97-25-9766Wwnuxu flowsheetSammantha Michael PTNOMS CI PTStart: 07-13-2024 End: 83-21-3960Vmeoqi flowsheetSammantha Michael PTNOMS CI PTStart: 07-13-2024 End: 15-02-6286hncuqedrepYxbvcfyxe Michael PTNOMS CI PTComment on above: Unilateral primary osteoarthritis, right knee (Primary Dx); Chronic pain of right knee; Right leg weaknessStart: 07-08-2024 End: 92-53-8760Ximpvd flowsheetSammantha Michael PTNOMS CI PTStart: 07-08-2024 End: 45-84-9469Wdjlqb flowsheetSammantha Michael PTNOMS CI PTStart: 07-08-2024 End: 30-94-0579kqztykwctrHhnmglvcx Michael PTNOMS CI PTComment on above: Unilateral primary osteoarthritis, right knee (Primary Dx); Chronic pain of right knee; Right leg weaknessStart: 07-06-2024 End: 25-44-7324zzifafbllaWJBNNOKCR SCHNEIDERNot AvailableStart: 07-06-2024 End: 22-40-2258kwbxlkiankJcygoaxfg Michael PTNOMS CI PTComment on above: Unilateral primary osteoarthritis, right knee (Primary Dx); Chronic pain of right knee; Right leg weaknessStart: 07-06-2024 End: 85-98-9197Osjtji flowsheetScarolynntnoemi Michael PTNOMS CI PTStart: 07-06-2024 End: 79-97-2807Ynnnjk flowsheetSfady Michael PTNOMS CI PTStart: 06-01-2024 End: 15-24-9872igcfgpiewnIXLI J [facility] HospitalStart: 04-25-2024 End: 47-12-6014dsiyyipkgqTKOLQ FAZIONot AvailableStart: 04-19-2024 End: 61-31-3738icxiiuuqboONBS J [facility] HospitalStart: 03-28-2024 End: 95-36-2233ldexpfpwowETTEGXFN BRINKNot AvailableStart: 03-23-2024 End: 12-39-1803rqxoftpsvwJTWSBF T BLACKSTONNot AvailableStart: 03-22-2024 End: 14-90-9147xvzcbawcjtJJLRBY T BLACKSTONNot AvailableStart: 46-11-7341Ufyyzgk encounter statusBarbara Bernal APRN Work Phone: [facility] Hospitaltart: 01-12-2024 End: 38-25-2864oixamkgzwuGBFHIYB LAWRENCENot AvailableStart: 01-08-2024 End: 65-91-9293uiytkhrgupUEZMQRO KELBLEYNot AvailableStart: 12-24-2023 End: 56-04-1665kdwrfgdjflKONOQDK KELBLEYNot AvailableStart: 12-23-2023 End: 89-25-1884omdopmmimoWbthcx HaladayFacility:[facility] Hospitaltart: 12-23-2023 End: 47-87-1624yhzneymckwFMVI Jennifer Rohrbacher Work Phone: [facility] Work Phone: Start: 12-23-2023 End: 35-29-8209Aeiiomd encounter procedureSILVINO Bernal Work Phone: [facility] CtrStart: 12-22-2023 End: 84-29-9805sttinmjchxGYAEAH TATTERSALLNot AvailableStart: 12-10-2023 End: 80-36-6976wboikxflrlZPSLOTV KELBLEYNot AvailableStart: 12-07-2023 End: 20-01-6847nyvbobxledZXAADQJ KELBLEYNot AvailableStart: 12-01-2023 End: 08-62-5025ujrjjmqufuNIFBEV Indio PALOMONot AvailableStart: 60-90-2457Hyz- patient / Non-visitAPRElena Bernal Work Phone: [facility] Work Phone: Start: 11-25-2023 End: 78-43-1256Jsfrjiu encounter procedureAPRN Barbara Bernal Work Phone: [facility] Work Phone: Start: 12-10-2022 End: 22-53-9733kpwpfvuhxiQC DIONISIO HOUSEFacility:C8Euwef: 11-05-2022 End: 53-86-5801iydmkntdxyJWBUPQ MORRISFacility:V9Rhzrm: 89-63-2155opbofdhtucMP DOCTOR MISCFacility:E1Aasiy: 09-02-2022 End: 90-67-0300rxcgjpzfplEPTOV CALLISONFacility:P8Rxcmy: 08-05-2022 End: 52-24-0570cttcbbmzxfZDJHW CALLISONFacility:A0Rukii: 61-83-2195bnpsftjrbi BARBARA E PERRYFacility:EU BellevueStart: 06-06-2022 End: 55-40-6670uwhqlfsnnzQP ALAN DANIELLE .Facility:J0Lnbqy: 05-21-2022 End: 63-59-2119arxmttanacIA ALAN DANIELLE .Facility:S4Uqwuy: 04-02-2022 End: 51-28-9016cepodmlcmpNGWIXVAS E PERRYFacility:EU BellevueStart: 04-02-2022 End: 70-10-7016Cjrnlxb encounter procedureJENNIFER E JEREMIAH [facility] Yenifer start: 54-85-1988rwlqsmgxxhKKVNHYXE PERRYFacility:EU BellevueStart: 77-92-0395hnugjhwjyhMZWABFNY PERRYFacility:FM MilanStart: 02-20-2022 End: 40-02-0606sblkcvrvhuCS DIONISIO HOUSEFacility:H1 Procedures DateProcedureProcedure DetailPerforming ClinicianStart: 43-82-3254Zbwpr X-ray of bilateral handsAPRN Barbara Bernal Work Phone: CholecystectomyJENNIFER JEREMIAH Plan of Treatment DateCare ActivityDetailAuthorStart: 07-26-2025 End: 60-47-6570Qjudptw encounter /05/2025 9:30 AM EST Office Visit NOMIvana SIBLEY [address] [place] [id number] Elizabeth Franco, BRISKET PULLER [address] [place] [place] [address] DARLENE HOUSERGYNStart: 07-18-2025 End: 40-17-9964L-peptideC-peptide Lab Routine Hormone disorder Expected: 07/18/2025 (Approximate), Expires: 07/18/2026NOMS HealthcareComment on above: Expected: 07/18/2025 (Approximate), Expires: 07/18/2026Start: 07-18-2025 End: 40-64-1151Uztfnvhk freeCortisol, free Lab Routine Hormone disorder Expected: 07/18/2025 (Approximate), Expires: 07/18/2026NOMS HealthcareComment on above:Expected: 07/18/2025 (Approximate), Expires: 07/18/2026Start: 07-18-2025 End: 86-29-5053XTK Skeletal system Views for bone densityDEXA bone density Imaging Routine Postmenopausal state Expected: 07/18/2025 (Approximate), Expires:07/18/2026NOHI HealthcareComment on above:Expected: 07/18/2025 (Approximate), Expires: 07/18/2026Start: 07-18-2025 End: 91-67-9354Vnhiyli [Mass/volume] in Serum or PlasmaGlucose, random Lab Routine Hormone disorder Expected: 07/18/2025 (Approximate), Expires: 07/18/2026 [facility] HealthcareComment on above:Expected: 07/18/2025 (Approximate), Expires: 07/18/2026Start: 07-18-2025 End: 82-54-5961Xtxwuki, totalInsulin, total Lab Routine Hormone disorder Expected: 07/18/2025 (Approximate), Expires: 07/18/2026[facility] HealthcareComment on above:Expected: 07/18/2025 (Approximate), Expires: 07/18/2026Start: 07-18-2025 End: 28-79-1824UE Breast - bilateral ScreeningBilateral screening mammogram Imaging Routine Breast cancer screening by mammogram Expected: 07/18/2025, Expires: 09/17/2026[facility] Work Phone: comment on above:Expected: 07/18/2025, Expires: 09/17/2026Start: 07-18-2025 End: 44-04-1856Hyxueghjb serumSerotonin serum Lab Routine Hormone disorder Expected: 07/18/2025 (Approximate), Expires: 07/18/2026[facility] HealthcareComment on above:Expected: 07/18/2025 (Approximate), Expires: 07/18/2026Start: 07-18-2025 End: 80-94-4787WymrecxnspkplAlvztbollpryd Lab Routine Hormone disorder Expected: 07/18/2025 (Approximate), Expires: 07/18/2026[facility] HealthcareComment on above: Expected: 07/18/2025 (Approximate), Expires: 07/18/2026Start: 07-18-2025 End: 78-00-9673Txrrlcahanczg AntibodyThyroglobulin Antibody Lab Routine Hormone disorder Expected: 07/18/2025 (Approximate), Expires: 07/18/2026[facility] Comment on above:Expected: 07/18/2025 (Approximate), Expires: 07/18/2026Start: 07-18-2025 End: 84-81-6216Zbhflhslujh [Units/volume] in Serum or PlasmaNOHCA Midwest Division Comment on above:Ordered: 07/18/2025Expected: 07/18/2025 (Approximate), Expires: 07/18/2026Start: 07-18-2025 End: 34-72-0751Maxocno encounter procedureNOMS Yenifer OBGYNComment on above: ArrivedStart: 07-11-2025 End: 06-40-4048ytmnephtyf87/21/2025 12:30 PM EDT Evaluation [facility] [address] [place] [address] Nori Michael PTNOMS [facility] Physical TherapyStart: 10-06-2024 End: 15-38-4090Hacdpop encounter rxntjwusq72/16/2025 2:05 PM EST Office Visit [facility] [address] [place] [phone] Gilma Fofana, CASE FINISHING MACHINE ADJUSTER-OUTSIDE PLANT FIELD ENGINEER [address] [place] [address] [facility] SWS DERMStart: 09-01-2024 End: 41-79-9677Ndhovtj encounter lfvpposzy77/12/2024 2:40 PM EST Office Visit [facility] [address] [place] [phone] Gilma Fofana, CASE FINISHING MACHINE ADJUSTER-OUTSIDE PLANT FIELD ENGINEER [address] [place] [address] Tammy SWS DERMComment on above: ArrivedStart: 07-29-2024 End: 53-43-7134xrrekmqpin26/08/2024 8:00 AM EST Treatment [facility] [address] [place] [address] Kari Bush, LICENSED EMBALMER [facility] CI PTStart: 07-27-2024 End: 64-47-9057zjecjfmsal46/06/2024 8:00 AM EST Treatment [facility] [address] [facility] [address] [place] [address] Kari Bush, LICENSED EMBALMER [facility] CI PTStart: 07-25-2024 End: 97-93-7722ewmxkzdhjy09/04/2024 8:00 AM EST Treatment [facility] [address] [facility] [address] [place] [address] John Reynoso, LICENSED EMBALMER [facility] CI PTStart: 07-22-2024 End: 99-09-7788pfeawclalr52/01/2024 9:00 AM EDT Treatment [facility] [address] [facility] [address] [place] [address] Nori Michael PTNOMS CI PTStart: 07-20-2024 End: 28-36-9353voqnjjtbct89/30/2024 8:00 AM EDT Treatment [facility] [address] [facility] [address] [place] [address] Kari Bush, LICENSED EMBALMER [facility] CI PTStart: 07-18-2024 End: 78-12-6062xlcfnrbisl06/28/2024 9:30 AM EDT Treatment [facility] [address] [facility] [address] [place] [address] Nori Michael, PTNOMS CI PTStart: 07-15-2024 End: 63-14-8556mwjzohdgheJDGM CI PTComment on above:Unilateral primary osteoarthritis, right knee (Primary Dx); Chronic pain of right knee; Right leg weaknessStart: 07-13-2024 End: 56-73-5328dfbonkkigpKPLU CI PTComment on above:ArrivedStart: 07-11-2024 End: 34-32-8545qvdpsnafas62/21/2024 8:00 AM EDT Treatment [facility] [address] [facility] [address] [place] [address] John Reynoso, LICENSED EMBALMER [facility] CI PTStart: 07-08-2024 End: 55-64-4170cskeuzvkbtCHNF CI PTComment on above:ArrivedStart: 07-06-2024 End: 34-09-5193iqxcsbtmpl66/16/2024 4:30 PM EDT Evaluation [facility] [address] [place] [address] Nori Michael, PT ArrivedNOMS CI PTComment on above:ArrivedStart: 55-19-1529MqpgzcgnfMetrohealth Main Campus Medical CenterDHEA-sulfateDHEA-sulfate Lab Routine Hormone disorder Ordered: 07/18/2025HI HealthcareComment on above:Ordered: 07/18/2025EstradiolEstradiol Lab Routine Hormone disorder Ordered: 07/18/2025[facility] HealthcareComment on above: Ordered: 07/18/2025EstroneEstrone Lab Routine Hormone disorder Ordered: 07/18/2025[facility] HealthcareComment on above:Ordered: 07/18/2025Ferritin [Mass/volume] in Serum or PlasmaFerritin Lab Routine Hormone disorder Ordered: 07/18/2025[facility] HealthcareComment on above:Ordered: 07/18/2025Hemoglobin A1c/Hemoglobin.total in BloodHemoglobin A1c Lab Routine Hormone disorder Ordered: 07/18/2025[facility] HealthcareComment on above:Ordered: 07/18/2025 ProgesteroneProgesterone Lab Routine Hormone disorder Ordered: 07/18/2025[facility] HealthcareComment on above:Ordered: 07/18/2025Sex hormone binding globulinSex hormone binding globulin Lab Routine Hormone disorder Ordered: 07/18/2025[facility] HealthcareComment on above:Ordered: 07/18/2025T3, reverseT3, reverse Lab Routine Hormone disorder Ordered: 07/18/2025[facility] HealthcareComment on above:Ordered: 07/18/2025TESTOSTERONE, FREETESTOSTERONE, FREE Lab Routine Hormone disorder Ordered: 07/18/2025[facility] HealthcareComment on above:Ordered: 07/18/2025 Testosterone, free, totalTestosterone, free, total Lab Routine Hormone disorder Ordered: 07/18/2025[facility] HealthcareComment on above:Ordered: 07/18/2025THIN PREP TIS PAP AND HR HPV DNATHIN PREP TIS PAP AND HR HPV DNA Pathology and Cytology Routine Well woman exam with routine gynecological exam Ordered: 07/18/2025[facility] HealthcareComment on above:Ordered: 07/18/2025Thyroid peroxidase antibodyThyroid peroxidase antibody Lab Routine Hormone disorder Ordered: 07/18/2025[facility] HealthcareComment on above:Ordered: 07/18/2025Thyroxine (T4) free [Mass/volume] in Serum or PlasmaT4, free Lab Routine Hormone disorder Ordered: 07/18/2025[facility] HealthcareComment on above:Ordered: 07/18/2025Triiodothyronine (T3) Free [Mass/volume] in Serum or PlasmaT3, free Lab Routine Hormone disorder Ordered: 07/18/2025[facility] HealthcareComment on above:Ordered: 07/18/2025Vitamin D 1,25 dihydroxyVitamin D 1,25 dihydroxy Lab Routine Hormone disorder Ordered: 07/18/2025[facility] CenterComment on above:Ordered: 07/18/2025[facility] Payers DatePayer CategoryPayerPolicy [id number] Health InsuranceUNITED HEALTHCARE [id number] Health [id number] ..840.1.927030.3.57[id number] 840.1.254584.3.57[id number] 2.840.1.146728.3.57[id number] 2.840.1.053587.3.57[id number] 2.840.1.545860.3.57[id number] 2.0.1.539565.3.579.[id number] 2.0.1.190644.3.57[id number] 2.0.1.114032.3.579.[id number] 2.0.1.113940.3.579.[id number] 2..1.271035.3.579.2.93513-24-7567Ujqlkpy2573154 2.0.1.036478.3.579.2.26082-13-9937Dxlhlte5086295 2.0.1.169172.3.579.2.53400-76-1102Uxrxzaw9569711 2.840.1.250164.3.579.2.575148-07-8045Apuxljh9695678 2.840.1.125604.3.579.2.785759-19-8418Bkgavaf3459747 2.840.1.023322.3.579.2.962445-42-9016Obzpfid6375765 2.840.1.125750.3.579.[id number] 2.840.1.599048.3.579.[id number] 2.0.1.821137.3.579.2.459287-03-6602Udaebgh9134682 2.840.1.391809.3.579.2.099783-81-5810Gichhgm0042104 2.840.1.604336.3.579.2.886911-70-1773Babvyec5181937 2.0.1.625088.3.579.2.983278-97-1125Uwtxknb6183380 2.0.1.330311.3.579.2.755456-39-5542Sfpdpbv0926914 2.0.1.031675.3.579.2.124288-36-2922Zaggpfe0660716 2.0.1.190933.3.579.2.137210-60-5471Gmacjei5394414 2..1.860264.3.579.2.565616-82-8233Dtnscsv3957915 2..1.617551.3.579.2.[id number] 2.0.1.266300.3.579.2.427892-99-1588Fllkyvk6911959 2.0.1.188439.3.579.2.167951-35-6444Kokakvo8187972 2.0.1.211775.3.579.2.185965-14-6703Pjsmkoz697664796 2.840.1.727410.3.579.2.367782-33-1648Qulbcia859630083 2.840.1.952494.3.579.2.005223-12-6613Aryrtvv97606601 2..0.1.945338.3.579.2.395775-96-9391Wbeqkbg45333979 2..840.1.670662.3.579.2.008347-59-8484Aujueof96479902 2.0.1.217188.3.579.2.398641-61-7210Oybkblm Health [id number] 57-38-2182Frbc-[id number] 2.840.1.115704.3.579.2.531 Social History DateTypeDetailFacilityTobacco smoking statusNo Smoking Status EnteredExecutive Urology [facility] start: 88-96-4109Vpa Assigned At [facility]Ex[facility] start: 11-25-2023 End: 62-23-1243Zxnjduu smoking status NHISNever smoked tobacco (finding) [facility]: 42-45-7143Wkk Assigned At [facility] DublinTobacco smoking status NHISTobacco smoking consumption unknownNOMS HealthcareStart: 24-35-6066Mmp assigned at birthNot on fileNOMS HealthcareStart: 78-41-1697Afyebcv use and exposureSmokeless tobacco non-userNOMS HealthcareStart: 15-10-7755Xgofknz of Social functionNOMS HealthcareSexFemale (finding)[facility]tart: 12-03-2022 SexFemalB[facility] Functional Status HtkmUbsdlbnevsQyxhsbZndlzbii94-35-6267Kmrclcxolj StatusN/AExecutive Urology [facility] Clinical Notes 04-02-2022 to 07-18-2025 Note Date & HbffZypeAgpjxdjy61-53-4252 History of Present illness Narrative* NEERU Del Angel - 07/18/2025 10:00 AM EDT Reason for Appointment: Patient ID: Blossom Feliciano is a 49 y.o. female who [...] (multivitamin) tablet 1 tablet, Daily nystatin (Nyamyc) 183845 UNIT/GM powder APPLY TO THE AFFECTED AREA(S) [...] CARPAL TUNNEL RELEASE Right SECTION, LOW TRANSVERSE 1996 GALLBLADDER KNEE ARTHROPLASTY Right 2022 REVIEW OF [...] nursing note reviewed. Exam conducted with a hand cutter present. Vitals: Estimated body mass index is 49.47 kg/m as calculated from the following: Height as [...] of: NEERU Del Angel documented in this encounterUniversity Health Lakewood Medical CenterWbvzmrkvoy21-41-8826 Telephone encounter Note* Telephone Encounter - Karon Mcleroy - 07/03/2025 11:25 AM EDT She called noting she awoke this morning to a severe migraine and tried to see if it would get better; still severe. She requested to rs; got her in for PT Eval 07/11/25. [facility] CenterBgxmqdpwhd38-15-8884 Miscellaneous Notes* Telephone Encounter - Karon Mcelroy - 07/03/2025 11:25 AM EDT She called noting she awoke this morning to a severe migraine and tried to see if it would get better; still severe. She requested to rs; got her in for PT Eval 07/11/25. documented in this [facility]07-21-2025 Evaluation note* Diagnosis Onset Date Resolution Status Admit Date Gastroenteritis acuteJuly 2024 10:34amArthritis of knee, rightacuteJuly 2024 9:02am GastroenteritisacuteJuly 2024 9:02amGERD (gastroesophageal reflux disease) acuteJuly 2024 9:02am [facility] Work Phone: [phone]) 272-664412-12-2024 History of Present illness Narrative* SUKHDEV Gillis - 09/01/2024 2:40 PM EST Dry Skin Location: Bilateral arms Duration: Few months Modifying Factors: seems to break out in creases of arms Associated Factors: itchy Moisturizer use: Doesn't use moisturizers Current treatment: TAC in the past- helped with itching, didn't clear rash up New patient, referred by Barbara Bernal APRN, BRISKET PULLER-C All pertinent medical history, medications, and allergies were reviewed. General Exam: alert, oriented to person, place, and time, normal affect, well appearing Unaccompanied A focused exam completed based on patient reported problems, see below: 1. Rash and other nonspecific skin eruption Left Antecubital Fossa, Right Antecubital Fossa [place] patches and plaques Consider Atopic dermatitis and Granuloma Annulare in differential. Start Fluocinonide ointment using twice daily when flared, hold when clear. Recommended Soap and Moisturizer handout given. Follow up in 4-6 weeks Related Medications fluocinonide (Lidex) 0.05 % ointment Apply to affected areas, up to twice a day when flared, do not use one the face, groin, or underarms, 30 day supply Next Visit: 6 weeks documented in this encounterUniversity Health Lakewood Medical CenterCkzwmjkpgs00-07-8647 History of Present illness Narrative* Nori Michael, PT - 07/13/2024 8:30 AM EDT Physical Therapy Treatment Visit Patient Name: Blossom Feliciano Today's Date: 07/13/2024 Encounter Diagnoses Name Primary? Unilateral primary osteoarthritis, right knee Yes Chronic pain of right knee Right leg weakness Visit number: 3 Timed Code Treatment Minutes: 27 minutes Total Treatment Time: 42 minutes Time In: 0830 Time Out: 0920 History: Pt states she has been having pain in right knee for about a year. Had surgery in [place] year for torn meniscus and OA. Pt states she was doing well initially. Was doing therapy and then had to stop. Sx's started to get worse after stopping PT. Now states she cannot even bend right knee. 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 Precautions: [place] Subjective: Pt states right knee and both hips are all hurting today. States she did fall at home the other day which likely did not help. States she had to cancel appointment Thursday because she could not walk due to pain. Pain: 03/30 Objective: PT Evaluation (07/06/2024) KNEE AROM: 11 to 88 degrees in supine PROM: 7 to 85 degrees with self stretch Joint play: decrease tibial femoral mobility MMT: right hip ER 3+ to 4-/5, right quad 4-/5, right HS 4/5 Special Test: no significant laxity with ligament testing; pain noted with Ninoska testing. Pain with patellar grind testing Functional: Five Time Sit to Stand: 18.88 seconds with arms across chest. TUG without device: 12.08seconds and 10.96 seconds Treatment: Education: HEP education with demonstration, Educated on Eval Findings and POC Manual Therapy: Passive ROM, Joint mobilization, Soft Tissue Mobilization, Myofascial Release, Muscle Energy Technique, Neural Mobilization, Myofascial Cupping, Dry Needling, IASTM, and Scar mobilization as needed. Therapeutic Exercise: (27 minutes) Strength, Endurance, Flexibility, ROM, HEP, Neural Mobilization,Power, and Core Stability as needed. Added supine exercises this date due to pt c/o pain. Therapeutic Activity: Exercises to improve dynamic activities, functional tasks, functional mobility to return to prior activity level as needed. Neuromuscular re-education: Balance Training, Muscle Facilitation, Dynamic Stability, Core Stabilization, and Blood Flow Restriction Training (BFRT) as needed. Modalities: Heat, Ice, Electrical Stimulation, Ultrasound, Cervical Mechanical Traction, Lumbar Mechanical Traction, Iontophoresis, and Fluidotherapy as needed. IFC/HP applied at end of session for pain x 15 minutes Assessment: Pt has completed 3 PT sessions for right knee pain. Right knee flexion limited to 67 degrees this date with self stretch. Pt ambulating with moderate antalgic gait pattern with limited right knee flexion during swing phase of gait. Held step ups this date due to pain. Will continue to progress as pt tolerates. Outcome Measure: Lower Extremity Functional Scale (LEFS): Rehab Diagnosis: right knee pain, right hip and knee weakness, difficulty walking Short Term Goal: To be met in 2 weeks Goal 1: Pt to be instructed in home exercise program. Mcfp Goals: To be met in 10 weeks Goal 1: Pt to report independence and compliance with home program. Goal 2: Pt to achieve 120 degrees right knee flexion to assist with functional tasks such as squatting. Goal 3: Pt to achieve 4+ to 5/5 strength right knee flexion and extension to assist with functionalmobility and ADL's. Goal 4: Pt to be lacking no greater than 1 degree right knee extension to assist with proper gait. 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 Goal 6: Pt to score no less than 50/80 on LEFS indicating improved QOL. Pt will benefit from skilled PT for 2x/week from 07/06/2024 to 09/14/2024 to address the above impairments. I hereby deem this POC medically necessary. Please sign below. Date: documented in this encounterUniversity Health Lakewood Medical [id number] History of Present illness Narrative* Nori Michael PT - 07/08/2024 8:30 AM EDT Physical Therapy Treatment Visit Patient Name: Blossom Feliciano Today's Date: 07/08/2024 Encounter Diagnoses Name Primary? Unilateral primary osteoarthritis, right knee Yes Chronic pain of right knee Right leg weakness Visit number: 2 Timed Code Treatment Minutes: 39 minutes Total Treatment Time: 54 minutes Time In: 829 Time Out: 928 History: Pt states she has been having pain in right knee for about a year. Had surgery in [place] year for torn meniscus and OA. Pt states she was doing well initially. Was doing therapy and then had to stop. Sx's started to get worse after stopping PT. Now states she cannot even bend right knee. 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 Precautions: [place] Subjective: Pt with no complaints following last session. States pain today rates 3/10 in right knee. Pain: 3/10 Objective: PT Evaluation (07/06/2024) KNEE AROM: 11 to 88 degrees in supine PROM: 7 to 85 degrees with self stretch Joint play: decrease tibial femoral mobility MMT: right hip ER 3+ to 4-/5, right quad 4-/5, right HS 4/5 Special Test: no significant laxity with ligament testing; pain noted with Ninoska testing. Pain with patellar grind testing Functional: Five Time Sit to Stand: 18.88 seconds with arms across chest. TUG without device: 12.08seconds and 10.96 seconds Treatment: Education: HEP education with demonstration, Educated on Eval Findings and POC Manual Therapy: Passive ROM, Joint mobilization, Soft Tissue Mobilization, Myofascial Release, Muscle Energy Technique, Neural Mobilization, Myofascial Cupping, Dry Needling, IASTM, and Scar mobilization as needed. Therapeutic Exercise: (39 minutes) Strength, Endurance, Flexibility, ROM, HEP, Neural Mobilization,Power, and Core Stability as needed. Progressed exercises this date with good/fair herrera. Therapeutic Activity: Exercises to improve dynamic activities, functional tasks, functional mobility to return to prior activity level as needed. Neuromuscular re-education: Balance Training, Muscle Facilitation, Dynamic Stability, Core Stabilization, and Blood Flow Restriction Training (BFRT) as needed. Modalities: Heat, Ice, Electrical Stimulation, Ultrasound, Cervical Mechanical Traction, Lumbar Mechanical Traction, Iontophoresis, and Fluidotherapy as needed. IFC/HP applied at end of session for pain x 15 minutes Assessment: Pt has completed 2 PT sessions for right knee pain. Limited step ups to 4in due to pt complaints of medial knee pain during exercise. Pt requires min UE assist to ascend 4in step with right LE. Will continue to progress as pt tolerates. Outcome Measure: Lower Extremity Functional Scale (LEFS): Rehab Diagnosis: right knee pain, right hip and knee weakness, difficulty walking Short Term Goal: To be met in 2 weeks Goal 1: Pt to be instructed in home exercise program. Mcfp Goals: To be met in 10 weeks Goal 1: Pt to report independence and compliance with home program. Goal 2: Pt to achieve 120 degrees right knee flexion to assist with functional tasks such as squatting. Goal 3: Pt to achieve 4+ to 5/5 strength right knee flexion and extension to assist with functionalmobility and ADL's. Goal 4: Pt to be lacking no greater than 1 degree right knee extension to assist with proper gait. 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 Goal 6: Pt to score no less than 50/80 on LEFS indicating improved QOL. Pt will benefit from skilled PT for 2x/week from 07/06/2024 to 09/14/2024 to address the above impairments. I hereby deem this POC medically necessary. Please sign below. Date: documented in this encounterUniversity Health Lakewood Medical [id number] History of Present illness Narrative* Nori Michael, PT - 07/06/2024 4:30 PM EDT Physical Therapy Evaluation Visit Patient Name: Blossom Feliciano Today's Date: 07/06/2024 Encounter Diagnoses Name Primary? Unilateral primary osteoarthritis, right knee Yes Chronic pain of right knee Right leg weakness Visit number: 1 Timed Code Treatment Minutes: 35 minutes Total Treatment Time: 50 minutes Time In: 1630 Time Out: 1720 History: Pt states she has been having pain in right knee for about a year. Had surgery in August[place] year for torn meniscus and OA. Pt states she was doing well initially. Was doing therapy and then had to stop. Sx's started to get worse after stopping PT. Now states she cannot even bend right knee. 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 Precautions: [place] Subjective: right knee Pain: 10 Objective: PT Evaluation (07/06/2024) KNEE AROM: 11 to 88 degrees in supine PROM: 7 to 85 degrees with self stretch Joint play: decrease tibial femoral mobility MMT: right hip ER 3+ to 4-/5, right quad 4-/5, right HS 4/5 Special Test: no significant laxity with ligament testing; pain noted with Ninoska testing. Pain with patellar grind testing Functional: Five Time Sit to Stand: 18.88 seconds with arms across chest. TUG without device: 12.08seconds and 10.96 seconds Treatment: Education: HEP education with demonstration, Educated on Eval Findings and POC Manual Therapy: Passive ROM, Joint mobilization, Soft Tissue Mobilization, Myofascial Release, Muscle Energy Technique, Neural Mobilization, Myofascial Cupping, Dry Needling, IASTM, and Scar mobilization as needed. Therapeutic Exercise: (12 minutes) Strength, Endurance, Flexibility, ROM, HEP, Neural Mobilization,Power, and Core Stability as needed. Pt performed and instructed in home program this date; writteninstructions and pictures issued with good pt understanding. Therapeutic Activity: Exercises to improve dynamic activities, functional tasks, functional mobility to return to prior activity level as needed. Neuromuscular re-education: Balance Training, Muscle Facilitation, Dynamic Stability, Core Stabilization, and Blood Flow Restriction Training (BFRT) as needed. Modalities: Heat, Ice, Electrical Stimulation, Ultrasound, Cervical Mechanical Traction, Lumbar Mechanical Traction, Iontophoresis, and Fluidotherapy as needed. IFC/HP applied at end of session for pain x 15 minutes Assessment: Pt is 48 y/o female with complaints of chronic right knee pain and weakness. Pt presents with mild to moderate antalgic gait pattern. Lacks terminal knee extensions during gait and limitsstance time due to pain. Pt will benefit from PT to address deficits. Outcome Measure: Lower Extremity Functional Scale (LEFS): Rehab Diagnosis: right knee pain, right hip and knee weakness, difficulty walking Short Term Goal: To be met in 2 weeks Goal 1: Pt to be instructed in home exercise program. 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 Goal 2: Pt to achieve 120 degrees right knee flexion to assist with functional tasks such as squatting. Goal 3: Pt to achieve 4+ to 5/5 strength right knee flexion and extension to assist with functionalmobility and ADL's. Goal 4: Pt to be lacking no greater than 1 degree right knee extension to assist with proper gait. 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 Goal 6: Pt to score no less than 50/80 on LEFS indicating improved QOL. Pt will benefit from skilled PT for 2x/week from 07/06/2024 to 09/14/2024 to address the above impairments. I hereby deem this POC medically necessary. Please sign below. Date: documented in this encounterUniversity [facility] [id number] Hospital Discharge instructions Patient Education 04/02/2022 11:55:43 Kegel Exercises [...] muscles, which are the same muscles you squeezewhen you try to stop the flow of urine or keep from passing gas. The exercises can be done while sitting, standing, or lying down, but it is best to vary your position. Exercises How to do Kegel exercises: 1.Squeeze your pelvic floor muscles tight. You should feel a tight lift in your rectal area. If youare a female, you should also feel a [...] 08/24/2013 Document Revised: 04/27/2019 Document Reviewed: 04/27/2019 [employer] Patient Education 2020 [email or web address]. Follow Up Care 03/13/2022 16:11:08 With:BARBARA DANIELS PA-C, URL Address: [address] [place] [address] When:3 months [facility] evaluation + Plan note Future Appointments Appointment Date:07/02/2022 09:00:00 AM Scheduled Provider:BARBARA DANIELS PA-C Location:[facility] Appointment Type:URO Office Visit [facility] evaluation note* Diagnosis Onset Date Resolution Status Anxiety acuteArthritisacuteDaytime somnolenceacuteDepressionacuteEpisode of apneaacute ForgetfulnessacuteHypertensionacuteLoud snoringacuteMultiple joint painacute Screening for colon canceracuteSleep apnea in [facility]Ohio [facility] Work Phone: Evaluation note* Diagnosis Unilateral primary osteoarthritis, right knee- Primary Chronic pain of right knee Right leg weakness Muscle weakness (generalized) [facility] Diagnosis Unilateral primary osteoarthritis, right knee- Primary Chronic pain of right knee Right leg weakness Muscle weakness (generalized) [facility] Diagnosis Unilateral primary osteoarthritis, right knee- Primary Chronic pain of right knee Right leg weakness Muscle weakness (generalized) [facility]* Diagnosis Rash and other nonspecific skin eruption [facility]* Diagnosis Onset Date Resolution Status Admit Date Gastroenteritis acuteJuly 2024 10:34am [facility] Work Phone: Evaluation note* Diagnosis Well woman exam with routine gynecological exam Routine gynecological examination Breast cancer screening by mammogram Postmenopausal state Asymptomatic postmenopausal status (age-related) (natural) Hormone disorder Unspecified endocrine disorder PCOS (polycystic ovarian syndrome) Polycystic ovaries documented in this encounter [facility] Narrative No data available for this section [facility] progress note No data available for this section [facility] reason for referral (narrative)No reason for referral information availablePeoples [facility] Work Phone: Reason for visit Narrative* Rehabilitation - Outpatient (Routine) - AuthorizedSpecialtyDiagnoses / ProceduresReferred By ContactReferred To ContactPhysical Therapy Diagnoses Unilateral primary osteoarthritis, right knee Procedures [place] PHYSICAL THERAPY EVALUATION LOW COMPLEX 20 MINS Scout Manriquez W, CASE FINISHING MACHINE ADJUSTER-OUTSIDE PLANT FIELD ENGINEER [address] [facility] [address] [place] [address] [facility] PT [address] [facility] [address] [place] [address] Phone: tel: fax: Referral IDStatusReasonStart DateExpiration DateVisits RequestedVisits [id number] [facility] Healthcare Summary Purpose Family History Relationship Condition Age at Onset Recorded Date/T audrey father Heart disease Unknown History of strokeUnknownDeceasedUnknownNot SpecifiedHeart diseaseUnknown FibromyalgiaUnknown Relationship Condition Age at Onset Recorded Date/T audrey father Heart disease Unknown History of strokeUnknownDeceasedUnknownmotherHeart diseaseUnknownFibromyalgia Unknown Advance Directives Advance Directive Response Recorded Date/ Time Advance Directives No November 23 24 10:06am Chief Complaint and Reason for Visit Chief Complaint Establish M25.50 R68.89 I10 hand painReason for VisitAnxiety Arthritis Daytime somnolence Depression Episode of apnea Forgetfulness Hypertension Loud snoring Multiple joint pain Screening for colon cancer Sleep apnea in adult Chief Complaint Admit Date Headache, nausea/vomiting, loose stool J 2024 10:34am Reason for Visit Admit Date Gastroenteritis April 10, 2025 10:3 4am Chief Complaint Admit Date Headache, nausea/vomiting, loose stool J 2024 10:34am Amb Documentation April 12, 2025 10:4 0am F/[facility] April 18, 2025 9:02am Reason for Visit Admit Date Gastroenteritis April 10, 2025 10:3 4am Arthritis of knee, right April 18, 2025 9:02am Gastroenteritis April 18, 2025 9:02 am GERD (gastroesophageal reflux disease) J 2024 9:02am Additional Source Comments Care Team (unrecognized sect ion and content) Team Status: Active Member Role Status Dates Barbara Bernal APRN [facility] Primary Care Provider Active Team Status: Inactive Member Role Status Dates Barbara Bernal APRN [employer]-C Primary Care Provider, Attending Provider Active Start: November 25, 2023 End: November 25, 2023 Team Status: Active Member Role Status Dates Barbara Bernal APRN [employer]-C Primary Care Provider, Attending Provider Active Start: November 26, 2023 Team Status: Inactive Member Role Status Dates Barbara Bernal APRN [employer]-C Primary Care Provider, Attending Provider Active Start: December 23, 2023 End: December 22Debbie Mckeon ProviderActiveStart: December 23, 2023 End: December 23, 2023Team MemberRelationshipSpecialtyStart DateEnd Date Barbara Bernal NP [facility] [place] [address] [facility]01/12/24Team MemberRelationshipSpecialtyStart DateEnd Date Barbara Bernal NP [address] [place] [address] PCP - GeneralFamily Medicine01/12/24Team MemberRelationshipSpecialtyStart DateEnd Date Barbara Bernal NP [address] [facility] [place] [address] PCP - GeneralFamily Medicine01/12/24Team MemberRelationshipSpecialtyStart DateEnd Date Barbara Bernal NP [address] [facility] [place] [address] PCP - GeneralFamily Medicine01/12/24Team MemberRelationshipSpecialtyStart DateEnd Date Barbara Bernal NP [address] [facility] [place] [address] PCP - GeneralFamily Medicine01/12/24Team MemberRelationshipSpecialtyStart DateEnd Date Barbara Bernal NP [address] [facility] [place] [address] PCP - GeneralFamily Medicine01/12/24Team MemberRelationshipSpecialtyStart DateEnd Date Barbara Bernal NP [address] [facility] [place] [address] PCP - GeneralFamily Medicine01/12/24Team MemberRelationshipSpecialtyStart DateEnd Date Barbara Bernal NP [address] [facility] [place] [address] PCP - GeneralFamily Medicine01/12/24Team MemberRelationshipSpecialtyStart DateEnd Date Barbara Bernal NP [address] [place] [address] [facility] - [facility] Medicine01/12/24 Team Status: Inactive Member Role Status Dates Barbara Bernal APRN [employer]-C Primary Care Provider Active Start: April 10, 2025 End: April 10Damian Lal ProviderActiveStart: April 10, 2025 End: April 10, 2025 Team Status: Active Member Role Status Dates Barbara Bernal APRN [employer]-C Primary Care Provider Active Start: April 12, 2025 Keila Blue ProviderActiveStart: April 12, 2025 Team Status: Inactive Member Role Status Dates Barbara Bernal APRN [employer]-C Primary Care Provider Active Start: April 18, 2025 End: April 18, 2025Barbara Bernal APRN BRISKET PULLER-CAttending ProviderActive Start: April 18, 2025 End: April 18, 2025Team MemberRelationshipSpecialtyStart DateEnd Date Barbara Bernal NP [address] [place] [address] PCP - [facility] Medicine01/12/24 INFORMATION SOURCE (unrecogn ized section and content) DATE CREATED AUTHOR 06/30/2022 [facility] DATE CREATED AUTHOR AUTHOR'S ORGANIZ ATION 12/14/2022 [facility] DATE CREATED AUTHOR AUTHOR'S ORGANIZ ATION 01/03/2024 [facility] DATE CREATED AUTHOR AUTHOR'S ORGANIZ ATION 09/04/2024 [facility] DATE CREATED AUTHOR AUTHOR'S ORGANIZ ATION 03/15/2025 [facility] Goals (unrecognized section and content) Goals may be documented in a n alternate section Reason for Visit (unrecogniz ed section and content) ReasonCommentsDry skinSpecialtyDiagnoses / ProceduresReferred By ContactReferred To ContactDermatology Diagnoses dermatitis Procedures office visit Barbara Bernal NP [address] [facility] [place] [address] Phone: tel: fax: Agnieszka Cerrato MD [address] [place] [address] Phone: tel: fax: Referral IDStatusReasonStart DateExpiration DateVisits RequestedVisits [id number] DateCommentsCx / RS PT Eval boexyx4907/03/2025ReasonCommentsSouth[facility] Visit FOR RECORDS PERTAINING TO PATIENTS WHO ARE [...] BE BASED ON THE PRIMARY CLINICAL RECORDS. [facility]. provides no warranty or guarantee of the accuracy or completeness of information in this document.
[2025-07-21 13:08] LABS: Age Gdln ACOG Testing Note (.); IGP, Aptima HPV, rfx 16/18,45 Note (.)
== END 2025-07-18 14:55 | disposition home or self-care (01) ==
LOC: LAB 14:54
PROVIDERS: PCP Nurse Practitioner Family; Visit Provider Physician Assistant
DX: Z01.419 Encounter for gynecological examination (general) (routine) without abnormal findings (principal)
CPT/HCPCS: 87624; 88175